=== PATIENT | female | born 1940 | race Caucasian/White ===

== ENCOUNTER 2020-04-23 06:58 | Inpatient (IN) | payer MEDICARE ==
[2020-04-23] MEDS ORDERED: IPRATROPIUM-ALBUTEROL 3 ML NEB INHALATION STA (07:22)
[2020-04-23] MEDS ORDERED: hydrALAZINE HCL 20 MG/ML 1 ML VIAL IVP STA (07:38)
[2020-04-23 07:45] LABS: VBG PH 7.39 (7.31-7.41)
[2020-04-23 07:46] LABS: Anisocytosis Slight; Basophils % (A) 1 %; Eosinophils # (A) 0.2 k/uL (0-0.7); Eosinophils % (A) 3 %; HGB 13.1 gm/dL (11.4-16.0); Hypochromasia Moderate; Lymphocytes # (A) 2.1 k/uL (1.0-4.8); Lymphocytes % (A) 28 %; MCH 27.8 pg (25.0-35.0); MCHC 32.1 g/dL (31.0-37.0); MCV 86.6 fL (80.0-100.0); Mean Platelet Volume 7.4; Monocytes # (A) 0.5 k/uL (0-1.0); Monocytes % (A) 6 %; Neutrophils # (A) 4.4 k/uL (1.3-7.7); Neutrophils % (A) 60 %; Platelet Count 206 k/uL (150-450); RBC 4.73 m/uL (3.80-5.40); RDW 16.4 % (11.5-15.5); WBC 7.4 k/uL (3.8-10.6)
[2020-04-23 07:49] LABS: Albumin 3.7 g/dL (3.5-5.0); Calcium 8.8 mg/dL (8.4-10.2); Magnesium 2.1 mg/dL (1.6-2.3); Potassium 4.3 mmol/L (3.5-5.1); Total Bilirubin 0.6 mg/dL (0.2-1.3); Total Protein 6.9 g/dL (6.3-8.2)
[2020-04-23 07:59] LABS: INR 0.9 (<1.2); Partial Thromboplastin Time 23.3 sec (22.0-30.0); Prothrombin Time 9.9 sec (9.0-12.0)
--- NOTE | 2020-04-23 08:03 | XR ---
EXAMINATION TYPE: XR chest 2V DATE OF EXAM: 04/23/2020 HISTORY: difficulty breathing. REFERENCE: NONE. FINDINGS: The heart is enlarged. There is mild vascular congestion and subtle interstitial change. Th ere is blunting of both CP angles and I cannot exclude small effusions. IMPRESSION: FINDINGS CONSISTENT WITH MILD HEART FAILURE.
--- NOTE | 2020-04-23 08:10 | ED ---
SOB HPI - General Source: patient, RN notes reviewed Mode of arrival: ambulatory Limitations: no limitations <Paresh Anand - Last Filed: 04/23/20 08:24> <Edilberto Ro - Last Filed: 04/23/20 08:36> - General Chief Complaint: Shortness of Breath Stated Complaint: LACHELLE Time Seen by Provider: 04/23/20 07:10 - History of Present Illness Initial Comments: This is a 79-year-old female presents emergency Department chief complaint of shortness of breath. Patient does have some chronic breathing issues including COPD, CHF. Patient is oxygen dependent and states that she recently moved from [place] states that she has not had any oxygen or medications for last 4 days. Patient states that she was intubated in September for her COPD. Patient states that she has no current chest pain she felt that she had a low-grade temp. Denies any nausea vomiting diarrhea constipation. Patient has a history of present illness. Patient states she has a cough which is nonproductive this time. Patient states that she's been wheezing. Patient denies any headache or dizziness. (Paresh Anand) - Related Data Allergies Allergy/AdvReac Type Severity Reaction Status Date / Time No Known Allergies Allergy Verified 04/23/20 08:33 Review of Systems ROS Other: All systems not noted in ROS Statement are negative. <Paresh Anand - Last Filed: 04/23/20 08:24> ROS Other: All systems not noted in ROS Statement are negative. <Edilberto Ro - Last Filed: 04/23/20 08:36> ROS Statement: Those systems with pertinent positive or pertinent negative responses have been documented in the HPI. Past Medical History Past Medical History: Asthma, Chest Pain / Angina, Heart Failure, COPD, Hyperlipidemia, Hypertension, Thyroid Disorder History of Any Multi-Drug Resistant Organisms: None Reported Past Surgical History: Hernia Repair Past Psychological History: No Psychological Hx Reported Smoking Status: Former smoker Past Alcohol Use History: None Reported Past Drug Use History: None Reported <Paresh Anand - Last Filed: 04/23/20 08:24> General Exam Limitations: no limitations General appearance: alert, in no apparent distress, obese Head exam: Present: atraumatic, normocephalic, normal inspection Eye exam: Present: normal appearance, PERRL, EOMI. Absent: scleral icterus, conjunctival injection, periorbital swelling ENT exam: Present: normal exam, normal oropharynx, mucous membranes moist Neck exam: Present: normal inspection, full ROM. Absent: tenderness, meningismus, lymphadenopathy Respiratory exam: Present: respiratory distress (Mild/moderate), wheezes, decreased breath sounds. Absent: normal lung sounds bilaterally, rales, rhonchi, stridor Cardiovascular Exam: Present: regular rate, normal rhythm, normal heart sounds. Absent: systolic murmur, diastolic murmur, rubs, gallop, clicks GI/Abdominal exam: Present: soft, normal bowel sounds. Absent: distended, ten derness, guarding, rebound, rigid Extremities exam: Present: pedal edema Skin exam: Present: warm, dry, intact, normal color, rash <Paresh Anand - Last Filed: 04/23/20 08:24> Course <Edilberto Ro - Last Filed: 04/23/20 08:36> Vital Signs 04/23/20 04/23/20 04/23/20 07:04 07:07 07:22 Temperature 98.2 F Pulse Rate 83 Respiratory 26 H 22 22 Rate Blood Pressure 205/104 O2 Sat by Pulse 89 L Oximetry 04/23/20 04/23/20 04/23/20 07:31 07:41 07:50 Temperature Pulse Rate 78 78 72 Respiratory Rate Blood Pressure O2 Sat by Pulse Oximetry 04/23/20 08:07 Temperature Pulse Rate 72 Respiratory 18 Rate Blood Pressure 137/63 O2 Sat by Pulse 96 Oximetry - Reevaluation(s) Reevaluation #1: 04/23/20 08:18 PA supervision: I proceeded [id number] evaluation the patient. She did present with complaints of shortness of breath. His been going on for 3-4 days. She just moved up from [place] in the past week after living down there for 13 ye ars. Her medications a nebulizer were apparently packed away in a storage unit and she has no access to them. She denied any overt fevers chills sweats or chest pain just shortness breath exertional dyspnea. The presentation is consistent with a COPD exacerbation with some evidence of CHF. X-ray does show evidence of mild heart failure as well as elevation the BNP. I examined the patient did demonstrate dyspnea and wheezes and rales on my exam. She will be admitted, the case discussed with [facility]. (Edilberto Ro) Reevaluation #2: 04/23/20 08:36 I did discuss case with Dr. Valle (Edilberto Ro) Medical Decision Making - Lab Data Result diagrams: 04/23/20 07:20 04/23/20 07:20 - EKG Data -: EKG Interpreted by Me <Paresh Anand - Last Filed: 04/23/20 08:24> - Lab Data Result diagrams: 04/23/20 07:20 04/23/20 07:20 <Edilberto Ro - Last Filed: 04/23/20 08:36> - Medical Decision Making 79-year-old female presented for dyspnea. Patient had labs EKG chest x-ray. Patient has COPD exacerbation with mild CHF exacerbation. Patient was given region, steroids, Lasix. Blood pressures improved after hydralazine. Patient will be admitted for further management and treatment. (Paresh Anand) - Lab Data Lab Results 04/23/20 04/23/20 04/23/20 Range/Units 07:20 07:20 07:20 WBC 7.4 (3.8-10.6) k/uL RBC 4.73 (3.80-5.40) m/uL Hgb 13.1 (11.4-16.0) gm/dL Hct 41.0 (34.0-46.0) % MCV 86.6 (80.0-100.0) fL MCH 27.8 (25.0-35.0) pg MCHC 32.1 (31.0-37.0) g/dL RDW 16.4 H (11.5-15.5) % Plt Count 206 (150-450) k/uL Neutrophils % 60 % Lymphocytes % 28 % Monocytes % 6 % Eosinophils % 3 % Basophils % 1 % Neutrophils # 4.4 (1.3-7.7) k/uL Lymphocytes # 2.1 (1.0-4.8) k/uL Monocytes # 0.5 (0-1.0) k/uL Eosinophils # 0.2 (0-0.7) k/uL Basophils # 0.0 (0-0.2) k/uL Hypochromasia Moderate Anisocytosis Slight PT 9.9 (9.0-12.0) sec INR 0.9 (<1.2) APTT 23.3 (22.0-30.0) sec VBG pH (7.31-7.41) VBG pCO2 (37-51) mmHg VBG HCO3 (24-28) mmol/L Sodium 140 (137-145) mmol/L Potassium 4.3 (3.5-5.1) mmol/L Chloride 106 (98-107) mmol/L Carbon Dioxide 29 (22-30) mmol/L Anion Gap 5 mmol/L BUN 22 H (7-17) mg/dL Creatinine 0.86 (0.52-1.04) mg/dL Est GFR (CKD-EPI)AfAm 74 (>60 ml/min/1.73 sqM) Est GFR (CKD-EPI)NonAf 65 (>60 ml/min/1.73 sqM) Glucose 110 H (74-99) mg/dL Plasma Lactic Acid Pete (0.7-2.0) mmol/L Calcium 8.8 (8.4-10.2) mg/dL Magnesium 2.1 (1.6-2.3) mg/dL Total Bilirubin 0.6 (0.2-1.3) mg/dL AST 24 (14-36) U/L ALT 16 (4-34) U/L Alkaline Phosphatase 81 (38-126) U/L Troponin I (0.000-0.034) ng/mL NT-Pro-B Natriuret Pep pg/mL Total Protein 6.9 (6.3-8.2) g/dL Albumin 3.7 (3.5-5.0) g/dL 04/23/20 04/23/20 04/23/20 Range/Units 07:20 07:20 07:20 WBC (3.8-10.6) k/uL RBC (3.80-5.40) m/uL Hgb (11.4-16.0) gm/dL Hct (34.0-46.0) % MCV (80.0-100.0) fL MCH (25.0-35.0) pg MCHC (31.0-37.0) g/dL RDW (11.5-15.5) % Plt Count (150-450) k/uL Neutrophils % % Lymphocytes % % Monocytes % % Eosinophils % % Basophils % % Neutrophils # (1.3-7.7) k/uL Lymphocytes # (1.0-4.8) k/uL Monocytes # (0-1.0) k/uL Eosinophils # (0-0.7) k/uL Basophils # (0-0.2) k/uL Hypochromasia Anisocytosis PT (9.0-12.0) sec INR (<1.2) APTT (22.0-30.0) sec VBG pH (7.31-7.41) VBG pCO2 (37-51) mmHg VBG HCO3 (24-28) mmol/L Sodium (137-145) mmol/L Potassium (3.5-5.1) mmol/L Chloride (98-107) mmol/L Carbon Dioxide (22-30) mmol/L Anion Gap mmol/L BUN (7-17) mg/dL Creatinine (0.52-1.04) mg/dL Est GFR (CKD-EPI)AfAm (>60 ml/min/1.73 sqM) Est GFR (CKD-EPI)NonAf (>60 ml/min/1.73 sqM) Glucose (74-99) mg/dL Plasma Lactic Acid Pete 1.2 (0.7-2.0) mmol/L Calcium (8.4-10.2) mg/dL Magnesium (1.6-2.3) mg/dL Total Bilirubin (0.2-1.3) mg/dL AST (14-36) U/L ALT (4-34) U/L Alkaline Phosphatase (38-126) U/L Troponin I 0.067 H* (0.000-0.034) ng/mL NT-Pro-B Natriuret Pep 2810 pg/mL Total Protein (6.3-8.2) g/dL Albumin (3.5-5.0) g/dL 04/23/20 Range/Units 07:20 WBC (3.8-10.6) k/uL RBC (3.80-5.40) m/uL Hgb (11.4-16.0) gm/dL Hct (34.0-46.0) % MCV (80.0-100.0) fL MCH (25.0-35.0) pg MCHC (31.0-37.0) g/dL RDW (11.5-15.5) % Plt Count (150-450) k/uL Neutrophils % % Lymphocytes % % Monocytes % % Eosinophils % % Basophils % % Neutrophils # (1.3-7.7) k/uL Lymphocytes # (1.0-4.8) k/uL Monocytes # (0-1.0) k/uL Eosinophils # (0-0.7) k/uL Basophils # (0-0.2) k/uL Hypochromasia Anisocytosis PT (9.0-12.0) sec INR (<1.2) APTT (22.0-30.0) sec VBG pH 7.39 (7.31-7.41) VBG pCO2 50 (37-51) mmHg VBG HCO3 30 H (24-28) mmol/L Sodium (137-145) mmol/L Potassium (3.5-5.1) mmol/L Chloride (98-107) mmol/L Carbon Dioxide (22-30) mmol/L Anion Gap mmol/L BUN (7-17) mg/dL Creatinine (0.52-1.04) mg/dL Est GFR (CKD-EPI)AfAm (>60 ml/min/1.73 sqM) Est GFR (CKD-EPI)NonAf (>60 ml/min/1.73 sqM) Glucose (74-99) mg/dL Plasma Lactic Acid Pete (0.7-2.0) mmol/L Calcium (8.4-10.2) mg/dL Magnesium (1.6-2.3) mg/dL Total Bilirubin (0.2-1.3) mg/dL AST (14-36) U/L ALT (4-34) U/L Alkaline Phosphatase (38-126) U/L Troponin I (0.000-0.034) ng/mL NT-Pro-B Natriuret Pep pg/mL Total Protein (6.3-8.2) g/dL Albumin (3.5-5.0) g/dL - EKG Data EKG Comments: EKG performed at 17 sinus rhythm with PAC left axis deviation right bundle rate of 99 MN 174 QRS 132 QT status QTC 382/490 (Paresh Anand) Disposition <Paresh Anand - Last Filed: 04/23/20 08:24> <Edilberto Ro - Last Filed: 04/23/20 08:36> Clinical Impression: CHF exacerbation, COPD exacerbation Disposition: ADMITTED IP TO THIS HOSP Condition: Fair Referrals: Nonstaff,Physician [Primary Care Provider] - 1-2 days
[2020-04-23] MEDS ORDERED: FUROSEMIDE 10 MG/ML 4 ML VIAL IV STA (08:14)
[2020-04-23] MEDS ORDERED: methylPREDNISolone SOD SUCCI 125 MG/2 ML VIAL IV STA (08:21)
[2020-04-23] MEDS: IPRATROPIUM-ALBUTEROL 3 ML NEB INHALATION SCH ×3 (11:27→19:18)
[2020-04-23] MEDS ORDERED: [UNRECOGNIZED DRUG - OTHER] TOPICAL PRN (11:40)
[2020-04-23] MEDS ORDERED: LIDOCAINE 4% CREAM 5 GM TUBE TOPICAL PRN (11:40)
[2020-04-23] MEDS: LEVOTHYROXINE 50 MCG TAB PO SCH (12:30)
[2020-04-23] MEDS: methylPREDNISolone SOD SUCCI 125 MG/2 ML VIAL IV SCH ×2 (17:20→23:40)
[2020-04-23] MEDS: HEPARIN SODIUM,PORCINE 5,000 UNIT/ML 1 ML VIAL SQ SCH ×2 (17:21→23:40)
--- NOTE | 2020-04-23 19:51 | US ---
EXAMINATION TYPE: US venous doppler duplex LE BI DATE OF EXAM: 04/23/2020 6:17 PM COMPARISON: NONE CLINICAL HISTORY: 79-year-old female R/O DVT. Bilateral LE swelling with CHF, and COPD Exacerbation SIDE PERFORMED: Bilateral TECHNIQUE: The lower extremity deep venous system is examined utilizing real time linear array sonog cassidy with graded compression, doppler sonography and color-flow sonography. FINDINGS: VESSELS IMAGED: Common Femoral Vein Deep Femoral Vein Greater Saphenous Vein * Femoral Vein Popliteal Vein Small Saphenous Vein * Proximal Calf Veins (* superficial vessels) Right Leg: Negative for DVT. Language Assistant notes: US exam is technically limited by patient's body hab itus and especially at right Popliteal Vein due to right Popliteal Fossa Cyst (4.1 x 2.1 x 1.2cm) not ed superficial to vessels. Color flow patency and compressibility is present at Right Popliteal Vein, but calf veins are not well seen. Left Leg: Negative for DVT IMPRESSION: 1. No evidence for DVT within the right lower extremity imaged from the groin to the knee. Upper calf veins are inadequately assessed due to the presence of a small to moderate sized 4.1 x 2.1 cm Espinoza' s cyst. However, the posterior tibial veins in the right calf appear patent. 2. No evidence for DVT within the left lower extremity imaged from the groin to the knee.
[2020-04-23] MEDS: TIMOLOL 0.5% OPHTH DROPS 5 ML BTL BOTH EYES SCH (20:58)
[2020-04-23] MEDS: BRIMONIDINE TARTRATE 0.2% DROPS 5 ML BTL BOTH EYES SCH (20:58)
[2020-04-23] MEDS: CARVEDILOL 3.125 MG TAB PO SCH (21:00)
[2020-04-23] MEDS: MONTELUKAST 5 MG CHEWABLE PO SCH (21:00)
[2020-04-23] MEDS: FUROSEMIDE 10 MG/ML 4 ML VIAL IV SCH (21:01)
--- NOTE | 2020-04-23 23:01 | P.HPIM ---
History of Present Illness H&P Date: 04/23/20 Chief Complaint: LACHELLE Patient is a 79-year-old female with a known history of COPD on home oxygen at 2 L via nasal cannula., Morbid obesity BMI 50.1, hypertension, hyperlipidemia, hypothyroidism and previous history of smoking presents to ER with complaints of shortness of breath getting worse for the past 4 days. Patient also states that she did have right lower extremity swelling more than left recently. Patient traveling to [place] from [place] by car and reached [place] on last Saturday. Patient presents to ER with worsening symptoms. Patient does have cough without any sputum production. Denied any chest pain. Denied any nausea vomiting abdominal pain or diarrhea. No recent illnesses. No headache or dizziness or lightheadedness. Chest x-ray showed findings consistent with mild heart failure EKG showed sinus rhythm with occasional premature ventricular complexes. Laboratory data showed WBC 7.4, hemoglobin 13.1, MCV 86.6 and RDW 16.4 platelets 206, Sodium level 140, potassium 4.3, chloride 106, BUN 2020 creatinine 0.86 Liver enzymes are not elevated Troponin 0 0.067, 0.065 proBNP 2810 Review of Systems Constitutional: Patient denies any fever or chills . No generalized weakness or weight loss. Abdomen: Patient denied nausea vomiting and diarrhea and abdominal pain. Cardiovascular: Patient denies any chest pain or short of breath no palpitations. Respiratory: patient denied any cough is from production. No shortness of breath Neurologic: Patient denied any numbness or tingling headache. Musculoskeletal: Patient denies any complaints of joint swelling or deformity. Skin: Negative Psychiatric: Negative Endocrine: No heat or cold intolerance. No recent weight gain. Genitourinary: No dysuria or hematuria. All other 14 point ROS negative except the above Past Medical History Past Medical History: Asthma, Chest Pain / Angina, Heart Failure, COPD, Hyperlipidemia, Hypertension, Thyroid Disorder History of Any Multi-Drug Resistant Organisms: None Reported Past Surgical History: Hernia Repair Past Psychological History: No Psychological Hx Reported Smoking Status: Former smoker Past Alcohol Use History: None Reported Past Drug Use History: None Reported Medications and Allergies Home Medications Medication Instructions Recorded Confirmed Type Aspirin EC [Ecotrin Low Dose] 81 mg PO DAILY 04/23/20 04/23/20 History Brimonidine Tartrate [Alphagan P 1 drop BOTH EYES BID 04/23/20 04/23/20 History 0.2% Ophth Soln] Carvedilol [Coreg] 3.125 mg PO BID 04/23/20 04/23/20 History Furosemide [Lasix] 20 mg PO DAILY 04/23/20 04/23/20 History Levothyroxine Sodium [Synthroid] 50 mcg PO DAILY 04/23/20 04/23/20 History Lidocaine 4% Cream [Lmx 4] 1 applic TOPICAL DAILY PRN 04/23/20 04/23/20 History Lisinopril-Hctz 20-12.5 mg 1 tab PO DAILY 04/23/20 04/23/20 History [Zestoretic 20-12.5] Montelukast Sodium [Singulair] 5 mg PO HS 04/23/20 04/23/20 History Neurogen 1 applic TOPICAL DAILY PRN 04/23/20 04/23/20 History Sertraline HCl [Zoloft] 50 mg PO BID PRN 04/23/20 04/23/20 History Timolol 0.5% Ophth Soln [Timoptic 1 drop BOTH EYES BID 04/23/20 04/23/20 History 0.5% Ophth Soln] Allergies Allergy/AdvReac Type Severity Reaction Status Date / Time No Known Allergies Allergy Verified 04/23/20 08:33 Physical Exam Vitals: Vital Signs Temp Pulse Resp BP Pulse Ox 04/23/20 11:39 78 04/23/20 11:26 80 04/23/20 11:00 78 18 125/73 96 04/23/20 10:00 69 18 127/70 96 04/23/20 09:00 18 96 04/23/20 08:07 72 18 137/63 96 04/23/20 07:50 72 04/23/20 07:41 78 04/23/20 07:31 78 04/23/20 07:22 22 04/23/20 07:07 22 04/23/20 07:04 98.2 F 83 26 H 205/104 89 L Intake and Output 04/22/20 04/23/20 04/23/20 22:59 06:59 14:59 Output Total 250 Balance -250 Output: Urine 250 Uretheral (Ren) 250 Other: Weight 112.491 kg PHYSICAL EXAMINATION: Patient is lying in the bed comfortably, no acute distress, awake alert and oriented.. HEENT: Normocephalic. Neck is supple. Pupils reactive. Nostrils clear. Oral cavity is moist. Ears reveal no drainage. Neck reveals no JVD, carotid bruits, or thyromegaly. CHEST EXAMINATION: Trachea is central. Symmetrical expansion.mild exp wheeze,remaining Lung witt clear to auscultation and percussion. CARDIAC: Normal S1, S2 with no gallops. No murmurs ABDOMEN: Soft. Bowel sounds normal. No organomegaly. No abdominal bruits. Extremities: 2+ edema. No clubbing or cyanosis Neurologically awake, alert, oriented x3 with well-coordinated movements. No focal deficits noted Skin: No rash or skin lesions. Psychiatric: Coperative. Nonsuicidal Musculoskeletal: No joint swelling or deformity. Normal range of motion. Results CBC & Chem 7: 04/23/20 07:20 04/23/20 07:20 Labs: Abnormal Lab Results - Last 24 Hours (Table) 04/23/20 04/23/20 04/23/20 Range/Units 07:20 07:20 07:20 RDW 16.4 H (11.5-15.5) % VBG HCO3 (24-28) mmol/L BUN 22 H (7-17) mg/dL Glucose 110 H (74-99) mg/dL Troponin I 0.067 H* (0.000-0.034) ng/mL 04/23/20 Range/Units 07:20 RDW (11.5-15.5) % VBG HCO3 30 H (24-28) mmol/L BUN (7-17) mg/dL Glucose (74-99) mg/dL Troponin I (0.000-0.034) ng/mL Assessment and Plan Assessment: Acute CHF. Ejection fraction unknown. New onset. Elevated troponin level possible non-ST related [place] Bilateral leg swelling right greater than left with recent long distance travel. Rule out DVT/PE Acute COPD exacerbation Chronic hypoxic respiratory failure on oxygen at 2 L at home Hypertension Hyperlipidemia Hypothyroidism Previous history of smoking Morbid obesity with a BMI 50.1 Possible obstructive sleep apnea DVT prophylaxis with heparin subcu Plan: Patient will be continued on IV diuresis with Lasix and breathing treatments and IV steroids. Continue with aspirin and statins and Coreg. Monitor renal function. Bilateral lower extremity duplex scan was ordered to rule out any DVT. Continue to follow closely and further recommendations based on the clinical course. Time with Patient: Greater than 30
[2020-04-24] MEDS: IPRATROPIUM-ALBUTEROL 3 ML NEB INHALATION SCH ×6 (01:15→19:05)
[2020-04-24 05:49] LABS: Glucose,Whole Blood 167 mg/dL (75-99)
[2020-04-24] MEDS: LEVOTHYROXINE 50 MCG TAB PO SCH (06:32)
[2020-04-24] MEDS: CARVEDILOL 3.125 MG TAB PO SCH ×2 (06:32→17:49)
[2020-04-24] MEDS: INSULIN ASPART (NovoLOG) 100 UNIT/ML VIAL SQ SCH ×2 (06:33→12:47)
[2020-04-24 07:18] LABS: Anisocytosis Slight; Basophils % (A) 0 %; Eosinophils % (A) 0 %; HCT 41.2 % (34.0-46.0); HGB 12.5 gm/dL (11.4-16.0); Hypochromasia Moderate; Lymphocytes # (A) 0.8 k/uL (1.0-4.8); Lymphocytes % (A) 8 %; MCH 26.1 pg (25.0-35.0); MCHC 30.2 g/dL (31.0-37.0); MCV 86.4 fL (80.0-100.0); Mean Platelet Volume 7.4; Monocytes # (A) 0.2 k/uL (0-1.0); Monocytes % (A) 2 %; Neutrophils # (A) 8.3 k/uL (1.3-7.7); Neutrophils % (A) 89 %; Platelet Count 212 k/uL (150-450); RBC 4.77 m/uL (3.80-5.40); RDW 16.5 % (11.5-15.5); WBC 9.3 k/uL (3.8-10.6)
[2020-04-24 07:20] LABS: Calcium 8.7 mg/dL (8.4-10.2); Potassium 4.8 mmol/L (3.5-5.1)
[2020-04-24] MEDS: HEPARIN SODIUM,PORCINE 5,000 UNIT/ML 1 ML VIAL SQ SCH ×3 (09:07→23:15)
[2020-04-24] MEDS: FUROSEMIDE 10 MG/ML 4 ML VIAL IV SCH ×2 (09:08→20:16)
[2020-04-24] MEDS: ASPIRIN 81 MG PO SCH (09:08)
[2020-04-24] MEDS: BRIMONIDINE TARTRATE 0.2% DROPS 5 ML BTL BOTH EYES SCH ×2 (09:08→20:15)
[2020-04-24] MEDS: TIMOLOL 0.5% OPHTH DROPS 5 ML BTL BOTH EYES SCH ×2 (09:08→20:15)
[2020-04-24] MEDS: methylPREDNISolone SOD SUCCI 125 MG/2 ML VIAL IV SCH (09:08)
[2020-04-24 11:25] LABS: Glucose,Whole Blood 158 mg/dL (75-99)
[2020-04-24 13:25] VITALS: BMI 50.7
[2020-04-24 16:25] LABS: Glucose,Whole Blood 142 mg/dL (75-99)
[2020-04-24] MEDS: MONTELUKAST 5 MG CHEWABLE PO SCH (20:15)
[2020-04-24] MEDS: guaiFENesin 600 MG TABLET.ER PO SCH (20:16)
[2020-04-24 21:05] LABS: Glucose,Whole Blood 143 mg/dL (75-99)
[2020-04-25] MEDS: IPRATROPIUM-ALBUTEROL 3 ML NEB INHALATION SCH ×7 (00:02→23:53)
--- NOTE | 2020-04-25 01:40 | P.PN ---
Subjective Progress Note Date: 04/24/20 Principal diagnosis: Acute CHF.. Ejection fraction unknown. Acute COPD exacerbation Patient is a 79-year-old female with a known history of COPD on home oxygen at 2 L via nasal cannula., Morbid obesity BMI 50.1, hypertension, hyperlipidemia, hypothyroidism and previous history of smoking presents to ER with complaints of shortness of breath getting worse for the past 4 days. Patient also states that she did have right lower extremity swelling more than left recently. Patient traveling to [place] from [place] by car and reached [place] on last Saturday. Patient presents to ER with worsening symptoms. Patient does have cough without any sputum production. Denied any chest pain. Denied any nausea vomiting abdominal pain or diarrhea. No recent illnesses. No headache or dizziness or lightheadedness. Chest x-ray showed findings consistent with mild heart failure EKG showed sinus rhythm with occasional premature ventricular complexes. Laboratory data showed WBC 7.4, hemoglobin 13.1, MCV 86.6 and RDW 16.4 platelets 206, Sodium level 140, potassium 4.3, chloride 106, BUN 2020 creatinine 0.86 Liver enzymes are not elevated Troponin 0 0.067, 0.065 proBNP 2810 04/24/2020 Patient is currently lying in the bed comfortably. Awake alert and oriented x3. Breathing status is improving. Currently on oxygen at 3 L via nasal cannula. Patient has been afebrile. Denies any cough or sputum production. Leg swelling is improving. Lasix changed to by mouth. 2D echocardiogram was ordered. Lung examination reveals no evidence of wheezing at this time. Continue with breathing treatments. Cardiology and pulmonary were consulted. Bilateral lower extremity duplex scan is negative for DVT. Current medications reviewed. Objective - Vital Signs Vital signs: Vital Signs Temp 98.8 F 04/24/20 20:00 Pulse 76 04/24/20 20:00 Resp 18 04/24/20 20:00 BP 115/58 04/24/20 20:00 Pulse Ox 92 L 04/24/20 20:00 Intake & Output 04/24/20 04/24/20 04/25/20 06:59 18:59 06:59 Intake Total 480 120 Output Total 575 1500 Balance -575 -1020 120 Weight 114 kg 114 kg Intake: Oral 480 120 Output: Urine 575 1500 Other: Voiding Method Indwelling Catheter Indwelling Catheter Indwelling Catheter # Voids 3 - Exam PHYSICAL EXAMINATION: Patient is lying in the bed comfortably, no acute distress, awake alert and oriented.. HEENT: Normocephalic. Neck is supple. Pupils reactive. Nostrils clear. Oral cavity is moist. Ears reveal no drainage. Neck reveals no JVD, carotid bruits, or thyromegaly. CHEST EXAMINATION: Trachea is central. Symmetrical expansion.no wheeze,remaining Lung witt clear to auscultation and percussion. CARDIAC: Normal S1, S2 with no gallops. No murmurs ABDOMEN: Soft. Bowel sounds normal. No organomegaly. No abdominal bruits. Extremities: 2+ edema. No clubbing or cyanosis Neurologically awake, alert, oriented x3 with well-coordinated movements. No focal deficits noted Skin: No rash or skin lesions. Psychiatric: Coperative. Nonsuicidal Musculoskeletal: No joint swelling or deformity. Normal range of motion. - Labs CBC & Chem 7: 04/24/20 06:25 04/24/20 06:25 Labs: Abnormal Lab Results - Last 24 Hours (Table) 04/24/20 04/24/20 04/24/20 Range/Units 05:48 06:25 06:25 MCHC 30.2 L (31.0-37.0) g/dL RDW 16.5 H (11.5-15.5) % Neutrophils # 8.3 H (1.3-7.7) k/uL Lymphocytes # 0.8 L (1.0-4.8) k/uL Carbon Dioxide 31 H (22-30) mmol/L BUN 31 H (7-17) mg/dL Glucose 162 H (74-99) mg/dL POC Glucose (mg/dL) 167 H (75-99) mg/dL 04/24/20 04/24/20 04/24/20 Range/Units 11:24 16:23 21:03 MCHC (31.0-37.0) g/dL RDW (11.5-15.5) % Neutrophils # (1.3-7.7) k/uL Lymphocytes # (1.0-4.8) k/uL Carbon Dioxide (22-30) mmol/L BUN (7-17) mg/dL Glucose (74-99) mg/dL POC Glucose (mg/dL) 158 H 142 H 143 H (75-99) mg/dL Microbiology - Last 24 Hours (Table) 04/23/20 08:20 Blood Culture - Preliminary Blood No Growth after 24 hours Assessment and Plan Assessment: Acute CHF. Ejection fraction unknown. New onset. Elevated troponin level possible non-ST related [place] Bilateral leg swelling right greater than left with recent long distance travel. Ruled out DVT/PE mild Acute COPD exacerbation improving Chronic hypoxic respiratory failure on oxygen at 2 L at home Hypertension Hyperlipidemia Hypothyroidism Previous history of smoking Morbid obesity with a BMI 50.1 Possible obstructive sleep apnea DVT prophylaxis with heparin subcu Plan: Patient was continued on IV diuresis with Lasix --PO lasix and breathing treatments and IV steroids. Continue with aspirin and statins and Coreg. Monitor renal function. Bilateral lower extremity duplex scan was ordered to rule out any DVT. negative for DVT. Continue to follow closely and further recommendations based on the clinical course. Time with Patient: Greater than 30
--- NOTE | 2020-04-25 03:33 | CONS ---
CONSULTATION PULMONARY/CRITICAL CARE CONSULTATION: DATE OF CONSULTATION: April 24, 2020 This is an 79-year-old female who we were asked to see because of shortness of breath. She is an 79-year-old female who used to reside in [place], but more recently has lived in [place] for a number of years. She just got back to the [place] area recently. She states that for the last week or so, she has been noticing increasing shortness of breath. In addition, she has had some tightness in her chest and wheezing and has noted that her legs have been more swollen. The patient apparently was diagnosed as having asthma/COPD down in [place] by 2 doctors. Anyway, the patient states that she smoked for a brief period of time many years back. She also was diagnosis as having asthma many years back. The patient's chest x-ray is consistent with fluid overload and her examination today is more consistent with CHF/fluid overload. She also does suffer from CHF. She denies any fever or chills. She denies any significant cough. She is primarily short of breath. She does have some wheezing. She has some chest tightness. She denies any nausea, vomiting, diarrhea, or abdominal pain. She denies any genitourinary complaints. She really denied any other major issues. HOME MEDICATIONS: Her home medications apparently included Timoptic drops, aspirin, Zoloft, lisinopril/hydrochlorothiazide, 4% lidocaine cream, levothyroxine, Coreg, Singulair and Lasix. ALLERGIES: Allergies are denied. MEDICAL HISTORY: Medical history is positive for asthma/COPD, angina, heart failure, hyperlipidemia, hypertension, and hypothyroidism. SURGICAL HISTORY: Surgical history includes hernia repair. SOCIAL HISTORY: Positive for remote brief tobacco use. She denies any alcohol or illicit drug use. FAMILY HISTORY: Noncontributory. Both mother and father were apparently relatively healthy. REVIEW OF SYSTEMS: CONSTITUTIONAL: Negative. NEUROLOGIC: Negative. HEENT: Negative. CARDIOVASCULAR: Negative. PULMONARY: Shortness of breath, chest tightness and wheezing. GI: Negative. : Negative. RHEUMATOLOGIC: Negative. IMMUNOLOGIC: Negative. ENDOCRINOLOGIC: Negative. DERMATOLOGIC: Negative. She does complain of significant lower extremity edema. PHYSICAL EXAMINATION: VITAL SIGNS: Current vital signs are reviewed. Temperature is 98, heart rate 57, respiratory rate 16, blood pressure 133/64, mean 87 and 2 L saturation 97%. GENERAL: She appears in no acute distress. HEENT: Examination is grossly unremarkable. NECK: Supple. Full range of motion. No adenopathy. Neck veins are flat. She has multiple skin tags. CARDIOVASCULAR: Examination reveals regular rhythm and rate. Heart rate 67. S1, S2 normal. Heart sounds are distant. LUNGS: Reveals mostly bibasilar crackles. A few scattered mild rhonchi. No wheezes are noted. Breath sounds equal bilaterally. ABDOMEN: Obese. Bowel sounds are heard. EXTREMITIES: Reveal significant pitting edema. There is some chronic venous stasis changes and hyperpigmentation noted of the lower extremities. No cyanosis or clubbing. SKIN: Is otherwise without rash. NEUROLOGIC: Examination is brief but nonfocal. LABS: Labs are reviewed. White count 9.3, hemoglobin 12.5, hematocrit 41.2, platelet count 212,000. Sodium 140, potassium 4.8, chloride 102, CO2 of 31. Anion gap is 7. BUN and creatinine 31 and 1.03. Glucose 162. Troponins were 0.067 and 0.05. N terminal proBNP was 2810. Microbiology is currently pending or negative. Dopplers of lower extremity were negative for DVT. Chest x-ray is most consistent with fluid overload/CHF. MEDICATIONS: Medications are reviewed. She is currently on aspirin, eye drops, Coreg, Lasix, subcu heparin, hydralazine, insulin, DuoNeb, levothyroxine, lidocaine cream, Solu- Medrol, Singulair and additional eye drops. The Solu-Medrol will be discontinued. She really does not need that at this time. ASSESSMENT: 1. Shortness of breath, most likely related to underlying congestive heart failure. There may be a small component of asthma exacerbation. I doubt the patient has significant chronic obstructive pulmonary disease. 2. History of angina/chest pain. 3. History of congestive heart failure. 4. History of hyperlipidemia. 5. Hypertension. 6. Hypothyroidism. 7. Obesity. 8. Chronic lower extremity edema with chronic venous stasis and hyperpigmentation. PLAN: The patient's steroids are discontinued. She is on DuoNeb. She is on her Singulair. She does not have a doctor in this area. She lives out by [facility]. She will need to find a family physician. Dopplers of lower extremity were negative. It is unlikely that she has significant COPD given her smoking history. It is much more likely she has mild intermittent asthma. MMODL / IJN: [id number] / DAVID
[2020-04-25 05:49] LABS: Glucose,Whole Blood 101 mg/dL (75-99)
[2020-04-25] MEDS: LEVOTHYROXINE 50 MCG TAB PO SCH (06:32)
[2020-04-25] MEDS: CARVEDILOL 3.125 MG TAB PO SCH ×2 (06:32→17:07)
[2020-04-25 08:06] LABS: Anisocytosis Slight; Basophils % (A) 0 %; Eosinophils % (A) 0 %; HCT 39.6 % (34.0-46.0); HGB 11.7 gm/dL (11.4-16.0); Hypochromasia Moderate; Lymphocytes # (A) 1.5 k/uL (1.0-4.8); Lymphocytes % (A) 13 %; MCH 25.8 pg (25.0-35.0); MCHC 29.6 g/dL (31.0-37.0); Mean Platelet Volume 7.2; Monocytes # (A) 0.7 k/uL (0-1.0); Monocytes % (A) 6 %; Neutrophils # (A) 9.1 k/uL (1.3-7.7); Neutrophils % (A) 79 %; Platelet Count 210 k/uL (150-450); RBC 4.55 m/uL (3.80-5.40); RDW 16.5 % (11.5-15.5); WBC 11.5 k/uL (3.8-10.6)
[2020-04-25 08:19] LABS: Calcium 8.7 mg/dL (8.4-10.2); Potassium 4.4 mmol/L (3.5-5.1)
[2020-04-25] MEDS ORDERED: FUROSEMIDE 40 MG TAB PO SCH (09:00)
[2020-04-25] MEDS: ASPIRIN 81 MG PO SCH (09:15)
[2020-04-25] MEDS: BRIMONIDINE TARTRATE 0.2% DROPS 5 ML BTL BOTH EYES SCH ×2 (09:15→20:25)
[2020-04-25] MEDS: HEPARIN SODIUM,PORCINE 5,000 UNIT/ML 1 ML VIAL SQ SCH ×3 (09:15→23:25)
[2020-04-25] MEDS: guaiFENesin 600 MG TABLET.ER PO SCH ×2 (09:15→20:26)
[2020-04-25] MEDS: TIMOLOL 0.5% OPHTH DROPS 5 ML BTL BOTH EYES SCH ×2 (09:16→20:25)
[2020-04-25] MEDS ORDERED: FUROSEMIDE 10 MG/ML 4 ML VIAL IV STA (09:21)
[2020-04-25] MEDS: LISINOPRIL 10 MG TAB PO SCH (09:30)
--- NOTE | 2020-04-25 10:46 | P.PN ---
Subjective from the records Patient is a 79-year-old female with a known history of COPD on home oxygen at 2 L via nasal cannula., Morbid obesity BMI 50.1, hypertension, hyperlipidemia, hypothyroidism and previous history of smoking presents to ER with complaints of shortness of breath getting worse for the past 4 days. Patient also states that she did have right lower extremity swelling more than left recently. Patient traveling to [place] from [place] by car and reached [place] on last Saturday. Patient presents to ER with worsening symptoms. Patient does have cough without any sputum production. Denied any chest pain. Denied any nausea vomiting abdominal pain or diarrhea. No recent illnesses. No headache or dizziness or lightheadedness. Chest x-ray showed findings consistent with mild heart failure EKG showed sinus rhythm with occasional premature ventricular complexes. Laboratory data showed WBC 7.4, hemoglobin 13.1, MCV 86.6 and RDW 16.4 platelets 206, Sodium level 140, potassium 4.3, chloride 106, BUN 2020 creatinine 0.86 Liver enzymes are not elevated Troponin 0 0.067, 0.065 proBNP 2810 04/24/2020 Patient is currently lying in the bed comfortably. Awake alert and oriented x3. Breathing status is improving. Currently on oxygen at 3 L via nasal cannula. Patient has been afebrile. Denies any cough or sputum production. Leg swelling is improving. Lasix changed to by mouth. 2D echocardiogram was ordered. Lung examination reveals no evidence of wheezing at this time. Continue with breathing treatments. Cardiology and pulmonary were consulted. Bilateral lower extremity duplex scan is negative for DVT. subjective: 04/25/2020 this is a pleasant 79 years old female who presents on acute CHF and elevated troponin suspicious for non-STEMI. She is currently on aspirin, subcutaneous heparin and intravenous Lasix. She is lying in bed comfortable with her dyspnea improved. With denied chest pain alittle cough and although felt wet but nothing coming up. She has a Ren catheter which was placed in the hospital. Patient has little leg swelling. Patient used to be in [place] but just moved to do the area. Cardiology on the case. Echocardiogram was done and the result is pending Objective - Vital Signs Vital signs: Vital Signs Temp 97.9 F 04/25/20 08:00 Pulse 76 04/25/20 08:29 Resp 18 04/25/20 08:00 BP 136/60 04/25/20 08:00 Pulse Ox 92 L 04/25/20 08:00 Intake & Output 04/24/20 04/25/20 04/25/20 18:59 06:59 18:59 Intake Total 480 120 120 Output Total 1500 2200 Balance -1020 -2080 120 Weight 114 kg 112.8 kg Intake: Oral 480 120 120 Output: Urine 1500 2200 Other: Voiding Method Indwelling Catheter Indwelling Catheter # Voids 3 - Exam GENERAL: The patient is alert and oriented x3, not in any acute distress. Well developed, well nourished. HEENT: Pupils are round and equally reacting to light. EOMI. No scleral icterus. No conjunctival pallor. Normocephalic, atraumatic. No pharyngeal erythema. No thyromegaly. CARDIOVASCULAR: S1 and S2 present. No murmurs, rubs, or gallops. -PULMONARY: Chest is clear to auscultation, no wheezing. Bilateral basal crepitation ABDOMEN: Soft, nontender, nondistended, normoactive bowel sounds. No palpable organomegaly. MUSCULOSKELETAL: No joint swelling or deformity. -EXTREMITIES: No cyanosis, clubbing, . Mild bilateral leg edema. NEUROLOGICAL: Gross neurological examination did not reveal any focal deficits. SKIN: No rashes. no petechiae. - Labs CBC & Chem 7: 04/25/20 07:16 04/25/20 07:16 Labs: Abnormal Lab Results - Last 24 Hours (Table) 04/24/20 04/24/20 04/24/20 Range/Units 11:24 16:23 21:03 WBC (3.8-10.6) k/uL MCHC (31.0-37.0) g/dL RDW (11.5-15.5) % Neutrophils # (1.3-7.7) k/uL Carbon Dioxide (22-30) mmol/L BUN (7-17) mg/dL Creatinine (0.52-1.04) mg/dL POC Glucose (mg/dL) 158 H 142 H 143 H (75-99) mg/dL 04/25/20 04/25/20 04/25/20 Range/Units 05:47 07:16 07:16 WBC 11.5 H (3.8-10.6) k/uL MCHC 29.6 L (31.0-37.0) g/dL RDW 16.5 H (11.5-15.5) % Neutrophils # 9.1 H (1.3-7.7) k/uL Carbon Dioxide 34 H (22-30) mmol/L BUN 46 H (7-17) mg/dL Creatinine 1.17 H (0.52-1.04) mg/dL POC Glucose (mg/dL) 101 H (75-99) mg/dL Microbiology - Last 24 Hours (Table) 04/23/20 08:20 Blood Culture - Preliminary Blood No Growth after 48 hours Assessment and Plan Assessment: Acute CHF. Ejection fraction unknown. New onset. Elevated troponin level possible non-ST related PA Bilateral leg swelling right greater than left with recent long distance travel. Ruled out DVT/PE mild Acute COPD exacerbation improving Chronic hypoxic respiratory failure on oxygen at 2 L at home Hypertension Hyperlipidemia Hypothyroidism Previous history of smoking Morbid obesity with a BMI 50.1 Possible obstructive sleep apnea Plan: this is a pleasant 79 years old female who presents with acute CHF. Follow-up echocardiogram. Cardiology of the case. Continue with Lasix intravenously and monitor electrolytes in weight. Continue with aspirin. Labs and medication were reviewed.. Continue same treatment. Continue with symptomatic treatment. Resume home medication. Monitor lytes and vitals. DVT and GI prophylaxis. Further recommendations of the clinical course of the patient DVT prophylaxis: Subcutaneous heparin GI Prophylaxis: Pepcid PT/OT: Pending Prognosis is guarded
--- NOTE | 2020-04-25 11:52 | ECHOF ---
Referral Reason:Rule out heart disease MEASUREMENTS -------- HEIGHT: 129.5 cm WEIGHT: 112.5 kg BP: 145/75 RVIDd: 2.6 cm (< 3.3) IVSd: 2.4 cm (0.6 - 1.1) LVIDd: 3.0 cm (3.9 - 5.3) LVPWd: 2.3 cm (0.6 - 1.1) IVSs: 2.6 cm LVIDs: 2.5 cm LVPWs: 2.4 cm Ao Diam: 3.0 cm (2.0 - 3.7) AV Cusp: 1.4 cm (1.5 - 2.6) LA Diam: 3.2 cm (2.7 - 3.8) MV EXCURSION: 11.800 mm (> 18.000) MV EF SLOPE: 46 mm/s (70 - 150) EPSS: 1.4 cm MV E Jona: 0.77 m/s MV DecT: 237 ms MV A Jona: 0.74 m/s MV E/A Ratio: 1.05 AR PHT: 431 ms RAP: 15.00 mmHg RVSP: 19.27 mmHg FINDINGS -------- Resting bradycardia (HR<60bpm). This was a technically adequate study. The left ventricular size is normal. There is severe concentric left ventricular hypertrophy. Ove rall left ventricular systolic function is low-normal with, an EF between 50 - 55 %. The right ventricle is normal in size. The left atrial size is normal. The right atrial size is normal. Interatrial and interventricular septum intact. The aortic valve is trileaflet and appears structurally normal. Trace amount of aortic regurgitatio n. The mitral valve is normal. The mitral valve leaflets are mildly thickened. Mild mitral regurgita tion is present. The tricuspid valve appears structurally normal. Mild tricuspid regurgitation present. Right vent ricular systolic pressure is normal at < 35 mmHg. There is no pulmonic regurgitation present. The aortic root size is normal. The inferior vena cava is mildly dilated. There is no pericardial effusion. CONCLUSIONS -------- 1. Resting bradycardia (HR<60bpm). 2. This was a technically adequate study. 3. The left ventricular size is normal. 4. There is severe concentric left ventricular hypertrophy. 5. Overall left ventricular systolic function is low-normal with, an EF between 50 - 55 %. 6. The right ventricle is normal in size. 7. The left atrial size is normal. 8. The right atrial size is normal. 9. Interatrial and interventricular septum intact. 10. The aortic valve is trileaflet and appears structurally normal. 11. Trace amount of aortic regurgitation. 12. The mitral valve is normal. 13. The mitral valve leaflets are mildly thickened. 14. Mild mitral regurgitation is present. 15. The tricuspid valve appears structurally normal. 16. Mild tricuspid regurgitation present. 17. Right ventricular systolic pressure is normal at < 35 mmHg. 18. There is no pulmonic regurgitation present. 19. The aortic root size is normal. 20. The inferior vena cava is mildly dilated. 21. There is no pericardial effusion. CLINICAL RESEARCH SCIENTIST: Francesca Louis RDCS
--- NOTE | 2020-04-25 13:21 | CONS ---
TRAVIS Mitchell is an 79-year-old lady with history of hypothyroidism, hypertension, asthma, who used to live in [place] and has recently moved back to [place]. Comes in complaining of bilateral leg edema and shortness of breath. She carries a history of asthma and has had respiratory failure requiring intubation back in September of last year and subsequently had symptoms of heart failure. On this admission initially they thought it was COPD exacerbation. Patient had been evaluated by pipe line repairer who felt her clinical presentation is more consistent with a diagnosis of congestive heart failure. Her chest x-ray shows pulmonary congestion. She had been treated with diuretics with some improvement in her symptoms. The patient does not have a history of coronary artery disease or valvular heart disease. She tells me that she had prior stress test and was told they were normal. At the time of my evaluation this morning she appears comfortable at rest, she is not in respiratory distress. Her O2 sat is 98% on 2 L. I do not have her LV function. Her clinical presentation is consistent with acute exacerbation of chronic congestive heart failure which is probably diastolic. PAST MEDICAL HISTORY: Significant for hypertension and COPD and hypothyroidism. CURRENT MEDICATIONS: Include Synthroid Coreg, Singulair, Lasix 20 daily, lidocaine, Zestoretic, Zoloft, aspirin, timolol. ALLERGIES: There are no known drug allergies. FAMILY HISTORY: Negative for premature coronary artery disease. SOCIAL HISTORY: Negative for current smoking, EtOH abuse, or drug abuse. She used to smoke cigarettes, but quit more than 40 years ago. REVIEW OF SYSTEMS: HEENT is unremarkable. Cardiac as described above. Respiratory as described above. GI negative. Genitourinary negative. Allergy negative. Immunologic negative. Skin negative. Musculoskeletal significant for arthritis. Psychosocial negative. Endocrine negative. Hematological negative. Dermatologic significant for bilateral ankle discoloration. The rest of the systems review is not relevant. PHYSICAL EXAM: Patient is afebrile. Heart rate is 76 beats per minute. blood pressure is 140/75, respiratory rate is 18. There is no jugular venous distention, carotid upstroke is normal. There is no bruit. Chest exam reveals good air entry bilaterally. There are no crackles or rhonchi. Heart exam reveals first and second heart sounds, no gallop. Has a systolic murmur at the left lower sternal border. Abdomen is soft. Exam of extremities reveals bilateral moderate pitting edema with discoloration and basic eruption over the ankles. LABORATORY DATA: Show that the potassium is 4.4, BUN is 46, creatinine is 1.1, hemoglobin is 11.7, platelet count is 216. BNP is elevated at 2810. Troponins are in the bautista zone at 0.06.06 but have remained unchanged probably related to the renal insufficiency. EKG shows sinus rhythm with right bundle branch block. ASSESSMENT: Acute exacerbation of chronic congestive heart failure probably diastolic. 1. Elevated troponin probably related to underlying renal insufficiency. 2. Abnormal EKG. 3. History of asthma with chronic lung disease. 4. Hypertension. PLAN: I am going to change the Lasix to IV. I will obtain a 2D echo to assess LV function. Anticipate patient going home over the next 24-48 hours. LUIS / CHARISSAN: [id number] /
--- NOTE | 2020-04-25 15:57 | P.PN ---
Subjective Progress Note Date: 04/25/20 Female patient was seen yesterday in consultation with her shortness of breath. The patient has history of congestion heart failure and she was in acute CHF the time of admission with increased dyspnea, orthopnea and lower extremity edema. She was seen by pulmonary services. She has some chest tightness and wheezing and she was noted to have increased swelling in lower extremities bilaterally. She has been apparently diagnosed having COPD but her physicians in [place]. In any rate, the predominant presentation was consistent with CHF. The patient responded nicely to diuretics. White cell count was 11.5 the venous Doppler of the lower extremity was negative and echocardiogram was done that showed severe concentric LVH and LV function of around 50-55% without any significant valvular abnormalities and without any significant pulmonary hypertension. No evidence of any pericardial effusion. The patient is comorbidities including morbid obesity with a BMI 50.1, hypertension and hyperlipidemia and hypothyroidism. She is an ex smoker for now. Objective - Vital Signs Vital signs: Vital Signs Temp 98 F 04/25/20 15:42 Pulse 90 04/25/20 15:42 Resp 16 04/25/20 15:42 BP 129/67 04/25/20 15:42 Pulse Ox 94 L 04/25/20 15:42 Intake & Output 04/24/20 04/25/20 04/25/20 18:59 06:59 18:59 Intake Total 480 120 360 Output Total 1500 2200 1300 Balance -1020 -2080 -940 Weight 114 kg 112.8 kg Intake: Oral 480 120 360 Output: Urine 1500 2200 1300 Other: Voiding Method Indwelling Catheter Indwelling Catheter Indwelling Catheter # Voids 3 1 # Bowel Movements 1 - Exam GENERAL: The patient is alert and oriented x3, not in any acute distress. Well developed, well nourished. HEENT: Pupils are round and equally reacting to light. EOMI. No scleral icterus. No conjunctival pallor. Normocephalic, atraumatic. No pharyngeal erythema. No thyromegaly. CARDIOVASCULAR: S1 and S2 present. No murmurs, rubs, or gallops. PULMONARY: Chest is clear to auscultation, no wheezing. Bilateral basal crepitation ABDOMEN: Soft, nontender, nondistended, normoactive bowel sounds. No palpable organomegaly. MUSCULOSKELETAL: No joint swelling or deformity. -EXTREMITIES: No cyanosis, clubbing, . Mild bilateral leg edema. NEUROLOGICAL: Gross neurological examination did not reveal any focal deficits. SKIN: No rashes. no petechiae. - Labs CBC & Chem 7: 04/25/20 07:16 04/25/20 07:16 Labs: Abnormal Lab Results - Last 24 Hours (Table) 04/24/20 04/24/20 04/25/20 Range/Units 16:23 21:03 05:47 WBC (3.8-10.6) k/uL MCHC (31.0-37.0) g/dL RDW (11.5-15.5) % Neutrophils # (1.3-7.7) k/uL Carbon Dioxide (22-30) mmol/L BUN (7-17) mg/dL Creatinine (0.52-1.04) mg/dL POC Glucose (mg/dL) 142 H 143 H 101 H (75-99) mg/dL 04/25/20 04/25/20 Range/Units 07:16 07:16 WBC 11.5 H (3.8-10.6) k/uL MCHC 29.6 L (31.0-37.0) g/dL RDW 16.5 H (11.5-15.5) % Neutrophils # 9.1 H (1.3-7.7) k/uL Carbon Dioxide 34 H (22-30) mmol/L BUN 46 H (7-17) mg/dL Creatinine 1.17 H (0.52-1.04) mg/dL POC Glucose (mg/dL) (75-99) mg/dL Microbiology - Last 24 Hours (Table) 04/23/20 08:20 Blood Culture - Preliminary Blood No Growth after 48 hours Assessment and Plan Plan: 1 acute exacerbation of chronic diastolic heart failure. The patient has hypertensive heart disease with concentric LVH, severe with a preserved LV function 2 lower extremity edema, improving 3 shortness of breath improving 4 morbid obesity with a BMI 50.2, possibly has underlying obstructive sleep apnea 5 chronic hypoxic respiratory failure and oxygen 2 L per minute nasal cannula 6 hypertension 7 hyperlipidemia 8 hypothyroidism Plan Echo of the heart was noted Continue Lasix for another 24 hours Clinically improving Monitor electrolytes We'll follow
[2020-04-25] MEDS: FUROSEMIDE 10 MG/ML 4 ML VIAL IV SCH (20:25)
[2020-04-25] MEDS: FAMOTIDINE 20 MG/2 ML VIAL IV SCH (20:26)
[2020-04-25] MEDS: MONTELUKAST 5 MG CHEWABLE PO SCH (20:26)
[2020-04-25] MEDS ORDERED: FAMOTIDINE 20 MG/2 ML VIAL IV SCH (21:00)
[2020-04-26] MEDS: IPRATROPIUM-ALBUTEROL 3 ML NEB INHALATION SCH ×2 (04:03→07:46)
[2020-04-26] MEDS: LEVOTHYROXINE 50 MCG TAB PO SCH (06:37)
[2020-04-26] MEDS: CARVEDILOL 3.125 MG TAB PO SCH ×2 (06:37→16:46)
[2020-04-26 07:31] LABS: Anisocytosis Slight; Basophils # (A) 0.1 k/uL (0-0.2); Basophils % (A) 1 %; Eosinophils # (A) 0.2 k/uL (0-0.7); Eosinophils % (A) 3 %; HCT 40.6 % (34.0-46.0); HGB 12.2 gm/dL (11.4-16.0); Hypochromasia Moderate; Lymphocytes # (A) 1.9 k/uL (1.0-4.8); Lymphocytes % (A) 22 %; MCHC 30.2 g/dL (31.0-37.0); MCV 86.2 fL (80.0-100.0); Mean Platelet Volume 7.5; Monocytes # (A) 0.7 k/uL (0-1.0); Monocytes % (A) 8 %; Neutrophils # (A) 5.8 k/uL (1.3-7.7); Neutrophils % (A) 67 %; Platelet Count 234 k/uL (150-450); RBC 4.71 m/uL (3.80-5.40); RDW 16.6 % (11.5-15.5); WBC 8.6 k/uL (3.8-10.6)
[2020-04-26 07:43] LABS: Calcium 8.7 mg/dL (8.4-10.2); Magnesium 2.3 mg/dL (1.6-2.3); Potassium 4.4 mmol/L (3.5-5.1)
[2020-04-26] MEDS: LISINOPRIL 10 MG TAB PO SCH (09:32)
[2020-04-26] MEDS: guaiFENesin 600 MG TABLET.ER PO SCH ×2 (09:32→20:14)
[2020-04-26] MEDS: ASPIRIN 81 MG PO SCH (09:33)
[2020-04-26] MEDS: FAMOTIDINE 20 MG/2 ML VIAL IV SCH (09:33)
[2020-04-26] MEDS: BRIMONIDINE TARTRATE 0.2% DROPS 5 ML BTL BOTH EYES SCH ×2 (09:33→20:14)
[2020-04-26] MEDS: HEPARIN SODIUM,PORCINE 5,000 UNIT/ML 1 ML VIAL SQ SCH ×3 (09:33→23:24)
[2020-04-26] MEDS: TIMOLOL 0.5% OPHTH DROPS 5 ML BTL BOTH EYES SCH ×2 (09:34→20:14)
[2020-04-26] MEDS ORDERED: FUROSEMIDE 40 MG TAB PO STA (09:42)
--- NOTE | 2020-04-26 12:14 | P.PN ---
Subjective Progress Note Date: 04/26/20 This is an 79-year-old female patient with history of hypothyroidism, hypertension, asthma, COPD, who presented to the hospital with symptoms of progressively worsening shortness of breath and evidence of bilateral lower extremity peripheral edema. She also carries a history of asthma and had respiratory failure requiring intubation back in September of last year. Her chest x-ray on presentation here showed pulmonary congestion, she has been treated with diuretics, diuresing well overall. She continues at this time to be on IV Lasix. Echocardiogram with Doppler study revealed an ejection fraction of 50-55%. Blood pressure 136/60 with a heart rate in the 70s, 98% on room air. White blood cell count 8.6, hemoglobin 12.2, platelet count 234. Sodium 140, potassium 4.4, BUN 50, creatinine 1.1. Magnesium 2. Objective - Vital Signs Vital signs: Vital Signs Temp 97.9 F 04/26/20 08:00 Pulse 73 04/26/20 08:00 Resp 20 04/26/20 08:00 BP 137/65 04/26/20 08:00 Pulse Ox 88 L 04/26/20 08:00 Intake & Output 04/25/20 04/26/20 04/26/20 18:59 06:59 18:59 Intake Total 540 480 240 Output Total 1300 2075 Balance -760 -1595 240 Weight 110.5 kg Intake: Oral 540 480 240 Output: Urine 1300 2075 Other: Voiding Method Indwelling Catheter Indwelling Catheter Indwelling Catheter # Voids 1 # Bowel Movements 1 - Exam GENERAL: The patient is alert and oriented x3, not in any acute distress. Well developed, well nourished. HEENT: Pupils are round and equally reacting to light. EOMI. No scleral icterus. No conjunctival pallor. Normocephalic, atraumatic. No pharyngeal erythema. No thyromegaly. CARDIOVASCULAR: S1 and S2 present. No murmurs, rubs, or gallops. PULMONARY: Lungs reveal diminished air entry to bilateral bases . Bilateral fine rales heard ABDOMEN: Soft, nontender, nondistended, normoactive bowel sounds. No palpable organomegaly. MUSCULOSKELETAL: No joint swelling or deformity. -EXTREMITIES: No cyanosis, clubbing, . Trace to 1+ bilateral leg edema. NEUROLOGICAL: Gross neurological examination did not reveal any focal deficits. SKIN: No rashes. no petechiae. - Labs CBC & Chem 7: 04/26/20 06:49 04/26/20 06:49 Labs: Abnormal Lab Results - Last 24 Hours (Table) 04/26/20 04/26/20 Range/Units 06:49 06:49 MCHC 30.2 L (31.0-37.0) g/dL RDW 16.6 H (11.5-15.5) % Carbon Dioxide 35 H (22-30) mmol/L BUN 50 H (7-17) mg/dL Creatinine 1.19 H (0.52-1.04) mg/dL Microbiology - Last 24 Hours (Table) 04/23/20 08:20 Blood Culture - Preliminary Blood No Growth after 72 hours Assessment and Plan Plan: Assessment and Plan: 1 acute exacerbation of chronic diastolic heart failure. The patient has hypertensive heart disease with concentric LVH, severe with a preserved LV function 2 morbid obesity with a BMI 50.2, possibly has underlying obstructive sleep apnea 3 chronic hypoxic respiratory failure and oxygen 2 L per minute nasal cannula 4 hypertension 5 hyperlipidemia 6 hypothyroidism Plan From cardiology's perspective, we'll recommend to continue current dose of IV Lasix, continue to monitor intake and output along with daily weights and daily lytes BUN and creatinine. DNP note has been reviewed, I agree with a documented findings and plan of care. Patient was seen and examined.
--- NOTE | 2020-04-26 13:20 | P.PN ---
Subjective Progress Note Date: 04/26/20 Principal diagnosis: Acute exacerbation of chronic diastolic heart failure Female patient was seen yesterday in consultation with her shortness of breath. The patient has history of congestion heart failure and she was in acute CHF the time of admission with increased dyspnea, orthopnea and lower extremity edema. She was seen by pulmonary services. She has some chest tightness and wheezing and she was noted to have increased swelling in lower extremities bilaterally. She has been apparently diagnosed having COPD but her physicians in [place]. In any rate, the predominant presentation was consistent with CHF. The patient responded nicely to diuretics. White cell count was 11.5 the venous Doppler of the lower extremity was negative and echocardiogram was done that showed severe concentric LVH and LV function of around 50-55% without any significant valvular abnormalities and without any significant pulmonary hypertension. No evidence of any pericardial effusion. The patient is comorbidities including morbid obesity with a BMI 50.1, hypertension and hyperlipidemia and hypothyroidism. She is an ex smoker for now. On 04/26/2020 patient seen in follow-up on selective care unit, she is awake and alert, in no acute distress. She is on 2 L of oxygen the pulse ox of 96 percent, room air pulse ox is 88%, vital signs are stable, she is afebrile, denies any chest pain. She has been diuresed, and she has been switched to oral dose of Lasix today. He is in -2.3 L over last 24 hours, fluid balance status is improved, her weight is down by 2.4 kg since admission. Her echocardiogram showed ejection fraction of 50-55%. Today's labs showed normal white count of 8.6, hemoglobin of 12.2, CO2 is up to 35, BUN is 15 and creatinine 1.19, and patient is being transitioned to oral Lasix. Objective - Vital Signs Vital signs: Vital Signs Temp 97.9 F 04/26/20 08:00 Pulse 73 04/26/20 08:00 Resp 20 04/26/20 08:00 BP 137/65 04/26/20 08:00 Pulse Ox 88 L 04/26/20 08:00 Intake & Output 04/25/20 04/26/20 04/26/20 18:59 06:59 18:59 Intake Total 540 480 240 Output Total 1300 2075 Balance -760 -1595 240 Weight 110.5 kg Intake: Oral 540 480 240 Output: Urine 1300 2075 Other: Voiding Method Indwelling Catheter Indwelling Catheter Indwelling Catheter # Voids 1 # Bowel Movements 1 - Exam GENERAL EXAM: Alert, very pleasant, 79-year-old obese white female, on 2 L of oxygen comfortable in no apparent distress. HEAD: Normocephalic/atraumatic. EYES: Normal reaction of pupils, equal size. Conjunctiva pink, sclera white. NOSE: Clear with pink turbinates. THROAT: No erythema or exudates. NECK: No masses, no JVD, no thyroid enlargement, no adenopathy. CHEST: No chest wall deformity. Symmetrical expansion. LUNGS: Equal air entry with no crackles, wheeze, rhonchi or dullness. CVS: Regular rate and rhythm, normal S1 and S2, no gallops, no murmurs, no rubs ABDOMEN: Soft, nontender. No hepatosplenomegaly, normal bowel sounds, no guarding or rigidity. EXTREMITIES: No clubbing, no edema, no cyanosis, 2+ pulses and upper and lower extremities. MUSCULOSKELETAL: Muscle strength and tone normal. SPINE: No scoliosis or deformity SKIN: No rashes CENTRAL NERVOUS SYSTEM: Alert and oriented -3. No focal deficits, tone is normal in all 4 extremities. PSYCHIATRIC: Alert and oriented -3. Appropriate affect. Intact judgment and insight. - Labs CBC & Chem 7: 04/26/20 06:49 04/26/20 06:49 Labs: Abnormal Lab Results - Last 24 Hours (Table) 04/26/20 04/26/20 Range/Units 06:49 06:49 MCHC 30.2 L (31.0-37.0) g/dL RDW 16.6 H (11.5-15.5) % Carbon Dioxide 35 H (22-30) mmol/L BUN 50 H (7-17) mg/dL Creatinine 1.19 H (0.52-1.04) mg/dL Microbiology - Last 24 Hours (Table) 04/23/20 08:20 Blood Culture - Preliminary Blood No Growth after 72 hours Assessment and Plan Plan: Assessment: 1 acute exacerbation of chronic diastolic heart failure. The patient has hypertensive heart disease with concentric LVH, severe with a preserved LV function 2 lower extremity edema, improving 3 shortness of breath improving 4 morbid obesity with a BMI 50.2, possibly has underlying obstructive sleep apnea 5 chronic hypoxic respiratory failure and oxygen 2 L per minute nasal cannula 6 hypertension 7 hyperlipidemia 8 hypothyroidism Plan: We'll transition the IV Lasix to oral Lasix, patient has been diuresed, she is feeling better, wean FiO2, echocardiogram results have been noted, accurate intake and output, daily weights, electrolytes and renal profile. Follow-up chest x-ray in the morning. We'll continue to follow I performed a history & physical examination of the patient and discussed their management with my nurse practitioner, Carolyn Borjas. I reviewed the nurse practitioner's note and agree with the documented findings and plan of care. Lung sounds are positive for diminished breath sounds. The findings and the impression was discussed with the patient. I attest to the documentation by the nurse practitioner. Time with Patient: Less than 30
--- NOTE | 2020-04-26 13:54 | P.PN ---
Subjective from the records Patient is a 79-year-old female with a known history of COPD on home oxygen at 2 L via nasal cannula., Morbid obesity BMI 50.1, hypertension, hyperlipidemia, hypothyroidism and previous history of smoking presents to ER with complaints of shortness of breath getting worse for the past 4 days. Patient also states that she did have right lower extremity swelling more than left recently. Patient traveling to [place] from [place] by car and reached [place] on last Saturday. Patient presents to ER with worsening symptoms. Patient does have cough without any sputum production. Denied any chest pain. Denied any nausea vomiting abdominal pain or diarrhea. No recent illnesses. No headache or dizziness or lightheadedness. Chest x-ray showed findings consistent with mild heart failure EKG showed sinus rhythm with occasional premature ventricular complexes. Laboratory data showed WBC 7.4, hemoglobin 13.1, MCV 86.6 and RDW 16.4 platelets 206, Sodium level 140, potassium 4.3, chloride 106, BUN 2020 creatinine 0.86 Liver enzymes are not elevated Troponin 0 0.067, 0.065 proBNP 2810 04/24/2020 Patient is currently lying in the bed comfortably. Awake alert and oriented x3. Breathing status is improving. Currently on oxygen at 3 L via nasal cannula. Patient has been afebrile. Denies any cough or sputum production. Leg swelling is improving. Lasix changed to by mouth. 2D echocardiogram was ordered. Lung examination reveals no evidence of wheezing at this time. Continue with breathing treatments. Cardiology and pulmonary were consulted. Bilateral lower extremity duplex scan is negative for DVT. subjective: 04/25/2020 this is a pleasant 79 years old female who presents on acute CHF and elevated troponin suspicious for non-STEMI. She is currently on aspirin, subcutaneous heparin and intravenous Lasix. She is lying in bed comfortable with her dyspnea improved. With denied chest pain alittle cough and although felt wet but nothing coming up. She has a Ren catheter which was placed in the hospital. Patient has little leg swelling. Patient used to be in [place] but just moved to do the area. Cardiology on the case. Echocardiogram was done and the result is pending 04/26/2020 Patient is alert and awake, no dyspnea or chest pain. However she still have leg swelling up to the waist by cardiology team. And the recommend to continue with IV Lasix for another 24 hours Possible discharge in 24 hours Objective - Vital Signs Vital signs: Vital Signs Temp 98.2 F 04/26/20 12:00 Pulse 64 04/26/20 12:00 Resp 18 04/26/20 12:00 BP 95/50 04/26/20 12:00 Pulse Ox 93 L 04/26/20 12:00 Intake & Output 04/25/20 04/26/20 04/26/20 18:59 06:59 18:59 Intake Total 540 480 420 Output Total 1300 2075 200 Balance -760 -1595 220 Weight 110.5 kg Intake: Oral 540 480 420 Output: Urine 1300 2075 200 Other: Voiding Method Indwelling Catheter Indwelling Catheter Indwelling Catheter # Voids 1 # Bowel Movements 1 - Exam GENERAL: The patient is alert and oriented x3, not in any acute distress. Well developed, well nourished. HEENT: Pupils are round and equally reacting to light. EOMI. No scleral icterus. No conjunctival pallor. Normocephalic, atraumatic. No pharyngeal erythema. No thyromegaly. CARDIOVASCULAR: S1 and S2 present. No murmurs, rubs, or gallops. -PULMONARY: Chest is clear to auscultation, no wheezing. Bilateral basal crepitation ABDOMEN: Soft, nontender, nondistended, normoactive bowel sounds. No palpable organomegaly. MUSCULOSKELETAL: No joint swelling or deformity. -EXTREMITIES: No cyanosis, clubbing, . Mild bilateral leg edema. NEUROLOGICAL: Gross neurological examination did not reveal any focal deficits. SKIN: No rashes. no petechiae. - Labs CBC & Chem 7: 04/26/20 06:49 04/26/20 06:49 Labs: Abnormal Lab Results - Last 24 Hours (Table) 04/26/20 04/26/20 Range/Units 06:49 06:49 MCHC 30.2 L (31.0-37.0) g/dL RDW 16.6 H (11.5-15.5) % Carbon Dioxide 35 H (22-30) mmol/L BUN 50 H (7-17) mg/dL Creatinine 1.19 H (0.52-1.04) mg/dL Microbiology - Last 24 Hours (Table) 04/23/20 08:20 Blood Culture - Preliminary Blood No Growth after 72 hours Assessment and Plan Assessment: Acute CHF. Ejection fraction unknown. New onset. Elevated troponin level possible non-ST related [place] Bilateral leg swelling right greater than left with recent long distance travel. Ruled out DVT/PE mild Acute COPD exacerbation improving Chronic hypoxic respiratory failure on oxygen at 2 L at home Hypertension Hyperlipidemia Hypothyroidism Previous history of smoking Morbid obesity with a BMI 50.1 Possible obstructive sleep apnea Plan: this is a pleasant 79 years old female who presents with acute CHF. Follow-up echocardiogram. Cardiology of the case. Continue with Lasix intravenously and monitor electrolytes in weight. Continue with aspirin. Labs and medication were reviewed.. Continue same treatment. Continue with symptomatic treatment. Resume home medication. Monitor lytes and vitals. DVT and GI prophylaxis. Further recommendations of the clinical course of the patient DVT prophylaxis: Subcutaneous heparin GI Prophylaxis: Pepcid PT/OT: Pending Prognosis is guarded
[2020-04-26] MEDS ORDERED: FUROSEMIDE 40 MG TAB PO SCH (16:00)
[2020-04-26] MEDS: FUROSEMIDE 10 MG/ML 4 ML VIAL IV SCH (19:30)
[2020-04-26] MEDS: MONTELUKAST 5 MG CHEWABLE PO SCH (20:14)
[2020-04-26] MEDS ORDERED: FUROSEMIDE 10 MG/ML 4 ML VIAL IV SCH (21:00)
[2020-04-27 00:29] VITALS: TEMP 98
[2020-04-27] MEDS: CARVEDILOL 3.125 MG TAB PO SCH (06:33)
[2020-04-27] MEDS: LEVOTHYROXINE 50 MCG TAB PO SCH (06:33)
[2020-04-27 07:24] LABS: Anisocytosis Slight; Basophils % (A) 0 %; Eosinophils # (A) 0.3 k/uL (0-0.7); Eosinophils % (A) 4 %; HCT 40.1 % (34.0-46.0); HGB 12.1 gm/dL (11.4-16.0); Hypochromasia Moderate; Lymphocytes # (A) 1.6 k/uL (1.0-4.8); Lymphocytes % (A) 21 %; MCHC 30.2 g/dL (31.0-37.0); Mean Platelet Volume 7.6; Monocytes # (A) 0.7 k/uL (0-1.0); Monocytes % (A) 9 %; Neutrophils # (A) 4.8 k/uL (1.3-7.7); Neutrophils % (A) 65 %; Platelet Count 178 k/uL (150-450); RBC 4.66 m/uL (3.80-5.40); RDW 16.4 % (11.5-15.5); WBC 7.5 k/uL (3.8-10.6)
[2020-04-27 07:41] LABS: Calcium 8.6 mg/dL (8.4-10.2); Magnesium 2.3 mg/dL (1.6-2.3); Potassium 4.2 mmol/L (3.5-5.1)
[2020-04-27] MEDS: IPRATROPIUM-ALBUTEROL 3 ML NEB INHALATION PRN ×2 (08:02→11:52)
[2020-04-27] MEDS: BRIMONIDINE TARTRATE 0.2% DROPS 5 ML BTL BOTH EYES SCH (08:15)
[2020-04-27] MEDS: guaiFENesin 600 MG TABLET.ER PO SCH (08:15)
[2020-04-27] MEDS: ASPIRIN 81 MG PO SCH (08:15)
[2020-04-27] MEDS: HEPARIN SODIUM,PORCINE 5,000 UNIT/ML 1 ML VIAL SQ SCH (08:15)
[2020-04-27] MEDS: TIMOLOL 0.5% OPHTH DROPS 5 ML BTL BOTH EYES SCH (08:15)
[2020-04-27 08:20] VITALS: BP 85/40; RESP 16
[2020-04-27] MEDS ORDERED: FAMOTIDINE 20 MG TAB PO SCH (09:00)
[2020-04-27 12:03] VITALS: PULSE 88
--- NOTE | 2020-04-27 12:54 | CDI ---
Documentation Clarification Form Date: 04/27/2020 12:52:12 PM From: Lia Rae RN, CCDS Admit Date: 04/23/2020 08:18:00 AM Patient Name: Paula Mares Visit Number: [id number] Discharge Date: ATTENTION: The Clinical Documentation Specialists (CDI) and [facility] Coding Staff appreciate your assistance in clarifying documentation. Please respond to the clarification below the line at the bottom and electronically sign. The CDI & [facility] Coding staff will review the response and follow-up if needed. Please note: Queries are made part of the Legal Health Record. If you have any questions, please contact the author of this message via ITS. Dr. Abreu E Sheet The patient presented with shortness of breath, cough without production. On 04/23 her Troponins 0.067, 0.065 H/P and subsequent progress notes has, elevated troponin level possible non-ST related CA. Please render your opinion if NSTEMI ruled in or out. History/Risk Factors: COPD O2 dependent, Hypertension, Morbid obesity, Former smoker Clinical Indicators: 79-year-old female who present to ED on 04/23 with complaints of shortness of breath getting worse for the past 4 days. 04/23 EKG: Sinus rhythm with occasional premature ventricular complexes 04/23 Lab findings: Troponin 0.067, 0.065, BNP 2810, Cronavirus (PCR) Not detected. 04/23 CXR: Findings consistent with mild heart failure 04/23 @07:04 Vital Signs: 204/104 83 26 98.2 89 % RA 04/25 ECHO: There is severe contrentric left ventricular hypertrophy. Overall left ventricular systolic function is low-normal with, an EF between 50-55 % Treatment: Lasix Iv 40 mg q12 04/23-04/26 changed to 40 po bid Duoneb 0.5 mg q 4 hrs Coreg 3.125 mg po bid Solu-Medrol 125 mg iv x1 then 60 mg iv q 8 04/23-04/26 ASA 81 mg po daily 04/25 Cardiology Consults (Dr. Mancia):Elevated troponin probably related to underlying renal insufficiency. Acute exacerbation of chronic congestive heart failure probably diastolic In your professional opinion, can you please clarify possible NSTEMI? NSTEMI ruled out NSTEMI ruled in Other, please specify Unable to determine (Last Revision: February 2018) NSTEMI is suspected but cardiology think it is unlikely MTDD
--- NOTE | 2020-04-27 13:06 | CDI ---
Documentation Clarification Form Date: 04/27/2020 12:54:54 PM From: Lia Rae RN, CCDS Admit Date: 04/23/2020 08:18:00 AM Patient Name: Paula Mares Visit Number: [id number] Discharge Date: ATTENTION: The Clinical Documentation Specialists (CDI) and [facility] Coding Staff appreciate your assistance in clarifying documentation. Please respond to the clarification below the line at the bottom and electronically sign. The CDI & [facility] Coding staff will review the response and follow-up if needed. Please note: Queries are made part of the Legal Health Record. If you have any questions, please contact the author of this message via ITS. Dr. Abreu E Sheet Acute CHF is documented in the H/P and subsequent progress notes with EF as unknown. Please provide specificity for the type of CHF. History/Risk Factors: COPD O2 dependent, Hypertension, Morbid obesity, Former smoker Clinical Indicators: 79-year-old female who present to ED on 04/23 with complaints of shortness of breath getting worse for the past 4 days. 04/23 EKG: Sinus rhythm with occasional premature ventricular complexes 04/23 @07:04 Vital Signs: 204/104 83 26 98.2 89 % RA 04/25 ECHO: There is severe contrentric left ventricular hypertrophy. Overall left ventricular systolic function is low-normal with, an EF between 50-55 % BNP: BNP 2810 Chest X Ray: Findings consistent with mild heart failure Treatment: Lasix Iv 40 mg q12 04/23-04/26 changed to 40 po bid Duoneb 0.5 mg q 4 hrs Coreg 3.125 mg po bid Solu-Medrol 125 mg iv x1 then 60 mg iv q 8 04/23-04/26 ASA 81 mg po daily 04/25 Cardiology Consults (Dr. Mancia): Acute exacerbation of chronic congestive heart failure probably diastolic In your professional opinion, can you please clarify the acuity and type of CHF if known? Acute Diastolic Heart Failure: Acute on Chronic Diastolic Heart Failure Unable to Determine Other, please specify (Last Revision: February 2018) Acute Diastolic Heart Failure: MTDD
--- NOTE | 2020-04-27 13:21 | P.PN ---
Subjective Progress Note Date: 04/27/20 Principal diagnosis: Acute exacerbation of chronic diastolic congestive heart failure The patient is seen today 04/27/2020 in follow-up on the selective care unit. She is currently sitting up in a chair at the bedside. Awake and alert in no acute distress. She is feeling back to her baseline. She is hoping to go home. Maintaining O2 saturations up to 100% on room air. She's been afebrile. Blood cultures reveal no growth. White count 7.5. Hemoglobin 12.1. Sodium 140. Potassium 4.2. Creatinine 1.09. Objective - Vital Signs Vital signs: Vital Signs Temp 98 F 04/27/20 03:30 Pulse 88 04/27/20 12:02 Resp 16 04/27/20 11:52 BP 85/40 04/27/20 08:00 Pulse Ox 100 04/27/20 08:00 Intake & Output 04/26/20 04/27/20 04/27/20 18:59 06:59 18:59 Intake Total 920 540 120 Output Total 200 2510 Balance 720 -1970 120 Weight 111.8 kg Intake: Oral 920 540 120 Output: Urine 200 2510 Other: Voiding Method Indwelling Catheter Toilet Toilet # Voids 1 - Exam GENERAL EXAM: Alert, active, very pleasant 79-year-old female patient, on room air comfortable in no apparent distress. HEAD: Normocephalic. EYES: Normal reaction of pupils, equal size. NOSE: Clear with pink turbinates. THROAT: No erythema or exudates. NECK: No masses, no JVD. CHEST: No chest wall deformity. LUNGS: Equal air entry with no crackles, wheeze, rhonchi or dullness. CVS: S1 and S2 normal with no audible murmur, regular rhythm. ABDOMEN: No hepatosplenomegaly, normal bowel sounds, no guarding or rigidity. SPINE: No scoliosis or deformity SKIN: No rashes CENTRAL NERVOUS SYSTEM: No focal deficits, tone is normal in all 4 extremities. EXTREMITIES: There is 1+ peripheral edema. No clubbing, no cyanosis. Peripheral pulses are intact. - Labs CBC & Chem 7: 04/27/20 06:44 04/27/20 06:44 Labs: Abnormal Lab Results - Last 24 Hours (Table) 04/27/20 04/27/20 Range/Units 06:44 06:44 MCHC 30.2 L (31.0-37.0) g/dL RDW 16.4 H (11.5-15.5) % Carbon Dioxide 36 H (22-30) mmol/L BUN 42 H (7-17) mg/dL Creatinine 1.09 H (0.52-1.04) mg/dL Glucose 107 H (74-99) mg/dL Microbiology - Last 24 Hours (Table) 04/23/20 08:20 Blood Culture - Preliminary Blood No Growth after 96 hours Assessment and Plan Assessment: 1 Acute exacerbation of chronic diastolic congestive heart failure. The patient has hypertensive heart disease with concentric LVH, severe with preserved left ventricular systolic function 2 Lower extremity edema, improving 3 Morbid obesity with a BMI of 50.2 4 Suspect underlying STEPHANE 5 Hypertension 6 Hyperlipidemia 7 Hypothyroidism 8 Chronic hypoxic respiratory failure with home oxygen at 2 L/m per nasal cannula Plan: The patient is seen and evaluated by Dr. Ibarra She is cleared for discharge from the pulmonary standpoint Remains on oral diuretics She'll be seen in our office in 1-2 weeks' time She will be following up with a new PCP in the area I, the cosigning physician, performed a history & physical examination of the patient. Lungs sounds are clear. Maintaining good O2 saturations in the 90s on room air. I discussed the assessment and plan of care with my nurse practitioner, Amanda Gandhi. I attest to the above note as dictated by her.
--- NOTE | 2020-04-27 14:37 | P.PN ---
Subjective Progress Note Date: 04/27/20 This is an 79-year-old female patient with history of hypothyroidism, hypertension, asthma, COPD, who presented to the hospital with symptoms of progressively worsening shortness of breath and evidence of bilateral lower extremity peripheral edema. She also carries a history of asthma and had respiratory failure requiring intubation back in September of last year. Her chest x-ray on presentation here showed pulmonary congestion, she has been treated with diuretics, diuresing well overall. She continues at this time to be on IV Lasix. Echocardiogram with Doppler study revealed an ejection fraction of 50-55%. Blood pressure 136/60 with a heart rate in the 70s, 98% on room air. White blood cell count 8.6, hemoglobin 12.2, platelet count 234. Sodium 140, potassium 4.4, BUN 50, creatinine 1.1. Magnesium 2. 04/27/2020 Patient seen and examined this morning, sitting up in chair at bedside, states that she feels her breathing is back to her normal and is anticipating discharge home today. Blood pressure 120/60, 85/40, heart rate in the 60s. White blood cell count 7.5, hemoglobin 12.1, platelet count 178. Sodium 140, potassium 4.2, BUN 42, creatinine 1.0. Objective - Vital Signs Vital signs: Vital Signs Temp 98 F 04/27/20 03:30 Pulse 88 04/27/20 12:02 Resp 16 04/27/20 11:52 BP 85/40 04/27/20 08:00 Pulse Ox 100 04/27/20 08:00 Intake & Output 04/26/20 04/27/20 04/27/20 18:59 06:59 18:59 Intake Total 920 540 360 Output Total 200 2510 Balance 720 -1970 360 Weight 111.8 kg Intake: Oral 920 540 360 Output: Urine 200 2510 Other: Voiding Method Indwelling Catheter Toilet Toilet # Voids 1 - Exam GENERAL: The patient is alert and oriented x3, not in any acute distress. Well developed, well nourished. HEENT: Pupils are round and equally reacting to light. EOMI. No scleral icterus. No conjunctival pallor. Normocephalic, atraumatic. No pharyngeal erythema. No thyromegaly. CARDIOVASCULAR: S1 and S2 present. No murmurs, rubs, or gallops. PULMONARY: Lungs reveal diminished air entry to bilateral bases . Bilateral fine rales heard ABDOMEN: Soft, nontender, nondistended, normoactive bowel sounds. No palpable organomegaly. MUSCULOSKELETAL: No joint swelling or deformity. -EXTREMITIES: No cyanosis, clubbing, . Trace to 1+ bilateral leg edema. NEUROLOGICAL: Gross neurological examination did not reveal any focal deficits. SKIN: No rashes. no petechiae. - Labs CBC & Chem 7: 04/27/20 06:44 04/27/20 06:44 Labs: Abnormal Lab Results - Last 24 Hours (Table) 04/27/20 04/27/20 Range/Units 06:44 06:44 MCHC 30.2 L (31.0-37.0) g/dL RDW 16.4 H (11.5-15.5) % Carbon Dioxide 36 H (22-30) mmol/L BUN 42 H (7-17) mg/dL Creatinine 1.09 H (0.52-1.04) mg/dL Glucose 107 H (74-99) mg/dL Microbiology - Last 24 Hours (Table) 04/23/20 08:20 Blood Culture - Preliminary Blood No Growth after 96 hours Assessment and Plan Plan: Assessment and Plan: 1 acute exacerbation of chronic diastolic heart failure. The patient has hypertensive heart disease with concentric LVH, severe with a preserved LV function 2 morbid obesity with a BMI 50.2, possibly has underlying obstructive sleep apnea 3 chronic hypoxic respiratory failure and oxygen 2 L per minute nasal cannula 4 hypertension 5 hyperlipidemia 6 hypothyroidism Plan From cardiology's perspective, we'll discontinue the IV Lasix and start the patient on Lasix 40 mg one tablet by mouth twice a day. From our perspective she may be able to be discharged home today, we'll make a follow-up appointment in the office post discharge. DNP note has been reviewed, I agree with a documented findings and plan of care. Patient was seen and examined.
[2020-04-27] MEDS ORDERED: FUROSEMIDE 40 MG TAB PO SCH (16:00)
--- NOTE | 2020-04-27 19:45 | P.DS ---
Providers Date of admission: 04/23/20 08:18 Attending physician: Lissett Valle Consults: 04/23/20 08:35 Consult Physician Urgent Consulting Provider: Edilberto Ta Consult Reason/Comments: copd Do you want consulting provider notified?: Yes 04/24/20 11:45 Consult Physician Routine Consulting Provider: Elissa Vargas Consult Reason/Comments: Elevated trops & CHF Do you want consulting provider notified?: Yes Primary care physician: Physician Nonstaff Hospital Course: Diagnoses: Acute CHF. Ejection fraction 50-55%. New onset. Elevated troponin level throughout its related to renal insufficiency, less likely non-ST related MIAs per continuous improvement black belt Bilateral leg swelling right greater than left with recent long distance travel. DVT ruled out mild Acute COPD exacerbation improving Chronic hypoxic respiratory failure on oxygen at 2 L at home Hypertension Hyperlipidemia Hypothyroidism Previous history of smoking Morbid obesity with a BMI 50.1 Possible obstructive sleep apnea Hospital course: Patient is a 79-year-old female with a known history of COPD on home oxygen at 2 L via nasal cannula., Morbid obesity BMI 50.1, hypertension, hyperlipidemia, hypothyroidism and previous history of smoking presents to ER with complaints of shortness of breath getting worse for the past 4 days. Patient also states that she did have right lower extremity swelling more than left recently. Patient traveling to [place] from [place] by car and reached [place] on last Saturday. Bilateral lower extremity duplex scan is negative for DVT. Patient does have cough without any sputum production. Denied any chest pain. Chest x-ray showed findings consistent with mild heart failure. Cardiology and pulmonary were consulted. Patient found to have new onset of acute diastolic CHF, echocardiogram showed ejection fraction 50-55% with severe LVH. Severely dilated LA ,Patient was treated with intravenous Lasix and aspirin 81 mg. Patient showed interval improvement and she is back to her baseline with no more dyspnea, no chest pain. No other complaints Patient was cleared for discharge by cardiology and pulmonary services Problems and management plan were discussed with the patient and he verbalized understanding and acceptance Patient was found stable and can be discharged home however he needs follow-up as an outpatient. Patient was instructed to follow up with PCP within one week and patient agrees. Patient most recently from [place] and she agrees to follow up with Dr. Morel on the outpatient setting. Patient also was instructed to follow up with continuous improvement black belt Dr. Orosco in 2 weeks, and Dr. Basha work over rig operator in 1-2 weeks and she agrees. Patient says she will make her own appointment Gen: patient is a AAOx3, no distress CVS: S1-S2, RRR, no murmur Lungs: B/L CTA, no wheezing Abdomen: soft, no distention, no tenderness, positive bowel sounds Extremity: no leg edema or induration Time spent more than 35 minutes Patient Condition at Discharge: Fair Plan - Discharge Summary Discharge Rx Participant: Yes New Discharge Prescriptions: New Carvedilol [Coreg] 3.125 mg PO BID-W/MEALS #60 tab guaiFENesin [Mucinex] 600 mg PO Q12HR tablet.er Lisinopril [Zestril] 10 mg PO DAILY #30 tab Furosemide [Lasix] 40 mg PO BID@0900,1600 #60 tab Continue Timolol 0.5% Ophth Soln [Timoptic 0.5% Ophth Soln] 1 drop BOTH EYES BID Sertraline HCl [Zoloft] 50 mg PO BID PRN PRN Reason: Anxiety/depression Montelukast Sodium [Singulair] 5 mg PO HS Lidocaine 4% Cream [Lmx 4] 1 applic TOPICAL DAILY PRN PRN Reason: Pain Levothyroxine Sodium [Synthroid] 50 mcg PO DAILY Furosemide [Lasix] 20 mg PO DAILY Carvedilol [Coreg] 3.125 mg PO BID Brimonidine Tartrate [Alphagan P 0.2% Ophth Soln] 1 drop BOTH EYES BID Neurogen 1 applic TOPICAL DAILY PRN PRN Reason: Pain Aspirin EC [Ecotrin Low Dose] 81 mg PO DAILY #30 tab Discontinued Lisinopril-Hctz 20-12.5 mg [Zestoretic 20-12.5] 1 tab PO DAILY Discharge Medication List Brimonidine Tartrate [Alphagan P 0.2% Ophth Soln] 1 drop BOTH EYES BID 04/23/20 [History] Carvedilol [Coreg] 3.125 mg PO BID 04/23/20 [History] Furosemide [Lasix] 20 mg PO DAILY 04/23/20 [History] Levothyroxine Sodium [Synthroid] 50 mcg PO DAILY 04/23/20 [History] Lidocaine 4% Cream [Lmx 4] 1 applic TOPICAL DAILY PRN 04/23/20 [History] Montelukast Sodium [Singulair] 5 mg PO HS 04/23/20 [History] Neurogen 1 applic TOPICAL DAILY PRN 04/23/20 [History] Sertraline HCl [Zoloft] 50 mg PO BID PRN 04/23/20 [History] Timolol 0.5% Ophth Soln [Timoptic 0.5% Ophth Soln] 1 drop BOTH EYES BID 04/23/20 [History] Aspirin EC [Ecotrin Low Dose] 81 mg PO DAILY #30 tab 04/27/20 [Rx] Carvedilol [Coreg] 3.125 mg PO BID-W/MEALS #60 tab 04/27/20 [Rx] Furosemide [Lasix] 40 mg PO BID@0900,1600 #60 tab 04/27/20 [Rx] Lisinopril [Zestril] 10 mg PO DAILY #30 tab 04/27/20 [Rx] guaiFENesin [Mucinex] 600 mg PO Q12HR tablet.er 04/27/20 [Rx] Follow up Appointment(s)/Referral(s): Sara Levi MD [REFERRING] - 1 Week Kole Foss MD [STAFF PHYSICIAN] - 2 Weeks Edilberto Ta DO [Doctor of Osteopathic Medicine] - 05/23/20 1:00 pm [facility], [NON-STAFF] - Patient Instructions/Handouts: Heart Failure (ER), Heart Failure (DC) Activity/Diet/Wound Care/Special Instructions: Cardiac diet Activity is limited till you see your doctor Discharge Disposition: HOME WITH HOME HEALTH SERVICES
--- NOTE | 2020-04-29 02:29 | CDI ---
Documentation Clarification Form Date: 04/29/2020 From: Yemi Valencia Phone: If you have a question about this query, please contact Arely Amin, Soda Fountain Operator at [phone] between 8am and 5pm. Admit Date: 04/23/2020 Discharge Date:04/27/2020 Patient Name: Paula Mares Visit Number: [id number] ATTENTION: The Clinical Documentation Specialists (CDI) and [facility] Coding Staff appreciate your assistance in clarifying documentation. Please respond to the clarification below the line at the bottom and electronically sign. The CDI & [facility] Coding staff will review the response and follow-up if needed. Please note: Queries are made part of the Legal Health Record. If you have any questions, please contact the author of this message via ITS. Dear Dr Dr. Brady Esteves., The Patient found to have new onset of acute diastolic CHF. Troponins are in the bautista zone at 0.06.06 but have remained unchanged probably related to the renal insufficiency. Monitor renal function. History/Risk Factors:COPD O2 dependent, Hypertension, Morbid obesity, Former smoker Clinical Indicators: 79-year-old female who present to ED on 04/23 with complaints of shortness of breath getting worse for the past 4 days. 04/23 EKG: Sinus rhythm with occasional premature ventricular complexes 04/23 @07:04 Vital Signs: 204/104 83 26 98.2 89 % RA Lab findings: Creatinine 1.03H ., GFR 52 on 04/24 and 48 on 04/27 Treatment: IV Lasix, Conservative management. Elevated troponin level throughout its related to renal insufficiency. In your professional opinion, can you please clarify Renal Insufficiency? Renal insufficiency related to LUCILA Renal insufficiency related to CKD Other, please specify Unable to determine Renal insufficiency related to CKD MTDD
== END 2020-04-27 15:51 | disposition home health service (06) | DRG 291 ==
LOC: EC 06:58 → 3SCARD 08:18
PROVIDERS: ADMIT Internal Medicine; ATTEND Internal Medicine
DX: I13.0 Hypertensive heart and chronic kidney disease with heart failure and stage 1 through stage 4 chronic kidney disease, or unspecified chronic kidney disease (principal); I50.33 Acute on chronic diastolic (congestive) heart failure; Z68.43 Body mass index [BMI] 50.0-59.9, adult; J44.1 Chronic obstructive pulmonary disease with (acute) exacerbation; J96.11 Chronic respiratory failure with hypoxia; E66.01 Morbid (severe) obesity due to excess calories; E03.9 Hypothyroidism, unspecified; E78.5 Hyperlipidemia, unspecified; J45.909 Unspecified asthma, uncomplicated; N18.9 Chronic kidney disease, unspecified; G47.33 Obstructive sleep apnea (adult) (pediatric); Z20.828 Contact with and (suspected) exposure to other viral communicable diseases; Z79.82 Long term (current) use of aspirin; Z79.890 Hormone replacement therapy; Z79.899 Other long term (current) drug therapy; Z87.891 Personal history of nicotine dependence; Z99.81 Dependence on supplemental oxygen; Z98.890 Other specified postprocedural states
CPT/HCPCS: 36415; 51702; 71046; 80048; 80053; 82803; 83605; 83735; 83880; 84484; 85025; 85610; 85730; 87040; 93005; 93306; 93970; 94640; 94760; 96374; 96375; 99285

== ENCOUNTER 2020-09-27 01:10 | Inpatient (IN) | payer MEDICARE ==
[2020-09-27] MEDS ORDERED: TERBUTALINE 1 MG/ML VIAL SQ STA (01:13)
[2020-09-27] MEDS ORDERED: methylPREDNISolone SOD SUCCI 125 MG/2 ML VIAL IV STA (01:13)
[2020-09-27] MEDS ORDERED: ALBUTEROL NEBULIZED 2.5 MG/3 ML INHALATION STA (01:13)
[2020-09-27] MEDS ORDERED: LORazepam 2 MG/ML INJ IV STA (01:13)
[2020-09-27] MEDS ORDERED: IPRATROPIUM 0.5 MG/2.5 ML NEBU INHALATION STA (01:13)
[2020-09-27] MEDS ORDERED: ENALAPRILAT 1.25 MG/ML 1 ML VIAL IVP STA (01:14)
[2020-09-27] MEDS ORDERED: NITROGLYCERIN-D5W PMX 50 MG in DEXTROSE/WATER 1 250ML.BAG IV ONE (01:14)
--- NOTE | 2020-09-27 01:14 | ED ---
SOB HPI - General Stated Complaint: LACHELLE Time Seen by Provider: 09/27/20 01:13 Source: RN notes reviewed, old records reviewed Limitations: altered mental status, physical limitation - History of Present Illness Initial Comments: This is a 80-year-old female who was unable to provide history secondary severe distress respiratory distress, patient presents severely hypoxic on BiPAP severely elevated blood pressure and presented by EMS. EMS provides history as well as patient's prior charting MD Complaint: shortness of breath, cough, anxiety -: hour(s) Severity: severe Severity scale (1-10): 10 Quality: aching Consistency: constant Improves With: nothing Worsens With: nothing Known History Of: COPD, congestive heart failure Context: recent URI, recent illness Associated Symptoms: chest pain, cough, sputum production Treatments Prior to Arrival: none - Related Data Home Medications Medication Instructions Recorded Confirmed Brimonidine Tartrate [Alphagan P 1 drop BOTH EYES BID 04/23/20 04/23/20 0.2% Ophth Soln] Furosemide [Lasix] 20 mg PO DAILY 04/23/20 04/23/20 Levothyroxine Sodium [Synthroid] 50 mcg PO DAILY 04/23/20 04/23/20 Lidocaine 4% Cream [Lmx 4] 1 applic TOPICAL DAILY PRN 04/23/20 04/23/20 Montelukast Sodium [Singulair] 5 mg PO HS 04/23/20 04/23/20 Neurogen 1 applic TOPICAL DAILY PRN 04/23/20 04/23/20 Sertraline HCl [Zoloft] 50 mg PO BID PRN 04/23/20 04/23/20 Timolol 0.5% Ophth Soln [Timoptic 1 drop BOTH EYES BID 04/23/20 04/23/20 0.5% Ophth Soln] carvediloL [Coreg] 3.125 mg PO BID 04/23/20 04/23/20 Previous Rx's Medication Instructions Recorded Aspirin EC [Ecotrin Low Dose] 81 mg PO DAILY #30 tab 04/27/20 Furosemide [Lasix] 40 mg PO BID@0900,1600 #60 tab 04/27/20 carvediloL [Coreg] 3.125 mg PO BID-W/MEALS #60 tab 04/27/20 guaiFENesin [Mucinex] 600 mg PO Q12HR tablet.er 04/27/20 lisinopriL [Zestril] 10 mg PO DAILY #30 tab 04/27/20 Allergies Allergy/AdvReac Type Severity Reaction Status Date / Time No Known Allergies Allergy Verified 04/23/20 08:33 Review of Systems ROS Statement: Those systems with pertinent positive or pertinent negative responses have been documented in the HPI. ROS Other: All systems not noted in ROS Statement are negative. Past Medical History Past Medical History: Asthma, Chest Pain / Angina, Heart Failure, COPD, Hyperlipidemia, Hypertension, Thyroid Disorder Additional Past Medical History / Comment(s): Intubated in September, home O2 PRN History of Any Multi-Drug Resistant Organisms: None Reported Past Surgical History: Hernia Repair Past Psychological History: No Psychological Hx Reported Past Alcohol Use History: None Reported Past Drug Use History: None Reported General Exam Limitations: physical limitation General appearance: alert, in no apparent distress, anxious, in distress Head exam: Present: atraumatic, normocephalic, normal inspection Eye exam: Present: normal appearance, PERRL, EOMI. Absent: scleral icterus, conjunctival injection, periorbital swelling ENT exam: Present: normal exam, mucous membranes moist Neck exam: Present: normal inspection. Absent: tenderness, meningismus, lymphadenopathy Respiratory exam: Present: respiratory distress, wheezes, rales, accessory muscle use, decreased breath sounds, prolonged expiratory. Absent: rhonchi, stridor Cardiovascular Exam: Present: normal rhythm, tachycardia, normal heart sounds. Absent: systolic murmur, diastolic murmur, rubs, gallop, clicks GI/Abdominal exam: Present: soft, normal bowel sounds. Absent: distended, tenderness, guarding, rebound, rigid Extremities exam: Present: normal inspection, full ROM, normal capillary refill. Absent: tenderness, pedal edema, joint swelling, calf tenderness Back exam: Present: normal inspection Neurological exam: Present: alert, oriented X3, CN II-XII intact Psychiatric exam: Present: normal affect, normal mood Skin exam: Present: warm, dry, intact, normal color. Absent: rash Course Vital Signs 09/27/20 09/27/20 09/27/20 01:12 01:26 01:40 Temperature 97 F L Pulse Rate 120 H 99 93 Respiratory 30 H 30 H Rate Blood Pressure 227/115 192/101 O2 Sat by Pulse 93 L 99 Oximetry 1109/27/20 09/27/20 01:41 02:06 02:36 Temperature Pulse Rate 90 90 92 Respiratory Rate Blood Pressure O2 Sat by Pulse Oximetry - Reevaluation(s) Reevaluation #1: 09/27/20 02:49 Medical records reviewed Reevaluation #2: 09/27/20 02:49 Patient maintained stable on BiPAP with blood pressure control, diuresis and nitro drip Reevaluation #3: 09/27/20 02:50 Patient becoming more alert here in the ER, awake and alert able provide history, patient informed results and questions answered - Consultations Consultation #1: Spoke with Dr. Hudson regarding admission he agrees Medical Decision Making - Lab Data Result diagrams: 09/27/20 01:41 09/27/20 01:41 Lab Results 09/27/20 09/27/20 09/27/20 Range/Units 01:41 01:41 01:41 WBC 9.5 (3.8-10.6) k/uL RBC 4.64 (3.80-5.40) m/uL Hgb 11.1 L (11.4-16.0) gm/dL Hct 36.9 (34.0-46.0) % MCV 79.4 L (80.0-100.0) fL MCH 24.0 L (25.0-35.0) pg MCHC 30.2 L (31.0-37.0) g/dL RDW 16.7 H (11.5-15.5) % Plt Count 203 (150-450) k/uL MPV 6.5 Neutrophils % 56 % Lymphocytes % 32 % Monocytes % 4 % Eosinophils % 5 % Basophils % 2 % Neutrophils # 5.4 (1.3-7.7) k/uL Lymphocytes # 3.1 (1.0-4.8) k/uL Monocytes # 0.4 (0-1.0) k/uL Eosinophils # 0.5 (0-0.7) k/uL Basophils # 0.1 (0-0.2) k/uL Hypochromasia Marked Anisocytosis Slight Microcytosis Slight PT 9.7 (9.0-12.0) sec INR 0.9 (<1.2) APTT 20.7 L (22.0-30.0) sec Sodium 139 (137-145) mmol/L Potassium 4.3 (3.5-5.1) mmol/L Chloride 105 (98-107) mmol/L Carbon Dioxide 26 (22-30) mmol/L Anion Gap 8 mmol/L BUN 22 H (7-17) mg/dL Creatinine 1.12 H (0.52-1.04) mg/dL Est GFR (CKD-EPI)AfAm 53 (>60 ml/min/1.73 sqM) Est GFR (CKD-EPI)NonAf 46 (>60 ml/min/1.73 sqM) Glucose 269 H (74-99) mg/dL Plasma Lactic Acid Pete (0.7-2.0) mmol/L Calcium 8.6 (8.4-10.2) mg/dL Magnesium 2.3 (1.6-2.3) mg/dL Total Bilirubin 0.5 (0.2-1.3) mg/dL AST 28 (14-36) U/L ALT 11 (4-34) U/L Alkaline Phosphatase 99 (38-126) U/L Creatine Kinase 108 (30-135) U/L Troponin I (0.000-0.034) ng/mL NT-Pro-B Natriuret Pep pg/mL Total Protein 6.8 (6.3-8.2) g/dL Albumin 3.7 (3.5-5.0) g/dL 09/27/20 09/27/20 09/27/20 Range/Units 01:41 01:41 01:41 WBC (3.8-10.6) k/uL RBC (3.80-5.40) m/uL Hgb (11.4-16.0) gm/dL Hct (34.0-46.0) % MCV (80.0-100.0) fL MCH (25.0-35.0) pg MCHC (31.0-37.0) g/dL RDW (11.5-15.5) % Plt Count (150-450) k/uL MPV Neutrophils % % Lymphocytes % % Monocytes % % Eosinophils % % Basophils % % Neutrophils # (1.3-7.7) k/uL Lymphocytes # (1.0-4.8) k/uL Monocytes # (0-1.0) k/uL Eosinophils # (0-0.7) k/uL Basophils # (0-0.2) k/uL Hypochromasia Anisocytosis Microcytosis PT (9.0-12.0) sec INR (<1.2) APTT (22.0-30.0) sec Sodium (137-145) mmol/L Potassium (3.5-5.1) mmol/L Chloride (98-107) mmol/L Carbon Dioxide (22-30) mmol/L Anion Gap mmol/L BUN (7-17) mg/dL Creatinine (0.52-1.04) mg/dL Est GFR (CKD-EPI)AfAm (>60 ml/min/1.73 sqM) Est GFR (CKD-EPI)NonAf (>60 ml/min/1.73 sqM) Glucose (74-99) mg/dL Plasma Lactic Acid Pete 2.1 H* (0.7-2.0) mmol/L Calcium (8.4-10.2) mg/dL Magnesium (1.6-2.3) mg/dL Total Bilirubin (0.2-1.3) mg/dL AST (14-36) U/L ALT (4-34) U/L Alkaline Phosphatase (38-126) U/L Creatine Kinase (30-135) U/L Troponin I 0.064 H* (0.000-0.034) ng/mL NT-Pro-B Natriuret Pep 2870 pg/mL Total Protein (6.3-8.2) g/dL Albumin (3.5-5.0) g/dL - EKG Data -: EKG Interpreted by Me (EKG is sinus tach 112, ME 216 QRS 1:30 QTC 551) - Radiology Data Radiology results: report reviewed (Chest x-ray shows significant pulmonary edema bilaterally), image reviewed Critical Care Time Critical Care Time: Yes Total Critical Care Time: 31 Disposition Clinical Impression: CHF exacerbation, COPD exacerbation, Hypoxia, Congestive heart failure, Acute pulmonary edema, Acute respiratory failure, Hypertensive emergency Disposition: ADMITTED IP TO THIS HOSP Condition: Serious Is patient prescribed a controlled substance at d/c from ED?: No Referrals: Nonstaff,Physician [Primary Care Provider] - 1-2 days
[2020-09-27 01:48] LABS: Anisocytosis Slight; Basophils # (A) 0.1 k/uL (0-0.2); Basophils % (A) 2 %; Eosinophils # (A) 0.5 k/uL (0-0.7); Eosinophils % (A) 5 %; HCT 36.9 % (34.0-46.0); HGB 11.1 gm/dL (11.4-16.0); Hypochromasia Marked; Lymphocytes # (A) 3.1 k/uL (1.0-4.8); Lymphocytes % (A) 32 %; MCHC 30.2 g/dL (31.0-37.0); MCV 79.4 fL (80.0-100.0); Mean Platelet Volume 6.5; Microcytosis Slight; Monocytes # (A) 0.4 k/uL (0-1.0); Monocytes % (A) 4 %; Neutrophils # (A) 5.4 k/uL (1.3-7.7); Neutrophils % (A) 56 %; Platelet Count 203 k/uL (150-450); RBC 4.64 m/uL (3.80-5.40); RDW 16.7 % (11.5-15.5); WBC 9.5 k/uL (3.8-10.6)
[2020-09-27 01:57] LABS: Albumin 3.7 g/dL (3.5-5.0); Calcium 8.6 mg/dL (8.4-10.2); Magnesium 2.3 mg/dL (1.6-2.3); Potassium 4.3 mmol/L (3.5-5.1); Total Bilirubin 0.5 mg/dL (0.2-1.3); Total Protein 6.8 g/dL (6.3-8.2)
[2020-09-27 02:03] LABS: INR 0.9 (<1.2); Prothrombin Time 9.7 sec (9.0-12.0)
[2020-09-27 02:04] LABS: Partial Thromboplastin Time 20.7 sec (22.0-30.0)
--- NOTE | 2020-09-27 02:04 | XR ---
EXAM: XR Chest, 1 View CLINICAL HISTORY: sob TECHNIQUE: Frontal view of the chest. COMPARISON: April 23, 2020 FINDINGS: Lungs: Unremarkable. No acute infiltration, atelectasis or mass. Pleural space: Unremarkable. No pneumothorax or pleural fluid. Heart: The heart appears enlarged. Mediastinum: Unremarkable. Bones/joints: No acute findings. Other findings: Severe bilateral edema-like infiltration. IMPRESSION: Bilateral pulmonary edema, likely related to CHF.
[2020-09-27] MEDS: FUROSEMIDE 10 MG/ML 4 ML VIAL IV SCH ×3 (03:06→20:29)
[2020-09-27] MEDS ORDERED: IPRATROPIUM-ALBUTEROL 3 ML NEB INHALATION PRN (09:32)
[2020-09-27] MEDS: ENOXAPARIN 40 MG/0.4 ML SYRINGE SQ SCH (10:26)
[2020-09-27] MEDS: lisinopriL 10 MG TAB PO SCH (10:38)
[2020-09-27] MEDS: SERTRALINE 50 MG TAB PO PRN ×2 (10:38→10:40)
[2020-09-27] MEDS: carvediloL 3.125 MG TAB PO SCH ×2 (10:39→20:29)
[2020-09-27] MEDS: LEVOTHYROXINE 50 MCG TAB PO SCH (10:40)
--- NOTE | 2020-09-27 10:47 | ECHOF ---
Referral Reason:Heart Failure MEASUREMENTS -------- HEIGHT: 165.1 cm WEIGHT: 125.2 kg BP: 132/71 IVSd: 1.3 cm (0.6 - 1.1) LVIDd: 4.7 cm (3.9 - 5.3) LVPWd: 1.4 cm (0.6 - 1.1) EDV(Teich): 102 ml IVSs: 2.1 cm LVIDs: 3.0 cm LVPWs: 2.2 cm %IVS Thck: 56 % ESV(Teich): 35 ml EF(Teich): 66 % %FS: 36 % SV(Teich): 68 ml LA Diam: 3.6 cm (2.7 - 3.8) RVIDd: 3.0 cm (< 3.3) IVC: 21.95 mm LALs A4C: 7.1 cm LAAs A4C: 26.7 cm LAESV A-L A4C: 85 ml LAESV MOD A4C: 83 ml LALs A2C: 6.4 cm LAAs A2C: 20.2 cm LAESV A-L A2C: 54 ml LAESV MOD A2C: 51 ml LAESV(A-L): 72 ml LAESV Index (A-L): 31.53 ml/m Ao Diam: 3.2 cm (2.0 - 3.7) AV Cusp: 1.6 cm (1.5 - 2.6) EPSS: 0.6 cm MV E Jona: 1.21 m/s MV DecT: 175 ms MV Dec [place]: 6.9 m/s MV A Jona: 1.18 m/s MV E/A Ratio: 1.02 MV PHT: 51 ms AV Vmax: 1.69 m/s AV maxP.47 mmHg AV Vmax: 1.74 m/s AV Vmean: 1.14 m/s AV maxP.18 mmHg AV meanP.16 mmHg AV Env.Ti: 301 ms AV VTI: 34.3 cm TR Vmax: 2.45 m/s TR maxP.98 mmHg RAP: 5.00 mmHg RVSP: 28.98 mmHg MV EF SLOPE: 23.31 mm/s (70 - 150) MV EXCURSION: 8.07 mm (> 18.000) FINDINGS -------- Sinus rhythm. This was a technically adequate study. The left ventricular size is normal. There is moderate concentric left ventricular hypertrophy. O verall left ventricular systolic function is normal with, an EF between 55 - 60 %. The right ventricle is normal in size. LA is midly dilated 29-33ml/m2. The right atrium is normal in size. Interatrial and interventricular septum intact. There is mild aortic valve sclerosis. Peak/mean gradient across the Aortic Valve is 12.18mmHg / 6.1 6mmHg. The mitral valve leaflets are mildly thickened. Mild mitral annular calcification present. Mild m itral regurgitation is present. Mild tricuspid regurgitation present. Right ventricular systolic pressure is normal at < 35 mmHg. The pulmonic valve was not well visualized. The aortic root size is normal. Normal inferior vena cava with normal inspiratory collapse consistent with estimated right atrial pre ssure of 5 mmHg. There is no pericardial effusion. CONCLUSIONS -------- 1. The left ventricular size is normal. 2. There is moderate concentric left ventricular hypertrophy. 3. Overall left ventricular systolic function is normal with, an EF between 55 - 60 %. 4. LA is midly dilated 29-33ml/m2. 5. There is mild aortic valve sclerosis. 6. Peak/mean gradient across the Aortic Valve is 12.18mmHg / 6.16mmHg. 7. The mitral valve leaflets are mildly thickened. 8. Mild mitral annular calcification present. 9. Mild mitral regurgitation is present. 10. Mild tricuspid regurgitation present. 11. Right ventricular systolic pressure is normal at < 35 mmHg. 12. There is no pericardial effusion. GASOLINE TRUCK CRANE OPERATOR: MEERA Gloria
[2020-09-27] MEDS: IPRATROPIUM-ALBUTEROL 3 ML NEB INHALATION SCH ×3 (11:43→20:56)
--- NOTE | 2020-09-27 12:22 | P.CRDCN ---
History of Present Illness History of present illness: HISTORY OF PRESENTING ILLNESS This is a pleasant 80-year-old female past medical history significant for chronic diastolic heart failure, hypertension, morbid obesity and dyslipide eri. She follows in the office with Dr. Bedoya. We have been asked to see in consultation for heart failure. The patient states for the previous one week she has not been taking her oral diuretics secondary to increased urination and urinary incontinence. She presented to the hospital with symptoms of shortness of breath. Chest x-ray and admission revealed bilateral pulmonary edema. She was initiated on BiPAP and IV diuretics. She is continued on BiPAP and her breathing seems comfortable at this point. She denies chest pain, dizziness or palpitations. EKG reveals sinus tachycardia, right bundle branch block, nonspecific T-wave abnormalities suggestive of LVH with a heart rate of 112. Laboratory data reviewed, WBC 9.5, hemoglobin 11.1, platelets 203, sodium 139, potassium 4.3, creatinine 1.12, lactic acid on admission 2. 1 repeat 3.5, magnesium 2.3, troponin 0.064, 0.096 and 0.109 and and NTproBNP 2870. Current daily cardiac medications include lisinopril 10 mg daily, carvedilol 3.125 mg twice a day, aspirin 81 mg daily and Lasix 40 mg by mouth twice a day. Repeat echocardiogram was ordered revealing preserved LV systolic function with ejection fraction 55-60%, mild aortic valve sclerosis with a gradient of 6 mmHg, mild MR and mild TR. REVIEW OF SYSTEMS At the time of my exam: CONSTITUTIONAL: Denies fever or chills. CARDIOVASCULAR: Complains of shortness of breath. Denies chest pain, orthopnea, PND or palpitations. RESPIRATORY: Denies cough. GASTROINTESTINAL: Denies abdominal pain, diarrhea, constipation, nausea or vomiting. MUSCULOSKELETAL: Denies myalgias. NEUROLOGIC: Denies numbness, tingling or weakness. ENDOCRINE: Denies fatigue, weight change, polydipsia or polyurina. GENITOURINARY: Denies burning, hematuria or urgency with micturation. HEMATOLOGIC: Denies history of anemia or bleeding. PHYSICAL EXAMINATION Blood pressure 156/66 heart rate 76 afebrile and maintaining oxygen saturation on BiPAP CONSTITUTIONAL: No apparent distress. Morbidly obese. HEENT: Head is normocephalic. Pupils are equal, round. Sclerae anicteric. Mucous membranes of the mouth are moist. No JVD. No carotid bruit. CHEST EXAMINATION: Bibasilar rales. No wheezes or rhonchi. No chest wall tenderness is noted on palpation or with deep breathing. HEART EXAMINATION: Regular rate and rhythm. S1, S2 heard. Systolic ejection murmur at the base, no gallops or rub. ABDOMEN: Soft, nontender. Positive bowel sounds. EXTREMITIES: 2+ peripheral pulses, bilateral lower extremity 1+ pitting edema and no calf tenderness. NEUROLOGIC EXAMINATION: Patient is awake, alert and oriented x3. ASSESSMENT Acute on chronic diastolic heart failure Hypertension Dyslipidemia Morbid obesity, BMI 45 COPD PLAN Continue to diurese with lasix 40 mg TID. Follow renal function and electrolytes in the morning. Document accurate intake and output along with daily weights. Resume coreg and lisinopril as previously ordered. Consider primary urinary incontinence work-up as an outpatient. Further recommendations to follow based on clinical course. Thank you kindly for this consultation. Nurse Practitioner note has been reviewed, I agree with a documented findings and plan of care. Patient was seen and examined. Past Medical History Past Medical History: Asthma, Chest Pain / Angina, Heart Failure, COPD, Hyperlipidemia, Hypertension, Thyroid Disorder Additional Past Medical History / Comment(s): Intubated in September, home O2 PRN History of Any Multi-Drug Resistant Organisms: None Reported Past Surgical History: Hernia Repair Past Psychological History: No Psychological Hx Reported Past Alcohol Use History: None Reported Past Drug Use History: None Reported Medications and Allergies Home Medications Medication Instructions Recorded Confirmed Type Levothyroxine Sodium [Synthroid] 50 mcg PO DAILY 04/23/20 09/27/20 History Lidocaine 4% Cream [Lmx 4] 1 applic TOPICAL DAILY PRN 04/23/20 09/27/20 History Montelukast Sodium [Singulair] 5 mg PO HS 04/23/20 09/27/20 History Neurogen 1 applic TOPICAL DAILY PRN 04/23/20 09/27/20 History Sertraline HCl [Zoloft] 50 mg PO BID PRN 04/23/20 09/27/20 History Timolol 0.5% Ophth Soln [Timoptic 1 drop BOTH EYES BID 04/23/20 09/27/20 History 0.5% Ophth Soln] carvediloL [Coreg] 3.125 mg PO BID 04/23/20 09/27/20 History Aspirin EC [Ecotrin Low Dose] 81 mg PO DAILY #30 tab 04/27/20 09/27/20 Rx Furosemide [Lasix] 40 mg PO BID@0900,1600 #60 tab 04/27/20 09/27/20 Rx guaiFENesin [Mucinex] 600 mg PO Q12HR tablet.er 04/27/20 09/27/20 Rx lisinopriL [Zestril] 10 mg PO DAILY #30 tab 04/27/20 09/27/20 Rx Allergies Allergy/AdvReac Type Severity Reaction Status Date / Time No Known Allergies Allergy Verified 04/23/20 08:33 Physical Exam Vitals: Vital Signs Temp Pulse Pulse Resp BP BP Pulse Ox 09/27/20 11:56 76 09/27/20 11:44 76 09/27/20 10:40 96 09/27/20 09:00 97.5 F L 80 24 156/66 97 09/27/20 07:16 80 18 163/66 97 09/27/20 05:07 71 18 132/71 97 09/27/20 03:09 78 17 128/51 97 09/27/20 02:36 92 09/27/20 02:06 90 09/27/20 01:41 90 09/27/20 01:40 93 30 H 192/101 99 09/27/20 01:26 99 09/27/20 01:12 97 F L 120 H 30 H 227/115 93 L Intake and Output 09/26/20 09/27/20 09/27/20 22:59 06:59 14:59 Intake Total 9.84 Balance 9.84 Intake: Intake, IV Titration 9.84 Amount Nitroglycerin-D5w Pmx 50 9.84 mg In Dextrose/Water 1 250ml.bag @ 20 MCG/MIN 6 mls/hr IV .Q24H ONE Rx#: [id number] Other: Weight 125.191 kg Results 09/27/20 01:41 09/27/20 01:41 Cardiac Enzymes 09/27/20 09/27/20 09/27/20 Range/Units 01:41 01:41 04:37 AST 28 (14-36) U/L Troponin I 0.064 H* 0.096 H* (0.000-0.034) ng/mL 09/27/20 Range/Units 08:31 AST (14-36) U/L Troponin I 0.109 H* (0.000-0.034) ng/mL Coagulation 09/27/20 Range/Units 01:41 PT 9.7 (9.0-12.0) sec APTT 20.7 L (22.0-30.0) sec CBC 09/27/20 Range/Units 01:41 WBC 9.5 (3.8-10.6) k/uL RBC 4.64 (3.80-5.40) m/uL Hgb 11.1 L (11.4-16.0) gm/dL Hct 36.9 (34.0-46.0) % Plt Count 203 (150-450) k/uL Comprehensive Metabolic Panel 09/27/20 Range/Units 01:41 Sodium 139 (137-145) mmol/L Potassium 4.3 (3.5-5.1) mmol/L Chloride 105 (98-107) mmol/L Carbon Dioxide 26 (22-30) mmol/L BUN 22 H (7-17) mg/dL Creatinine 1.12 H (0.52-1.04) mg/dL Glucose 269 H (74-99) mg/dL Calcium 8.6 (8.4-10.2) mg/dL AST 28 (14-36) U/L ALT 11 (4-34) U/L Alkaline Phosphatase 99 (38-126) U/L Total Protein 6.8 (6.3-8.2) g/dL Albumin 3.7 (3.5-5.0) g/dL Current Medications Generic Name Dose Route Start Last Admin Trade Name Freq PRN Reason Stop Dose Admin Albuterol/Ipratropium 3 ml 09/27/20 12:00 09/27/20 11:43 Ipratropium-Albuterol 3 Ml Neb INHALATION 3 ml RT-QID SANKET Administration Albuterol/Ipratropium 3 ml 09/27/20 09:32 Ipratropium-Albuterol 3 Ml Neb INHALATION RT-Q2H PRN Shortness Of Breath Or Wheezing Carvedilol 3.125 mg 09/27/20 09:15 09/27/20 10:39 Carvedilol 3.125 Mg Tab PO 3.125 mg BID SANKET Administration Enoxaparin Sodium 40 mg 09/27/20 09:00 09/27/20 10:26 Enoxaparin 40 Mg/0.4 Ml Syringe SQ 40 mg DAILY SANKET Administration Furosemide 40 mg 09/27/20 03:00 09/27/20 10:26 Furosemide 10 Mg/Ml 4 Ml Vial IV 40 mg Q8H SANKET Administration Levothyroxine Sodium 50 mcg 09/27/20 09:45 09/27/20 10:40 Levothyroxine 50 Mcg Tab PO 50 mcg DAILY@0630 SANKET Administration Lisinopril 10 mg 09/27/20 09:15 09/27/20 10:38 Lisinopril 10 Mg Tab PO 10 mg DAILY SANKET Administration Montelukast Sodium 5 mg 09/27/20 21:00 Montelukast 5 Mg Chewable PO HS SANKET Sertraline HCl 50 mg 09/27/20 09:32 09/27/20 10:40 Sertraline 50 Mg Tab PO 50 mg BID PRN Administration Anxiety/depression Timolol Maleate 1 drops 09/27/20 09:45 Timolol 0.5% Ophth Drops 5 Ml Btl BOTH EYES BID [facility] Intake and Output 09/26/20 09/27/20 09/27/20 22:59 06:59 14:59 Intake Total 9.84 Balance 9.84 Intake: Intake, IV Titration 9.84 Amount Nitroglycerin-D5w Pmx 50 9.84 mg In Dextrose/Water 1 250ml.bag @ 20 MCG/MIN 6 mls/hr IV .Q24H ONE Rx#: [id number] Other: Weight 125.191 kg 09/27/20 01:41 09/27/20 01:41
--- NOTE | 2020-09-27 14:57 | P.HPIM ---
History of Present Illness H&P Date: 09/27/20 This is a pleasant 80-year-old female with past medical history of chronic diastolic CHF ,COPD, chronic respiratory failure, wears 2 liters nasal cannula home, morbid obesity, hypertension, hyperlipidemia, hypothyroidism, and multiple other medical issues. Presented to the ER with worsening shortness of breath. Hypertensive on admission with systolic blood pressures in the 200s. Received Vasotec IV push .Patient reports she had run out of lisinopril, but did not notify PCP office. Patient also informed cardiology that she quit taking her Lasix approximately 1 week ago secondary to urinary incontinence. Chest x-ray reported bilateral pulmonary edema, likely CHF, EKG reported sinus tachycardia with nonspecific T-wave abnormalities.WBC 9.5, hemoglobin 11.1, platelets 203, sodium 139, potassium 4.3, BUN 22, creatinine 1.12, lactic acid on admission 2. 1, 3.5, magnesium 2.3, troponin 0.064, 0.096 and 0.109, BNP 2870. Echo completed reporting preserved LV function, EF 55-60%. Review of Systems ROS Statement: Those systems with pertinent positive or pertinent negative responses have been documented in the HPI. ROS Other: All systems not noted in ROS Statement are negative. Past Medical History Past Medical History: Asthma, Chest Pain / Angina, Heart Failure, COPD, Hyperlipidemia, Hypertension, Thyroid Disorder Additional Past Medical History / Comment(s): Intubated in September, home O2 PRN History of Any Multi-Drug Resistant Organisms: None Reported Past Surgical History: Hernia Repair Past Psychological History: No Psychological Hx Reported Past Alcohol Use History: None Reported Past Drug Use History: None Reported Medications and Allergies Home Medications Medication Instructions Recorded Confirmed Type Levothyroxine Sodium [Synthroid] 50 mcg PO DAILY 04/23/20 09/27/20 History Lidocaine 4% Cream [Lmx 4] 1 applic TOPICAL DAILY PRN 04/23/20 09/27/20 History Montelukast Sodium [Singulair] 5 mg PO HS 04/23/20 09/27/20 History Neurogen 1 applic TOPICAL DAILY PRN 04/23/20 09/27/20 History Sertraline HCl [Zoloft] 50 mg PO BID PRN 04/23/20 09/27/20 History Timolol 0.5% Ophth Soln [Timoptic 1 drop BOTH EYES BID 04/23/20 09/27/20 History 0.5% Ophth Soln] carvediloL [Coreg] 3.125 mg PO BID 04/23/20 09/27/20 History Aspirin EC [Ecotrin Low Dose] 81 mg PO DAILY #30 tab 04/27/20 09/27/20 Rx Furosemide [Lasix] 40 mg PO BID@0900,1600 #60 tab 04/27/20 09/27/20 Rx guaiFENesin [Mucinex] 600 mg PO Q12HR tablet.er 04/27/20 09/27/20 Rx lisinopriL [Zestril] 10 mg PO DAILY #30 tab 04/27/20 09/27/20 Rx Allergies Allergy/AdvReac Type Severity Reaction Status Date / Time No Known Allergies Allergy Verified 04/23/20 08:33 Physical Exam Vitals: Vital Signs Temp Pulse Resp BP Pulse Ox 09/27/20 07:16 80 18 163/66 97 09/27/20 05:07 71 18 132/71 97 09/27/20 03:09 78 17 128/51 97 09/27/20 02:36 92 09/27/20 02:06 90 09/27/20 01:41 90 09/27/20 01:40 93 30 H 192/101 99 09/27/20 01:26 99 09/27/20 01:12 97 F L 120 H 30 H 227/115 93 L Intake and Output 09/26/20 09/27/20 09/27/20 22:59 06:59 14:59 Intake Total 9.84 Balance 9.84 Intake: Intake, IV Titration 9.84 Amount Nitroglycerin-D5w Pmx 50 9.84 mg In Dextrose/Water 1 250ml.bag @ 20 MCG/MIN 6 mls/hr IV .Q24H ONE Rx#: [id number] Other: Weight 125.191 kg PHYSICAL EXAM: VITAL SIGNS: [As above] GENERAL: Obese,Sitting up in stretcher, respiratory effort increased, wearing BiPAP HEENT: Conjunctivae normal. eyes normal. NECK: No JVD. No thyroid enlargement. No LNs CARDIOVASCULAR: S1, S2 regular. Positive systolic murmur RESPIRATION: Breath sounds diminished in the bases. No rhonchi, positive bibasilar crackles. ABDOMEN: Soft, nontender . No guarding. no masses palpable. Bowel sounds heard. EXTREMITIES: Edema present in all 4 extremities, no calf tenderness, positive peripheral pulses PSYCHIATRY: Alert and oriented X3, mood and affect normal. NERVOUS SYSTEM: Cranial N 2-12 grossly normal. Moves all 4 limbs. Diffuse weakness, No focal deficits. Strength and sensation grossly intact.. Skin: Warm and dry no rash Results CBC & Chem 7: 09/27/20 01:41 09/27/20 01:41 Labs: Abnormal Lab Results - Last 24 Hours (Table) 09/27/20 09/27/20 09/27/20 Range/Units 01:41 01:41 01:41 Hgb 11.1 L (11.4-16.0) gm/dL MCV 79.4 L (80.0-100.0) fL MCH 24.0 L (25.0-35.0) pg MCHC 30.2 L (31.0-37.0) g/dL RDW 16.7 H (11.5-15.5) % APTT 20.7 L (22.0-30.0) sec BUN 22 H (7-17) mg/dL Creatinine 1.12 H (0.52-1.04) mg/dL Glucose 269 H (74-99) mg/dL Plasma Lactic Acid Pete (0.7-2.0) mmol/L Troponin I (0.000-0.034) ng/mL 09/27/20 09/27/20 09/27/20 Range/Units 01:41 01:41 04:37 Hgb (11.4-16.0) gm/dL MCV (80.0-100.0) fL MCH (25.0-35.0) pg MCHC (31.0-37.0) g/dL RDW (11.5-15.5) % APTT (22.0-30.0) sec BUN (7-17) mg/dL Creatinine (0.52-1.04) mg/dL Glucose (74-99) mg/dL Plasma Lactic Acid Pete 2.1 H* (0.7-2.0) mmol/L Troponin I 0.064 H* 0.096 H* (0.000-0.034) ng/mL 09/27/20 Range/Units 04:37 Hgb (11.4-16.0) gm/dL MCV (80.0-100.0) fL MCH (25.0-35.0) pg MCHC (31.0-37.0) g/dL RDW (11.5-15.5) % APTT (22.0-30.0) sec BUN (7-17) mg/dL Creatinine (0.52-1.04) mg/dL Glucose (74-99) mg/dL Plasma Lactic Acid Pete 3.5 H* (0.7-2.0) mmol/L Troponin I (0.000-0.034) ng/mL Assessment and Plan Assessment: Acute on chronic CHF, diastolic dysfunction, 50-55%. Hypertensive emergency Elevated troponin level throughout its related to renal insufficiency, less likely non-ST related MIAs per rib sawyer Acute COPD exacerbation Acute on Chronic hypoxic respiratory failure on oxygen at 2 L at home, secondary to acute CHF exacerbation, acute COPD exacerbation related to noncompliance. Acute renal failure , multifactorial secondary to all the above Lactic Acidosis Hypertension Hyperlipidemia Hypothyroidism Previous history of smoking Morbid obesity with a BMI 45 Obstructive sleep apnea, possibly Plan: Continue on current medication regime ,monitoring and symptomatic treatment. Coreg and lisinopril resumed .Continue diuresing on Lasix IV push, close monitoring of renal function. Repeat lactic acid level .Pulmonary and Cardiology consults in place.Patient instructed to notify the office next time when she runs out of medications for refills to be called in. Prognosis guarded given multiple complex medical issues. Follow closely with both cardiology and pulmonary. The impression and plan of care has been dictated as directed. : I performed a history and examination of this patient, discussed the same with the dictator. I agree with the dictator's note ,documented as a scribe. Any additional findings or plans will be noted.
[2020-09-27 15:17] VITALS: BMI 45.9
--- NOTE | 2020-09-27 17:31 | P.CNPUL ---
History of Present Illness Consult date: 09/27/20 Requesting physician: Kody Hudson Reason for consult: dyspnea Chief complaint: Shortness of breath History of present illness: This is an 80-year-old female with history of chronic diastolic congestive heart failure, morbid obesity, patient was admitted to the hospital with 1 week history of increased shortness of breath, apparently has not been compliant with her oral diuretics, mostly because of increased urination, and urinary incontinence. Patient presented to the hospital with mostly symptoms of shortness of breath, and her chest x-ray clearly showed evidence of pulmonary edema. Patient was given diuretics, placed on BiPAP, by the time I evaluated the patient, she was doing very well. Breathing easier, maintained on BiPAP, and tolerating the BiPAP quite well. Follow-up chest x-ray was ordered to be done tomorrow. BNP level was 2870, she was also noted to have elevated tropo viviane, being addressed by cardiology. Review of Systems Constitutional: Negative HEENT: Negative Cardiac: Shortness of breath and orthopnea. Pulmonary: Shortness of breath and cough, no wheezing, no fever no chills no hemoptysis. GI: Negative Genitourinary: Negative Muscular skeletal: Negative Skin: Negative Neurologic: Negative Endocrine: Negative hematologic: Negative Past Medical History Past Medical History: Asthma, Chest Pain / Angina, Heart Failure, COPD, Hyperlipidemia, Hypertension, Thyroid Disorder Additional Past Medical History / Comment(s): Intubated in September, home O2 PRN History of Any Multi-Drug Resistant Organisms: None Reported Past Surgical History: Hernia Repair Past Anesthesia/Blood Transfusion Reactions: No Reported Reaction Past Psychological History: No Psychological Hx Reported Past Alcohol Use History: None Reported Past Drug Use History: None Reported - Past Family History Mother Family Medical History: Dementia Father Family Medical History: COPD Additional Family Medical History / Comment(s): etoh Medications and Allergies Home Medications Medication Instructions Recorded Confirmed Type Levothyroxine Sodium [Synthroid] 50 mcg PO DAILY 04/23/20 09/27/20 History Lidocaine 4% Cream [Lmx 4] 1 applic TOPICAL DAILY PRN 04/23/20 09/27/20 History Montelukast Sodium [Singulair] 5 mg PO HS 04/23/20 09/27/20 History Neurogen 1 applic TOPICAL DAILY PRN 04/23/20 09/27/20 History Sertraline HCl [Zoloft] 50 mg PO BID PRN 04/23/20 09/27/20 History Timolol 0.5% Ophth Soln [Timoptic 1 drop BOTH EYES BID 04/23/20 09/27/20 History 0.5% Ophth Soln] carvediloL [Coreg] 3.125 mg PO BID 04/23/20 09/27/20 History Aspirin EC [Ecotrin Low Dose] 81 mg PO DAILY #30 tab 04/27/20 09/27/20 Rx Furosemide [Lasix] 40 mg PO BID@0900,1600 #60 tab 04/27/20 09/27/20 Rx guaiFENesin [Mucinex] 600 mg PO Q12HR tablet.er 04/27/20 09/27/20 Rx lisinopriL [Zestril] 10 mg PO DAILY #30 tab 04/27/20 09/27/20 Rx Allergies Allergy/AdvReac Type Severity Reaction Status Date / Time No Known Allergies Allergy Verified 04/23/20 08:33 Physical Exam Vitals: Vital Signs Temp Pulse Pulse Resp BP BP Pulse Ox 09/27/20 15:50 97.6 F 79 17 132/68 96 09/27/20 15:35 76 09/27/20 15:23 80 09/27/20 11:56 76 09/27/20 11:44 76 09/27/20 11:30 98.3 F 74 21 131/59 99 09/27/20 10:40 96 09/27/20 09:00 97.5 F L 80 24 156/66 97 09/27/20 07:16 80 18 163/66 97 09/27/20 05:07 71 18 132/71 97 09/27/20 03:09 78 17 128/51 97 09/27/20 02:36 92 09/27/20 02:06 90 09/27/20 01:41 90 09/27/20 01:40 93 30 H 192/101 99 09/27/20 01:26 99 09/27/20 01:12 97 F L 120 H 30 H 227/115 93 L Intake and Output 09/27/20 09/27/20 09/27/20 06:59 14:59 22:59 Intake Total 9.84 0 Balance 9.84 0 Intake: Intake, IV Titration 9.84 Amount Nitroglycerin-D5w Pmx 50 9.84 mg In Dextrose/Water 1 250ml.bag @ 20 MCG/MIN 6 mls/hr IV .Q24H ONE Rx#: [id number] Oral 0 Other: # Voids 0 Weight 125.191 kg 125.191 kg 125.191 kg GENERAL: Revealed an 80-year-old female in no distress, however she is on BiPAP. HEENT: Conjunctivae normal. eyes normal. NECK: No JVD. No thyroid enlargement. No LNs CARDIOVASCULAR: S1, S2 regular. Positive systolic murmur RESPIRATION: Fine crackles at the bases, no rhonchi and no wheezes. ABDOMEN: Soft, nontender . No guarding. no masses palpable. Bowel sounds heard. EXTREMITIES: Edema present in all 4 extremities, no calf tenderness, positive peripheral pulses PSYCHIATRY: Alert and oriented X3, mood and affect normal. NERVOUS SYSTEM: Cranial N 2-12 grossly normal. Moves all 4 limbs. Diffuse weakness, No focal deficits. Strength and sensation grossly intact.. Skin: Warm and dry no rash Results - Laboratory Findings CBC and BMP: 09/27/20 01:41 09/27/20 01:41 PT/INR, D-dimer PT 9.7 sec (9.0-12.0) 09/27/20 01:41 INR 0.9 (<1.2) 09/27/20 01:41 Abnormal lab findings: Abnormal Labs 09/27/20 09/27/20 09/27/20 01:41 01:41 01:41 Hgb 11.1 L MCV 79.4 L MCH 24.0 L MCHC 30.2 L RDW 16.7 H APTT 20.7 L BUN 22 H Creatinine 1.12 H Glucose 269 H Plasma Lactic Acid Pete Troponin I 09/27/20 09/27/20 09/27/20 01:41 01:41 04:37 Hgb MCV MCH MCHC RDW APTT BUN Creatinine Glucose Plasma Lactic Acid Pete 2.1 H* Troponin I 0.064 H* 0.096 H* 09/27/20 09/27/20 09/27/20 04:37 08:31 08:31 Hgb MCV MCH MCHC RDW APTT BUN Creatinine Glucose Plasma Lactic Acid Pete 3.5 H* 3.5 H* Troponin I 0.109 H* - Diagnostic Findings Chest x-ray: image reviewed (Consistent with pulmonary edema.) Assessment and Plan Assessment: Impression: Acute on chronic hypoxic respiratory failure Acute on chronic diastolic congestive heart failure History of chronic hypoxic respiratory failure History of chronic obstructive pulmonary disease presently inactive. Acute renal failure/acute kidney injury multifactorial Dyslipidemia Hypothyroidism Morbid obesity Suspect obstructive sleep apnea syndrome. Recommendation: Continue present treatment plan including Lasix, and monitor renal profile. Continue BiPAP. Continue Coreg and lisinopril. Transition BiPAP to a nasal cannula in the next 24 hours as tolerated. We'll continue to follow. Time with Patient: Greater than 30
[2020-09-27] MEDS: MONTELUKAST 5 MG CHEWABLE PO SCH (20:29)
[2020-09-27] MEDS: TIMOLOL 0.5% OPHTH DROPS 5 ML BTL BOTH EYES SCH ×2 (20:31→20:32)
[2020-09-28] MEDS: FUROSEMIDE 10 MG/ML 4 ML VIAL IV SCH ×3 (03:12→17:34)
--- NOTE | 2020-09-28 07:30 | XR ---
EXAMINATION TYPE: XR chest 1V portable DATE OF EXAM: 09/28/2020 CLINICAL HISTORY: Difficulty breathing progress study. TECHNIQUE: Single AP portable frontal view of the chest is obtained. COMPARISON: Chest x-ray from one day earlier in April 23, 2020 FINDINGS: Exam slightly suboptimal due to portable technique and patient's large body habitus. Persi stent cardiomegaly with atherosclerotic and ectatic thoracic aorta. Improving perihilar opacities sravan aterally. Suspect persistent but improving tiny bilateral pleural effusions. Osseous structures are i ntact. IMPRESSION: Improving pleural effusions and central vascular congestion consistent with improving CHF exacerbation. Correlate clinically.
[2020-09-28] MEDS: IPRATROPIUM-ALBUTEROL 3 ML NEB INHALATION SCH ×5 (08:06→20:13)
[2020-09-28] MEDS: ENOXAPARIN 40 MG/0.4 ML SYRINGE SQ SCH (08:29)
[2020-09-28] MEDS: LEVOTHYROXINE 50 MCG TAB PO SCH (08:30)
[2020-09-28] MEDS: lisinopriL 10 MG TAB PO SCH (08:30)
[2020-09-28] MEDS: carvediloL 3.125 MG TAB PO SCH ×2 (08:30→22:16)
[2020-09-28] MEDS: TIMOLOL 0.5% OPHTH DROPS 5 ML BTL BOTH EYES SCH ×2 (08:30→22:17)
--- NOTE | 2020-09-28 09:34 | P.PN ---
Subjective Progress Note Date: 09/28/20 This is a pleasant 80-year-old female with past medical history of chronic diastolic CHF ,COPD, chronic respiratory failure, wears 2 liters nasal cannula home, morbid obesity, hypertension, hyperlipidemia, hypothyroidism, and multiple other medical issues. Presented to the ER with worsening shortness of breath. Hypertensive on admission with systolic blood pressures in the 200s. Received Vasotec IV push .Patient reports she had run out of lisinopril, but did not notify PCP office. Patient also informed cardiology that she quit taking her Lasix approximately 1 week ago secondary to urinary incontinence. Chest x-ray reported bilateral pulmonary edema, likely CHF, EKG reported sinus tachycardia w ith nonspecific T-wave abnormalities.WBC 9.5, hemoglobin 11.1, platelets 203, sodium 139, potassium 4.3, BUN 22, creatinine 1.12, lactic acid on admission 2. 1, 3.5, magnesium 2.3, troponin 0.064, 0.096 and 0.109, BNP 2870. Echo completed reporting preserved LV function, EF 55-60%. 09/28/2020 diuresed well on Lasix IV push, weaned off of BiPAP, currently on 2 L nasal cannula maintaining O2 sats of 92%- I&O inaccurate. A.m. vital signs and labs pending. Denies chest pain, palpitations or increasing shortness of breath. Objective - Vital Signs Vital signs: Vital Signs Temp 97.9 F 09/28/20 03:11 Pulse 72 09/28/20 08:19 Resp 16 09/28/20 03:11 BP 166/79 09/28/20 03:11 Pulse Ox 99 09/28/20 03:11 Intake & Output 09/27/20 09/28/20 09/28/20 18:59 06:59 18:59 Intake Total 0 Balance 0 Weight 125.191 kg 127 kg Intake: Oral 0 Other: # Voids 2 # Bowel Movements 0 - Exam PHYSICAL EXAM: VITAL SIGNS: [As above] GENERAL: Sitting up in bed, no acute distress weighing 2 L nasal cannula HEENT: Conjunctivae normal. eyes normal. NECK: No JVD. No thyroid enlargement. No LNs CARDIOVASCULAR: S1, S2 regular. Positive systolic murmur RESPIRATION: Unlabored respiratory effort .Breath sounds diminished in the bases. Fine bibasilar crackles. ABDOMEN: Soft, nontender . No guarding. no masses palpable. Bowel sounds heard. EXTREMITIES: Improving Edema present in all 4 extremities, no calf tenderness, positive peripheral pulses PSYCHIATRY: Alert and oriented X3, mood and affect normal. NERVOUS SYSTEM: Cranial N 2-12 grossly normal. Moves all 4 limbs. No focal deficits. Strength and sensation grossly intact.. Skin: Warm and dry no rash - Labs CBC & Chem 7: 09/27/20 01:41 09/27/20 01:41 Labs: Abnormal Lab Results - Last 24 Hours (Table) 09/27/20 09/27/20 Range/Units 08:31 08:31 Plasma Lactic Acid Pete 3.5 H* (0.7-2.0) mmol/L Troponin I 0.109 H* (0.000-0.034) ng/mL Assessment and Plan Assessment: Acute on chronic CHF, diastolic dysfunction, 50-55%. Hypertensive emergency Elevated troponin level throughout its related to renal insufficiency, noncardiac as per cardiology Acute COPD exacerbation Acute on Chronic hypoxic respiratory failure on oxygen at 2 L at home, secondary to acute CHF exacerbation, acute COPD exacerbation related to noncompliance. Acute renal failure , multifactorial secondary to all the above Lactic Acidosis Hypertension Hyperlipidemia Hypothyroidism Previous history of smoking Morbid obesity with a BMI 46 Obstructive sleep apnea, possibly Plan: Continue on current medication regime ,monitoring and symptomatic treatment. Vital signs, labs pending. Significant clinical improvement. Diuretics as per cardiology. Medication compliance discussed, reinforced. Increase ambulation as tolerated. The impression and plan of care has been dictated as directed. : I performed a history and examination of this patient, discussed the same with the dictator. I agree with the dictator's note ,documented as a scribe. Any additional findings or plans will be noted.
[2020-09-28 11:16] LABS: Anisocytosis Slight; HCT 31.5 % (34.0-46.0); HGB 9.9 gm/dL (11.4-16.0); Hypochromasia Marked; MCH 24.2 pg (25.0-35.0); MCHC 31.3 g/dL (31.0-37.0); MCV 77.2 fL (80.0-100.0); Mean Platelet Volume 8.5; Microcytosis Slight; Platelet Count 190 k/uL (150-450); Poikilocytosis Slight; RBC 4.09 m/uL (3.80-5.40); RDW 16.9 % (11.5-15.5); WBC 11.1 k/uL (3.8-10.6)
[2020-09-28 11:34] LABS: Calcium 8.7 mg/dL (8.4-10.2); Magnesium 2.1 mg/dL (1.6-2.3); Potassium 4.4 mmol/L (3.5-5.1)
--- NOTE | 2020-09-28 13:19 | P.PN ---
Subjective Progress Note Date: 09/28/20 HISTORY OF PRESENT ILLNESS: 09/27/2020 This is a pleasant 80-year-old female past medical history significant for chronic diastolic heart failure, hypertension, morbid obesity and dyslipidemia. She follows in the office with Dr. Bedoya. We have been asked to see in consultation for heart failure. The patient states for the previous one week she has not been taking her oral diuretics secondary to increased urination and urinary incontinence. She presented to the hospital with symptoms of shortness of breath. Chest x-ray and admission revealed bilateral pulmonary edema. She was initiated on BiPAP and IV diuretics. She is continued on BiPAP and her breathing seems comfortable at this point. She denies chest pain, dizziness or palpitations. EKG reveals sinus tachycardia, right bundle branch block, nonspecific T-wave abnormalities suggestive of LVH with a heart rate of 112. Laboratory data reviewed, WBC 9.5, hemoglobin 11.1, platelets 203, sodium 139, potassium 4.3, creatinine 1.12, lactic acid on admission 2. 1 repeat 3.5, magnesium 2.3, troponin 0.064, 0.096 and 0.109 and and NTproBNP 2870. Current daily cardiac medications include lisinopril 10 mg daily, carvedilol 3.125 mg twice a day, aspirin 81 mg daily and Lasix 40 mg by mouth twice a day. Repeat echocardiogram was ordered revealing preserved LV systolic function with ejection fraction 55-60%, mild aortic valve sclerosis with a gradient of 6 mmHg, mild MR and mild TR. 09/28/2020 Patient examined at the bedside. Patient states her shortness of breath has improved. She remains off BiPAP and is on a nasal cannula with oxygen saturations greater than 92%. She reports improvement in her lower extremity edema. She remains on Lasix 40 mg IV every 8 hours. Creatinine 1.04 today. Vital signs are stable. PHYSICAL EXAM: VITAL SIGNS: Reviewed. GENERAL: Well-developed in no acute distress. NECK: Supple. No JVD or thyromegaly LUNGS: Respirations even and unlabored. Lungs diminished. HEART: Regular rate and rhythm. S1 and S2 heard. Systolic murmur noted. EXTREMITIES: Normal range of motion. No clubbing or cyanosis. Peripheral pulses intact. 2+ bilateral lower extremity edema ASSESSMENT: Acute on chronic diastolic heart failure Hypertension Dyslipidemia Morbid obesity, BMI 45 COPD PLAN: Continue current cardiac medications Continue current dose of IV Lasix: 40 mg every 8 hours Monitor kidney function Daily weights Accurate I&O Nurse practitioner note has been reviewed by physician. Signing provider agrees with the documented findings, assessment, and plan of care. Objective - Vital Signs Vital signs: Vital Signs Temp 98.8 F 09/28/20 08:29 Pulse 70 09/28/20 08:29 Resp 16 09/28/20 08:29 BP 110/54 09/28/20 08:29 Pulse Ox 92 L 09/28/20 08:29 Intake & Output 09/27/20 09/28/20 09/28/20 18:59 06:59 18:59 Intake Total 0 200 Balance 0 200 Weight 125.191 kg 127 kg Intake: Oral 0 200 Other: # Voids 2 2 # Bowel Movements 0 0 - Labs CBC & Chem 7: 09/28/20 10:47 09/28/20 10:47 Labs: Abnormal Lab Results - Last 24 Hours (Table) 09/28/20 09/28/20 Range/Units 10:47 10:47 WBC 11.1 H (3.8-10.6) k/uL Hgb 9.9 L (11.4-16.0) gm/dL Hct 31.5 L (34.0-46.0) % MCV 77.2 L (80.0-100.0) fL MCH 24.2 L (25.0-35.0) pg RDW 16.9 H (11.5-15.5) % Carbon Dioxide 33 H (22-30) mmol/L BUN 32 H (7-17) mg/dL Glucose 130 H (74-99) mg/dL
--- NOTE | 2020-09-28 14:08 | P.PN ---
Subjective Progress Note Date: 09/28/20 Principal diagnosis: Acute exacerbation of diastolic congestive heart failure This is an 80-year-old female with history of chronic diastolic congestive heart failure, morbid obesity, patient was admitted to the hospital with 1 week history of increased shortness of breath, apparently has not been compliant with her oral diuretics, mostly because of increased urination, and urinary incontinence. Patient presented to the hospital with mostly symptoms of shortness of breath, and her chest x-ray clearly showed evidence of pulmonary edema. Patient was given diuretics, placed on BiPAP, by the time I evaluated the patient, she was doing very well. Breathing easier, maintained on BiPAP, and tolerating the BiPAP quite well. Follow-up chest x-ray was ordered to be done tomorrow. BNP level was 2870, she was also noted to have elevated troponin, being addressed by cardiology. The patient is seen today 09/28/2020 in follow-up on the selective care unit. She is currently sitting up in bed. Awake and alert in no acute distress. Breathing quite a bit better today compared to yesterday. Maintaining good O2 saturation in the 90s on 2 L/m per nasal cannula. She's afebrile. White count 11.1. Hemoglobin 9.9. Sodium 140. Potassium 4.4. Creatinine 1.04. She remains on Lasix 40 mg IV push every 8 hours. Chest x-ray reveals improving pleural effusions and central vascular congestion. Consistent with improving CHF exacerbation. Objective - Vital Signs Vital signs: Vital Signs Temp 98.8 F 09/28/20 08:29 Pulse 70 09/28/20 08:29 Resp 16 09/28/20 08:29 BP 110/54 09/28/20 08:29 Pulse Ox 92 L 09/28/20 08:29 Intake & Output 09/27/20 09/28/20 09/28/20 18:59 06:59 18:59 Intake Total 0 560 Balance 0 560 Weight 125.191 kg 127 kg Intake: Oral 0 560 Other: # Voids 2 0 # Bowel Movements 0 0 - Exam GENERAL: Revealed an alert, pleasant 80-year-old female in no distress, currently on 2 L/m per nasal cannula HEENT: Conjunctivae normal. eyes normal. NECK: No JVD. No thyroid enlargement. No LNs CARDIOVASCULAR: S1, S2 regular. Positive systolic murmur RESPIRATION: Fine crackles at the bases, no rhonchi and no wheezes. ABDOMEN: Soft, nontender . No guarding. no masses palpable. Bowel sounds hear d. EXTREMITIES: Edema present in all 4 extremities, no calf tenderness, positive peripheral pulses PSYCHIATRY: Alert and oriented X3, mood and affect normal. NERVOUS SYSTEM: Cranial N 2-12 grossly normal. Moves all 4 limbs. Diffuse weakness, No focal deficits. Strength and sensation grossly intact.. Skin: Warm and dry no rash - Labs CBC & Chem 7: 09/28/20 10:47 09/28/20 10:47 Labs: Abnormal Lab Results - Last 24 Hours (Table) 09/28/20 09/28/20 Range/Units 10:47 10:47 WBC 11.1 H (3.8-10.6) k/uL Hgb 9.9 L (11.4-16.0) gm/dL Hct 31.5 L (34.0-46.0) % MCV 77.2 L (80.0-100.0) fL MCH 24.2 L (25.0-35.0) pg RDW 16.9 H (11.5-15.5) % Carbon Dioxide 33 H (22-30) mmol/L BUN 32 H (7-17) mg/dL Glucose 130 H (74-99) mg/dL Assessment and Plan Assessment: 1 Acute on chronic hypoxic respiratory failure 2 Acute on chronic diastolic congestive heart failure 3 History of chronic hypoxic respiratory failure 4 History of chronic obstructive pulmonary disease presently inactive 5 Acute renal failure/acute kidney injury multifactorial 6 Dyslipidemia 7 Hypothyroidism 8 Morbid obesity 9 Suspect obstructive sleep apnea syndrome Plan: The patient was seen and evaluated by Dr. Au Chest x-ray and labs reviewed Improving from the pulmonary standpoint Continue diuretics Continue to titrate down the FiO2 as tolerated We'll continue to follow I, the cosigning physician, performed a history & physical examination of the patient. Lungs sounds with fine crackles in the bilateral posterior bases. Kristina ntaining good O2 saturations in the 90s on 2 L/m per nasal cannula. I discussed the assessment and plan of care with my nurse practitioner, Amadna Gandhi. I attest to the above note as dictated by her.
[2020-09-28] MEDS: MONTELUKAST 5 MG CHEWABLE PO SCH (22:17)
[2020-09-29] MEDS: FUROSEMIDE 10 MG/ML 4 ML VIAL IV SCH ×3 (03:59→16:48)
[2020-09-29] MEDS: LEVOTHYROXINE 50 MCG TAB PO SCH (05:44)
[2020-09-29] MEDS: lisinopriL 10 MG TAB PO SCH (08:49)
[2020-09-29] MEDS: ENOXAPARIN 40 MG/0.4 ML SYRINGE SQ SCH (08:49)
[2020-09-29] MEDS: carvediloL 3.125 MG TAB PO SCH ×2 (08:49→20:56)
[2020-09-29] MEDS: TIMOLOL 0.5% OPHTH DROPS 5 ML BTL BOTH EYES SCH ×2 (08:53→20:57)
[2020-09-29 09:00] LABS: Calcium 8.5 mg/dL (8.4-10.2); Potassium 4.1 mmol/L (3.5-5.1)
[2020-09-29] MEDS: IPRATROPIUM-ALBUTEROL 3 ML NEB INHALATION SCH ×4 (09:28→22:32)
--- NOTE | 2020-09-29 10:10 | P.PN ---
Subjective Progress Note Date: 09/29/20 HISTORY OF PRESENT ILLNESS: 09/27/2020 This is a pleasant 80-year-old female past medical history significant for chronic diastolic heart failure, hypertension, morbid obesity and dyslipidemia. She follows in the office with Dr. Bedoya. We have been asked to see in consultation for heart failure. The patient states for the previous one week she has not been taking her oral diuretics secondary to increased urination and urinary incontinence. She presented to the hospital with symptoms of shortness of breath. Chest x-ray and admission revealed bilateral pulmonary edema. She was initiated on BiPAP and IV diuretics. She is continued on BiPAP and her breathing seems comfortable at this point. She denies chest pain, dizziness or palpitations. EKG reveals sinus tachycardia, right bundle branch block, nonspecific T-wave abnormalities suggestive of LVH with a heart rate of 112. Laboratory data reviewed, WBC 9.5, hemoglobin 11.1, platelets 203, sodium 139, potassium 4.3, creatinine 1.12, lactic acid on admission 2. 1 repeat 3.5, magnesium 2.3, troponin 0.064, 0.096 and 0.109 and and NTproBNP 2870. Current daily cardiac medications include lisinopril 10 mg daily, carvedilol 3.125 mg twice a day, aspirin 81 mg daily and Lasix 40 mg by mouth twice a day. Repeat echocardiogram was ordered revealing preserved LV systolic function with ejection fraction 55-60%, mild aortic valve sclerosis with a gradient of 6 mmHg, mild MR and mild TR. 09/28/2020 Patient examined at the bedside. Patient states her shortness of breath has improved. She remains off BiPAP and is on a nasal cannula with oxygen saturations greater than 92%. She reports improvement in her lower extremity edema. She remains on Lasix 40 mg IV every 8 hours. Creatinine 1.04 today. Vital signs are stable. 09/29/2020 Patient examined this morning at the bedside. Patient states her shortness of breath is improving but still not back to her baseline. She remains on a nasal cannula. She remains on IV Lasix 40 mg every 8 hours. Creatinine 1.06 today PHYSICAL EXAM: VITAL SIGNS: Reviewed. GENERAL: Well-developed in no acute distress. NECK: Supple. No JVD or thyromegaly LUNGS: Respirations even and unlabored. Lungs diminished. HEART: Regular rate and rhythm. S1 and S2 heard. Systolic murmur noted. EXTREMITIES: Normal range of motion. No clubbing or cyanosis. Peripheral pulses intact. 2+ bilateral lower extremity edema ASSESSMENT: Acute on chronic diastolic heart failure Hypertension Dyslipidemia Morbid obesity, BMI 45 COPD PLAN: Continue current cardiac medications Continue current dose of IV Lasix: 40 mg every 8 hours Monitor kidney function Daily weights Accurate I&O Nurse practitioner note has been reviewed by physician. Signing provider agrees with the documented findings, assessment, and plan of care. Objective - Vital Signs Vital signs: Vital Signs Temp 97.8 F 09/29/20 04:00 Pulse 72 09/29/20 09:29 Resp 18 09/29/20 07:49 BP 144/64 09/29/20 04:00 Pulse Ox 98 09/29/20 04:00 Intake & Output 09/28/20 09/29/20 09/29/20 18:59 06:59 18:59 Intake Total 560 540 300 Output Total 1200 Balance 560 -660 300 Intake: Oral 560 540 300 Output: Urine 1200 Other: # Voids 0 2 # Bowel Movements 0 1 - Labs CBC & Chem 7: 09/28/20 10:47 09/29/20 08:01 Labs: Abnormal Lab Results - Last 24 Hours (Table) 09/28/20 09/28/20 09/29/20 Range/Units 10:47 10:47 08:01 WBC 11.1 H (3.8-10.6) k/uL Hgb 9.9 L (11.4-16.0) gm/dL Hct 31.5 L (34.0-46.0) % MCV 77.2 L (80.0-100.0) fL MCH 24.2 L (25.0-35.0) pg RDW 16.9 H (11.5-15.5) % Carbon Dioxide 33 H 36 H (22-30) mmol/L BUN 32 H 36 H (7-17) mg/dL Creatinine 1.06 H (0.52-1.04) mg/dL Glucose 130 H (74-99) mg/dL
[2020-09-29] MEDS: MONTELUKAST 5 MG CHEWABLE PO SCH (20:56)
--- NOTE | 2020-09-29 20:57 | P.PN ---
Subjective On-call hospitalist covering Dr. Hudson From reports This is a pleasant 80-year-old female with past medical history of chronic diastolic CHF ,COPD, chronic respiratory failure, wears 2 liters nasal cannula home, morbid obesity, hypertension, hyperlipidemia, hypothyroidism, and multiple other medical issues. Presented to the ER with worsening shortness of breath. Hypertensive on admission with systolic blood pressures in the 200s. Received Vasotec IV push .Patient reports she had run out of lisinopril, but did not notify PCP office. Patient also informed cardiology that she quit taking her Lasix approximately 1 week ago secondary to urinary incontinence. Chest x-ray reported bilateral pulmonary edema, likely CHF, EKG reported sinus tachycardia with nonspecific T-wave abnormalities.WBC 9.5, hemoglobin 11.1, platelets 203, sodium 139, potassium 4.3, BUN 22, creatinine 1.12, lactic acid on admission 2. 1, 3.5, magnesium 2.3, troponin 0.064, 0.096 and 0.109, BNP 2870. Echo completed reporting preserved LV function, EF 55-60%. Subjective: This is the first day I am taking care of the patient 09/29/2020 This is a pleasant 80 days old female who presents with dyspnea found to have acute heart failure. Chest x-ray from yesterday showing improvement pleural effusion and pulmonary congestion after she was started on IV Lasix 40 mg 3 times a day, patient herself feels better. She is hemodynamically stable and she is saturating 95% in 2 L oxygen nasal cannula. labs are unremarkable except for mild leukocytosis at 11 K area echocardiogram showed ejection fraction of 55-60% with no significant valvular heart disease. Covid test is pending, check urinalysis. We will also ask for physical therapy evaluation Objective - Vital Signs Vital signs: Vital Signs Temp 97.8 F 09/29/20 04:00 Pulse 72 09/29/20 09:40 Resp 18 09/29/20 07:49 BP 144/64 09/29/20 04:00 Pulse Ox 98 09/29/20 04:00 Intake & Output 09/28/20 09/29/20 09/29/20 18:59 06:59 18:59 Intake Total 560 540 300 Output Total 1200 Balance 560 -660 300 Intake: Oral 560 540 300 Output: Urine 1200 Other: # Voids 0 2 # Bowel Movements 0 1 - Exam GENERAL: The patient is alert and oriented x3, not in any acute distress. Well developed, well nourished. HEENT: Pupils are round and equally reacting to light. EOMI. No scleral icterus. No conjunctival pallor. Normocephalic, atraumatic. No pharyngeal erythema. No thyromegaly. CARDIOVASCULAR: S1 and S2 present. No murmurs, rubs, or gallops. -PULMONARY: Chest is clear to auscultation, bilateral basal crepitation ABDOMEN: Soft, nontender, nondistended, normoactive bowel sounds. No palpable organomegaly. MUSCULOSKELETAL: No joint swelling or deformity. EXTREMITIES: No cyanosis, clubbing, or pedal edema. NEUROLOGICAL: Gross neurological examination did not reveal any focal deficits. SKIN: No rashes. no petechiae. - Labs CBC & Chem 7: 09/28/20 10:47 09/29/20 08:01 Labs: Abnormal Lab Results - Last 24 Hours (Table) 09/28/20 09/28/20 09/29/20 Range/Units 10:47 10:47 08:01 WBC 11.1 H (3.8-10.6) k/uL Hgb 9.9 L (11.4-16.0) gm/dL Hct 31.5 L (34.0-46.0) % MCV 77.2 L (80.0-100.0) fL MCH 24.2 L (25.0-35.0) pg RDW 16.9 H (11.5-15.5) % Carbon Dioxide 33 H 36 H (22-30) mmol/L BUN 32 H 36 H (7-17) mg/dL Creatinine 1.06 H (0.52-1.04) mg/dL Glucose 130 H (74-99) mg/dL Assessment and Plan Assessment: Acute on chronic CHF, diastolic dysfunction, 55-60%. Elevated troponin level throughout its related to renal insufficiency, noncardiac as per cardiology Chronic hypoxic respiratory failure on oxygen at 2 L at home, CHF and COPD Mild leukocytosis Hypertension Hyperlipidemia Hypothyroidism Previous history of smoking Morbid obesity with a BMI 46 Obstructive sleep apnea, possibly Plan: This is a pleasant 80 years old female who presents with CHF. Consult with Toya, follow-up recommendation by cardiology and pulmonary service Labs and medication were reviewed.. Continue same treatment. Continue with symptomatic treatment. Resume home medication. Monitor lytes and vitals. DVT and GI prophylaxis. Further recommendationsas per clinical course of the patient DVT prophylaxis: Subcutaneous Lovenox GI Prophylaxis: Pepcid PT/OT: Pending
[2020-09-30 00:05] LABS: Appearance,Urine Clear (Clear); Bilirubin,Urine Negative (Negative); Blood,Urine Negative (Negative); Color,Urine Colorless; Glucose,Urine (UA) Negative (Negative); Ketones,Urine Negative (Negative); Leukocyte Esterase,Urine Negative (Negative); Nitrite,Urine Negative (Negative); PH, Urine 7.5 (5.0-8.0); Protein,Urine Negative (Negative); Specific Gravity,Urine 1.008 (1.001-1.035); Urobilinogen,Urine <2.0 mg/dL (<2.0)
[2020-09-30] MEDS: FUROSEMIDE 10 MG/ML 4 ML VIAL IV SCH ×2 (03:50→11:15)
[2020-09-30] MEDS: LEVOTHYROXINE 50 MCG TAB PO SCH (06:36)
[2020-09-30] MEDS: IPRATROPIUM-ALBUTEROL 3 ML NEB INHALATION SCH ×3 (08:16→17:05)
[2020-09-30] MEDS ORDERED: FAMOTIDINE 20 MG/2 ML VIAL IV SCH (09:00)
--- NOTE | 2020-09-30 09:43 | P.PN ---
Subjective Progress Note Date: 09/30/20 This is a pleasant 80-year-old female with past medical history significant for chronic diastolic congestive heart failure, morbid obesity, hypertension, hyperlipidemia. She follows with Dr. Ross in the office. Presented to the hospital with symptoms of shortness of breath. According to the patient, she had stopped taking her oral diuretics as well as lisinopril, and was unable to contact the pharmacy her physician's office for refills. She also had decreased her oral diuretics prior to discontinuing them because of frequent urinary incontinence. Patient was initiated on IV diuretics here. Her weight today is down 2 kg, she diuresed well through the night last night, 2800. Blood pressure this morning 139/60 with a heart rate in the 70s, 98% on BiPAP. Objective - Vital Signs Vital signs: Vital Signs Temp 98.2 F 09/30/20 04:00 Pulse 76 09/30/20 08:29 Resp 18 09/30/20 04:00 BP 139/65 09/30/20 04:00 Pulse Ox 98 09/30/20 04:00 Intake & Output 09/29/20 09/30/20 09/30/20 18:59 06:59 18:59 Intake Total 1110 240 Output Total 1500 1300 Balance -390 -1300 240 Weight 116.6 kg 114 kg Intake: IV 10 Invasive Line 3 10 Oral 1100 240 Output: Urine 1500 1300 Other: Voiding Method Diaper # Voids 0 # Bowel Movements 1 0 - Exam PHYSICAL EXAMINATION: GENERAL: 80-year-old female in no acute distress at the time of my examination HEENT: Head is atraumatic, normocephalic. Pupils equal, round. Sclera anicteric. Conjunctiva are clear. Mucous membranes of the mouth are moist. N william is supple. There is no elevated jugular venous pressure. No carotid bruit is heard. HEART EXAMINATION: Heart S1 S2 1 systolic murmur is heard CHEST EXAMINATION: Lungs are clear with fine crackles heard to the bases bilaterally ABDOMEN: Soft, obese, nontender. Bowel sounds are heard. No organomegaly noted. EXTREMITIES: 1+ peripheral pulses with trace evidence of peripheral edema and no calf tenderness noted. NEUROLOGIC [patient is awake, alert and oriented 3 . - Labs CBC & Chem 7: 09/28/20 10:47 09/29/20 08:01 Assessment and Plan Plan: Assessment and plan #1 diastolic congestive heart failure acute on chronic #2 hypertension #3 hyperlipidemia #4 morbid obesity, BMI 45 #5 COPD Plan We will discontinue the IV diuretics today, echocardiogram with Doppler study revealed an ejection fraction of 55-60%, the peak/mean gradient across the aortic valve 12.1 over 6.1. Start the patient on 60 mg of by mouth Lasix twice a day. Plan for discharge home soon. DNP note has been reviewed, I agree with a documented findings and plan of care. Patient was seen and examined.
[2020-09-30 10:02] LABS: Calcium 8.9 mg/dL (8.4-10.2)
[2020-09-30] MEDS: ENOXAPARIN 40 MG/0.4 ML SYRINGE SQ SCH (11:11)
[2020-09-30] MEDS: carvediloL 3.125 MG TAB PO SCH (11:11)
[2020-09-30] MEDS: lisinopriL 10 MG TAB PO SCH (11:12)
[2020-09-30 11:23] VITALS: TEMP 97.8
[2020-09-30 12:21] LABS: Anisocytosis Slight; HCT 34.4 % (34.0-46.0); HGB 10.3 gm/dL (11.4-16.0); Hypochromasia Marked; MCH 23.6 pg (25.0-35.0); MCV 78.6 fL (80.0-100.0); Mean Platelet Volume 7.7; Microcytosis Slight; Platelet Count 225 k/uL (150-450); RBC 4.38 m/uL (3.80-5.40); RDW 16.5 % (11.5-15.5)
[2020-09-30] MEDS ORDERED: FUROSEMIDE 20 MG TAB PO SCH (16:00)
[2020-09-30] MEDS: TIMOLOL 0.5% OPHTH DROPS 5 ML BTL BOTH EYES SCH (18:23)
[2020-09-30 18:50] VITALS: BP 145/56; PULSE 73; RESP 18
[2020-09-30] MEDS ORDERED: FAMOTIDINE 20 MG TAB PO SCH (21:00)
== END 2020-09-30 18:44 | disposition home or self-care (01) | DRG 291 ==
LOC: EC 01:10 → 3SCARD 02:48
PROVIDERS: ADMIT Family Medicine; ATTEND Family Medicine
PROC: 5A09357 Assistance with Respiratory Ventilation, Less than 24 Consecutive Hours, Continuous Positive Airway Pressure (ICD-10-PCS; principal; 2020-09-27)
PROC: 5A09357 Assistance with Respiratory Ventilation, Less than 24 Consecutive Hours, Continuous Positive Airway Pressure (ICD-10-PCS; 2020-09-28)
PROC: 5A09357 Assistance with Respiratory Ventilation, Less than 24 Consecutive Hours, Continuous Positive Airway Pressure (ICD-10-PCS; 2020-09-30)
DX: I11.0 Hypertensive heart disease with heart failure (principal); J96.21 Acute and chronic respiratory failure with hypoxia; I16.1 Hypertensive emergency; J44.1 Chronic obstructive pulmonary disease with (acute) exacerbation; N17.9 Acute kidney failure, unspecified; Z68.42 Body mass index [BMI] 45.0-49.9, adult; E87.2 Acidosis; I50.33 Acute on chronic diastolic (congestive) heart failure; R32 Unspecified urinary incontinence; G47.33 Obstructive sleep apnea (adult) (pediatric); D72.829 Elevated white blood cell count, unspecified; E03.9 Hypothyroidism, unspecified; E66.01 Morbid (severe) obesity due to excess calories; I45.10 Unspecified right bundle-branch block; I08.2 Rheumatic disorders of both aortic and tricuspid valves; E78.5 Hyperlipidemia, unspecified; F41.9 Anxiety disorder, unspecified; Z20.828 Contact with and (suspected) exposure to other viral communicable diseases; T50.1X6A Underdosing of loop [high-ceiling] diuretics, initial encounter; Z91.128 Patient's intentional underdosing of medication regimen for other reason; Z79.82 Long term (current) use of aspirin; Z79.890 Hormone replacement therapy; Z79.899 Other long term (current) drug therapy; Z82.5 Family history of asthma and other chronic lower respiratory diseases; Z87.891 Personal history of nicotine dependence; R79.89 Other specified abnormal findings of blood chemistry; Z99.81 Dependence on supplemental oxygen
CPT/HCPCS: 36415; 71045; 80048; 80053; 81003; 82550; 83605; 83735; 83880; 84484; 85025; 85027; 85610; 85730; 93005; 93306; 94640; 94644; 94660; 94760; 96365; 96366; 96372; 96375; 99291

== ENCOUNTER 2021-01-06 12:28 | Inpatient (IN) | payer MEDICARE ==
[2021-01-06] MEDS ORDERED: amLODIPine 5 MG TAB PO STA (12:54)
--- NOTE | 2021-01-06 12:58 | ED ---
SOB HPI - General Source: patient, EMS, RN notes reviewed Mode of arrival: EMS Limitations: no limitations <Jagdish Yepez - Last Filed: 01/06/21 16:54> <Chaim Montemayor - Last Filed: 01/06/21 17:52> - General Chief Complaint: Shortness of Breath Stated Complaint: Difficulty breathing Time Seen by Provider: 01/06/21 12:40 - History of Present Illness Initial Comments: Patient is a 1-year-old female with history of COPD the presents emergency department complaining of increased shortness of breath. She noted that the last 1-2 days she's had difficulty catching her breath. She does sleep with 2 pillows at night to help with breathing. She stated that since she's been diagnosed about the same time every year she has the same problem were her breathing becomes more difficult more labored. She denied any pain or discomfort she would just like to breathe. She currently is on 2 L oxygen at home. She denied any pain chest headache nausea vomiting diarrhea constipation fever fatigue chills. Patient did report nurse that she was noncompliant with all medications this morning. (Jagdish Yepez) - Related Data Home Medications Medication Instructions Recorded Confirmed Levothyroxine Sodium [Synthroid] 100 mcg PO DAILY 04/23/20 01/06/21 Montelukast Sodium [Singulair] 10 mg PO HS 04/23/20 01/06/21 Sertraline HCl [Zoloft] 50 mg PO DAILY 04/23/20 01/06/21 Timolol 0.5% Ophth Soln [Timoptic 1 drop BOTH EYES BID 04/23/20 01/06/21 0.5% Ophth Soln] carvediloL [Coreg] 3.125 mg PO BID 04/23/20 01/06/21 Albuterol Nebulized [Ventolin 2.5 mg INHALATION RT-QID PRN 01/06/21 01/06/21 Nebulized] Brimonidine Tartrate [Alphagan P 1 drop BOTH EYES BID 01/06/21 01/06/21 0.2% Ophth Soln] Furosemide [Lasix] 40 mg PO BID 01/06/21 01/06/21 Guaifen/Dextromethorphan/PE 10 ml PO BID PRN 01/06/21 01/06/21 [Mucinex Fast-Max Congest-Cough] Previous Rx's Medication Instructions Recorded Aspirin EC [Ecotrin Low Dose] 81 mg PO DAILY #30 tab 04/27/20 lisinopriL [Zestril] 10 mg PO DAILY #30 tab 04/27/20 Allergies Allergy/AdvReac Type Severity Reaction Status Date / Time No Known Allergies Allergy Verified 01/06/21 15:25 Review of Systems ROS Other: All systems not noted in ROS Statement are negative. <Jagdish Yepez - Last Filed: 01/06/21 16:54> ROS Other: All systems not noted in ROS Statement are negative. <Chaim Montemayor - Last Filed: 01/06/21 17:52> ROS Statement: Those systems with pertinent positive or pertinent negative responses have been documented in the HPI. Past Medical History Past Medical History: Asthma, Chest Pain / Angina, Heart Failure, COPD, Hyperlipidemia, Hypertension, Thyroid Disorder Additional Past Medical History / Comment(s): Intubated in September, home O2 PRN History of Any Multi-Drug Resistant Organisms: None Reported Past Surgical History: Hernia Repair Past Anesthesia/Blood Transfusion Reactions: No Reported Reaction Past Psychological History: No Psychological Hx Reported Smoking Status: Former smoker Past Alcohol Use History: None Reported Past Drug Use History: None Reported - Past Family History Mother Family Medical History: Dementia Father Family Medical History: COPD Additional Family Medical History / Comment(s): etoh <Jagdish Yepez - Last Filed: 01/06/21 16:54> General Exam Limitations: no limitations General appearance: alert, in no apparent distress, obese Head exam: Present: atraumatic, normocephalic, normal inspection Eye exam: Present: normal appearance, PERRL, EOMI. Absent: scleral icterus, conjunctival injection, periorbital swelling ENT exam: Present: normal exam, mucous membranes moist, other (Nasal cannula in place.) Neck exam: Present: normal inspection. Absent: tenderness, meningismus, lymphadenopathy Respiratory exam: Present: normal lung sounds bilaterally. Absent: respiratory distress, wheezes, rales, rhonchi, stridor Cardiovascular Exam: Present: regular rate, normal rhythm, normal heart sounds. Absent: systolic murmur, diastolic murmur, rubs, gallop, clicks GI/Abdominal exam: Present: soft, normal bowel sounds. Absent: distended, tenderness, guarding, rebound, rigid Extremities exam: Present: normal inspection, full ROM, normal capillary refill. Absent: tenderness, pedal edema, joint swelling, calf tenderness Neurological exam: Present: alert, oriented X3, CN II-XII intact Psychiatric exam: Present: normal affect, normal mood Skin exam: Present: warm, dry, intact, normal color. Absent: rash <Jagdish Yepez - Last Filed: 01/06/21 16:54> Course Vital Signs 01/06/21 01/06/21 01/06/21 12:30 14:01 16:13 Temperature 97.6 F Pulse Rate 86 72 98 Respiratory 22 16 16 Rate Blood Pressure 192/102 163/92 187/100 O2 Sat by Pulse 92 L 95 97 Oximetry 01/06/21 01/06/21 01/06/21 16:53 17:00 17:06 Temperature Pulse Rate 122 H 114 H 110 H Respiratory 24 24 Rate Blood Pressure 245/136 222/115 O2 Sat by Pulse 93 L 95 Oximetry 01/06/21 01/06/21 17:20 17:23 Temperature Pulse Rate 100 89 Respiratory 24 Rate Blood Pressure 159/86 O2 Sat by Pulse 95 Oximetry Medical Decision Making - Lab Data Result diagrams: 01/06/21 12:55 01/06/21 12:55 - EKG Data -: EKG Interpreted by Mo EKG shows normal: sinus rhythm Rate: normal - Radiology Data Radiology results: report reviewed, image reviewed <Jagdish Yepez - Last Filed: 01/06/21 16:54> - Lab Data Result diagrams: 01/06/21 12:55 01/06/21 12:55 <Chaim Montemayor - Last Filed: 01/06/21 17:52> - Medical Decision Making 80-year-old female complaining of shortness of breath. Labs, chest x-ray, 5 L of oxygen via nasal cannula ordered. Labs unremarkable from previous studies. Elevated d-dimer, CT chest angiogram for PE ordered, BNP ordered for acute CHF exacerbation. 1 mg Ativan ordered for anxiety inpatient distress. 4 mg of IV Lasix ordered due to patient not taking at home 40 mg Lasix this morning Case discussed with Dr. Montemayor, decided the patient will be admitted to inpatient to Dr. Lynn (Jagdish Yepez) Patient reevaluated and reexamined by myself, Dr. Montemayor. Patient has an mild respiratory distress at this time. BiPAP ordered and respiratory coming down. Patient and family updated. I agree with chief eyes. This includes diagnostic and rotation treatment plan. Case was discussed with practitioner Shira Goldsmith, covering for Dr. Lynn, who will admit covering for Dr. Hudson. Cardiology and pulmonary placed on consult. Patient again reexamined at 1752. Patient awake and alert and significant improved with BiPAP. (Chaim Montemayor) - Lab Data Lab Results 01/06/21 01/06/21 01/06/21 Range/Units 12:55 12:55 12:55 WBC 6.4 (3.8-10.6) k/uL RBC 4.47 (3.80-5.40) m/uL Hgb 10.6 L (11.4-16.0) gm/dL Hct 33.4 L (34.0-46.0) % MCV 74.6 L (80.0-100.0) fL MCH 23.7 L (25.0-35.0) pg MCHC 31.7 (31.0-37.0) g/dL RDW 18.1 H (11.5-15.5) % Plt Count 173 (150-450) k/uL MPV 7.2 Neutrophils % 64 % Lymphocytes % 25 % Monocytes % 7 % Eosinophils % 2 % Basophils % 1 % Neutrophils # 4.1 (1.3-7.7) k/uL Lymphocytes # 1.6 (1.0-4.8) k/uL Monocytes # 0.5 (0-1.0) k/uL Eosinophils # 0.1 (0-0.7) k/uL Basophils # 0.0 (0-0.2) k/uL Hypochromasia Marked Poikilocytosis Slight Anisocytosis Slight Microcytosis Moderate PT 10.5 (9.0-12.0) sec INR 1.0 (<1.2) APTT 21.6 L (22.0-30.0) sec D-Dimer 2.34 H (<0.60) mg/L FEU Sodium 141 (137-145) mmol/L Potassium 4.3 (3.5-5.1) mmol/L Chloride 104 (98-107) mmol/L Carbon Dioxide 29 (22-30) mmol/L Anion Gap 8 mmol/L BUN 22 H (7-17) mg/dL Creatinine 0.93 (0.52-1.04) mg/dL Est GFR (CKD-EPI)AfAm 67 (>60 ml/min/1.73 sqM) Est GFR (CKD-EPI)NonAf 58 (>60 ml/min/1.73 sqM) Glucose 112 H (74-99) mg/dL Plasma Lactic Acid Pete (0.7-2.0) mmol/L Calcium 8.7 (8.4-10.2) mg/dL Total Bilirubin 0.5 (0.2-1.3) mg/dL AST 28 (14-36) U/L ALT 15 (4-34) U/L Alkaline Phosphatase 87 (38-126) U/L Troponin I (0.000-0.034) ng/mL NT-Pro-B Natriuret Pep pg/mL Total Protein 6.4 (6.3-8.2) g/dL Albumin 3.8 (3.5-5.0) g/dL 01/06/21 01/06/21 01/06/21 Range/Units 12:55 12:55 12:55 WBC (3.8-10.6) k/uL RBC (3.80-5.40) m/uL Hgb (11.4-16.0) gm/dL Hct (34.0-46.0) % MCV (80.0-100.0) fL MCH (25.0-35.0) pg MCHC (31.0-37.0) g/dL RDW (11.5-15.5) % Plt Count (150-450) k/uL MPV Neutrophils % % Lymphocytes % % Monocytes % % Eosinophils % % Basophils % % Neutrophils # (1.3-7.7) k/uL Lymphocytes # (1.0-4.8) k/uL Monocytes # (0-1.0) k/uL Eosinophils # (0-0.7) k/uL Basophils # (0-0.2) k/uL Hypochromasia Poikilocytosis Anisocytosis Microcytosis PT (9.0-12.0) sec INR (<1.2) APTT (22.0-30.0) sec D-Dimer (<0.60) mg/L FEU Sodium (137-145) mmol/L Potassium (3.5-5.1) mmol/L Chloride (98-107) mmol/L Carbon Dioxide (22-30) mmol/L Anion Gap mmol/L BUN (7-17) mg/dL Creatinine (0.52-1.04) mg/dL Est GFR (CKD-EPI)AfAm (>60 ml/min/1.73 sqM) Est GFR (CKD-EPI)NonAf (>60 ml/min/1.73 sqM) Glucose (74-99) mg/dL Plasma Lactic Acid Pete 1.1 (0.7-2.0) mmol/L Calcium (8.4-10.2) mg/dL Total Bilirubin (0.2-1.3) mg/dL AST (14-36) U/L ALT (4-34) U/L Alkaline Phosphatase (38-126) U/L Troponin I 0.063 H* (0.000-0.034) ng/mL NT-Pro-B Natriuret Pep 3380 pg/mL Total Protein (6.3-8.2) g/dL Albumin (3.5-5.0) g/dL - EKG Data EKG Comments: Ventricular rate 77 bpm, ME interval 212 ms, QRS duration 180 ms, QT/QTc 422/4 ms,[id number]/61/106. Sinus rhythm with first-degree AV block,left axis deviation RSRprime or QR pattern in V1 suggest in right ventricular conduction delay, left ventricular hypertrophy with QRS widening and repolarization abnormality, inferiori nfarct, age undetermined, abnormal ECG. (Jagdish Yepez) - Radiology Data Chest x-ray:Suspect CHF exacerbation of there are new small to moderate-sized bilateral pleural effusions back from low lung volumes and cardiomegaly and persistent mild to moderate central alveolar edema. CT chest angiogram for PE:No acute pulmonary embolism. Findings consistent with CHF exacerbation are confirmed as there is cardiomegaly with small borderline moderate sized bilateral pleural effusions along with mild alveolar and in terstitial edema associated comprehensive atelectasis in the lower lungs. (Jagdish Yepez) Critical Care Time Critical Care Time: Yes Total Critical Care Time: 35 <Jagdish Yepez - Last Filed: 01/06/21 16:54> Critical Care Time: 80-year-old female with CHF exacerbation found to be using accessory muscles of breathing increased blood pressure. She was given 40 mg IV furosemide, BiPAP was ordered. Dr. Montemayor was consulted and agreed with plan of action. (Jagdish Rosario) Disposition <Jagdish Yepez - Last Filed: 01/06/21 16:54> <Chaim Montemayor - Last Filed: 01/06/21 17:52> Clinical Impression: CHF exacerbation, COPD exacerbation, Congestive heart failure, Acute respiratory failure Disposition: ADMITTED IP TO THIS HOSP Condition: Stable
[2021-01-06 13:15] LABS: Anisocytosis Slight; Basophils % (A) 1 %; Eosinophils # (A) 0.1 k/uL (0-0.7); Eosinophils % (A) 2 %; HCT 33.4 % (34.0-46.0); HGB 10.6 gm/dL (11.4-16.0); Hypochromasia Marked; Lymphocytes # (A) 1.6 k/uL (1.0-4.8); Lymphocytes % (A) 25 %; MCH 23.7 pg (25.0-35.0); MCHC 31.7 g/dL (31.0-37.0); MCV 74.6 fL (80.0-100.0); Mean Platelet Volume 7.2; Microcytosis Moderate; Monocytes # (A) 0.5 k/uL (0-1.0); Monocytes % (A) 7 %; Neutrophils # (A) 4.1 k/uL (1.3-7.7); Neutrophils % (A) 64 %; Platelet Count 173 k/uL (150-450); Poikilocytosis Slight; RBC 4.47 m/uL (3.80-5.40); RDW 18.1 % (11.5-15.5); WBC 6.4 k/uL (3.8-10.6)
[2021-01-06 13:25] LABS: Albumin 3.8 g/dL (3.5-5.0); Calcium 8.7 mg/dL (8.4-10.2); Potassium 4.3 mmol/L (3.5-5.1); Total Bilirubin 0.5 mg/dL (0.2-1.3); Total Protein 6.4 g/dL (6.3-8.2)
[2021-01-06 13:37] LABS: Partial Thromboplastin Time 21.6 sec (22.0-30.0); Prothrombin Time 10.5 sec (9.0-12.0)
--- NOTE | 2021-01-06 13:45 | XR ---
EXAMINATION TYPE: XR chest 2V DATE OF EXAM: 01/06/2021 COMPARISON: Chest x-ray September 28, 2020 HISTORY: Shortness of breath TECHNIQUE: Frontal and lateral views of the chest are obtained. FINDINGS: There is persistent cardiomegaly with atherosclerotic thoracic aorta. There are small to m oderate-sized bilateral pleural effusions on current study along with central opacities redemonstrate d on background low lung volumes The osseous structures remain intact. IMPRESSION: Suspect CHF exacerbation of there are new small to moderate-sized bilateral pleural effu sions background low lung volumes and cardiomegaly and persistent mild to moderate central alveolar e atif. Correlate clinically.
[2021-01-06 13:54] LABS: D-Dimer 2.34 mg/L FEU (<0.60)
[2021-01-06] MEDS ORDERED: LORazepam 2 MG/ML INJ IV STA (16:05)
[2021-01-06] MEDS ORDERED: NALOXONE 0.4 MG/ML 1 ML VIAL IV PRN (16:06)
[2021-01-06] MEDS ORDERED: LORazepam 2 MG/ML INJ IV PRN (16:06)
[2021-01-06] MEDS ORDERED: FUROSEMIDE 10 MG/ML 4 ML VIAL IV STA (16:10)
[2021-01-06] MEDS ORDERED: ALBUTEROL NEBULIZED 2.5 MG/3 ML INHALATION PRN (16:11)
[2021-01-06] MEDS ORDERED: SODIUM CHLORIDE 0.9% 1,000 ML IV SCH (16:15)
--- NOTE | 2021-01-06 16:18 | CT ---
EXAMINATION TYPE: CT chest angio for PE DATE OF EXAM: 01/06/2021 COMPARISON: Chest x-ray earlier today. HISTORY: Shortness of breath, elevated d-dimer CT DLP: 673.5 mGycm Automated exposure control for dose reduction was used. CONTRAST: CT Chest for pulmonary embolism performed with with IV Contrast, patient injected with 80 mL of Isovu e 370. FINDINGS: LUNGS: Small to borderline moderate size bilateral pleural effusions with associated compressive atel ectasis. Exam is suboptimal as patient unable to hold breath. Areas of increased opacity bilaterally consistent with mild alveolar and interstitial edema since there is some interlobular septal prominen ce is noted. MEDIASTINUM: There is satisfactory enhancement of the pulmonary artery and its branches, there is no CT evidence for pulmonary embolism. There are no greater than 1 cm hilar or mediastinal lymph nodes. No pericardial effusion is seen. Cardiomegaly is present. There is moderate right atrial dilatati on. There is mild/moderate left ventricular dilatation. Reflux of contrast into hepatic veins and IVC suggest a degree of right heart failure. Coronary artery calcification is noted. Ascending aorta colleen sures 3.9 cm in diameter axial image 63. OTHER: Moderate to severe multilevel spurring in the spine. IMPRESSION: Suboptimal study, no acute pulmonary embolism. Findings consistent with CHF exacerbation are confirmed as there is cardiomegaly with small to borderline moderate size bilateral pleural effus ions along with mild bilateral alveolar and interstitial edema. Associated compressive atelectasis in the lower lungs.
[2021-01-06] MEDS ORDERED: IPRATROPIUM-ALBUTEROL 3 ML NEB INHALATION STA (16:58)
[2021-01-06] MEDS ORDERED: NITROGLYCERIN SL TABS 0.4 MG TAB SUBLINGUAL STA (17:03)
--- NOTE | 2021-01-06 17:25 | XR ---
EXAMINATION TYPE: XR chest 1V portable DATE OF EXAM: 01/06/2021 COMPARISON: Today HISTORY: Short of breath TECHNIQUE: Single view FINDINGS: There is pulmonary airspace edema. Heart is enlarged. There is some blunting of the costoph renic angles. There are chest leads. Thoracic aorta is atheromatous. IMPRESSION: Congestive heart failure with pleural effusions and pulmonary edema that is slightly wors e than the exam 4 hours ago.
[2021-01-06] MEDS: carvediloL 3.125 MG TAB PO SCH (17:57)
[2021-01-06] MEDS ORDERED: IPRATROPIUM-ALBUTEROL 3 ML NEB INHALATION PRN (19:11)
[2021-01-06] MEDS: IPRATROPIUM-ALBUTEROL 3 ML NEB INHALATION SCH (19:47)
--- NOTE | 2021-01-06 21:07 | HP ---
HISTORY AND PHYSICAL DATE OF SERVICE: 01/06/2021. CHIEF COMPLAINT: Shortness of breath. I am covering for Dr. Hudson. HISTORY OF PRESENT ILLNESS: This 80-year-old woman with a past history of congestive heart failure with chronic diastolic dysfunction, ejection fraction 55-60 percent, history of asthma, COPD, hypertension, hyperlipidemia, history of DJD being followed by Dr. Hudson in the outpatient setting is complaining of increased shortness of breath for the past several days. The patient was sleeping with 2 pillows but despite that, shortness of breath was increasing. Patient also has bilateral leg swelling. The patient came to [facility] and was admitted for evaluation and treatment. Evaluation in the ER showed D-dimer was 2.34 and troponin elevated to 0.063. NT proBNP is 3380. Chest x- ray was done which I reviewed personally which showed evidence of CHF. A CT angio was also done which showed this is suboptimal. No acute pulmonary embolism. CHF was suspected and a Covid 19 test is pending at this time. Patient is on BiPAP 12/6 EPAP and iPAP at this time. There is no history of fever, rigors. No history of headache, loss of consciousness or seizures at this time. The patient also had bilateral pleural effusions. PAST MEDICAL HISTORY: History of CHF, COPD, hypertension, hyperlipidemia. MEDICATIONS: Medications prior to admission include Zestril, Coreg, Timoptic, Zoloft, Singulair. Synthroid. Mucinex, Lasix, Alphagan, Ecotrin, Ventolin. ALLERGIES: None. FAMILY HISTORY: ntd SOCIAL HISTORY: Previous history of smoking. No history of alcohol. REVIEW OF SYSTEMS: ENT: Diminished hearing. Diminished vision. CARDIOVASCULAR as mentioned earlier. RESPIRATORY: As mentioned earlier. GI no nausea or vomiting. no dysuria. NERVOUS SYSTEM: No numbness or weakness. ALLERGY/IMMUNOLOGY: No asthma or hayfever. MUSCULOSKELETAL: As mentioned earlier. HEMATOLOGY/ONCOLOGY: No history of anemia. ENDOCRINE: Hypothyroid. CONSTITUTIONAL: As mentioned earlier. DERMATOLOGY: Negative. RHEUMATOLOGY: Negative. PSYCHIATRY: As mentioned earlier. PHYSICAL EXAMINATION: Alert and oriented times three. Pulse 76. Blood pressure 130/74, respirations 16, temperature normal, pulse ox 97% on BiPAP. HEENT: Conjunctivae normal. NECK: No JVD. CARDIOVASCULAR: S1, S2 muffled. RESPIRATION: Breath sounds diminished in the bases. A few scattered rhonchi and crackles. ABDOMEN: Soft, nontender. LEGS: bilateral leg edema. NERVOUS SYSTEM: Higher functions as mentioned. Moves all four limbs. No focal deficits. LYMPHATICS: No lymph nodes palpable in the neck, axillae or groin. SKIN: No ulcers. No rashes and no bleeding. JOINTS: No active deforming arthropathy. LAB: Hemoglobin 10.6 and D-dimer is 2.34. Troponin 0.063. ASSESSMENT: 1. Shortness of breath with possible congestive heart failure acute exacerbation with acute on chronic diastolic dysfunction, EF 55-60 percent. 2. Troponin 0.063. Possible acute [id number]-elevation myocardial infarction. 3. Elevated D-dimer without any evidence of pulmonary embolism. 4. Bilateral pleural effusion. 5. Rule out COVID-19. 6. History of asthma/chronic obstructive pulmonary disease. 7. History of congestive heart failure. 8. Hypertension. 9. Hyperlipidemia. 10.Hypothyroidism. 11.History of respiratory failure previously. 12.Chronic hypoxic respiratory failure on home O2 2 L. 13.History of hernia repair. 14.Remote history of nicotine dependence. 15.Obesity with body mass index of 52.5. 16.FULL CODE. RECOMMENDATIONS AND DISCUSSION: This 80-year-old woman who presented with multiple complex medical issues, we will monitor the patient closely, continue the current medications, management and IV Lasix. Monitor closely. I would recommend Cardiology and pulmonology consultations and resume the home medications. The prognosis guarded because of multiple complex medical issues. We will initiate Lasix 40 mg IV q.8h and continue to monitor. We will we will restrict the fluid intake to 1200 mL per 24 hours also. Further recommendations to follow. A copy of this dictation is being forwarded to Dr. Kody Hudson who is the primary physician. MMODL / IJN: [id number] / DAVID
[2021-01-06] MEDS: MONTELUKAST 10 MG TAB PO SCH (21:09)
[2021-01-06] MEDS: HEPARIN SODIUM,PORCINE 5,000 UNIT/ML 1 ML VIAL SQ SCH (21:09)
[2021-01-06] MEDS: TIMOLOL 0.5% OPHTH DROPS 5 ML BTL BOTH EYES SCH (21:09)
[2021-01-06] MEDS: BRIMONIDINE TARTRATE 0.2% DROPS 5 ML BTL BOTH EYES SCH (21:09)
[2021-01-06 23:05] LABS: Appearance,Urine Clear (Clear); Bacteria,Urine Rare /hpf; Bilirubin,Urine Negative (Negative); Blood,Urine Small (Negative); Color,Urine Colorless; Glucose,Urine (UA) Negative (Negative); Hyaline Casts,Urine 4 /lpf (0-2); Ketones,Urine Negative (Negative); Leukocyte Esterase,Urine Trace (Negative); Nitrite,Urine Negative (Negative); Protein,Urine Negative (Negative); RBC,Urine 32 /hpf (0-5); Specific Gravity,Urine 1.014 (1.001-1.035); Urobilinogen,Urine <2.0 mg/dL (<2.0); WBC,Urine 2 /hpf (0-5)
[2021-01-06] MEDS: FUROSEMIDE 10 MG/ML 4 ML VIAL IV SCH (23:12)
[2021-01-07] MEDS ORDERED: FUROSEMIDE 10 MG/ML 4 ML VIAL IV SCH (06:00)
[2021-01-07] MEDS: carvediloL 3.125 MG TAB PO SCH ×2 (06:33→16:45)
[2021-01-07] MEDS: PANTOPRAZOLE 40 MG TABLET PO SCH (06:33)
[2021-01-07] MEDS: LEVOTHYROXINE 100 MCG TAB PO SCH (06:33)
[2021-01-07 07:36] LABS: Calcium 8.6 mg/dL (8.4-10.2)
[2021-01-07 07:44] LABS: Anisocytosis Slight; Basophils % (A) 1 %; Eosinophils # (A) 0.1 k/uL (0-0.7); Eosinophils % (A) 1 %; HCT 33.6 % (34.0-46.0); HGB 9.9 gm/dL (11.4-16.0); Hypochromasia Marked; Lymphocytes % (A) 14 %; MCH 22.7 pg (25.0-35.0); MCHC 29.5 g/dL (31.0-37.0); Mean Platelet Volume 6.9; Microcytosis Slight; Monocytes # (A) 0.6 k/uL (0-1.0); Monocytes % (A) 9 %; Neutrophils # (A) 5.2 k/uL (1.3-7.7); Neutrophils % (A) 74 %; Platelet Count 166 k/uL (150-450); Poikilocytosis Slight; RBC 4.37 m/uL (3.80-5.40); RDW 17.9 % (11.5-15.5); WBC 7.1 k/uL (3.8-10.6)
[2021-01-07] MEDS: IPRATROPIUM-ALBUTEROL 3 ML NEB INHALATION SCH ×4 (08:01→19:41)
[2021-01-07] MEDS: ASPIRIN 81 MG PO SCH (08:44)
[2021-01-07] MEDS: SERTRALINE 50 MG TAB PO SCH (08:44)
[2021-01-07] MEDS: HEPARIN SODIUM,PORCINE 5,000 UNIT/ML 1 ML VIAL SQ SCH ×2 (08:45→20:25)
[2021-01-07] MEDS: HYDROcodone/APAP 5-325MG 1 EACH TAB PO PRN (08:45)
[2021-01-07] MEDS: lisinopriL 10 MG TAB PO SCH (08:45)
[2021-01-07] MEDS: TIMOLOL 0.5% OPHTH DROPS 5 ML BTL BOTH EYES SCH ×2 (08:46→20:26)
[2021-01-07] MEDS: BRIMONIDINE TARTRATE 0.2% DROPS 5 ML BTL BOTH EYES SCH ×2 (08:46→20:26)
[2021-01-07] MEDS: FUROSEMIDE 10 MG/ML 4 ML VIAL IV SCH ×3 (08:46→23:03)
[2021-01-07] MEDS ORDERED: FUROSEMIDE 40 MG TAB PO SCH (09:00)
--- NOTE | 2021-01-07 12:35 | P.CNPUL ---
History of Present Illness Consult date: 01/07/21 Reason for consult: dyspnea History of present illness: 80-year-old here patient with known history of COPD who presented to the emergency department yesterday at around 4:56 PM with worsening shortness of breath. This patient has been getting progressively more short of breath over the past 48 hours. She had orthopnea. She had also exertional dyspnea. She denied having any chest pain. No sputum production. No pleurisy. No hemoptysis. No altered mentation. She is on home oxygen at 2 L per minute nasal cannula and she uses also albuterol nebulizer [id number].. The patient has been hospitalized in the past specifically September 2020 for exacerbation of diastolic heart failure and back then she required BiPAP for respiratory support. At that time she was treated for an acute on top of chronic hypoxic respiratory failure secondary to diastolic heart failure and the patient was treated successfully and she was taken off the BiPAP and discharged home. During this current admission, the patient has no temperature. This morning, she is on a BiPAP at a pressure of 12/6 cm of water with an FiO2 of 80%. The labs since admission showed a white second of 7.4 with a hemoglobin of 9.9 and she is microcytic. Sodium is 141. The patient has a serum bicarb of 34 with a sodium level of 141. Creatinine 0.9. Troponins are 0.06 and 0.117 respectively and the patient shore proBNP level of 3380. Protein is at 6.4. UA showing 32 RBCs and 2 WBCs. The chest x-ray showing cardiomegaly with pulmonary vascular congestion, prominent pulmonary arteries perihilar he and interstitial edema.. This is worse compared to the previous chest x-ray from September 2020. Overnight, the patient was also subjected to diuretics and the patient was given Lasix 40 mg IV every 8 hours. She is also on DuoNeb the right treatment [id number]. She is also receiving BiPAP for respiratory support. EKG showing no acute abnormalities. There is a sinus rhythm. There is a bundle- branch block pattern and there is no acute ST segment elevation or depressions. Q waves over the inferior leads consistent with a previous inferior wall my ocardial infarction.CTA of the chest was done and showed bilateral pleural effusion right more than left in addition to interstitial edema and a heavily calcified aortic arch. No evidence of any other consolidation or airspace disease. Review of Systems Constitutional: Negative HEENT: Negative Cardiac: Shortness of breath and orthopnea. Pulmonary: Shortness of breath and cough, no wheezing, no fever no chills no hemoptysis. GI: Negative Genitourinary: Negative Muscular skeletal: Negative Skin: Negative Neurologic: Negative Endocrine: Negative hematologic: Negative Past Medical History Past Medical History: Chest Pain / Angina, Heart Failure, COPD, Hyperlipidemia, Hypertension, Thyroid Disorder Additional Past Medical History / Comment(s): Intubated in September, home O2 PRN History of Any Multi-Drug Resistant Organisms: None Reported Past Surgical History: Hernia Repair Past Anesthesia/Blood Transfusion Reactions: No Reported Reaction Past Psychological History: No Psychological Hx Reported Smoking Status: Former smoker Past Alcohol Use History: None Reported Past Drug Use History: None Reported - Past Family History Mother Family Medical History: Dementia Father Family Medical History: COPD Additional Family Medical History / Comment(s): etoh Medications and Allergies Home Medications Medication Instructions Recorded Confirmed Type Levothyroxine Sodium [Synthroid] 100 mcg PO DAILY 04/23/20 01/06/21 History Montelukast Sodium [Singulair] 10 mg PO HS 04/23/20 01/06/21 History Sertraline HCl [Zoloft] 50 mg PO DAILY 04/23/20 01/06/21 History Timolol 0.5% Ophth Soln [Timoptic 1 drop BOTH EYES BID 04/23/20 01/06/21 History 0.5% Ophth Soln] carvediloL [Coreg] 3.125 mg PO BID 04/23/20 01/06/21 History Aspirin EC [Ecotrin Low Dose] 81 mg PO DAILY #30 tab 04/27/20 01/06/21 Rx lisinopriL [Zestril] 10 mg PO DAILY #30 tab 04/27/20 01/06/21 Rx Albuterol Nebulized [Ventolin 2.5 mg INHALATION RT-QID PRN 01/06/21 01/06/21 History Nebulized] Brimonidine Tartrate [Alphagan P 1 drop BOTH EYES BID 01/06/21 01/06/21 History 0.2% Ophth Soln] Furosemide [Lasix] 40 mg PO BID 01/06/21 01/06/21 History Guaifen/Dextromethorphan/PE 10 ml PO BID PRN 01/06/21 01/06/21 History [Mucinex Fast-Max Congest-Cough] Allergies Allergy/AdvReac Type Severity Reaction Status Date / Time No Known Allergies Allergy Verified 01/06/21 15:25 Physical Exam Vitals: Vital Signs Temp Pulse Pulse Resp BP BP Pulse Ox 01/07/21 11:58 75 01/07/21 11:45 75 01/07/21 08:30 96 01/07/21 08:14 76 01/07/21 08:02 74 01/07/21 08:01 90 L 01/07/21 08:00 98.2 F 72 22 139/75 86 L 01/07/21 03:24 97.8 F 71 18 156/89 100 01/07/21 01:40 70 18 01/06/21 23:33 98.2 F 70 22 149/77 98 01/06/21 20:04 98 01/06/21 20:00 98.1 F 74 18 166/75 97 01/06/21 19:47 95 01/06/21 18:57 76 16 132/74 97 01/06/21 17:23 89 24 159/86 95 01/06/21 17:20 100 01/06/21 17:06 110 H 01/06/21 17:00 114 H 24 222/115 95 01/06/21 16:53 122 H 24 245/136 93 L 01/06/21 16:13 98 16 187/100 97 01/06/21 14:01 72 16 163/92 95 01/06/21 12:30 97.6 F 86 22 192/102 92 L Intake and Output 01/06/21 01/07/21 01/07/21 22:59 06:59 14:59 Intake Total 10 Output Total 700 1999 Balance Intake: IV 10 0.9 10 Output: Urine 700 1999 Other: Voiding Method Indwelling Catheter Indwelling Catheter Indwelling Catheter Weight 117.934 kg 125.2 kg GENERAL: The patient is alert and oriented x3, not in any acute distress. she is tolerating the BiPAP without any major difficulties and she is utilizing a full face mask. Head exam was generally normal. There was no scleral icterus or corneal arcus. Mucous membranes were moist. HEENT: Pupils are round and equally reacting to light. EOMI. No scleral icterus. No conjunctival pallor. Normocephalic, atraumatic. No pharyngeal erythema. No thyromegaly. CARDIOVASCULAR: S1 and S2 present. No murmurs, rubs, or gallops. PULMONARY: Cdiminished breath sounds and crackles in lung bases bilaterally ABDOMEN: Soft, nontender, nondistended, normoactive bowel sounds. No palpable organomegaly. MUSCULOSKELETAL: No joint swelling or deformity. -EXTREMITIES: No cyanosis, clubbing, . Mild bilateral leg edema. NEUROLOGICAL: Gross neurological examination did not reveal any focal deficits. Examination of the skin revealed no evidence of significant rashes, suspicious appearing nevi or other concerning lesions. Results - Laboratory Findings CBC and BMP: 01/07/21 06:18 01/07/21 06:18 PT/INR, D-dimer PT 10.5 sec (9.0-12.0) 01/06/21 12:55 INR 1.0 (<1.2) 01/06/21 12:55 D-Dimer 2.34 mg/L FEU (<0.60) H 01/06/21 12:55 Abnormal lab findings: Abnormal Labs 01/06/21 01/06/21 01/06/21 12:55 12:55 12:55 Hgb 10.6 L Hct 33.4 L MCV 74.6 L MCH 23.7 L MCHC RDW 18.1 H APTT 21.6 L D-Dimer 2.34 H Carbon Dioxide BUN 22 H Glucose 112 H Troponin I Urine Blood Ur Leukocyte Esterase Urine RBC Urine Bacteria Hyaline Casts 01/06/21 01/06/21 01/07/21 12:55 20:10 06:18 Hgb 9.9 L Hct 33.6 L MCV 77.0 L MCH 22.7 L MCHC 29.5 L RDW 17.9 H APTT D-Dimer Carbon Dioxide BUN Glucose Troponin I 0.063 H* Urine Blood Small H Ur Leukocyte Esterase Trace H Urine RBC 32 H Urine Bacteria Rare H Hyaline Casts 4 H 01/07/21 01/07/21 06:18 10:03 Hgb Hct MCV MCH MCHC RDW APTT D-Dimer Carbon Dioxide 34 H BUN 20 H Glucose Troponin I 0.117 H* Urine Blood Ur Leukocyte Esterase Urine RBC Urine Bacteria Hyaline Casts - Diagnostic Findings Chest x-ray: image reviewed CT scan - chest: image reviewed Assessment and Plan Plan: 1 acute exacerbation of chronic diastolic heart failure. The patient has hypertensive heart disease with concentric LVH, severe with a preserved LV functionand the patient is coming in with cardiomegaly, bilateral pleural effusion and interstitial edema and secondary respiratory failure. Currently on BiPAP at a pressure of 12/6 cm of water with an FiO2 of 50%. 2 bilateral pleural effusion 3 chronic hypoxic respiratory failure maintained on oxygen on outpatient basis at 2 L 4 previous history of IPAP dependent respiratory failure and previous history of intubation mechanical ventilation for respiratory failure 5 morbid obesity with a BMI 55 , possibly has underlying obstructive sleep apnea 6 hypertension 7 hyperlipidemia 8 hypothyroidism 9 , troponin leak without any acute ischemic EKG changes. The patient has old Q waves involving the inferior leads and a bundle-branch block pattern. Plan Continue BiPAP therapy for now. The patient is able to generate a tidal volume of 400 with a respiratory rate of 20 and a minute ventilation ranging between 7- 8 L Continue the IV Lasix 40 mg every 8 hours and monitor the fluid balance and electrolytes. The patient has a Ren catheter in place DuoNeb nebulized treatments around the clock Subcu heparin for DVT prophylaxis Resume home medications The patient can be given breaks off the BiPAP for feeding purposes and I would prefer her utilizing the BiPAP throughout the day today Sleep apnea suspected based on her anatomic features
--- NOTE | 2021-01-07 16:04 | P.CRDCN ---
<Angeles Espinoza - Last Filed: 01/07/21 15:57> History of Present Illness Consult date: 01/07/21 History of present illness: HISTORY OF PRESENT ILLNESS: This is a 80-year-old female with a past medical history significant for congestive heart failure, hypertension, hyperlipidemia, and obesity. Patient follows in the office with Dr. Bedoya. We have been asked to see the patient in consultation for congestive heart failure. Patient examined at the bedside. Patient reports she is short of breath all the time but states she has had worsening shortness of breath over the last 2-3 days. She also reports worsening lower extremity edema. Patient presented to the hospital and was found to be in acute heart failure. She was started on Lasix and admitted to the hospital. Patient states her shortness of breath has improved since coming to the hospital. She is currently on a BiPAP and appears to be in no acute distress. She denies chest pain or pressure. EKG reveals sinus rhythm with first-degree AV block. Left axis deviation. Chest xray congestive heart failure. Small to moderate bilateral pleural effusions. Laboratory data: WBC 7.1. Hemoglobin 9.9. Platelet count 166. Sodium 141. Potassium 4.0. B UN 20. Creatinine 0.98. Troponin 0.063. 0.117. 0.154. Current home cardiac medications include lisinopril 10 mg daily, carvedilol 3.125 mg twice a day, Lasix 40 mg twice a day, and aspirin 81 mg daily Most recent echocardiogram obtained in September 2020 reveals ejection fraction 55-60%, mild mitral regurgitation, and mild tricuspid regurgitation. REVIEW OF SYSTEMS: At the time of my exam: CONSTITUTIONAL: Denies fever or chills. HEENT: Denies blurred vision, vision changes, or eye pain. Denies hemoptysis CARDIOVASCULAR: Denies chest pain. Denies orthopnea. Denies PND. Denies palpitations RESPIRATORY: Denies shortness of breath. GASTROINTESTINAL: Denies abdominal pain. Denies nausea or vomiting. HEMATOLOGIC: Denies bleeding disorders. GENITOURINARY: Denies any blood in urine. SKIN: Denies pruitis. Denies rash. PHYSICAL EXAM: VITAL SIGNS: Reviewed. GENERAL: Well-developed in no acute distress. HEENT: Head is normocephalic. Pupils are equal, round. Sclerae anicteric. Mucous membranes of the mouth are moist. Neck supple. No JVD or thyromegaly LUNGS: Respirations even and unlabored. Lungs diminished bilaterally with fine bibasilar rales HEART: Regular rate and rhythm. S1 and S2 heard. Systolic murmur noted ABDOMEN: Soft. Nondistended. Nontender. EXTREMITIES: Normal range of motion. No clubbing or cyanosis. Peripheral pulses intact. 1+ bilateral lower extremity edema NEUROLOGIC: Awake and alert. Oriented x 3. ASSESSMENT: Acute exacerbation of chronic diastolic heart failure, EF 55-60% Abnormal troponins, suspect secondary to acute CHF Hypertension Hyperlipidemia COPD Morbid obesity: BMI 55.7 PLAN: No need to repeat echocardiogram as this was performed in September 2020 Resume home cardiac medications Continue IV Lasix Daily weights Accurate I&O Monitor kidney function Obtained an additional troponin level this afternoon Further recommendations pending patient course Nurse practitioner note has been reviewed by physician. Signing provider agrees with the documented findings, assessment, and plan of care. Past Medical History Past Medical History: Chest Pain / Angina, Heart Failure, COPD, Hyperlipidemia, Hypertension, Thyroid Disorder Additional Past Medical History / Comment(s): Intubated in September, home O2 PRN History of Any Multi-Drug Resistant Organisms: None Reported Past Surgical History: Hernia Repair Past Anesthesia/Blood Transfusion Reactions: No Reported Reaction Past Psychological History: No Psychological Hx Reported Smoking Status: Former smoker Past Alcohol Use History: None Reported Past Drug Use History: None Reported - Past Family History Mother Family Medical History: Dementia Father Family Medical History: COPD Additional Family Medical History / Comment(s): etoh Medications and Allergies Home Medications Medication Instructions Recorded Confirmed Type Levothyroxine Sodium [Synthroid] 100 mcg PO DAILY 04/23/20 01/06/21 History Montelukast Sodium [Singulair] 10 mg PO HS 04/23/20 01/06/21 History Sertraline HCl [Zoloft] 50 mg PO DAILY 04/23/20 01/06/21 History Timolol 0.5% Ophth Soln [Timoptic 1 drop BOTH EYES BID 04/23/20 01/06/21 History 0.5% Ophth Soln] carvediloL [Coreg] 3.125 mg PO BID 04/23/20 01/06/21 History Aspirin EC [Ecotrin Low Dose] 81 mg PO DAILY #30 tab 04/27/20 01/06/21 Rx lisinopriL [Zestril] 10 mg PO DAILY #30 tab 04/27/20 01/06/21 Rx Albuterol Nebulized [Ventolin 2.5 mg INHALATION RT-QID PRN 01/06/21 01/06/21 History Nebulized] Brimonidine Tartrate [Alphagan P 1 drop BOTH EYES BID 01/06/21 01/06/21 History 0.2% Ophth Soln] Furosemide [Lasix] 40 mg PO BID 01/06/21 01/06/21 History Guaifen/Dextromethorphan/PE 10 ml PO BID PRN 01/06/21 01/06/21 History [Mucinex Fast-Max Congest-Cough] Allergies Allergy/AdvReac Type Severity Reaction Status Date / Time No Known Allergies Allergy Verified 01/06/21 15:25 Physical Exam Vitals: Vital Signs Temp Pulse Pulse Resp BP BP Pulse Ox 01/07/21 15:50 75 01/07/21 15:40 75 01/07/21 14:00 62 18 01/07/21 12:00 62 18 125/65 95 01/07/21 11:58 75 01/07/21 11:45 75 01/07/21 08:30 96 01/07/21 08:14 76 01/07/21 08:02 74 01/07/21 08:01 90 L 01/07/21 08:00 98.2 F 72 22 139/75 86 L 01/07/21 03:24 97.8 F 71 18 156/89 100 01/07/21 01:40 70 18 01/06/21 23:33 98.2 F 70 22 149/77 98 01/06/21 20:04 98 01/06/21 20:00 98.1 F 74 18 166/75 97 01/06/21 19:47 95 01/06/21 18:57 76 16 132/74 97 01/06/21 17:23 89 24 159/86 95 01/06/21 17:20 100 01/06/21 17:06 110 H 01/06/21 17:00 114 H 24 222/115 95 01/06/21 16:53 122 H 24 245/136 93 L 01/06/21 16:13 98 16 187/100 97 Intake and Output 01/07/21 01/07/21 01/07/21 06:59 14:59 22:59 Intake Total 10 240 Output Total 1999 -1989 240 Intake: IV 10 0.9 10 Oral 240 Output: Urine 1999 Other: Voiding Method Indwelling Catheter Indwelling Catheter Weight 125.2 kg Results 01/07/21 06:18 01/07/21 06:18 Cardiac Enzymes 01/07/21 01/07/21 Range/Units 10:03 12:26 Troponin I 0.117 H* 0.154 H* (0.000-0.034) ng/mL CBC 01/07/21 Range/Units 06:18 WBC 7.1 (3.8-10.6) k/uL RBC 4.37 (3.80-5.40) m/uL Hgb 9.9 L (11.4-16.0) gm/dL Hct 33.6 L (34.0-46.0) % Plt Count 166 (150-450) k/uL Comprehensive Metabolic Panel 01/07/21 Range/Units 06:18 Sodium 141 (137-145) mmol/L Potassium 4.0 (3.5-5.1) mmol/L Chloride 102 (98-107) mmol/L Carbon Dioxide 34 H (22-30) mmol/L BUN 20 H (7-17) mg/dL Creatinine 0.98 (0.52-1.04) mg/dL Glucose 76 (74-99) mg/dL Calcium 8.6 (8.4-10.2) mg/dL Current Medications Generic Name Dose Route Start Last Admin Trade Name Freq PRN Reason Stop Dose Admin Hydrocodone Bitart/Acetaminophen 1 each 01/06/21 19:12 01/07/21 08:45 Hydrocodone/Apap 5-325mg 1 Each Tab PO 1 each Q6HR PRN Administration Pain Albuterol/Ipratropium 3 ml 01/06/21 20:00 01/07/21 15:39 Ipratropium-Albuterol 3 Ml Neb INHALATION 3 ml RT-QID SANKET Administration Albuterol/Ipratropium 3 ml 01/06/21 19:11 Ipratropium-Albuterol 3 Ml Neb INHALATION RT-QID PRN Shortness Of Breath Or Wheezing Aspirin 81 mg 01/07/21 09:00 01/07/21 08:44 Aspirin 81 Mg PO 81 mg DAILY SANKET Administration Brimonidine Tartrate 1 drops 01/06/21 21:00 01/07/21 08:46 Brimonidine Tartrate 0.2% Drops 5 Ml Btl BOTH EYES 1 drops BID SANKET Administration Carvedilol 3.125 mg 01/06/21 17:30 01/07/21 06:33 Carvedilol 3.125 Mg Tab PO 3.125 mg AC-BID SANKET Administration Furosemide 40 mg 01/07/21 00:00 01/07/21 08:46 Furosemide 10 Mg/Ml 4 Ml Vial IV 40 mg Q8HR SANKET Administration Heparin Sodium (Porcine) 5,000 unit 01/06/21 21:00 01/07/21 08:45 Heparin Sodium,Porcine 5,000 Unit/Ml 1 Ml Vial SQ 5,000 unit Q12HR SANKET Administration Levothyroxine Sodium 100 mcg 01/07/21 06:30 01/07/21 06:33 Levothyroxine 100 Mcg Tab PO 100 mcg DAILY@0630 SANKET Administration Lisinopril 10 mg 01/07/21 09:00 01/07/21 08:45 Lisinopril 10 Mg Tab PO 10 mg DAILY SANKET Administration Lorazepam 0.5 mg 01/06/21 16:06 Lorazepam 2 Mg/Ml Inj IV Q6HR PRN Anxiety Montelukast Sodium 10 mg 01/06/21 21:00 01/06/21 21:09 Montelukast 10 Mg Tab PO 10 mg HS SANKET Administration Naloxone HCl 0.2 mg 01/06/21 16:06 Naloxone 0.4 Mg/Ml 1 Ml Vial IV Q2M PRN Opioid Reversal Pantoprazole Sodium 40 mg 01/07/21 07:30 01/07/21 06:33 Pantoprazole 40 Mg Tablet PO 40 mg AC-BRKFST SANKET Administration Sertraline HCl 50 mg 01/07/21 09:00 01/07/21 08:44 Sertraline 50 Mg Tab PO 50 mg DAILY SANKET Administration Timolol Maleate 1 drops 01/06/21 21:00 01/07/21 08:46 Timolol 0.5% Ophth Drops 5 Ml Btl BOTH EYES 1 drops BID SANKET Administration Intake and Output 01/07/21 01/07/21 01/07/21 06:59 14:59 22:59 Intake Total 10 240 Output Total 1999 -1989 240 Intake: IV 10 0.9 10 Oral 240 Output: Urine 1999 Other: Voiding Method Indwelling Catheter Indwelling Catheter Weight 125.2 kg 01/07/21 06:18 01/07/21 06:18 <GiuseppeVaibhav - Last Filed: 01/07/21 19:33> Physical Exam Vitals: Vital Signs Temp Pulse Pulse Resp BP Pulse Ox 01/07/21 16:00 98.7 F 62 18 109/60 97 01/07/21 15:50 75 01/07/21 15:40 75 01/07/21 14:00 62 18 01/07/21 12:00 62 18 125/65 95 01/07/21 11:58 75 01/07/21 11:45 75 01/07/21 08:30 96 01/07/21 08:14 76 01/07/21 08:02 74 01/07/21 08:01 90 L 01/07/21 08:00 98.2 F 72 22 139/75 86 L 01/07/21 03:24 97.8 F 71 18 156/89 100 01/07/21 01:40 70 18 01/06/21 23:33 98.2 F 70 22 149/77 98 01/06/21 20:04 98 01/06/21 20:00 98.1 F 74 18 166/75 97 01/06/21 19:47 95 Intake and Output 01/07/21 01/07/21 01/07/21 06:59 14:59 22:59 Intake Total 10 480 240 Output Total 1999 600 -1989 480 -360 Intake: IV 10 0.9 10 Oral 480 240 Output: Urine 1999 600 Other: Voiding Method Indwelling Catheter Indwelling Catheter Weight 125.2 kg Results 01/07/21 06:18 01/07/21 06:18 Cardiac Enzymes 01/07/21 01/07/21 01/07/21 Range/Units 10:03 12:26 17:07 Troponin I 0.117 H* 0.154 H* 0.165 H* (0.000-0.034) ng/mL CBC 01/07/21 Range/Units 06:18 WBC 7.1 (3.8-10.6) k/uL RBC 4.37 (3.80-5.40) m/uL Hgb 9.9 L (11.4-16.0) gm/dL Hct 33.6 L (34.0-46.0) % Plt Count 166 (150-450) k/uL Comprehensive Metabolic Panel 01/07/21 Range/Units 06:18 Sodium 141 (137-145) mmol/L Potassium 4.0 (3.5-5.1) mmol/L Chloride 102 (98-107) mmol/L Carbon Dioxide 34 H (22-30) mmol/L BUN 20 H (7-17) mg/dL Creatinine 0.98 (0.52-1.04) mg/dL Glucose 76 (74-99) mg/dL Calcium 8.6 (8.4-10.2) mg/dL Current Medications Generic Name Dose Route Start Last Admin Trade Name Freq PRN Reason Stop Dose Admin Hydrocodone Bitart/Acetaminophen 1 each 01/06/21 19:12 01/07/21 08:45 Hydrocodone/Apap 5-325mg 1 Each Tab PO 1 each Q6HR PRN Administration Pain Albuterol/Ipratropium 3 ml 01/06/21 20:00 01/07/21 15:39 Ipratropium-Albuterol 3 Ml Neb INHALATION 3 ml RT-QID SANKET Administration Albuterol/Ipratropium 3 ml 01/06/21 19:11 Ipratropium-Albuterol 3 Ml Neb INHALATION RT-QID PRN Shortness Of Breath Or Wheezing Aspirin 81 mg 01/07/21 09:00 01/07/21 08:44 Aspirin 81 Mg PO 81 mg DAILY SANKET Administration Brimonidine Tartrate 1 drops 01/06/21 21:00 01/07/21 08:46 Brimonidine Tartrate 0.2% Drops 5 Ml Btl BOTH EYES 1 drops BID SANKET Administration Carvedilol 3.125 mg 01/06/21 17:30 01/07/21 16:45 Carvedilol 3.125 Mg Tab PO 3.125 mg AC-BID SANKET Administration Furosemide 40 mg 01/07/21 00:00 01/07/21 16:45 Furosemide 10 Mg/Ml 4 Ml Vial IV 40 mg Q8HR SANKET Administration Heparin Sodium (Porcine) 5,000 unit 01/06/21 21:00 01/07/21 08:45 Heparin Sodium,Porcine 5,000 Unit/Ml 1 Ml Vial SQ 5,000 unit Q12HR SANKET Administration Insulin Aspart 0 unit 01/07/21 17:30 01/07/21 17:47 Insulin Aspart (Novolog) 100 Unit/Ml Vial SQ Not Given ACHS [facility] Protocol Levothyroxine Sodium 100 mcg 01/07/21 06:30 01/07/21 06:33 Levothyroxine 100 Mcg Tab PO 100 mcg DAILY@0630 SNAKET Administration Lisinopril 10 mg 01/07/21 09:00 01/07/21 08:45 Lisinopril 10 Mg Tab PO 10 mg DAILY SANKET Administration Lorazepam 0.5 mg 01/06/21 16:06 Lorazepam 2 Mg/Ml Inj IV Q6HR PRN Anxiety Methylprednisolone Sodium Succinate 40 mg 01/07/21 17:45 01/07/21 18:27 Methylprednisolone Sod Succi 40 Mg/Ml 1 Ml Vial IV 40 mg Q8HR SANKET Administration Montelukast Sodium 10 mg 01/06/21 21:00 01/06/21 21:09 Montelukast 10 Mg Tab PO 10 mg HS SANKET Administration Naloxone HCl 0.2 mg 01/06/21 16:06 Naloxone 0.4 Mg/Ml 1 Ml Vial IV Q2M PRN Opioid Reversal Pantoprazole Sodium 40 mg 01/07/21 07:30 01/07/21 06:33 Pantoprazole 40 Mg Tablet PO 40 mg AC-BRKFST SANKET Administration Sertraline HCl 50 mg 01/07/21 09:00 01/07/21 08:44 Sertraline 50 Mg Tab PO 50 mg DAILY SANKET Administration Timolol Maleate 1 drops 01/06/21 21:00 01/07/21 08:46 Timolol 0.5% Ophth Drops 5 Ml Btl BOTH EYES 1 drops BID SANKET Administration Intake and Output 01/07/21 01/07/21 01/07/21 06:59 14:59 22:59 Intake Total 10 480 240 Output Total 1999 600 -1989 480 -360 Intake: IV 10 0.9 10 Oral 480 240 Output: Urine 1999 600 Other: Voiding Method Indwelling Catheter Indwelling Catheter Weight 125.2 kg 01/07/21 06:18 01/07/21 06:18
[2021-01-07] MEDS: INSULIN ASPART (NovoLOG) 100 UNIT/ML VIAL SQ SCH ×2 (17:47→20:26)
[2021-01-07] MEDS: methylPREDNISolone SOD SUCCI 40 MG/ML 1 ML VIAL IV SCH ×2 (18:27→23:04)
--- NOTE | 2021-01-07 19:34 | PN ---
PROGRESS NOTE DATE OF SERVICE: 01/07/2021 I am covering for Dr. Hudson. This 80-year-old woman who was admitted with shortness of breath and possibly CHF exacerbation is being closely monitored. Patient had elevated troponin. Troponin elevated to 1.54. D-dimer was elevated at 2.34. The patient underwent a CT angio of the chest which showed no evidence of acute pulmonary embolism even though the study was suboptimal. CHF was suspected. The CT of the chest was reviewed personally by me. Cardiology and pulmonology following the patient closely. PAST MEDICAL HISTORY: Reviewed. REVIEW OF SYSTEMS: CARDIOVASCULAR SYSTEM: No angina. RESPIRATORY: As mentioned earlier. GI: No nausea. : No dysuria. NERVOUS SYSTEM: No numbness, weakness. CURRENT MEDICATIONS: Reviewed. DuoNeb, aspirin, Lasix, heparin, doses reviewed. PHYSICAL EXAM: Patient is alert, oriented x2. Pulse 62, blood pressure 109/60, respirations 18, temperature 98.7, pulse ox 97% on BiPAP. HEENT: Conjunctivae normal. NECK: No JVD. CARDIOVASCULAR: S1, S2. RESPIRATIONS: Breath sounds diminished in the bases. Bilateral scattered rhonchi and crackles. ABDOMEN: Soft. Nontender. LEGS: No edema. No swelling. NERVOUS SYSTEM: No focal deficits. LAB STUDIES: WBC 9.9, sodium 141, D-dimer is 2.2. Troponin noted. Urine RBC, Covid 19 rapid test was negative. ASSESSMENT: 1. Shortness of breath multifactorial with congestive heart failure acute exacerbation as well as asthma, chronic obstructive pulmonary disease acute exacerbation with acute on chronic diastolic dysfunction, ejection fraction 55 to 60%. 2. Troponin 0.154. Possible acute [id number]-elevation myocardial infarction. 3. Elevated D-dimer without any evidence of pulmonary embolism. 4. Possible bibasilar atelectasis. 5. Bilateral pleural effusion. 6. Covid 19 rapid test is negative. 7. History of congestive heart failure. 8. Hypertension. 9. Hyperlipidemia. 10.Hypothyroidism. 11.History of respiratory failure previously. 12.Chronic hypoxic respiratory failure on O2 at 2 L nasal cannula. 13.History of hernia repair. 14.Remote history of nicotine dependence. 15.Obesity with body mass index of 52.5. 16.FULL CODE. RECOMMENDATIONS AND DISCUSSION: In this 80-year-old woman who presented with multiple complex medical issues, we will monitor the patient closely, continue the current medications, management and symptomatic treatment. Otherwise continue with diuretics. I would also recommend bronchodilators and a short course of steroids also. The patient is also being followed by Dr. Ibarra. The patient is on BiPAP. Cardiology has seen the patient and has recommended continue IV Lasix and home medications. Troponins are suspected to be due to secondary to CHF. The overall prognosis guarded. Further recommendations to follow. MMODL / IJN: [id number] /
[2021-01-07 20:11] LABS: Glucose,Whole Blood 134 mg/dL (75-99)
[2021-01-07] MEDS: MONTELUKAST 10 MG TAB PO SCH (20:24)
[2021-01-08 06:04] LABS: Glucose,Whole Blood 147 mg/dL (75-99)
[2021-01-08] MEDS: LEVOTHYROXINE 100 MCG TAB PO SCH (06:20)
[2021-01-08] MEDS: PANTOPRAZOLE 40 MG TABLET PO SCH (06:21)
[2021-01-08] MEDS: INSULIN ASPART (NovoLOG) 100 UNIT/ML VIAL SQ SCH ×4 (06:21→20:34)
[2021-01-08] MEDS: carvediloL 3.125 MG TAB PO SCH ×2 (06:21→17:09)
[2021-01-08] MEDS: HYDROcodone/APAP 5-325MG 1 EACH TAB PO PRN (07:30)
[2021-01-08] MEDS: IPRATROPIUM-ALBUTEROL 3 ML NEB INHALATION SCH ×4 (08:03→19:52)
[2021-01-08] MEDS: HEPARIN SODIUM,PORCINE 5,000 UNIT/ML 1 ML VIAL SQ SCH ×2 (08:36→20:34)
[2021-01-08] MEDS: methylPREDNISolone SOD SUCCI 40 MG/ML 1 ML VIAL IV SCH ×3 (08:36→23:20)
[2021-01-08] MEDS: FUROSEMIDE 10 MG/ML 4 ML VIAL IV SCH ×3 (08:36→23:21)
[2021-01-08] MEDS: SERTRALINE 50 MG TAB PO SCH (08:36)
[2021-01-08] MEDS: lisinopriL 10 MG TAB PO SCH (08:36)
[2021-01-08] MEDS: ASPIRIN 81 MG PO SCH (08:36)
[2021-01-08] MEDS: BRIMONIDINE TARTRATE 0.2% DROPS 5 ML BTL BOTH EYES SCH ×2 (08:37→20:35)
[2021-01-08] MEDS: TIMOLOL 0.5% OPHTH DROPS 5 ML BTL BOTH EYES SCH ×2 (08:37→20:35)
[2021-01-08 08:59] LABS: Anisocytosis Slight; Basophils % (A) 0 %; Eosinophils % (A) 0 %; HCT 31.3 % (34.0-46.0); HGB 9.4 gm/dL (11.4-16.0); Hypochromasia Marked; Lymphocytes # (A) 0.7 k/uL (1.0-4.8); Lymphocytes % (A) 13 %; MCH 22.6 pg (25.0-35.0); MCV 75.3 fL (80.0-100.0); Mean Platelet Volume 6.7; Microcytosis Moderate; Monocytes # (A) 0.2 k/uL (0-1.0); Monocytes % (A) 3 %; Neutrophils # (A) 4.8 k/uL (1.3-7.7); Neutrophils % (A) 83 %; Platelet Count 169 k/uL (150-450); Poikilocytosis Slight; RBC 4.15 m/uL (3.80-5.40); RDW 17.9 % (11.5-15.5); WBC 5.8 k/uL (3.8-10.6)
[2021-01-08 09:10] LABS: Calcium 8.6 mg/dL (8.4-10.2); Potassium 4.1 mmol/L (3.5-5.1)
--- NOTE | 2021-01-08 10:13 | P.PN ---
Subjective Progress Note Date: 01/08/21 80-year-old here patient with known history of COPD who presented to the [facility] department yesterday at around 4:56 PM with worsening shortness of breath. This patient has been getting progressively more short of breath over the past 48 hours. She had orthopnea. She had also exertional dyspnea. She denied having any chest pain. No sputum production. No pleurisy. No hemoptysis. No altered mentation. She is on home oxygen at 2 L per minute nasal cannula and she uses also albuterol nebulizer [id number].. The patient has been hospitalized in the past specifically September 2020 for exacerbation of diastolic heart failure and back then she required BiPAP for respiratory support. At that time she was treated for an acute on top of chronic hypoxic respiratory failure secondary to diastolic heart failure and the patient was treated successfully and she was taken off the BiPAP and discharged home. During this current admission, the patient has no temperature. This morning, she is on a BiPAP at a pressure of 12/6 cm of water with an FiO2 of 80%. The l abs since admission showed a white second of 7.4 with a hemoglobin of 9.9 and she is microcytic. Sodium is 141. The patient has a serum bicarb of 34 with a sodium level of 141. Creatinine 0.9. Troponins are 0.06 and 0.117 respectively and the patient shore proBNP level of 3380. Protein is at 6.4. UA showing 32 RBCs and 2 WBCs. The chest x-ray showing cardiomegaly with pulmonary vascular conges tion, prominent pulmonary arteries perihilar he and interstitial edema.. This is worse compared to the previous chest x-ray from September 2020. Overnight, the patient was also subjected to diuretics and the patient was given Lasix 40 mg IV every 8 hours. She is also on DuoNeb the right treatment [id number]. She is also receiving BiPAP for respiratory support. EKG showing no acute abnormalities. There is a sinus rhythm. There is a bundle- branch block pattern and there is no acute ST segment elevation or depressions. Q waves over the inferior leads consistent with a previous inferior wall myocardial infarction.CTA of the chest was done and showed bilateral pleural effusion right more than left in addition to interstitial edema and a heavily calcified aortic arch. No evidence of any other consolidation or airspace disease. 01/08/2021, the patient is being seen for a follow-up. I saw the patient consultation yesterday and she was essentially in CHF exacerbation and she also had a component of COPD. She was kept on BiPAP. She was given diuretics with IV Lasix 40 mg every 8 hours and I'm seeing this patient in follow-up today. She was taken off the BiPAP this morning and she was placed on oxygen at 5 L and her pulse ox above 90% pH is hemodynamically stable. She has diuresed adequately over the past 24 hours in the urine output has been adequate with a fluid balance being negative at least 2.6 L over the past 24 hours and the patient has diabetes another 1.8 L since this morning. Renal function stable. Creatinine is at 1.09 which is incredible to yesterday and there is no hypokalemia and the sodium level is at 138. pro Calcitonin level is low. No other major electrolyte imbalance at this point in time. Objective - Vital Signs Vital signs: Vital Signs Temp 98.4 F 01/08/21 03:27 Pulse 72 01/08/21 08:21 Resp 18 01/08/21 03:27 BP 126/57 01/08/21 03:27 Pulse Ox 96 01/08/21 03:27 Intake & Output 01/07/21 01/08/21 01/08/21 18:59 06:59 18:59 Intake Total 720 10 Output Total 600 1974 Balance 120 -1965 Weight 123 kg Intake: IV 10 0.9 10 Oral 720 Output: Urine 600 1974 Other: Voiding Method Indwelling Catheter Indwelling Catheter - Exam GENERAL: The patient is alert and oriented x3, not in any acute distress. she is tolerating degenerative 5 L per minute nasal cannula. She is improved and she is less short of breath and more awake compared to yesterday. Head exam was generally normal. There was no scleral icterus or corneal arcus. Mucous membranes were moist. HEENT: Pupils are round and equally reacting to light. EOMI. No scleral icterus. No conjunctival pallor. Normocephalic, atraumatic. No pharyngeal erythema. No thyromegaly. CARDIOVASCULAR: S1 and S2 present. No murmurs, rubs, or gallops. PULMONARY: Cdiminished breath sounds and crackles in lung bases bilaterally ABDOMEN: Soft, nontender, nondistended, normoactive bowel sounds. No palpable organomegaly. MUSCULOSKELETAL: No joint swelling or deformity. -EXTREMITIES: No cyanosis, clubbing, . Mild bilateral leg edema. NEUROLOGICAL: Gross neurological examination did not reveal any focal deficits. Examination of the skin revealed no evidence of significant rashes, suspicious appearing nevi or other concerning lesions. - Labs CBC & Chem 7: 01/08/21 08:20 01/08/21 08:20 Labs: Abnormal Lab Results - Last 24 Hours (Table) 01/07/21 01/07/21 01/07/21 Range/Units 10:03 12:26 17:07 Hgb (11.4-16.0) gm/dL Hct (34.0-46.0) % MCV (80.0-100.0) fL MCH (25.0-35.0) pg MCHC (31.0-37.0) g/dL RDW (11.5-15.5) % Lymphocytes # (1.0-4.8) k/uL D-Dimer (<0.60) mg/L FEU Chloride (98-107) mmol/L Carbon Dioxide (22-30) mmol/L BUN (7-17) mg/dL Creatinine (0.52-1.04) mg/dL Glucose (74-99) mg/dL POC Glucose (mg/dL) (75-99) mg/dL Troponin I 0.117 H* 0.154 H* 0.165 H* (0.000-0.034) ng/mL 01/07/21 01/08/21 01/08/21 Range/Units 20:09 06:02 08:20 Hgb 9.4 L (11.4-16.0) gm/dL Hct 31.3 L (34.0-46.0) % MCV 75.3 L (80.0-100.0) fL MCH 22.6 L (25.0-35.0) pg MCHC 30.0 L (31.0-37.0) g/dL RDW 17.9 H (11.5-15.5) % Lymphocytes # 0.7 L (1.0-4.8) k/uL D-Dimer (<0.60) mg/L FEU Chloride (98-107) mmol/L Carbon Dioxide (22-30) mmol/L BUN (7-17) mg/dL Creatinine (0.52-1.04) mg/dL Glucose (74-99) mg/dL POC Glucose (mg/dL) 134 H 147 H (75-99) mg/dL Troponin I (0.000-0.034) ng/mL 01/08/21 01/08/21 Range/Units 08:20 08:20 Hgb (11.4-16.0) gm/dL Hct (34.0-46.0) % MCV (80.0-100.0) fL MCH (25.0-35.0) pg MCHC (31.0-37.0) g/dL RDW (11.5-15.5) % Lymphocytes # (1.0-4.8) k/uL D-Dimer 12.86 H (<0.60) mg/L FEU Chloride 97 L (98-107) mmol/L Carbon Dioxide 36 H (22-30) mmol/L BUN 28 H (7-17) mg/dL Creatinine 1.09 H (0.52-1.04) mg/dL Glucose 163 H (74-99) mg/dL POC Glucose (mg/dL) (75-99) mg/dL Troponin I (0.000-0.034) ng/mL Assessment and Plan Plan: 1 acute exacerbation of chronic diastolic heart failure. The patient has hypertensive heart disease with concentric LVH, severe with a preserved LV functionand the patient is coming in with cardiomegaly, bilateral pleural effusi on and interstitial edema and secondary respiratory failure. The patient was supported with BiPAP and she was diuresed aggressively and she has had a great response over the past 24 hours and she is currently off the BiPAP and she is on 5 L of oxygen by nasal cannula. Edema is improving. She does have some crackles and diminished breath sounds bilaterally consistent with CHF. 2 bilateral pleural effusion 3 chronic hypoxic respiratory failure maintained on oxygen on outpatient basis at 2 L 4 previous history of IPAP dependent respiratory failure and previous history of intubation mechanical ventilation for respiratory failure 5 morbid obesity with a BMI 55 , possibly has underlying obstructive sleep apnea 6 hypertension 7 hyperlipidemia 8 hypothyroidism 9 troponin leak without any acute ischemic EKG changes. The patient has old Q waves involving the inferior leads and a bundle-branch block pattern. Plan Continue bicarbonate same setting on and off during the day. The patient has responded to that. Continue the IV Lasix 40 mg every 8 hours and monitor the fluid balance and electrolytes. The patient has a Ren catheter in place and the patient is at least 3-4 L negative fluid balance over the past 24 hours DuoNeb nebulized treatments around the clock Subcu heparin for DVT prophylaxis Sleep apnea suspected based on her anatomic features no significant electrolyte disturbance along with diuretics Keep Ren cath in place Repeat chest x-ray in the morning We'll continue to follow. Clinically improving.
[2021-01-08 12:13] LABS: Glucose,Whole Blood 177 mg/dL (75-99)
--- NOTE | 2021-01-08 15:04 | P.PN ---
Subjective Progress Note Date: 01/08/21 HISTORY OF PRESENT ILLNESS: 01/07/2021 This is a 80-year-old female with a past medical history significant for congestive heart failure, hypertension, hyperlipidemia, and obesity. Patient follows in the office with Dr. Bedoya. We have been asked to see the patient in consultation for congestive heart failure. Patient examined at the bedside. Patient reports she is short of breath all the time but states she has had worsening shortness of breath over the last 2-3 days. She also reports worsening lower extremity edema. Patient presented to the hospital and was found to be in acute heart failure. She was started on Lasix and admitted to the hospital. Patient states her shortness of breath has improved since coming to the hospital. She is currently on a BiPAP and appears to be in no acute distress. She denies chest pain or pressure. EKG reveals sinus rhythm with first-degree AV block. Left axis deviation. Chest xray congestive heart failure. Small to moderate bilateral pleural effusions. Laboratory data: WBC 7.1. Hemoglobin 9.9. Platelet count 166. Sodium 141. Potassium 4.0. B UN 20. Creatinine 0.98. Troponin 0.063. 0.117. 0.154. Current home cardiac medications include lisinopril 10 mg daily, carvedilol 3.125 mg twice a day, Lasix 40 mg twice a day, and aspirin 81 mg daily Most recent echocardiogram obtained in September 2020 reveals ejection fraction 55-60%, mild mitral regurgitation, and mild tricuspid regurgitation. 01/08/2021 Patient examined this morning. She is sitting up in the chair. She is on nasal cannula. She states her shortness of breath has significantly improved. She remains on IV Lasix. She denies chest pain or pressure. PHYSICAL EXAM: VITAL SIGNS: Reviewed. GENERAL: Well-developed in no acute distress. HEENT: Head is normocephalic. Pupils are equal, round. Sclerae anicteric. Mucous membranes of the mouth are moist. Neck supple. No JVD or thyromegaly LUNGS: Respirations even and unlabored. Lungs diminished bilaterally with fine bibasilar rales HEART: Regular rate and rhythm. S1 and S2 heard. Systolic murmur noted ABDOMEN: Soft. Nondistended. Nontender. EXTREMITIES: Normal range of motion. No clubbing or cyanosis. Peripheral pulses intact. 1+ bilateral lower extremity edema NEUROLOGIC: Awake and alert. Oriented x 3. ASSESSMENT: Acute exacerbation of chronic diastolic heart failure, EF 55-60% Abnormal troponins, suspect secondary to acute CHF, cannot rule out coronary artery disease Hypertension Hyperlipidemia COPD Morbid obesity: BMI 55.7 PLAN: Continue current cardiac medications Continue IV Lasix Daily weights Accurate I&O Monitor kidney function Dr. Chin discussed stress test versus heart catheterization with patient yesterday. Dr. Chin will reevaluate patient this afternoon and decision will be made regarding stress test or heart catheterization tomorrow. Further recommendations pending patient's course Nurse practitioner note has been reviewed by physician. Signing provider agrees with the documented findings, assessment, and plan of care. Objective - Vital Signs Vital signs: Vital Signs Temp 98.5 F 01/08/21 08:00 Pulse 76 01/08/21 11:25 Resp 18 01/08/21 08:00 BP 119/60 01/08/21 08:00 Pulse Ox 91 L 01/08/21 08:00 Intake & Output 01/07/21 01/08/21 01/08/21 18:59 06:59 18:59 Intake Total 720 10 560 Output Total 600 1975 Balance 120 -1965 560 Weight 123 kg Intake: IV 10 0.9 10 Oral 720 560 Output: Urine 600 1974 Other: Voiding Method Indwelling Catheter Indwelling Catheter Indwelling Catheter - Labs CBC & Chem 7: 01/08/21 08:20 01/08/21 08:20 Labs: Abnormal Lab Results - Last 24 Hours (Table) 01/07/21 01/07/21 01/08/21 Range/Units 17:07 20:09 06:02 Hgb (11.4-16.0) gm/dL Hct (34.0-46.0) % MCV (80.0-100.0) fL MCH (25.0-35.0) pg MCHC (31.0-37.0) g/dL RDW (11.5-15.5) % Lymphocytes # (1.0-4.8) k/uL D-Dimer (<0.60) mg/L FEU Chloride (98-107) mmol/L Carbon Dioxide (22-30) mmol/L BUN (7-17) mg/dL Creatinine (0.52-1.04) mg/dL Glucose (74-99) mg/dL POC Glucose (mg/dL) 134 H 147 H (75-99) mg/dL Troponin I 0.165 H* (0.000-0.034) ng/mL 01/08/21 01/08/21 01/08/21 Range/Units 08:20 08:20 08:20 Hgb 9.4 L (11.4-16.0) gm/dL Hct 31.3 L (34.0-46.0) % MCV 75.3 L (80.0-100.0) fL MCH 22.6 L (25.0-35.0) pg MCHC 30.0 L (31.0-37.0) g/dL RDW 17.9 H (11.5-15.5) % Lymphocytes # 0.7 L (1.0-4.8) k/uL D-Dimer 12.86 H (<0.60) mg/L FEU Chloride 97 L (98-107) mmol/L Carbon Dioxide 36 H (22-30) mmol/L BUN 28 H (7-17) mg/dL Creatinine 1.09 H (0.52-1.04) mg/dL Glucose 163 H (74-99) mg/dL POC Glucose (mg/dL) (75-99) mg/dL Troponin I (0.000-0.034) ng/mL 01/08/21 Range/Units 12:11 Hgb (11.4-16.0) gm/dL Hct (34.0-46.0) % MCV (80.0-100.0) fL MCH (25.0-35.0) pg MCHC (31.0-37.0) g/dL RDW (11.5-15.5) % Lymphocytes # (1.0-4.8) k/uL D-Dimer (<0.60) mg/L FEU Chloride (98-107) mmol/L Carbon Dioxide (22-30) mmol/L BUN (7-17) mg/dL Creatinine (0.52-1.04) mg/dL Glucose (74-99) mg/dL POC Glucose (mg/dL) 177 H (75-99) mg/dL Troponin I (0.000-0.034) ng/mL
[2021-01-08 17:05] LABS: Glucose,Whole Blood 213 mg/dL (75-99)
--- NOTE | 2021-01-08 19:20 | PN ---
PROGRESS NOTE DATE OF SERVICE: 01/08/2021 I am covering for Dr. Hudson. This 80-year-old woman who was admitted with shortness of breath which is poly multifactorial including CHF exacerbation, COPD is being closely monitored. The patient still has shortness of breath. Cardiology and pulmonology following the patient closely. A chest CTA showed no evidence of pulmonary embolism. The creatinine is 1.09 at this time. Blood sugar is elevated. PAST MEDICAL HISTORY: Reviewed. REVIEW OF SYSTEMS: CARDIOVASCULAR: No angina. RESPIRATORY: As mentioned earlier. GI: As mentioned earlier. : No dysuria. NERVOUS SYSTEM: No numbness or weakness. CURRENT MEDICATIONS: Reviewed and include: [place]. DuoNeb, aspirin, Alphagan, Coreg, Lasix, heparin. Doses reviewed. PHYSICAL EXAM: Patient is alert and oriented x3. Pulse 66, blood pressure 148/86, respiration 20, temperature 98.4. Pulse ox 96% on 5 L. HEENT: Conjunctivae normal. NECK: No JVD. CARDIOVASCULAR: S1, S2 muffled. RESPIRATORY SYSTEM: Breath sounds diminished at the bases. A few scattered rhonchi and crackles. ABDOMEN: Soft, nontender. LEGS are no edema. No swelling. NERVOUS SYSTEM: No focal deficits. LAB STUDIES: Hemoglobin 9.4, and D-dimer is 12.86, which is increased compared to the previous one. Covid 19 is negative. Troponin 0.165 and creatinine is 1.09. ASSESSMENT: 1. Shortness of breath possibly multifactorial, chronic obstructive pulmonary disease acute exacerbation as well as asthma COPD exacerbation with acute on chronic diastolic dysfunction ejection fraction 55-60 percent. 2. Troponin 0.154. Possible acute [id number]-NR-krranas-elevation myocardial infarction. 3. Elevated D-dimer without any evidence of pulmonary embolism. 4. Possible bibasilar atelectasis pneumonia. 5. Bilateral pleural effusion. 6. Covid 19 rapid test is negative. 7. History of congestive heart failure. 8. Hypertension. 9. Hyperlipidemia. 10.Hypothyroidism. 11.History of respiratory failure previous. 12.Chronic hypoxic respiratory failure on O2 2 L nasal cannula. 13.History of hernia repair. 14.Remote history of nicotine dependence. 15.Obesity with body mass index of 52.5. 16.FULL CODE. RECOMMENDATIONS AND DISCUSSION: I recommend to continue current medications, and symptomatic treatment. Otherwise at this time I would recommend continue with diuretic, bronchodilators. I would also recommend empiric antibiotics. Otherwise, closely follow with multiple consultants. Prognosis guarded. Dr. Hudson will follow tomorrow. See orders for details. MMODL / IJN: [id number] / MTDD
[2021-01-08 20:27] LABS: Glucose,Whole Blood 298 mg/dL (75-99)
[2021-01-08] MEDS: MONTELUKAST 10 MG TAB PO SCH (20:34)
[2021-01-09] MEDS ORDERED: AMINOPHYLLINE 500 MG/20 ML VIAL IV PRN (06:00)
[2021-01-09] MEDS ORDERED: REGADENOSON 0.4 MG/5 ML SYRINGE IV PRN (06:00)
[2021-01-09] MEDS ORDERED: CAFFEINE CITRATE 60 MG/3 ML VIAL IV PRN (06:00)
[2021-01-09 06:05] LABS: Glucose,Whole Blood 147 mg/dL (75-99)
[2021-01-09] MEDS: IPRATROPIUM-ALBUTEROL 3 ML NEB INHALATION SCH ×4 (07:38→19:41)
--- NOTE | 2021-01-09 07:45 | XR ---
EXAMINATION TYPE: XR chest 1V portable DATE OF EXAM: 01/09/2021 CLINICAL HISTORY: Difficulty breathing progress study. TECHNIQUE: Single AP portable upright view of the chest is obtained. COMPARISON: Chest x-ray and CTA chest from 3 days earlier and older studies. FINDINGS: Persistent cardiomegaly with atherosclerotic thoracic aorta. Persistent low lung volumes a nd chronic parenchymal changes with some improved multifocal increased opacities bilaterally. Osseous structures remain intact. IMPRESSION: Improving pleural effusions and bilateral multifocal edema and/or infiltrates on backgrou nd chronic parenchymal change and low lung volumes along with cardiomegaly. Suspect resolving CHF exa cerbation. Correlate clinically.
[2021-01-09 08:20] LABS: Anisocytosis Slight; Basophils % (A) 0 %; Eosinophils % (A) 0 %; HCT 31.9 % (34.0-46.0); HGB 9.8 gm/dL (11.4-16.0); Hypochromasia Marked; Lymphocytes # (A) 1.3 k/uL (1.0-4.8); Lymphocytes % (A) 14 %; MCH 23.4 pg (25.0-35.0); MCHC 30.9 g/dL (31.0-37.0); MCV 75.8 fL (80.0-100.0); Mean Platelet Volume 8.6; Microcytosis Slight; Monocytes # (A) 0.6 k/uL (0-1.0); Monocytes % (A) 7 %; Neutrophils # (A) 7.1 k/uL (1.3-7.7); Neutrophils % (A) 78 %; Platelet Count 187 k/uL (150-450); Poikilocytosis Slight; RBC 4.21 m/uL (3.80-5.40); RDW 18.1 % (11.5-15.5); WBC 9.1 k/uL (3.8-10.6)
[2021-01-09 08:34] LABS: Calcium 8.9 mg/dL (8.4-10.2)
[2021-01-09] MEDS: INSULIN ASPART (NovoLOG) 100 UNIT/ML VIAL SQ SCH ×4 (11:50→20:16)
[2021-01-09 11:59] LABS: Glucose,Whole Blood 126 mg/dL (75-99)
[2021-01-09] MEDS: FUROSEMIDE 10 MG/ML 4 ML VIAL IV SCH ×3 (12:03→23:59)
[2021-01-09] MEDS: HYDROcodone/APAP 5-325MG 1 EACH TAB PO PRN (12:03)
[2021-01-09] MEDS: methylPREDNISolone SOD SUCCI 40 MG/ML 1 ML VIAL IV SCH ×3 (12:03→23:59)
[2021-01-09] MEDS: HEPARIN SODIUM,PORCINE 5,000 UNIT/ML 1 ML VIAL SQ SCH ×2 (12:03→20:16)
[2021-01-09] MEDS: PANTOPRAZOLE 40 MG TABLET PO SCH (12:03)
[2021-01-09] MEDS: SERTRALINE 50 MG TAB PO SCH (12:03)
[2021-01-09] MEDS: ASPIRIN 81 MG PO SCH (12:03)
[2021-01-09] MEDS: LEVOTHYROXINE 100 MCG TAB PO SCH (12:04)
[2021-01-09] MEDS: carvediloL 3.125 MG TAB PO SCH ×2 (12:04→16:21)
[2021-01-09] MEDS: lisinopriL 10 MG TAB PO SCH (12:04)
[2021-01-09] MEDS: TIMOLOL 0.5% OPHTH DROPS 5 ML BTL BOTH EYES SCH ×2 (12:05→20:17)
[2021-01-09] MEDS: BRIMONIDINE TARTRATE 0.2% DROPS 5 ML BTL BOTH EYES SCH ×2 (12:05→20:16)
--- NOTE | 2021-01-09 13:48 | NM ---
EXAMINATION TYPE: NM stress lexiscan cardiolite DATE OF EXAM: 01/09/2021 COMPARISON: NONE HISTORY: Chest pain. History of tobacco use and family history of heart attack and had along with per greg history of hypertension and hypercholesterolemia along with asthma presents with additional sym ptoms of difficulty breathing and palpitations. TECHNIQUE: After the intravenous administration of 9.7 mCi Tc 99m Sestamibi - Cardiolite resting SPE CT images acquired 45 minutes post injection. The patient received 0.4mg Lexiscan, 26.0 mCi Tc 99m Sestamibi - Stress images obtained [address] injection FINDINGS: Review of stress and rest SPECT images demonstrates old infarct involving the inferior lateral left v entricular wall with additional area of diminished radiotracer uptake on stress images versus rest im ages particularly basal to mid segments seen best on short axis views. Acute ischemia cannot be excl uded at this level. Abnormal EDV 1 54 cc. Ejection fraction diminished from normal range calculated a t 37%. 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 Some new area of acute ischemia along site of old infarct cannot be excluded. Further investigation with direct cathet er angiogram should be based on clinical correlation. A Yellow level critical message alert has been initiated for Kody Hudson DO via the [facility] Critical Results System on 01/09/2021 1:45 PM. This message alert has been sent to Kody Hudson DO via the preferences provided by the clinician for the receipt of Radiology Critical Findings. Message ID [id number].
[2021-01-09] MEDS ORDERED: ALPRAZolam 0.5 MG TAB PO PRN (14:38)
[2021-01-09] MEDS ORDERED: NITROGLYCERIN SL TABS 0.4 MG TAB SUBLINGUAL PRN (14:38)
[2021-01-09] MEDS ORDERED: ALPRAZolam 0.25 MG TAB PO PRN (14:38)
--- NOTE | 2021-01-09 14:55 | P.PN ---
Subjective Progress Note Date: 01/09/21 Principal diagnosis: Worsening shortness of breath 80-year-old here patient with known history of COPD who presented to the emergency department yesterday at around 4:56 PM with worsening shortness of breath. This patient has been getting progressively more short of breath over the past 48 hours. She had orthopnea. She had also exertional dyspnea. She denied having any chest pain. No sputum production. No pleurisy. No hemoptysis. No altered mentation. She is on home oxygen at 2 L per minute nasal cannula and she uses also albuterol nebulizer [id number].. The patient has been hospitalized in the past specifically September 2020 for exacerbation of diastolic heart failure and back then she required BiPAP for respiratory support. At that time she was treated for an acute on top of chronic hypoxic respiratory failure secondary to diastolic heart failure and the patient was treated successfully and she was taken off the BiPAP and discharged home. During this current admission, the patient has no temperature. This morning, she is on a BiPAP at a pressure of 12/6 cm of water with an FiO2 of 80%. The labs since admission showed a white second of 7.4 with a hemoglobin of 9.9 and she is microcytic. Sodium is 141. The patient has a serum bicarb of 34 with a sodium level of 141. Creatinine 0.9. Troponins are 0.06 and 0.117 respectively and the patient shore proBNP level of 3380. Protein is at 6.4. UA showing 32 RBCs and 2 WBCs. The chest x-ray showing cardiomegaly with pulmonary vascular congestion, prominent pulmonary arteries perihilar he and interstitial edema.. This is worse compared to the previous chest x-ray from September 2020. Over night, the patient was also subjected to diuretics and the patient was given Lasix 40 mg IV every 8 hours. She is also on DuoNeb the right treatment [id number]. She is also receiving BiPAP for respiratory support. EKG showing no acute abnormalities. There is a sinus rhythm. There is a bundle- branch block pattern and there is no acute ST segment elevation or depressions. Q waves over the inferior leads consistent with a previous inferior wall myocardial infarction.CTA of the chest was done and showed bilateral pleural effusion right more than left in addition to interstitial edema and a heavily calcified aortic arch. No evidence of any other consolidation or airspace disease. 01/08/2021, the patient is being seen for a follow-up. I saw the patient consultation yesterday and she was essentially in CHF exacerbation and she also had a component of COPD. She was kept on BiPAP. She was given diuretics with IV Lasix 40 mg every 8 hours and I'm seeing this patient in follow-up today. She was taken off the BiPAP this morning and she was placed on oxygen at 5 L and her pulse ox above 90% pH is hemodynamically stable. She has diuresed adequately over the past 24 hours in the urine output has been adequate with a fluid balance being negative at least 2.6 L over the past 24 hours and the patient has diabetes another 1.8 L since this morning. Renal function stable. Creatinine is at 1.09 which is incredible to yesterday and there is no hypokalemia and the sodium level is at 138. pro Calcitonin level is low. No other major electrolyte imbalance at this point in time. On 01/09/2021 patient seen in follow-up on selective care unit. She is awake and alert, repair 4 L of oxygen pulse ox is 95%, she did wear BiPAP last night with FiO2 100%. She is breathing comfortably, she is afebrile, vital signs have been stable. She remains on diuretics, she is in negative 4.7 kg over last 24 hours, today's chest x-ray shows improving pleural effusions and bilateral multifocal edema and/or infiltrates on chronic eczema changes background with cardiomegaly. Resolving CHF was considered. No complaints of chest pain, she remains on diuretics with Lasix 40 mg every 8 hours, she is going to have a stress test done today. She remains on IV steroids. No worsening cough or congestion or phlegm production, she ruled out for coronavirus PCR Objective - Vital Signs Vital signs: Vital Signs Temp 98.5 F 01/09/21 12:00 Pulse 70 01/09/21 12:23 Resp 18 01/09/21 12:23 BP 166/77 01/09/21 12:00 Pulse Ox 95 01/09/21 12:00 Intake & Output 01/08/21 01/09/21 01/09/21 18:59 06:59 18:59 Intake Total 1680 560 0 Output Total 2100 Balance 1680 -1540 0 Weight 118.3 kg 118.3 kg Intake: Oral 1680 560 0 Output: Urine 2100 Other: Voiding Method Indwelling Catheter Indwelling Catheter Indwelling Catheter # Voids 1 # Bowel Movements 1 - Exam GENERAL EXAM: Alert, very pleasant, 80-year-old white female, on 4 L of oxygen with a pulse ox of 92% comfortable in no apparent distress. HEAD: Normocephalic/atraumatic. EYES: Normal reaction of pupils, equal size. Conjunctiva pink, sclera white. NOSE: Clear with pink turbinates. THROAT: No erythema or exudates. NECK: No masses, no JVD, no thyroid enlargement, no adenopathy. CHEST: No chest wall deformity. Symmetrical expansion. LUNGS: Equal air entry with diminished breath sounds with scattered crackles CVS: Regular rate and rhythm, normal S1 and S2, no gallops, no murmurs, no rubs ABDOMEN: Soft, nontender. No hepatosplenomegaly, normal bowel sounds, no guarding or rigidity. EXTREMITIES: No clubbing, no edema, no cyanosis, 2+ pulses and upper and lower extremities. MUSCULOSKELETAL: Muscle strength and tone normal. SPINE: No scoliosis or deformity SKIN: No rashes CENTRAL NERVOUS SYSTEM: Alert and oriented -3. No focal deficits, tone is n ormal in all 4 extremities. PSYCHIATRIC: Alert and oriented -3. Appropriate affect. Intact judgment and insight. - Labs CBC & Chem 7: 01/09/21 08:04 01/09/21 08:04 Labs: Abnormal Lab Results - Last 24 Hours (Table) 01/08/21 01/08/21 01/09/21 Range/Units 17:03 20:24 06:03 Hgb (11.4-16.0) gm/dL Hct (34.0-46.0) % MCV (80.0-100.0) fL MCH (25.0-35.0) pg MCHC (31.0-37.0) g/dL RDW (11.5-15.5) % Chloride (98-107) mmol/L Carbon Dioxide (22-30) mmol/L BUN (7-17) mg/dL Creatinine (0.52-1.04) mg/dL Glucose (74-99) mg/dL POC Glucose (mg/dL) 213 H 298 H 147 H (75-99) mg/dL 01/09/21 01/09/21 01/09/21 Range/Units 08:04 08:04 11:57 Hgb 9.8 L (11.4-16.0) gm/dL Hct 31.9 L (34.0-46.0) % MCV 75.8 L (80.0-100.0) fL MCH 23.4 L (25.0-35.0) pg MCHC 30.9 L (31.0-37.0) g/dL RDW 18.1 H (11.5-15.5) % Chloride 96 L (98-107) mmol/L Carbon Dioxide 38 H (22-30) mmol/L BUN 36 H (7-17) mg/dL Creatinine 1.22 H (0.52-1.04) mg/dL Glucose 117 H (74-99) mg/dL POC Glucose (mg/dL) 126 H (75-99) mg/dL Assessment and Plan Plan: Assessment: 1 acute exacerbation of chronic diastolic heart failure. The patient has hypert ensive heart disease with concentric LVH, severe with a preserved LV functionand the patient is coming in with cardiomegaly, bilateral pleural effusion and interstitial edema and secondary respiratory failure. The patient was supported with BiPAP and she was diuresed aggressively and she has had a great response over the past 24 hours and she is currently off the BiPAP and she is on 5 L of oxygen by nasal cannula. Edema is improving. She does have some crackles and diminished breath sounds bilaterally consistent with CHF. 2 bilateral pleural effusion 3 chronic hypoxic respiratory failure maintained on oxygen on outpatient basis at 2 L 4 previous history of IPAP dependent respiratory failure and previous history of intubation mechanical ventilation for respiratory failure 5 morbid obesity with a BMI 55 , possibly has underlying obstructive sleep apnea 6 hypertension 7 hyperlipidemia 8 hypothyroidism 9 troponin leak without any acute ischemic EKG changes. The patient has old Q waves involving the inferior leads and a bundle-branch block pattern. Plan: Continue diuretics, continue bronchodilators, and IV steroids, wean FiO2 to keep O2 sat at or above 90%, may use BiPAP support as needed and at bedtime, continue following a large left-sided renal profile, accurate intake and output. We'll continue to follow I performed a history & physical examination of the patient and discussed their management with my nurse practitioner, Carolyn Borjas. I reviewed the nurse carmine means's note and agree with the documented findings and plan of care. Lung sounds are positive for bibasilar crackles The findings and the impression was discussed with the patient. I attest to the documentation by the nurse practitioner. Time with Patient: Less than 30
--- NOTE | 2021-01-09 15:04 | EST ---
EXERCISE STRESS AGE: 80 SEX: Female HT: 4'11" WT: 260 lbs. PROTOCOL: Lexiscan Cardiolite STAGE: N/A DURATION OF EXERCISE: N/A HEART RATE REST: 74 BLOOD PRESSURE REST: 158/90 MAXIMUM HEART RATE ACHIEVED: 85 MAXIMUM BLOOD PRESSURE: 158/90 85% MPHR: 118 100% MPHR: 139 METS: N/A INDICATIONS: Chest pain CLINICAL INFORMATION: Baseline rhythm is sinus mechanism, rate of 74, right bundle branch block, left anterior fascicular block. Baseline blood pressure 158/90 mmHg. Patient received injection of Lexiscan. Electrocardiograph monitoring revealed rare PVCs. There was no evidence of diagnostic ischemic ST deviation. Cardiolite was injected per protocol. CONCLUSION: 1. Nondiagnostic electrocardiograph stress testing. 2. Nuclear images will be reported separately. MMODL / IJN: [id number] /
--- NOTE | 2021-01-09 15:20 | P.PN ---
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 Some new area of acute ischemia alongside of old infarct cannot be excluded. Patient will be scheduled for cardiac catheterization tomorrow with Dr. Chin,
--- NOTE | 2021-01-09 15:22 | P.PN ---
Subjective Progress Note Date: 01/09/21 This is an 80-year-old female admitted with acute exacerbation CHF, exertional chest pain with shortness of breath. 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 Patient is scheduled for cardiac catheterization tomorrow. Diuresing well on Lasix IV push with chest x-ray reporting resolving CHF. Creatinine trending up. Objective - Vital Signs Vital signs: Vital Signs Temp 98.5 F 01/09/21 12:00 Pulse 70 01/09/21 12:23 Resp 18 01/09/21 12:23 BP 166/77 01/09/21 12:00 Pulse Ox 95 01/09/21 12:00 Intake & Output 01/08/21 01/09/21 01/09/21 18:59 06:59 18:59 Intake Total 1680 560 0 Output Total 2100 Balance 1680 -1540 0 Weight 118.3 kg 118.3 kg Intake: Oral 1680 560 0 Output: Urine 2100 Other: Voiding Method Indwelling Catheter Indwelling Catheter Indwelling Catheter # Voids 1 # Bowel Movements 1 - Exam PHYSICAL EXAM: VITAL SIGNS: As above GENERAL: Sitting up in bed, no acute distress HEENT: Conjunctivae normal. eyes normal. NECK: No JVD. No thyroid enlargement. CARDIOVASCULAR: S1, S2 regular.systolic murmur. RESPIRATION: Breath sounds diminished in the bases. No rhonchi, scattered crackles. ABDOMEN: Soft, nontender. No guarding. no masses palpable. No ascites, No hepatosplenomegaly.Bowel sounds heard. LEGS: No edema. no swelling PSYCHIATRY: Alert and oriented X3, mood and affect normal. NERVOUS SYSTEM: Cranial N 2-12 grossly normal. No focal deficits. Strength and sensation grossly intact. Skin: Warm and dry, no rash - Labs CBC & Chem 7: 01/09/21 08:04 01/09/21 08:04 Labs: Abnormal Lab Results - Last 24 Hours (Table) 01/08/21 01/08/21 01/09/21 Range/Units 17:03 20:24 06:03 Hgb (11.4-16.0) gm/dL Hct (34.0-46.0) % MCV (80.0-100.0) fL MCH (25.0-35.0) pg MCHC (31.0-37.0) g/dL RDW (11.5-15.5) % Chloride (98-107) mmol/L Carbon Dioxide (22-30) mmol/L BUN (7-17) mg/dL Creatinine (0.52-1.04) mg/dL Glucose (74-99) mg/dL POC Glucose (mg/dL) 213 H 298 H 147 H (75-99) mg/dL 01/09/21 01/09/21 01/09/21 Range/Units 08:04 08:04 11:57 Hgb 9.8 L (11.4-16.0) gm/dL Hct 31.9 L (34.0-46.0) % MCV 75.8 L (80.0-100.0) fL MCH 23.4 L (25.0-35.0) pg MCHC 30.9 L (31.0-37.0) g/dL RDW 18.1 H (11.5-15.5) % Chloride 96 L (98-107) mmol/L Carbon Dioxide 38 H (22-30) mmol/L BUN 36 H (7-17) mg/dL Creatinine 1.22 H (0.52-1.04) mg/dL Glucose 117 H (74-99) mg/dL POC Glucose (mg/dL) 126 H (75-99) mg/dL Assessment and Plan Assessment: Acute on Chronic CHF exacerbation, diastolic dysfunction, status post BiPAP Chronic hypoxic respiratory failure, wears 2 L nasal cannula at home Acute renal failure , secondary to diuresing Troponin leak Hypertension Hyperlipidemia Hypothyroidism Previous history of eating dependent Morbid obesity with a BMI 52.7 Obstructive sleep apnea Plan:Continue on current medication regime ,monitoring and symptomatic treatment. As mentioned above, scheduled for cardiac catheterization in a.m. Maintain nebulized bronchodilators, steroids. The impression and plan of care has been dictated as directed. : I performed a history and examination of this patient, discussed the same with the dictator. I agree with the dictator's note ,documented as a scribe. Any additional findings or plans will be noted.
[2021-01-09 17:04] LABS: Glucose,Whole Blood 235 mg/dL (75-99)
[2021-01-09 20:08] LABS: Glucose,Whole Blood 165 mg/dL (75-99)
[2021-01-09] MEDS: MONTELUKAST 10 MG TAB PO SCH (20:16)
[2021-01-09] MEDS ORDERED: SODIUM CHLORIDE 0.9% 1,000 ML in EMPTY BAG 1 BAG IV ONE (23:30)
[2021-01-10] MEDS: LEVOTHYROXINE 100 MCG TAB PO SCH (06:32)
[2021-01-10] MEDS: PANTOPRAZOLE 40 MG TABLET PO SCH (06:32)
[2021-01-10] MEDS: carvediloL 3.125 MG TAB PO SCH ×2 (06:32→17:59)
[2021-01-10 06:33] LABS: Glucose,Whole Blood 152 mg/dL (75-99)
[2021-01-10] MEDS ORDERED: HEPARIN SODIUM,PORCINE 2,500 UNIT in SODIUM CHLORIDE 0.9% 250 ML IRRIGATION PRN (07:00)
[2021-01-10] MEDS ORDERED: ATORVASTATIN 80 MG TAB PO ONE (07:00)
[2021-01-10] MEDS ORDERED: HEPARIN SODIUM,PORCINE 10,000 UNIT in SODIUM CHLORIDE 0.9% 1,000 ML IRRIGATION PRN (07:00)
[2021-01-10] MEDS ORDERED: ASPIRIN 325 MG TAB PO ONE (07:00)
[2021-01-10] MEDS ORDERED: HEPARIN SODIUM 1,000 UN/ML (10ML VL) ONE (08:15)
[2021-01-10] MEDS ORDERED: fentaNYL (PF) 50 MCG/ML 2 ML AMP ONE (08:15)
[2021-01-10] MEDS ORDERED: fentaNYL (PF) 50 MCG/ML 2 ML AMP IVP ONE (08:18)
[2021-01-10] MEDS ORDERED: MIDAZOLAM 2 MG/2 ML VIAL IVP ONE (08:18)
[2021-01-10] MEDS ORDERED: IV FLUID CONTINUATION 1,000 ML IV ONE (08:19)
[2021-01-10] MEDS ORDERED: LIDOCAINE 1% INJ 10MG/ML (20 ML MDV) SQ ONE (08:20)
[2021-01-10] MEDS ORDERED: VERAPAMIL SYRINGE (5 MG/10 ML) INTRAARTER ONE (08:25)
[2021-01-10] MEDS: HEPARIN SODIUM 1,000 UN/ML (10ML VL) IV ONE ×2 (08:30→09:01)
[2021-01-10] MEDS ORDERED: hydrALAZINE HCL 20 MG/ML 1 ML VIAL ONE (08:44)
[2021-01-10] MEDS ORDERED: hydrALAZINE HCL 20 MG/ML 1 ML VIAL IVP ONE (08:46)
[2021-01-10] MEDS ORDERED: IOPAMIDOL-370 125ML BTL INJ ONE (09:13)
[2021-01-10] MEDS ORDERED: RX INFO: IV CONTRAST WAS GIVEN 1 EACH MISC MISCELLANE PRN (09:16)
[2021-01-10 10:34] LABS: Calcium 8.9 mg/dL (8.4-10.2)
[2021-01-10 10:38] LABS: Potassium 4.2 mmol/L (3.5-5.1)
[2021-01-10] MEDS: INSULIN ASPART (NovoLOG) 100 UNIT/ML VIAL SQ SCH ×4 (10:39→21:00)
[2021-01-10] MEDS: methylPREDNISolone SOD SUCCI 40 MG/ML 1 ML VIAL IV SCH ×2 (10:45→17:59)
[2021-01-10] MEDS: HEPARIN SODIUM,PORCINE 5,000 UNIT/ML 1 ML VIAL SQ SCH ×2 (10:46→21:00)
[2021-01-10] MEDS: ASPIRIN 81 MG PO SCH (10:46)
[2021-01-10] MEDS: SERTRALINE 50 MG TAB PO SCH (10:46)
[2021-01-10] MEDS: lisinopriL 10 MG TAB PO SCH (10:46)
[2021-01-10] MEDS: TIMOLOL 0.5% OPHTH DROPS 5 ML BTL BOTH EYES SCH ×2 (10:47→21:00)
[2021-01-10] MEDS: BRIMONIDINE TARTRATE 0.2% DROPS 5 ML BTL BOTH EYES SCH ×2 (10:47→21:00)
[2021-01-10] MEDS: IPRATROPIUM-ALBUTEROL 3 ML NEB INHALATION SCH ×4 (11:00→19:33)
[2021-01-10 11:50] LABS: Glucose,Whole Blood 155 mg/dL (75-99)
--- NOTE | 2021-01-10 13:44 | P.CARDCATH ---
Description of Procedure: PROCEDURES PERFORMED: Left heart catheterization, bilateral coronary angiography, iFR of distal circumflex and OM1 INDICATION: NSTEMI HISTORY: Patient is a pleasant 80-year-old female with a history of hypertension, hyperlipidemia, obesity who presented with increasing shortness breath over last week and was found to be in congestive heart failure. Echocardiogram showed normal ejection fraction however troponins were mildly elevated at 0.06, 0.11 and 0.15. She has been describing some chest tightness which can occur with exertion. Therefore heart catheterization was recommended. CONSENT:I have discussed the risks, benefits and alternative therapies for the above-mentioned procedure and for both sedation/analgesia as well as necessary blood product administration, if indicated, as they pertain to this patient. The patient has indicated understanding and acceptance of the risks and procedures discussed. PROCEDURE: After the risks, benefits and alternatives of the above mentioned procedure explained in detail with the patient, informed consent was obtained. Patient was taken to the catheterization lab and prepped and draped in usual fashion. 1% lidocaine was used to anesthetize the right radial artery. A 6- [place] sheath was placed in the right radial artery using modified Seldinger technique. Left coronary angiography was performed with a 6-[place] FL 4.0 catheter. Right coronary angiography was performed with a 6Fr [place] 1.0 catheter in various views. The FR5 was advanced into the LV and pressure measurements were obtained. The decision was made to iFR the circumflex and the OM1 as the OM1 had 50-60% stenosis and the distal circumflex had 70% stenosis however is a small caliber vessel which did not feed much territory. Heparin was given. A 0.014 iFR pressure wire was inserted into the left main and normalized. The wire was then passed 1-2 cm distal to the OM1 lesion and then into the distal circumflex, both of which were negative. The wire was then removed. The right radial sheath was removed and a TR band was placed with hemostasis achieved. The patient tolerated the procedure well. Patient was transported back to the post catheterization holding area in stable condition. Conscious Sedation: Patient was monitored under the direct supervision of vision of myself for conscious sedation using Versed and fentanyl for a total duration of 59 minutes HEMODYNAMICS: Aorta: 166/89 LV: 161/20 LVEDP 38 mmHg SELECTIVE CORONARY ARTERIOGRAPHY: LEFT MAIN: The left main is a large caliber vessel which trifurcates into the LAD, a small caliber ramus and circumflex. There is no significant stenosis. LEFT ANTERIOR DESCENDING CORONARY ARTERY: LAD is a large caliber vessel which wraps around to the apex. There is 10% proximal LAD stenosis. There is a mid LAD 40% stenosis and otherwise mild luminal irregularities. LEFT CIRCUMFLEX CORONARY ARTERY: Left circumflex is a moderate to large caliber vessel which gives off a "high" OM1. OM1 has a 50-60% mid clacified stenosis. iFR of OM1 was normal at 0.91. The circumflex then gives off a distal OM2 and has a distal 70% stenosis, iFR negative at 0.94. RIGHT CORONARY ARTERY: The right coronary artery is a large caliber vessel which gives off a PDA and PLV branch and is the dominant vessel. There is a proximal 40% RCA stenosis and otherwise mild luminal irregularities. FINAL IMPRESSION: 1. Mild to moderate CAD as described including a RCA 40% stenosis, OM1 50-60% (iFR normal), and distal circumflex approximately 70% however iFR normal. 2. Severely elevated left sided filling pressures PLAN: 1. Aggressive risk factor modification per most recent ACC/AHA guidelines. 2. Would treat circumflex and OM1 medically as both have normal iFR. 3. Would recommend aggressive diuresis.
[2021-01-10] MEDS: FUROSEMIDE 10 MG/ML 4 ML VIAL IV SCH (14:49)
--- NOTE | 2021-01-10 15:45 | P.PN ---
Subjective Progress Note Date: 01/10/21 This is an 80-year-old female admitted with acute exacerbation CHF, exertional chest pain with shortness of breath. 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 Patient is scheduled for cardiac catheterization tomorrow. Diuresing well on Lasix IV push with chest x-ray reporting resolving CHF. Creatinine trending up. 01/10/2021 scheduled for cardiac catheterization this morning. Currently denies chest pain, palpitations. BiPAP during the night, currently on 5 L nasal cannula maintaining O2 sats in the 90. Ambulating with walker to OR stretcher. Afebrile, vital signs stable. Objective - Vital Signs Vital signs: Vital Signs Temp 97.8 F 01/10/21 03:21 Pulse 63 01/10/21 03:21 Resp 21 01/10/21 03:21 BP 166/93 01/10/21 03:21 Pulse Ox 93 L 01/09/21 20:00 Intake & Output 01/09/21 01/10/21 01/10/21 18:59 06:59 18:59 Intake Total 930 50 Output Total 1500 225 Balance -570 -225 50 Weight 118.3 kg 117.7 kg Intake: IV 50 Intake, IV Titration 50 Amount cefTRIAXone 1 gm In 50 Sodium Chloride 0.9% 50 ml @ 100 mls/hr IVPB Q24HR [facility] Rx#:[id number] Oral 880 Output: Urine 1500 225 Other: Voiding Method Indwelling Catheter Indwelling Catheter # Voids 1 # Bowel Movements 1 - Exam PHYSICAL EXAM: VITAL SIGNS: As above GENERAL: Walking in the room with a walker, no acute distress HEENT: Conjunctivae normal. eyes normal. NECK: No JVD. No thyroid enlargement. CARDIOVASCULAR: S1, S2 regular.systolic murmur. RESPIRATION: Breath sounds diminished in the bases. No rhonchi, fine scattered crackles. ABDOMEN: Soft, nontender. No guarding. no masses palpable. Positive bowel sounds. LEGS: Mild edema, no calf tenderness no clubbing or cyanosis, PSYCHIATRY: Alert and oriented X3, mood and affect normal. NERVOUS SYSTEM: Cranial N 2-12 grossly normal. No focal deficits. Strength and sensation grossly intact. 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 Acute on Chronic CHF exacerbation, diastolic dysfunction, status post BiPAP Chronic hypoxic respiratory failure, wears 2 L nasal cannula at home Acute renal failure , secondary to diuresing Troponin leak Hypertension Hyperlipidemia Hypothyroidism Previous history of eating dependent Morbid obesity with a BMI 52.7 Obstructive sleep apnea Plan:Continue on current medication regime ,monitoring and symptomatic treatment .Cardiac catheterization pending. Maintain nebulized bronchodilators, steroids, antibiotics. Prognosis guarded given multiple complex medical issues. The impression and plan of care has been dictated as directed. : I performed a history and examination of this patient, discussed the same with the dictator. I agree with the dictator's note ,documented as a scribe. Any additional findings or plans will be noted.
[2021-01-10 16:59] LABS: Glucose,Whole Blood 151 mg/dL (75-99)
[2021-01-10] MEDS: FUROSEMIDE 10 MG/ML 10 ML VIAL IV SCH (17:59)
[2021-01-10 20:20] LABS: Glucose,Whole Blood 158 mg/dL (75-99)
[2021-01-10] MEDS: MONTELUKAST 10 MG TAB PO SCH (21:00)
[2021-01-11] MEDS: methylPREDNISolone SOD SUCCI 40 MG/ML 1 ML VIAL IV SCH ×4 (00:15→23:18)
[2021-01-11] MEDS: FUROSEMIDE 10 MG/ML 10 ML VIAL IV SCH ×3 (00:15→20:16)
[2021-01-11 05:59] LABS: Glucose,Whole Blood 179 mg/dL (75-99)
[2021-01-11] MEDS: INSULIN ASPART (NovoLOG) 100 UNIT/ML VIAL SQ SCH ×4 (06:24→20:17)
[2021-01-11] MEDS: PANTOPRAZOLE 40 MG TABLET PO SCH (06:24)
[2021-01-11] MEDS: LEVOTHYROXINE 100 MCG TAB PO SCH (06:25)
[2021-01-11] MEDS: carvediloL 3.125 MG TAB PO SCH ×2 (06:25→17:48)
[2021-01-11] MEDS: IPRATROPIUM-ALBUTEROL 3 ML NEB INHALATION SCH ×4 (07:40→19:37)
[2021-01-11 08:24] LABS: Anisocytosis Slight; Basophils % (A) 0 %; Eosinophils % (A) 0 %; HGB 10.1 gm/dL (11.4-16.0); Hypochromasia Marked; Lymphocytes # (A) 0.6 k/uL (1.0-4.8); Lymphocytes % (A) 8 %; MCHC 30.7 g/dL (31.0-37.0); Microcytosis Moderate; Monocytes # (A) 0.4 k/uL (0-1.0); Monocytes % (A) 5 %; Neutrophils # (A) 6.8 k/uL (1.3-7.7); Neutrophils % (A) 87 %; Platelet Count 212 k/uL (150-450); RDW 17.6 % (11.5-15.5); WBC 7.9 k/uL (3.8-10.6)
[2021-01-11 08:39] LABS: Calcium 8.9 mg/dL (8.4-10.2); Potassium 4.2 mmol/L (3.5-5.1)
[2021-01-11] MEDS: ASPIRIN 81 MG PO SCH (09:05)
[2021-01-11] MEDS: SERTRALINE 50 MG TAB PO SCH (09:05)
[2021-01-11] MEDS: lisinopriL 10 MG TAB PO SCH (09:05)
[2021-01-11] MEDS: HEPARIN SODIUM,PORCINE 5,000 UNIT/ML 1 ML VIAL SQ SCH ×2 (09:05→20:17)
[2021-01-11] MEDS: TIMOLOL 0.5% OPHTH DROPS 5 ML BTL BOTH EYES SCH ×2 (09:10→20:21)
[2021-01-11] MEDS: BRIMONIDINE TARTRATE 0.2% DROPS 5 ML BTL BOTH EYES SCH ×2 (09:14→20:21)
[2021-01-11] MEDS: NYSTATIN 100,000 UNIT/GM POWD 15 GM TOPICAL SCH ×2 (09:50→17:49)
[2021-01-11 11:47] LABS: Glucose,Whole Blood 160 mg/dL (75-99)
--- NOTE | 2021-01-11 13:39 | P.PN ---
Subjective Progress Note Date: 01/11/21 HISTORY OF PRESENT ILLNESS: 01/07/2021 This is a 80-year-old female with a past medical history significant for congestive heart failure, hypertension, hyperlipidemia, and obesity. Patient follows in the office with Dr. Bedoya. We have been asked to see the patient in consultation for congestive heart failure. Patient examined at the bedside. Patient reports she is short of breath all the time but states she has had worsening shortness of breath over the last 2-3 days. She also reports worsening lower extremity edema. Patient presented to the hospital and was found to be in acute heart failure. She was started on Lasix and admitted to the hospital. Patient states her shortness of breath has improved since coming to the hospital. She is currently on a BiPAP and appears to be in no acute distress. She denies chest pain or pressure. EKG reveals sinus rhythm with first-degree AV block. Left axis deviation. Chest xray congestive heart failure. Small to moderate bilateral pleural effusions. Laboratory data: WBC 7.1. Hemoglobin 9.9. Platelet count 166. Sodium 141. Potassium 4.0. B UN 20. Creatinine 0.98. Troponin 0.063. 0.117. 0.154. Current home cardiac medications include lisinopril 10 mg daily, carvedilol 3.125 mg twice a day, Lasix 40 mg twice a day, and aspirin 81 mg daily Most recent echocardiogram obtained in September 2020 reveals ejection fraction 55-60%, mild mitral regurgitation, and mild tricuspid regurgitation. 01/11/2021 Patient underwent cardiac catheterization yesterday with Dr. Chin revealing [id number] coronary artery disease including 40% stenosis of RCA, 50-60% stenosis of OM1 with normal INR, and 70% stenosis of distal circumflex with normal INR. Medical management was recommended. Patient examined this morning at the bedside. She denies chest pain or pressure. She reports improvement in her shortness of breath. She is on 5 L nasal cannula with oxygen saturations greater than 92%. She reports improvement in her lower extremity edema. BUN 42. Creatinine 1.17. Fluid balance over the last 24 hours is -4L. PHYSICAL EXAM: VITAL SIGNS: Reviewed. GENERAL: Well-developed in no acute distress. HEENT: Head is normocephalic. Pupils are equal, round. Sclerae anicteric. Mucous membranes of the mouth are moist. Neck supple. No JVD or thyromegaly LUNGS: Respirations even and unlabored. Lungs diminished bilaterally. HEART: Regular rate and rhythm. S1 and S2 heard. Systolic murmur noted ABDOMEN: Soft. Nondistended. Nontender. EXTREMITIES: Normal range of motion. No clubbing or cyanosis. Peripheral pulses intact. 1+ bilateral lower extremity edema NEUROLOGIC: Awake and alert. Oriented x 3. ASSESSMENT: Acute exacerbation of chronic diastolic heart failure, EF 55-60% Abnormal troponins, s/p cardiac cath revealing moderate to severe coronary arter y disease with normal iFR Hypertension Hyperlipidemia COPD Morbid obesity: BMI 55.7 PLAN: Continue current cardiac medications Continue IV Lasix. Decrease dosing to BID. Daily weights Accurate I&O Monitor kidney function Further recommendations pending patient's course Nurse practitioner note has been reviewed by physician. Signing provider agrees with the documented findings, assessment, and plan of care. Objective - Vital Signs Vital signs: Vital Signs Temp 97.9 F 01/11/21 11:42 Pulse 62 01/11/21 11:57 Resp 20 01/11/21 11:42 BP 148/83 01/11/21 11:42 Pulse Ox 100 01/11/21 11:42 Intake & Output 01/10/21 01/11/21 01/11/21 18:59 06:59 18:59 Intake Total 830 240 Output Total 675 4200 Balance 155 -4200 240 Weight 115.5 kg Intake: IV 50 Oral 780 240 Output: Urine 675 4200 Other: Voiding Method Indwelling Catheter Indwelling Catheter Indwelling Catheter - Labs CBC & Chem 7: 01/11/21 08:04 01/11/21 08:04 Labs: Abnormal Lab Results - Last 24 Hours (Table) 01/10/21 01/10/21 01/11/21 Range/Units 16:57 20:19 05:57 Hgb (11.4-16.0) gm/dL Hct (34.0-46.0) % MCV (80.0-100.0) fL MCH (25.0-35.0) pg MCHC (31.0-37.0) g/dL RDW (11.5-15.5) % Lymphocytes # (1.0-4.8) k/uL Chloride (98-107) mmol/L Carbon Dioxide (22-30) mmol/L BUN (7-17) mg/dL Creatinine (0.52-1.04) mg/dL Glucose (74-99) mg/dL POC Glucose (mg/dL) 151 H 158 H 179 H (75-99) mg/dL 01/11/21 01/11/21 01/11/21 Range/Units 08:04 08:04 11:46 Hgb 10.1 L (11.4-16.0) gm/dL Hct 33.0 L (34.0-46.0) % MCV 75.0 L (80.0-100.0) fL MCH 23.0 L (25.0-35.0) pg MCHC 30.7 L (31.0-37.0) g/dL RDW 17.6 H (11.5-15.5) % Lymphocytes # 0.6 L (1.0-4.8) k/uL Chloride 95 L (98-107) mmol/L Carbon Dioxide 36 H (22-30) mmol/L BUN 42 H (7-17) mg/dL Creatinine 1.17 H (0.52-1.04) mg/dL Glucose 137 H (74-99) mg/dL POC Glucose (mg/dL) 160 H (75-99) mg/dL
--- NOTE | 2021-01-11 16:17 | P.PN ---
Subjective Progress Note Date: 01/11/21 This is an 80-year-old female admitted with acute exacerbation CHF, exertional chest pain with shortness of breath. 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 Patient is scheduled for cardiac catheterization tomorrow. Diuresing well on Lasix IV push with chest x-ray reporting resolving CHF. Creatinine trending up. 01/10/2021 scheduled for cardiac catheterization this morning. Currently denies chest pain, palpitations. BiPAP during the night, currently on 5 L nasal cannula maintaining O2 sats in the 90. Ambulating with walker to OR stretcher. Afebrile, vital signs stable. 01/11/2021 completed cardiac catheterization yesterday, reporting mild to moderate CAD including RCA 40% stenosis, OM 1 50-60% ( iFr normal), distal circumflex approximately 70% (iFr normal), severely elevated left-sided filling pressures with recommended medical management and aggressive diuresis. Tolerated procedure well. Maintaining O2 sats in the 90s on 5 L nasal cannula. Diuresing well on Lasix IV push with 24-hour I&O reflecting a negative fluid balance. Creatinine up to 1.17. Denies chest pain, palpitations or shortness of breath. Denies lightheadedness dizziness or focal deficits. Complains of yeast rash under bilateral breasts and pannus. Objective - Vital Signs Vital signs: Vital Signs Temp 98.2 F 01/11/21 08:00 Pulse 65 01/11/21 08:00 Resp 20 01/11/21 08:00 BP 134/68 01/11/21 08:00 Pulse Ox 95 01/11/21 08:00 Intake & Output 01/10/21 01/11/21 01/11/21 18:59 06:59 18:59 Intake Total 830 240 Output Total 675 4200 Balance 155 -4200 240 Weight 115.5 kg Intake: IV 50 Oral 780 240 Output: Urine 675 4200 Other: Voiding Method Indwelling Catheter Indwelling Catheter Indwelling Catheter - Exam PHYSICAL EXAM: VITAL SIGNS: As above GENERAL: Walking in the room with a walker, no acute distress HEENT: Conjunctivae normal. eyes normal. NECK: No JVD. No thyroid enlargement. CARDIOVASCULAR: S1, S2 regular.systolic murmur. RESPIRATION: Breath sounds diminished in the bases. No rhonchi, fine scattered crackles. ABDOMEN: Soft, nontender. No guarding. no masses palpable. Positive bowel sounds. LEGS: Mild decreasing edema, no calf tenderness no clubbing or cyanosis, PSYCHIATRY: Alert and oriented X3, mood and affect normal. NERVOUS SYSTEM: Cranial N 2-12 grossly normal. No focal deficits. Strength and sensation grossly intact. Skin: Warm and dry, yeast appearing rash under bilateral breasts and under pannus. - Labs CBC & Chem 7: 01/11/21 08:04 01/11/21 08:04 Labs: Abnormal Lab Results - Last 24 Hours (Table) 01/10/21 01/10/21 01/10/21 Range/Units 09:53 11:48 16:57 Hgb (11.4-16.0) gm/dL Hct (34.0-46.0) % MCV (80.0-100.0) fL MCH (25.0-35.0) pg MCHC (31.0-37.0) g/dL RDW (11.5-15.5) % Lymphocytes # (1.0-4.8) k/uL Chloride (98-107) mmol/L Carbon Dioxide 37 H (22-30) mmol/L BUN 45 H (7-17) mg/dL Creatinine (0.52-1.04) mg/dL Glucose 132 H (74-99) mg/dL POC Glucose (mg/dL) 155 H 151 H (75-99) mg/dL 01/10/21 01/11/21 01/11/21 Range/Units 20:19 05:57 08:04 Hgb (11.4-16.0) gm/dL Hct (34.0-46.0) % MCV (80.0-100.0) fL MCH (25.0-35.0) pg MCHC (31.0-37.0) g/dL RDW (11.5-15.5) % Lymphocytes # (1.0-4.8) k/uL Chloride 95 L (98-107) mmol/L Carbon Dioxide 36 H (22-30) mmol/L BUN 42 H (7-17) mg/dL Creatinine 1.17 H (0.52-1.04) mg/dL Glucose 137 H (74-99) mg/dL POC Glucose (mg/dL) 158 H 179 H (75-99) mg/dL 01/11/21 Range/Units 08:04 Hgb 10.1 L (11.4-16.0) gm/dL Hct 33.0 L (34.0-46.0) % MCV 75.0 L (80.0-100.0) fL MCH 23.0 L (25.0-35.0) pg MCHC 30.7 L (31.0-37.0) g/dL RDW 17.6 H (11.5-15.5) % Lymphocytes # 0.6 L (1.0-4.8) k/uL Chloride (98-107) mmol/L Carbon Dioxide (22-30) mmol/L BUN (7-17) mg/dL Creatinine (0.52-1.04) mg/dL Glucose (74-99) mg/dL POC Glucose (mg/dL) (75-99) mg/dL Assessment and Plan Assessment: Acute chest pain, status post Lexiscan stress reporting 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 Acute on Chronic CHF exacerbation, diastolic dysfunction, status post BiPAP Chronic hypoxic respiratory failure, wears 2 L nasal cannula at home Acute renal failure , secondary to diuresing Troponin leak Hypertension Hyperlipidemia Hypothyroidism Previous history of eating dependent Morbid obesity with a BMI 52.7 Obstructive sleep apnea Plan:Continue on current medication regime ,monitoring and symptomatic treatment. Maintain diuresing, nebulized bronchodilators, steroids, antibiotics and diuresing. Close monitoring of renal function with repeat labs ordered for a.m. Nystatin powder ordered for yeast rash to affected folds. The impression and plan of care has been dictated as directed. : I performed a history and examination of this patient, discussed the same with the dictator. I agree with the dictator's note ,documented as a scribe. Any additional findings or plans will be noted.
[2021-01-11 16:43] LABS: Glucose,Whole Blood 191 mg/dL (75-99)
[2021-01-11 20:05] LABS: Glucose,Whole Blood 178 mg/dL (75-99)
[2021-01-11] MEDS: MONTELUKAST 10 MG TAB PO SCH (20:17)
[2021-01-12] MEDS: NYSTATIN 100,000 UNIT/GM POWD 15 GM TOPICAL SCH ×3 (00:04→15:58)
[2021-01-12 06:08] LABS: Glucose,Whole Blood 175 mg/dL (75-99)
[2021-01-12] MEDS: LEVOTHYROXINE 100 MCG TAB PO SCH (06:13)
[2021-01-12] MEDS: INSULIN ASPART (NovoLOG) 100 UNIT/ML VIAL SQ SCH ×3 (06:13→17:59)
[2021-01-12] MEDS: carvediloL 3.125 MG TAB PO SCH ×2 (06:13→17:59)
[2021-01-12] MEDS: PANTOPRAZOLE 40 MG TABLET PO SCH (06:13)
[2021-01-12] MEDS: HYDROcodone/APAP 5-325MG 1 EACH TAB PO PRN (06:36)
[2021-01-12] MEDS: IPRATROPIUM-ALBUTEROL 3 ML NEB INHALATION SCH ×3 (08:15→16:20)
[2021-01-12 09:27] LABS: Calcium 8.7 mg/dL (8.4-10.2); Potassium 3.7 mmol/L (3.5-5.1)
[2021-01-12] MEDS: FUROSEMIDE 10 MG/ML 10 ML VIAL IV SCH (10:24)
[2021-01-12] MEDS: HEPARIN SODIUM,PORCINE 5,000 UNIT/ML 1 ML VIAL SQ SCH (10:25)
[2021-01-12] MEDS: SERTRALINE 50 MG TAB PO SCH (10:25)
[2021-01-12] MEDS: lisinopriL 10 MG TAB PO SCH (10:25)
[2021-01-12] MEDS: methylPREDNISolone SOD SUCCI 40 MG/ML 1 ML VIAL IV SCH ×2 (10:25→15:57)
[2021-01-12] MEDS: ASPIRIN 81 MG PO SCH (10:25)
[2021-01-12] MEDS: TIMOLOL 0.5% OPHTH DROPS 5 ML BTL BOTH EYES SCH (10:26)
[2021-01-12] MEDS: BRIMONIDINE TARTRATE 0.2% DROPS 5 ML BTL BOTH EYES SCH (10:26)
[2021-01-12 10:58] VITALS: BP 141/65; PULSE 66; RESP 20; TEMP 98.1
[2021-01-12 11:20] VITALS: BMI 50.3
--- NOTE | 2021-01-12 11:33 | P.DS ---
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 Acute on Chronic CHF exacerbation, diastolic dysfunction, status post BiPAP Acute on Chronic hypoxic respiratory failure, wears 2 L nasal cannula at home Acute renal failure , secondary to diuresing Troponin leak Hypertension Hyperlipidemia Hypothyroidism Previous history of eating dependent Morbid obesity with a BMI 52.7 Obstructive sleep apnea Xioamra rash of folds, on nystatin powder Hospital course:This is an 80-year-old female admitted with acute exacerbation CHF, exertional chest pain with shortness of breath. 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 Patient is scheduled for cardiac catheterization tomorrow. Diuresing well on Lasix IV push with chest x-ray reporting resolving CHF. Creatinine trending up. 01/10/2021 scheduled for cardiac catheterization this morning. Currently denies chest pain, palpitations. BiPAP during the night, currently on 5 L nasal cannula maintaining O2 sats in the 90. Ambulating with walker to OR stretcher. Afebrile, vital signs stable. 01/11/2021 completed cardiac catheterization yesterday, reporting mild to moderate CAD including RCA 40% stenosis, OM 1 50-60% ( iFr normal), distal circumflex approximately 70% (iFr normal), severely elevated left-sided filling pressures with recommended medical management and aggressive diuresis. Tolerated procedure well. Maintaining O2 sats in the 90s on 5 L nasal cannula. Diuresing well on Lasix IV push with 24-hour I&O reflecting a negative fluid balance. Creatinine up to 1.17. Denies chest pain, palpitations or shortness of breath. Denies lightheadedness dizziness or focal deficits. Complains of yeast rash under bilateral breasts and pannus. Significant clinical improvement. Verbally cleared by cardiology with diuretic orders received. Patient will be discharged home today in a stable condition with guarded prognosis. PHYSICAL EXAM: GENERAL: A & O X 3,Sitting up in chair,NAD NECK: Supple, no JVD CARDIOVASCULAR: S1, S2 regular.No murmur RESPIRATION: Breath sounds diminished in the bases with fine scattered crackles ABDOMEN: Soft, nondistended, nontender . No guarding. no masses palpable. Positive bowel sounds. LEGS: No edema. no swelling. No calf tenderness. NERVOUS SYSTEM: Cranial N 2-12 grossly normal. No focal deficits. The impression and plan of care has been dictated as directed. : I performed a history and examination of this patient, discussed the same with the dictator. I agree with the dictator's note ,documented as a scribe. Any additional findings or plans will be noted. Patient Condition at Discharge: Stable Plan - Discharge Summary Discharge Rx Participant: No New Discharge Prescriptions: New Nystatin 100,000 Unit/gm Powd [Mycostatin Powder] 1 applic TOPICAL TID applic predniSONE 10 mg PO DIRECTED #30 tab Potassium Chloride ER [K-Dur 20] 20 meq PO BID #60 tab Furosemide [Lasix] 80 mg PO BID@0900,1600 #60 tab Pantoprazole [Protonix] 40 mg PO AC-BRKFST #30 tablet.dr Continue Timolol 0.5% Ophth Soln [Timoptic 0.5% Ophth Soln] 1 drop BOTH EYES BID Sertraline HCl [Zoloft] 50 mg PO DAILY Montelukast Sodium [Singulair] 10 mg PO HS Levothyroxine Sodium [Synthroid] 100 mcg PO DAILY carvediloL [Coreg] 3.125 mg PO BID lisinopriL [Zestril] 10 mg PO DAILY #30 tab Aspirin EC [Ecotrin Low Dose] 81 mg PO DAILY #30 tab Brimonidine Tartrate [Alphagan P 0.2% Ophth Soln] 1 drop BOTH EYES BID Albuterol Nebulized [Ventolin Nebulized] 2.5 mg INHALATION RT-QID PRN PRN Reason: Shortness Of Breath Guaifen/Dextromethorphan/PE [Mucinex Fast-Max Congest-Cough] 10 ml PO BID PRN PRN Reason: Congestion No Action Furosemide [Lasix] 40 mg PO BID Discharge Medication List Levothyroxine Sodium [Synthroid] 100 mcg PO DAILY 04/23/20 [History] Montelukast Sodium [Singulair] 10 mg PO HS 04/23/20 [History] Sertraline HCl [Zoloft] 50 mg PO DAILY 04/23/20 [History] Timolol 0.5% Ophth Soln [Timoptic 0.5% Ophth Soln] 1 drop BOTH EYES BID 04/23/20 [History] carvediloL [Coreg] 3.125 mg PO BID 04/23/20 [History] Aspirin EC [Ecotrin Low Dose] 81 mg PO DAILY #30 tab 04/27/20 [Rx] lisinopriL [Zestril] 10 mg PO DAILY #30 tab 04/27/20 [Rx] Albuterol Nebulized [Ventolin Nebulized] 2.5 mg INHALATION RT-QID PRN 01/06/21 [History] Brimonidine Tartrate [Alphagan P 0.2% Ophth Soln] 1 drop BOTH EYES BID 01/06/21 [History] Furosemide [Lasix] 40 mg PO BID 01/06/21 [History] Guaifen/Dextromethorphan/PE [Mucinex Fast-Max Congest-Cough] 10 ml PO BID PRN 01/06/21 [History] Furosemide [Lasix] 80 mg PO BID@0900,1600 #60 tab 01/12/21 [Rx] Nystatin 100,000 Unit/gm Powd [Mycostatin Powder] 1 applic TOPICAL TID applic 01/12/21 [Rx] Pantoprazole [Protonix] 40 mg PO AC-BRKFST #30 tablet. 01/12/21 [Rx] Potassium Chloride ER [K-Dur 20] 20 meq PO BID #60 tab 01/12/21 [Rx] predniSONE 10 mg PO DIRECTED #30 tab 01/12/21 [Rx] Follow up Appointment(s)/Referral(s): Kody Hudson DO [Primary Care Provider] - 3 Days [facility], [NON-STAFF] - Ellen Ibarra MD [STAFF PHYSICIAN] - 10 Days Ambulatory/Diagnostic Orders: Complete Blood Count w/diff [LAB.AMB] Time Frame: 3 Days, Location: None Selected Activity/Diet/Wound Care/Special Instructions: Received verbal clearance, diuretic recommendations from cardiology. Confirm cardiology follow-up appointment prior to discharge.
[2021-01-12 12:00] LABS: Glucose,Whole Blood 127 mg/dL (75-99)
--- NOTE | 2021-01-12 13:20 | P.PN ---
Subjective Progress Note Date: 01/12/21 HISTORY OF PRESENT ILLNESS: 01/07/2021 This is a 80-year-old female with a past medical history significant for congestive heart failure, hypertension, hyperlipidemia, and obesity. Patient follows in the office with Dr. Bedoya. We have been asked to see the patient in consultation for congestive heart failure. Patient examined at the bedside. Patient reports she is short of breath all the time but states she has had worsening shortness of breath over the last 2-3 days. She also reports worsening lower extremity edema. Patient presented to the hospital and was found to be in acute heart failure. She was started on Lasix and admitted to the hospital. Patient states her shortness of breath has improved since coming to the hospital. She is currently on a BiPAP and appears to be in no acute distress. She denies chest pain or pressure. EKG reveals sinus rhythm with first-degree AV block. Left axis deviation. Chest xray congestive heart failure. Small to moderate bilateral pleural effusions. Laboratory data: WBC 7.1. Hemoglobin 9.9. Platelet count 166. Sodium 141. Potassium 4.0. B UN 20. Creatinine 0.98. Troponin 0.063. 0.117. 0.154. Current home cardiac medications include lisinopril 10 mg daily, carvedilol 3.125 mg twice a day, Lasix 40 mg twice a day, and aspirin 81 mg daily Most recent echocardiogram obtained in September 2020 reveals ejection fraction 55-60%, mild mitral regurgitation, and mild tricuspid regurgitation. 01/11/2021 Patient underwent cardiac catheterization yesterday with Dr. Chin revealing [id number] coronary artery disease including 40% stenosis of RCA, 50-60% stenosis of OM1 with normal INR, and 70% stenosis of distal circumflex with normal INR. Medical management was recommended. Patient examined this morning at the bedside. She denies chest pain or pressure. She reports improvement in her shortness of breath. She is on 5 L nasal cannula with oxygen saturations greater than 92%. She reports improvement in her lower extremity edema. BUN 42. Creatinine 1.17. Fluid balance over the last 24 hours is -4L. 01/12/2021 Patient examined this morning at bedside. Patient denies chest pain or pressure . She denies shortness of breath. She remains on IV Lasix. She is -2 L over the last 24 hours. PHYSICAL EXAM: VITAL SIGNS: Reviewed. GENERAL: Well-developed in no acute distress. HEENT: Head is normocephalic. Pupils are equal, round. Sclerae anicteric. Mucous membranes of the mouth are moist. Neck supple. No JVD or thyromegaly LUNGS: Respirations even and unlabored. Lungs diminished bilaterally. HEART: Regular rate and rhythm. S1 and S2 heard. Systolic murmur noted ABDOMEN: Soft. Nondistended. Nontender. EXTREMITIES: Normal range of motion. No clubbing or cyanosis. Peripheral pulses intact. 1+ bilateral lower extremity edema NEUROLOGIC: Awake and alert. Oriented x 3. ASSESSMENT: Acute exacerbation of chronic diastolic heart failure, EF 55-60% Abnormal troponins, s/p cardiac cath revealing moderate to severe coronary artery disease with normal iFR Hypertension Hyperlipidemia COPD Morbid obesity: BMI 55.7 PLAN: Continue current cardiac medications Discontinue IV Lasix. Begin oral Lasix 80 mg twice a day Patient is stable for discharge home today from a cardiac stand point. She is to follow up outpatient with Dr. Chin. Nurse practitioner note has been reviewed by physician. Signing provider agrees with the documented findings, assessment, and plan of care. Objective - Vital Signs Vital signs: Vital Signs Temp 98.1 F 01/12/21 10:20 Pulse 66 01/12/21 10:20 Resp 20 01/12/21 10:20 BP 141/65 01/12/21 10:20 Pulse Ox 92 L 01/12/21 10:20 Intake & Output 01/11/21 01/12/21 01/12/21 18:59 06:59 18:59 Intake Total 650 240 Output Total 1700 1200 Balance -1050 -1200 240 Weight 113.1 kg 113.1 kg Intake: Intake, IV Titration 50 Amount cefTRIAXone 1 gm In 50 Sodium Chloride 0.9% 50 ml @ 100 mls/hr IVPB Q24HR COUNT INCLUDES THE [facility] Rx#:[id number] Oral 600 240 Output: Urine 1700 1200 Other: Voiding Method Indwelling Catheter Indwelling Catheter - Labs CBC & Chem 7: 01/11/21 08:04 01/12/21 07:32 Labs: Abnormal Lab Results - Last 24 Hours (Table) 01/11/21 01/11/21 01/12/21 Range/Units 16:42 20:03 06:05 Chloride (98-107) mmol/L Carbon Dioxide (22-30) mmol/L BUN (7-17) mg/dL Creatinine (0.52-1.04) mg/dL Glucose (74-99) mg/dL POC Glucose (mg/dL) 191 H 178 H 175 H (75-99) mg/dL 01/12/21 01/12/21 Range/Units 07:32 11:58 Chloride 93 L (98-107) mmol/L Carbon Dioxide 38 H (22-30) mmol/L BUN 45 H (7-17) mg/dL Creatinine 1.15 H (0.52-1.04) mg/dL Glucose 145 H (74-99) mg/dL POC Glucose (mg/dL) 127 H (75-99) mg/dL
[2021-01-12] MEDS ORDERED: FUROSEMIDE 80 MG TAB PO SCH (16:00)
[2021-01-12 17:09] LABS: Glucose,Whole Blood 299 mg/dL (75-99)
--- NOTE | 2021-01-13 14:33 | CDI ---
Documentation Clarification Form Date: 01/13/2021 02:31:00 PM From: Romana Flores CCS Admit Date: 01/06/2021 03:30:00 PM Patient Name: Paula Mares Visit Number: [id number] Discharge Date: 01/12/2021 06:30:00 PM ATTENTION: The Clinical Documentation Specialists (CDI) and [facility] Coding Staff appreciate your assistance in clarifying documentation. Please respond to the clarification below the line at the bottom and electronically sign. The CDI & [facility] Coding staff will review the response and follow-up if needed. Please note: Queries are made part of the Legal Health Record. If you have any questions, please contact the author of this message via ITS. Dr. Kody Hudson The diagnosis NSTEMI was documented in the CATH report and PNs, but is not noted in subsequent documentation. History/Risk Factors: CAD, CHF, HTN, Hx [place], Morbid Obesity, COPD, Chronic Resp Failure Clinical Indicators: Elevated Troponin, Acute Chest Pain Labs: Troponin: 0.063, 0.117, 0.154, 0.165 CATH: FINAL IMPRESSION: 1.Mild to moderate CAD as described including a RCA 40% stenosis, OM1 50-60% (iFR normal), and distal circumflex approximately 70% however iFR normal. 2.Severely elevated left sided filling pressures PLAN: 1.Aggressive risk factor modification per most recent ACC/AHA guidelines. 2.Would treat circumflex and OM1 medically as both have normal iFR. 3.Would recommend aggressive diuresis. Treatment: Heparin IV, Lasix IV, Verapamil Please clarify if the NSTEMI was Present/Active this admission Treated and resolved this admission Ruled out Other, please specify Clinically unable to determine Present/Active this admission MTDD
== END 2021-01-12 18:30 | disposition home health service (06) | DRG 280 ==
LOC: EC 12:28 → 3SCARD 15:30
PROVIDERS: ADMIT Family Medicine; ATTEND Family Medicine
PROC: 5A09457 Assistance with Respiratory Ventilation, 24-96 Consecutive Hours, Continuous Positive Airway Pressure (ICD-10-PCS; principal; 2021-01-06)
PROC: B2111ZZ Fluoroscopy of Multiple Coronary Arteries using Low Osmolar Contrast (ICD-10-PCS; 2021-01-10)
PROC: 4A023N7 Measurement of Cardiac Sampling and Pressure, Left Heart, Percutaneous Approach (ICD-10-PCS; 2021-01-10 09:00)
DX: I21.4 Non-ST elevation (NSTEMI) myocardial infarction (principal); J96.21 Acute and chronic respiratory failure with hypoxia; I50.33 Acute on chronic diastolic (congestive) heart failure; N17.9 Acute kidney failure, unspecified; J44.1 Chronic obstructive pulmonary disease with (acute) exacerbation; Z68.43 Body mass index [BMI] 50.0-59.9, adult; J45.901 Unspecified asthma with (acute) exacerbation; I45.2 Bifascicular block; I42.0 Dilated cardiomyopathy; I11.0 Hypertensive heart disease with heart failure; Z99.81 Dependence on supplemental oxygen; E66.01 Morbid (severe) obesity due to excess calories; Z20.822 Contact with and (suspected) exposure to COVID-19; I44.0 Atrioventricular block, first degree; E78.5 Hyperlipidemia, unspecified; M19.90 Unspecified osteoarthritis, unspecified site; E03.9 Hypothyroidism, unspecified; G47.33 Obstructive sleep apnea (adult) (pediatric); I08.1 Rheumatic disorders of both mitral and tricuspid valves; R77.8 Other specified abnormalities of plasma proteins; T50.1X5A Adverse effect of loop [high-ceiling] diuretics, initial encounter; I25.10 Atherosclerotic heart disease of native coronary artery without angina pectoris; B37.2 Candidiasis of skin and nail; I25.2 Old myocardial infarction; Z71.3 Dietary counseling and surveillance; Z79.890 Hormone replacement therapy; Z79.899 Other long term (current) drug therapy; Z79.82 Long term (current) use of aspirin; Z91.19 Patient's noncompliance with other medical treatment and regimen; Z87.891 Personal history of nicotine dependence; Z98.890 Other specified postprocedural states; Z82.5 Family history of asthma and other chronic lower respiratory diseases; Z82.0 Family history of epilepsy and other diseases of the nervous system
CPT/HCPCS: 36415; 71045; 71046; 71275; 78452; 80048; 80053; 81001; 83605; 83880; 84145; 84484; 85025; 85379; 85610; 85730; 87635; 93005; 93017; 93458; 93571; 94640; 94660; 94760; 99291

== ENCOUNTER 2021-01-31 15:28 | Inpatient (IN) | payer MEDICARE ==
[2021-01-31 19:23] LABS: Anisocytosis Slight; Basophils % (A) 0 %; Eosinophils # (A) 0.1 k/uL (0-0.7); Eosinophils % (A) 2 %; HCT 35.8 % (34.0-46.0); HGB 11.3 gm/dL (11.4-16.0); Hypochromasia Moderate; Lymphocytes # (A) 2.3 k/uL (1.0-4.8); Lymphocytes % (A) 28 %; MCH 23.1 pg (25.0-35.0); MCHC 31.5 g/dL (31.0-37.0); MCV 73.4 fL (80.0-100.0); Microcytosis Moderate; Monocytes # (A) 0.6 k/uL (0-1.0); Monocytes % (A) 7 %; Neutrophils # (A) 4.8 k/uL (1.3-7.7); Neutrophils % (A) 60 %; Platelet Count 180 k/uL (150-450); RBC 4.88 m/uL (3.80-5.40); RDW 18.7 % (11.5-15.5)
--- NOTE | 2021-01-31 19:24 | ED ---
SOB HPI - General Chief Complaint: Shortness of Breath Stated Complaint: sob Time Seen by Provider: 01/31/21 18:19 Source: patient, RN notes reviewed, old records reviewed Mode of arrival: ambulatory Limitations: no limitations - History of Present Illness Initial Comments: This 80-year-old female history of COPD who presents today with complaints of sh ortness of breath going on for last several days she states she was recently admitted for a COPD exacerbation and discharged on the of this month. She denies any fevers chills or sweats. She does complain shortness of breath no overt cough or phlegm production at this time. States that last admission she did have a lot of edema this is since resolved. A visiting nurse, her pulse ox was unobtainable. She was directed to come here for evaluation MD Complaint: shortness of breath - Related Data Home Medications Medication Instructions Recorded Confirmed Montelukast Sodium [Singulair] 10 mg PO HS 04/23/20 01/31/21 Sertraline HCl [Zoloft] 50 mg PO DAILY 04/23/20 01/31/21 Timolol 0.5% Ophth Soln [Timoptic 1 drop BOTH EYES BID 04/23/20 01/31/21 0.5% Ophth Soln] carvediloL [Coreg] 3.125 mg PO BID 04/23/20 01/31/21 Albuterol Nebulized [Ventolin 2.5 mg INHALATION RT-QID PRN 01/06/21 01/31/21 Nebulized] Brimonidine Tartrate [Alphagan P 1 drop BOTH EYES BID 01/06/21 01/31/21 0.2% Ophth Soln] Guaifen/Dextromethorphan/PE 10 ml PO BID PRN 01/06/21 01/31/21 [Mucinex Fast-Max Congest-Cough] Aspirin EC [Ecotrin Low Dose] 81 mg PO HS 01/31/21 01/31/21 Levothyroxine Sodium [Synthroid] 50 mcg PO DAILY 01/31/21 01/31/21 traMADol HCL [Ultram] 50 mg PO Q12H PRN 01/31/21 01/31/21 Previous Rx's Medication Instructions Recorded lisinopriL [Zestril] 10 mg PO DAILY #30 tab 04/27/20 Furosemide [Lasix] 80 mg PO BID@0900,1600 #60 tab 01/12/21 Pantoprazole [Protonix] 40 mg PO JOHNBRKFST #30 tablet. 01/12/21 Potassium Chloride ER [K-Dur 20] 20 meq PO BID #60 tab 01/12/21 Allergies Allergy/AdvReac Type Severity Reaction Status Date / Time No Known Allergies Allergy Verified 01/31/21 20:22 Review of Systems ROS Statement: Those systems with pertinent positive or pertinent negative responses have been documented in the HPI. ROS Other: All systems not noted in ROS Statement are negative. Past Medical History Past Medical History: Chest Pain / Angina, Heart Failure, COPD, Hyperlipidemia, Hypertension, Thyroid Disorder Additional Past Medical History / Comment(s): Intubated in September, home O2 PRN History of Any Multi-Drug Resistant Organisms: None Reported Past Surgical History: Bowel Resection, Section, Hernia Repair, H ysterectomy Past Anesthesia/Blood Transfusion Reactions: No Reported Reaction Past Psychological History: No Psychological Hx Reported Smoking Status: Former smoker Past Alcohol Use History: None Reported Past Drug Use History: None Reported - Past Family History Mother Family Medical History: Dementia Father Family Medical History: COPD Additional Family Medical History / Comment(s): etoh General Exam - General Exam Comments Initial Comments: This is a well-developed well-nourished awake alert oriented x 3female Limitations: no limitations Respiratory exam: Present: decreased breath sounds Course Vital Signs 01/31/21 01/31/21 18:05 19:27 Temperature 98.9 F Pulse Rate 76 75 Respiratory 22 18 Rate Blood Pressure 107/58 107/69 O2 Sat by Pulse 96 99 Oximetry Medical Decision Making - Medical Decision Making I did discuss findings with patient family as well as Dr. Hudson and Dr. Orosco patient does have evidence of elevated BNP elevated troponin as well as evidence of acute kidney injury. He lactic acid is likely on the basis of interventional vomiting depletion. No evidence of infectious process pain. Patient be admitted cardiology consultation and reevaluation the morning. - Lab Data Result diagrams: 01/31/21 18:56 01/31/21 18:56 Lab Results 01/31/21 01/31/21 01/31/21 Range/Units 18:56 18:56 18:56 WBC 8.0 (3.8-10.6) k/uL RBC 4.88 (3.80-5.40) m/uL Hgb 11.3 L (11.4-16.0) gm/dL Hct 35.8 (34.0-46.0) % MCV 73.4 L (80.0-100.0) fL MCH 23.1 L (25.0-35.0) pg MCHC 31.5 (31.0-37.0) g/dL RDW 18.7 H (11.5-15.5) % Plt Count 180 (150-450) k/uL MPV 7.0 Neutrophils % 60 % Lymphocytes % 28 % Monocytes % 7 % Eosinophils % 2 % Basophils % 0 % Neutrophils # 4.8 (1.3-7.7) k/uL Lymphocytes # 2.3 (1.0-4.8) k/uL Monocytes # 0.6 (0-1.0) k/uL Eosinophils # 0.1 (0-0.7) k/uL Basophils # 0.0 (0-0.2) k/uL Hypochromasia Moderate Anisocytosis Slight Microcytosis Moderate PT (9.0-12.0) sec INR (<1.2) APTT (22.0-30.0) sec Sodium 134 L (137-145) mmol/L Potassium 5.1 (3.5-5.1) mmol/L Chloride 98 (98-107) mmol/L Carbon Dioxide 26 (22-30) mmol/L Anion Gap 10 mmol/L BUN 65 H (7-17) mg/dL Creatinine 2.73 H (0.52-1.04) mg/dL Est GFR (CKD-EPI)AfAm 18 (>60 ml/min/1.73 sqM) Est GFR (CKD-EPI)NonAf 16 (>60 ml/min/1.73 sqM) Glucose 123 H (74-99) mg/dL Plasma Lactic Acid Pete 2.1 H* (0.7-2.0) mmol/L Calcium 8.9 (8.4-10.2) mg/dL Total Bilirubin 0.5 (0.2-1.3) mg/dL AST 26 (14-36) U/L ALT 12 (4-34) U/L Alkaline Phosphatase 74 (38-126) U/L Creatine Kinase 47 (30-135) U/L Troponin I (0.000-0.034) ng/mL NT-Pro-B Natriuret Pep pg/mL Total Protein 6.4 (6.3-8.2) g/dL Albumin 3.6 (3.5-5.0) g/dL 01/31/21 01/31/21 01/31/21 Range/Units 18:56 18:56 19:01 WBC (3.8-10.6) k/uL RBC (3.80-5.40) m/uL Hgb (11.4-16.0) gm/dL Hct (34.0-46.0) % MCV (80.0-100.0) fL MCH (25.0-35.0) pg MCHC (31.0-37.0) g/dL RDW (11.5-15.5) % Plt Count (150-450) k/uL MPV Neutrophils % % Lymphocytes % % Monocytes % % Eosinophils % % Basophils % % Neutrophils # (1.3-7.7) k/uL Lymphocytes # (1.0-4.8) k/uL Monocytes # (0-1.0) k/uL Eosinophils # (0-0.7) k/uL Basophils # (0-0.2) k/uL Hypochromasia Anisocytosis Microcytosis PT 9.8 (9.0-12.0) sec INR 0.9 (<1.2) APTT 19.4 L (22.0-30.0) sec Sodium (137-145) mmol/L Potassium (3.5-5.1) mmol/L Chloride (98-107) mmol/L Carbon Dioxide (22-30) mmol/L Anion Gap mmol/L BUN (7-17) mg/dL Creatinine (0.52-1.04) mg/dL Est GFR (CKD-EPI)AfAm (>60 ml/min/1.73 sqM) Est GFR (CKD-EPI)NonAf (>60 ml/min/1.73 sqM) Glucose (74-99) mg/dL Plasma Lactic Acid Pete (0.7-2.0) mmol/L Calcium (8.4-10.2) mg/dL Total Bilirubin (0.2-1.3) mg/dL AST (14-36) U/L ALT (4-34) U/L Alkaline Phosphatase (38-126) U/L Creatine Kinase (30-135) U/L Troponin I 0.264 H* (0.000-0.034) ng/mL NT-Pro-B Natriuret Pep 4070 pg/mL Total Protein (6.3-8.2) g/dL Albumin (3.5-5.0) g/dL - EKG Data -: EKG Interpreted by Me EKG shows normal: sinus rhythm EKG Comments: Sinus rhythm 73. Ago 188 QRS duration 132 QT since QTC 436/480 left exodeviation left LVH nonspecific inferior changes no change from the previous EKG dated 01/06/21 - Radiology Data Radiology results: report reviewed (Did review the imaging and report no acute findings and does appear to be improved from previous), image reviewed Disposition Clinical Impression: Acute kidney injury, Elevated troponin, Elevated brain natriuretic peptide (BNP) level, COPD exacerbation Disposition: ADMITTED IP TO THIS HOSP Condition: Fair Referrals: Kody Hudson DO [Primary Care Provider] - 1-2 days
[2021-01-31 19:32] LABS: Albumin 3.6 g/dL (3.5-5.0); Calcium 8.9 mg/dL (8.4-10.2); Potassium 5.1 mmol/L (3.5-5.1); Total Bilirubin 0.5 mg/dL (0.2-1.3); Total Protein 6.4 g/dL (6.3-8.2)
[2021-01-31 19:42] LABS: INR 0.9 (<1.2); Prothrombin Time 9.8 sec (9.0-12.0)
--- NOTE | 2021-01-31 19:49 | XR ---
EXAMINATION TYPE: XR chest 1V portable DATE OF EXAM: 01/31/2021 COMPARISON: 01/09/2021 HISTORY: Short of breath TECHNIQUE: Single view FINDINGS: There is no heart failure nor confluent pneumonic infiltrate. Costophrenic angles are clear . Thoracic aorta is atheromatous. There are chest leads. There are no hilar masses. IMPRESSION: No active cardiopulmonary disease. There is clearing of the lower lobe pulmonary infiltra ruth and atelectasis compared to recent exam.
[2021-01-31 19:59] LABS: Partial Thromboplastin Time 19.4 sec (22.0-30.0)
[2021-01-31] MEDS ORDERED: traMADol 50 MG TAB PO PRN (20:49)
[2021-01-31] MEDS ORDERED: guaiFENesin-DM 100-10MG/5ML 10 ML CUP PO PRN (22:30)
[2021-01-31] MEDS: carvediloL 3.125 MG TAB PO SCH (22:32)
[2021-01-31] MEDS: MONTELUKAST 10 MG TAB PO SCH (22:32)
[2021-01-31] MEDS: ASPIRIN 81 MG PO SCH (22:32)
[2021-01-31] MEDS: TIMOLOL 0.5% OPHTH DROPS 5 ML BTL BOTH EYES SCH (22:33)
[2021-01-31] MEDS: BRIMONIDINE TARTRATE 0.2% DROPS 5 ML BTL BOTH EYES SCH (22:33)
[2021-01-31] MEDS: SODIUM CHLORIDE 0.9% 1,000 ML IV SCH (22:34)
[2021-02-01] MEDS: IPRATROPIUM-ALBUTEROL 3 ML NEB INHALATION SCH ×6 (00:07→20:04)
[2021-02-01] MEDS: LEVOTHYROXINE 50 MCG TAB PO SCH (05:53)
[2021-02-01] MEDS: carvediloL 3.125 MG TAB PO SCH ×2 (08:57→20:54)
[2021-02-01] MEDS: SERTRALINE 50 MG TAB PO SCH (08:57)
[2021-02-01] MEDS: BRIMONIDINE TARTRATE 0.2% DROPS 5 ML BTL BOTH EYES SCH ×2 (08:58→20:54)
[2021-02-01] MEDS: PANTOPRAZOLE 40 MG TABLET PO SCH (08:58)
[2021-02-01] MEDS: TIMOLOL 0.5% OPHTH DROPS 5 ML BTL BOTH EYES SCH ×2 (09:00→20:54)
[2021-02-01] MEDS ORDERED: FUROSEMIDE 80 MG TAB PO SCH (09:00)
[2021-02-01] MEDS ORDERED: SODIUM CHLORIDE 0.9% 1,000 ML IV SCH (10:29)
--- NOTE | 2021-02-01 10:35 | P.CRDCN ---
History of Present Illness Consult date: 02/01/21 History of present illness: HISTORY OF PRESENT ILLNESS: This is a 80-year-old female with a past medical history significant for congestive heart failure, hypertension, hyperlipidemia, and obesity. Patient follows in the office with Dr. Chin. We have been asked to see the patient in consultation for elevated troponins. Patient examined at the bedside. Patient states she has been feeling short of breath for the past 4-5 days. Patient also reports she has not been eating or drinking much either. she states that she has been having his periumbilical therapy come out to her house and the physical therapist noticed that the patient was not feeling well and recommended that she come to the emergency room. At the time of examination, the patient denies chest pain or pressure. She reports shortness of breath with exertion. Patient was recently hospitalized earlier this month due to COPD and CHF. Echocardiogram completed at that time revealed ejection fraction 55-60%. Patient had an abnormal stress test performed on 01/09/2021. Patient also underwent cardiac catheterization with Dr. Chin on 01/10/2021 revealing mild to moderate coronary artery disease including 40% RCA stenosis, 50-60% stenosis of OM1 with normal IFR and 70% stenosis of distal circumflex with normal iFR. EKG reveals sinus mechanism with no signs of acute ischemia. Left axis deviation. Right bundle branch block. Chest xray negative for acute process Laboratory data: WBC 8.0. Hemoglobin 11.3. Platelet count 180. Sodium 134. Potassium 5.1. BUN 65. Creatinine 2.73. BNP 4070. Troponin 0.251. 0.230. 0.264. Current home cardiac medications include lisinopril 10 mg daily, carvedilol 3.125mg twice a day, Lasix 80 mg twice a day, aspirin 81 mg daily REVIEW OF SYSTEMS: At the time of my exam: CONSTITUTIONAL: Denies fever or chills. HEENT: Denies blurred vision, vision changes, or eye pain. Denies hemoptysis CARDIOVASCULAR: Denies chest pain. Denies orthopnea. Denies PND. Denies palpitations RESPIRATORY: Reports shortness of breath. GASTROINTESTINAL: Denies abdominal pain. Denies nausea or vomiting. HEMATOLOGIC: Denies bleeding disorders. GENITOURINARY: Denies any blood in urine. SKIN: Denies pruitis. Denies rash. PHYSICAL EXAM: VITAL SIGNS: Reviewed. GENERAL: Well-developed in no acute distress. HEENT: Head is normocephalic. Pupils are equal, round. Sclerae anicteric. Mucous membranes of the mouth are moist. Neck supple. No JVD or thyromegaly LUNGS: Respirations even and unlabored. Lungs diminished bilaterally. HEART: Regular rate and rhythm. S1 and S2 heard. Systolic murmur noted ABDOMEN: Soft. Nondistended. Nontender. EXTREMITIES: Normal range of motion. No clubbing or cyanosis. Peripheral pulses intact. 1+ bilateral lower extremity edema NEUROLOGIC: Awake and alert. Oriented x 3. ASSESSMENT: Shortness of breath Acute kidney injury, likely due to patient not eating or drinking much for 5 days Chronic diastolic heart failure, EF 55-60%, no clinical evidence of heart failure despite elevated BNP Abnormal troponins, suspect secondary to acute renal failure, no evidence of ACS [id number] coronary artery disease, status post cardiac catheterization, 01/10/2021, details as listed above Hypertension Hyperlipidemia COPD Morbid obesity: BMI 46.7 PLAN: No need to repeat echocardiogram as this was performed earlier this month Consult nephrology for acute renal failure Begin IV fluids at 75 mL an hour Hold oral Lasix until LUCILA resolves Hold lisinopril due to LUCILA Resume additional home cardiac medications Further recommendations pending patient course Nurse practitioner note has been reviewed by physician. Signing provider agrees with the documented findings, assessment, and plan of care. Past Medical History Past Medical History: Chest Pain / Angina, Heart Failure, COPD, Hyperlipidemia, Hypertension, Thyroid Disorder Additional Past Medical History / Comment(s): Intubated in September, home O2 PRN History of Any Multi-Drug Resistant Organisms: None Reported Past Surgical History: Bowel Resection, Section, Hernia Repair, Hysterectomy Past Anesthesia/Blood Transfusion Reactions: No Reported Reaction Past Psychological History: No Psychological Hx Reported Smoking Status: Former smoker Past Alcohol Use History: None Reported Past Drug Use History: None Reported - Past Family History Mother Family Medical History: Dementia Father Family Medical History: COPD Additional Family Medical History / Comment(s): etoh Medications and Allergies Home Medications Medication Instructions Recorded Confirmed Type Montelukast Sodium [Singulair] 10 mg PO HS 04/23/20 01/31/21 History Sertraline HCl [Zoloft] 50 mg PO DAILY 04/23/20 01/31/21 History Timolol 0.5% Ophth Soln [Timoptic 1 drop BOTH EYES BID 04/23/20 01/31/21 History 0.5% Ophth Soln] carvediloL [Coreg] 3.125 mg PO BID 04/23/20 01/31/21 History lisinopriL [Zestril] 10 mg PO DAILY #30 tab 04/27/20 01/31/21 Rx Albuterol Nebulized [Ventolin 2.5 mg INHALATION RT-QID PRN 01/06/21 01/31/21 History Nebulized] Brimonidine Tartrate [Alphagan P 1 drop BOTH EYES BID 01/06/21 01/31/21 History 0.2% Ophth Soln] Guaifen/Dextromethorphan/PE 10 ml PO BID PRN 01/06/21 01/31/21 History [Mucinex Fast-Max Congest-Cough] Furosemide [Lasix] 80 mg PO BID@0900,1600 #60 tab 01/12/21 01/31/21 Rx Pantoprazole [Protonix] 40 mg PO AC-BRKFST #30 tablet.dr 01/12/21 01/31/21 Rx Potassium Chloride ER [K-Dur 20] 20 meq PO BID #60 tab 01/12/21 01/31/21 Rx Aspirin EC [Ecotrin Low Dose] 81 mg PO HS 01/31/21 01/31/21 History Levothyroxine Sodium [Synthroid] 50 mcg PO DAILY 01/31/21 01/31/21 History traMADol HCL [Ultram] 50 mg PO Q12H PRN 01/31/21 01/31/21 History Allergies Allergy/AdvReac Type Severity Reaction Status Date / Time No Known Allergies Allergy Verified 01/31/21 20:22 Physical Exam Vitals: Vital Signs Temp Pulse Pulse Resp BP BP Pulse Ox 02/01/21 09:17 71 02/01/21 09:05 77 02/01/21 08:00 98 F 66 18 111/64 98 02/01/21 05:51 98.6 F 61 18 100/51 96 01/31/21 22:48 99.9 F H 79 20 100/58 95 01/31/21 19:27 75 18 107/69 99 01/31/21 18:05 98.9 F 76 22 107/58 96 Intake and Output 01/31/21 02/01/21 02/01/21 22:59 06:59 14:59 Other: Weight 104.78 kg Results 01/31/21 18:56 01/31/21 18:56 Cardiac Enzymes 01/31/21 01/31/21 01/31/21 Range/Units 18:56 18:56 22:22 AST 26 (14-36) U/L Troponin I 0.264 H* 0.230 H* (0.000-0.034) ng/mL 02/01/21 Range/Units 01:08 AST (14-36) U/L Troponin I 0.251 H* (0.000-0.034) ng/mL Coagulation 01/31/21 Range/Units 19:01 PT 9.8 (9.0-12.0) sec APTT 19.4 L (22.0-30.0) sec CBC 01/31/21 Range/Units 18:56 WBC 8.0 (3.8-10.6) k/uL RBC 4.88 (3.80-5.40) m/uL Hgb 11.3 L (11.4-16.0) gm/dL Hct 35.8 (34.0-46.0) % Plt Count 180 (150-450) k/uL Comprehensive Metabolic Panel 01/31/21 Range/Units 18:56 Sodium 134 L (137-145) mmol/L Potassium 5.1 (3.5-5.1) mmol/L Chloride 98 (98-107) mmol/L Carbon Dioxide 26 (22-30) mmol/L BUN 65 H (7-17) mg/dL Creatinine 2.73 H (0.52-1.04) mg/dL Glucose 123 H (74-99) mg/dL Calcium 8.9 (8.4-10.2) mg/dL AST 26 (14-36) U/L ALT 12 (4-34) U/L Alkaline Phosphatase 74 (38-126) U/L Total Protein 6.4 (6.3-8.2) g/dL Albumin 3.6 (3.5-5.0) g/dL Current Medications Generic Name Dose Route Start Last Admin Trade Name Freq PRN Reason Stop Dose Admin Albuterol/Ipratropium 3 ml 02/01/21 00:00 02/01/21 09:04 Ipratropium-Albuterol 3 Ml Neb INHALATION 3 ml RT-Q4H SANKET Administration Aspirin 81 mg 01/31/21 22:30 01/31/21 22:32 Aspirin 81 Mg PO 81 mg HS SANKET Administration Brimonidine Tartrate 1 drops 01/31/21 22:30 02/01/21 08:58 Brimonidine Tartrate 0.2% Drops 5 Ml Btl BOTH EYES Not Given BID SANKET Carvedilol 3.125 mg 01/31/21 22:30 02/01/21 08:57 Carvedilol 3.125 Mg Tab PO 3.125 mg BID SANKET Administration Furosemide 80 mg 02/01/21 09:00 02/01/21 08:57 Furosemide 80 Mg Tab PO 80 mg BID@0900,1600 SANKET Administration Guaifenesin/Dextromethorphan 10 ml 01/31/21 22:30 Guaifenesin-Dm 100-10mg/5ml 10 Ml Cup PO BID PRN Congestion Sodium Chloride 1,000 mls @ 80 mls/hr 01/31/21 21:00 01/31/21 22:34 Saline 0.9% IV 80 mls/hr .[id number] SANKET Administration Levothyroxine Sodium 50 mcg 02/01/21 06:30 02/01/21 05:53 Levothyroxine 50 Mcg Tab PO 50 mcg DAILY@0630 SANKET Administration Montelukast Sodium 10 mg 01/31/21 22:30 01/31/21 22:32 Montelukast 10 Mg Tab PO 10 mg HS SANKET Administration Pantoprazole Sodium 40 mg 02/01/21 07:30 02/01/21 08:58 Pantoprazole 40 Mg Tablet PO 40 mg AC-BRKFST SANKET Administration Sertraline HCl 50 mg 02/01/21 09:00 02/01/21 08:57 Sertraline 50 Mg Tab PO 50 mg DAILY SANKET Administration Timolol Maleate 1 drops 01/31/21 22:30 02/01/21 09:00 Timolol 0.5% Ophth Drops 5 Ml Btl BOTH EYES Not Given BID SANKET Tramadol HCl 50 mg 01/31/21 20:49 Tramadol 50 Mg Tab PO Q12H PRN Pain Intake and Output 01/31/21 02/01/21 02/01/21 22:59 06:59 14:59 Other: Weight 104.78 kg 01/31/21 18:56 01/31/21 18:56
[2021-02-01] MEDS: SODIUM CHLORIDE 0.9% 1,000 ML IV SCH ×2 (12:09→13:36)
--- NOTE | 2021-02-01 12:14 | US ---
EXAMINATION TYPE: US kidneys/renal and bladder DATE OF EXAM: 02/01/2021 COMPARISON: NONE CLINICAL HISTORY: brandin. EXAM MEASUREMENTS: Right Kidney: 9.3 x 4.4 x 4.5 cm Left Kidney: 10.2 x 4.9 x 5.6 cm Technically difficult study due to body habitus and bowel gas. Right Kidney: No hydronephrosis or masses seen Left Kidney: No hydronephrosis or masses seen Bladder: not seen, patient just voided There is no evidence for hydronephrosis at this point in time. No nephrolithiasis is seen. No darrel s are identified. The urinary bladder is anechoic. Bilateral ureteral jets are seen. IMPRESSION: No distinct abnormality seen.
--- NOTE | 2021-02-01 12:21 | P.NPCON ---
History of Present Illness - Reason for Consult acute renal failure - History of Present Illness Reason for consultation: Acute kidney injury History of present illness: Patient is a 80-year-old female seen in renal consultation for acute kidney injury. Patient presented to the hospital for shortness of breath. Patient states she was recently discharged from the hospital for COPD exacerbation. She denies fever or chills. No vomiting or diarrhea. Oral intake has been fair. She also has history of CHF and states that she was taking Lasix outpatient. States she has lost significant amount of weight in the last 1 month. Denies any edema at this time. She also admits to taking Motrin 500 mg 2-3 times daily for pain in her knees. No history of diabetes. Denies family history of renal disease. No hematuria or dysuria. No chest pain. Blood pressure was low in the systolic 100s on admission and most recent reading was 102/55. She was also on lisinopril which is currently held. She is receiving IV fluids. Currently on 2 L nasal cannula. Vital signs are stable. General: The patient appeared well nourished and normally developed. HEENT: Head exam is unremarkable. Neck is without jugular venous distension. LUNGS: Breath sounds decreased. HEART: Rate and Rhythm are regular. ABDOMEN: Soft, nontender. EXTREMITITES: No edema. Chronic changes noted. Past Medical History Past Medical History: Chest Pain / Angina, Heart Failure, COPD, Hyperlipidemia, Hypertension, Thyroid Disorder Additional Past Medical History / Comment(s): Intubated in September, home O2 PRN History of Any Multi-Drug Resistant Organisms: None Reported Past Surgical History: Bowel Resection, Section, Hernia Repair, Hysterectomy Past Anesthesia/Blood Transfusion Reactions: No Reported Reaction Past Psychological History: No Psychological Hx Reported Smoking Status: Former smoker Past Alcohol Use History: None Reported Past Drug Use History: None Reported - Past Family History Mother Family Medical History: Dementia Father Family Medical History: COPD Additional Family Medical History / Comment(s): etoh Medications and Allergies Home Medications Medication Instructions Recorded Confirmed Type Montelukast Sodium [Singulair] 10 mg PO HS 04/23/20 01/31/21 History Sertraline HCl [Zoloft] 50 mg PO DAILY 04/23/20 01/31/21 History Timolol 0.5% Ophth Soln [Timoptic 1 drop BOTH EYES BID 04/23/20 01/31/21 History 0.5% Ophth Soln] carvediloL [Coreg] 3.125 mg PO BID 04/23/20 01/31/21 History lisinopriL [Zestril] 10 mg PO DAILY #30 tab 04/27/20 01/31/21 Rx Albuterol Nebulized [Ventolin 2.5 mg INHALATION RT-QID PRN 01/06/21 01/31/21 History Nebulized] Brimonidine Tartrate [Alphagan P 1 drop BOTH EYES BID 01/06/21 01/31/21 History 0.2% Ophth Soln] Guaifen/Dextromethorphan/PE 10 ml PO BID PRN 01/06/21 01/31/21 History [Mucinex Fast-Max Congest-Cough] Furosemide [Lasix] 80 mg PO BID@0900,1600 #60 tab 01/12/21 01/31/21 Rx Pantoprazole [Protonix] 40 mg PO AC-BRKFST #30 tablet.dr 01/12/21 01/31/21 Rx Potassium Chloride ER [K-Dur 20] 20 meq PO BID #60 tab 01/12/21 01/31/21 Rx Aspirin EC [Ecotrin Low Dose] 81 mg PO HS 01/31/21 01/31/21 History Levothyroxine Sodium [Synthroid] 50 mcg PO DAILY 01/31/21 01/31/21 History traMADol HCL [Ultram] 50 mg PO Q12H PRN 01/31/21 01/31/21 History Allergies Allergy/AdvReac Type Severity Reaction Status Date / Time No Known Allergies Allergy Verified 01/31/21 20:22 Physical Exam Vitals: Vital Signs Temp Pulse Pulse Resp BP BP Pulse Ox 02/01/21 12:00 97.4 F L 62 20 102/55 96 02/01/21 09:17 71 02/01/21 09:05 77 02/01/21 08:00 98 F 66 18 111/64 98 02/01/21 05:51 98.6 F 61 18 100/51 96 01/31/21 22:48 99.9 F H 79 20 100/58 95 01/31/21 19:27 75 18 107/69 99 01/31/21 18:05 98.9 F 76 22 107/58 96 Intake and Output 01/31/21 02/01/21 02/01/21 22:59 06:59 14:59 Other: Weight 104.78 kg Results - Lab Results Most recent lab results Calcium 8.9 mg/dL (8.4-10.2) 01/31/21 18:56 01/31/21 18:56 01/31/21 18:56 Assessment and Plan Plan: Assessment: 1. Acute kidney injury mostly prerenal secondary to hypotension and diuresis. Creatinine 2.73. Baseline creatinine near 1. No hydronephrosis noted on kidney ultrasound. 2. Chronic diastolic CHF. 3. Coronary artery disease status post cardiac catheterization on 01/10/2021. Plan: Maintain normal saline. Hold diuretics and lisinopril. Check urinalysis. Avoid nephrotoxins. Encourage oral intake. Repeat electrolytes in the morning. Thank you for the consultation. I will continue to follow the patient with you during her hospital stay.
[2021-02-01 14:09] VITALS: BMI 46.6
[2021-02-01 15:31] LABS: Appearance,Urine Clear (Clear); Bacteria,Urine Moderate /hpf; Bilirubin,Urine Negative (Negative); Blood,Urine Negative (Negative); Color,Urine Light Yellow; Glucose,Urine (UA) Negative (Negative); Hyaline Casts,Urine 15 /lpf (0-2); Ketones,Urine Negative (Negative); Leukocyte Esterase,Urine Trace (Negative); Mucus,Urine Rare /hpf; Nitrite,Urine Negative (Negative); Protein,Urine Negative (Negative); RBC,Urine 1 /hpf (0-5); Specific Gravity,Urine 1.007 (1.001-1.035); Squamous Epithelial Cell,Urine 1 /hpf (0-4); Urobilinogen,Urine <2.0 mg/dL (<2.0); WBC,Urine 1 /hpf (0-5)
--- NOTE | 2021-02-01 17:32 | P.HPIM ---
History of Present Illness H&P Date: 02/01/21 Chief Complaint: Worsening shortness of breath This is an 80-year-old female with past medical history of CHF, COPD ,chronic hypoxic respiratory failure, hypertension, obesity,admitted with worsening shortness of breath, no cough. Denies nausea vomiting or diarrhea. Denies fever or chills or congestion. Recently hospitalized with acute COPD and CHF exacerbation. 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 Patient reports that in 1 month she lost a significant amount of weight. Patient also reports to taking NSAIDs, Motrin 2-3 times daily for knee pain.Maintaining O2 sats in the 9 0s on 2 L nasal cannula-Baseline. Vital signs stable, with systolic blood pressure in the low 100s.T-max 99.9, normal WBC. Hemoglobin 11.3, platelets 180, sodium 134, potassium 5.1, BUN 65, creatinine 2.73, baseline around 1 left against and 1.1. EKG reported normal sinus rhythm, right bundle branch block, left ventricular hypertrophy, left axis deviation. Troponin 0.230, 0.251. BNP elevated at 4000. UA reported moderate bacteria, trace leukocytes, negative nitrates. Coronavirus not detected. Chest x-ray reported no active cardiopulmonary disease, clearing of lower lobe pulmonary infiltrates compared to prior exam. Past Medical History Past Medical History: Chest Pain / Angina, Heart Failure, COPD, Hyperlipidemia, Hypertension, Thyroid Disorder Additional Past Medical History / Comment(s): Intubated in September, home O2 PRN History of Any Multi-Drug Resistant Organisms: None Reported Past Surgical History: Bowel Resection, Section, Hernia Repair, Hyster ectomy Past Anesthesia/Blood Transfusion Reactions: No Reported Reaction Past Psychological History: No Psychological Hx Reported Smoking Status: Former smoker Past Alcohol Use History: None Reported Past Drug Use History: None Reported - Past Family History Mother Family Medical History: Dementia Father Family Medical History: COPD Additional Family Medical History / Comment(s): etoh Medications and Allergies Home Medications Medication Instructions Recorded Confirmed Type Montelukast Sodium [Singulair] 10 mg PO HS 04/23/20 01/31/21 History Sertraline HCl [Zoloft] 50 mg PO DAILY 04/23/20 01/31/21 History Timolol 0.5% Ophth Soln [Timoptic 1 drop BOTH EYES BID 04/23/20 01/31/21 History 0.5% Ophth Soln] carvediloL [Coreg] 3.125 mg PO BID 04/23/20 01/31/21 History lisinopriL [Zestril] 10 mg PO DAILY #30 tab 04/27/20 01/31/21 Rx Albuterol Nebulized [Ventolin 2.5 mg INHALATION RT-QID PRN 01/06/21 01/31/21 History Nebulized] Brimonidine Tartrate [Alphagan P 1 drop BOTH EYES BID 01/06/21 01/31/21 History 0.2% Ophth Soln] Guaifen/Dextromethorphan/PE 10 ml PO BID PRN 01/06/21 01/31/21 History [Mucinex Fast-Max Congest-Cough] Furosemide [Lasix] 80 mg PO BID@0900,1600 #60 tab 01/12/21 01/31/21 Rx Pantoprazole [Protonix] 40 mg PO AC-BRKFST #30 tablet. 01/12/21 01/31/21 Rx Potassium Chloride ER [K-Dur 20] 20 meq PO BID #60 tab 01/12/21 01/31/21 Rx Aspirin EC [Ecotrin Low Dose] 81 mg PO HS 01/31/21 01/31/21 History Levothyroxine Sodium [Synthroid] 50 mcg PO DAILY 01/31/21 01/31/21 History traMADol HCL [Ultram] 50 mg PO Q12H PRN 01/31/21 01/31/21 History Allergies Allergy/AdvReac Type Severity Reaction Status Date / Time No Known Allergies Allergy Verified 01/31/21 20:22 Physical Exam Vitals: Vital Signs Temp Pulse Pulse Resp BP BP Pulse Ox 02/01/21 09:17 71 02/01/21 09:05 77 02/01/21 08:00 98 F 66 18 111/64 98 02/01/21 05:51 98.6 F 61 18 100/51 96 01/31/21 22:48 99.9 F H 79 20 100/58 95 01/31/21 19:27 75 18 107/69 99 01/31/21 18:05 98.9 F 76 22 107/58 96 Intake and Output 01/31/21 02/01/21 02/01/21 22:59 06:59 14:59 Other: Weight 104.78 kg PHYSICAL EXAM: GENERAL: A & O X 3,Sitting up in bed,NAD NECK: Supple, no JVD CARDIOVASCULAR: S1, S2 regular. Systolic murmur RESPIRATION: Breath sounds diminished in the bases with no crackles ABDOMEN: Soft, nondistended, nontender . No guarding. no masses palpable. Positive bowel sounds. LEGS: Mild edema-minimal compared to prior visit. No calf tenderness. NERVOUS SYSTEM: Cranial N 2-12 grossly normal. No focal deficits. Results CBC & Chem 7: 01/31/21 18:56 01/31/21 18:56 Labs: Abnormal Lab Results - Last 24 Hours (Table) 01/31/21 01/31/21 01/31/21 Range/Units 18:56 18:56 18:56 Hgb 11.3 L (11.4-16.0) gm/dL MCV 73.4 L (80.0-100.0) fL MCH 23.1 L (25.0-35.0) pg RDW 18.7 H (11.5-15.5) % APTT (22.0-30.0) sec Sodium 134 L (137-145) mmol/L BUN 65 H (7-17) mg/dL Creatinine 2.73 H (0.52-1.04) mg/dL Glucose 123 H (74-99) mg/dL Plasma Lactic Acid Pete 2.1 H* (0.7-2.0) mmol/L Troponin I (0.000-0.034) ng/mL 01/31/21 01/31/21 01/31/21 Range/Units 18:56 19:01 22:22 Hgb (11.4-16.0) gm/dL MCV (80.0-100.0) fL MCH (25.0-35.0) pg RDW (11.5-15.5) % APTT 19.4 L (22.0-30.0) sec Sodium (137-145) mmol/L BUN (7-17) mg/dL Creatinine (0.52-1.04) mg/dL Glucose (74-99) mg/dL Plasma Lactic Acid Pete (0.7-2.0) mmol/L Troponin I 0.264 H* 0.230 H* (0.000-0.034) ng/mL 02/01/21 Range/Units 01:08 Hgb (11.4-16.0) gm/dL MCV (80.0-100.0) fL MCH (25.0-35.0) pg RDW (11.5-15.5) % APTT (22.0-30.0) sec Sodium (137-145) mmol/L BUN (7-17) mg/dL Creatinine (0.52-1.04) mg/dL Glucose (74-99) mg/dL Plasma Lactic Acid Pete (0.7-2.0) mmol/L Troponin I 0.251 H* (0.000-0.034) ng/mL Assessment and Plan Assessment: Increased shortness of breath, suspect acute COPD exacerbation, though BNP elevated, doubt CHF exacerbation-no clinical presentation. Acute renal failure, prerenal secondary to diuretics, NSAIDs, hypotension, baseline around 1. Chronic CHF exacerbation, diastolic dysfunction Chronic hypoxic respiratory failure, wears 2 L nasal cannula at home Troponin leak secondary to acute renal failure, possible ACS-cardiology consulted. Recent cardiac catheterization 01/10/2021 ,reporting mild to moderate CAD including RCA 40% stenosis, OM 1 50-60% ( iFr normal), distal circumflex approximately 70% (iFr normal), severely elevated left-sided filling pressures - recommending medical management with aggressive diuresing. Hypertension Hyperlipidemia Hypothyroidism Previous history of eating dependent Morbid obesity with a BMI 46.7 Obstructive sleep apnea Plan: Continue on current medication regime ,monitoring and symptomatic treatment. Hold Diuretics, TED inhibitor. No NSAIDs. Gentle IV fluid hydration given patient's history of CHF. Cardiology and nephrology consult in place with recommendations pending. The impression and plan of care has been dictated as directed. : I performed a history and examination of this patient, discussed the same with the dictator. I agree with the dictator's note ,documented as a scribe. Any additional findings or plans will be noted.
[2021-02-01] MEDS: ASPIRIN 81 MG PO SCH (20:54)
[2021-02-01] MEDS: MONTELUKAST 10 MG TAB PO SCH (20:54)
[2021-02-02] MEDS: IPRATROPIUM-ALBUTEROL 3 ML NEB INHALATION SCH ×5 (01:00→16:43)
[2021-02-02] MEDS: SODIUM CHLORIDE 0.9% 1,000 ML IV SCH (04:43)
[2021-02-02] MEDS: LEVOTHYROXINE 50 MCG TAB PO SCH (06:17)
[2021-02-02] MEDS: PANTOPRAZOLE 40 MG TABLET PO SCH (06:17)
[2021-02-02] MEDS: SERTRALINE 50 MG TAB PO SCH (07:54)
[2021-02-02] MEDS: BRIMONIDINE TARTRATE 0.2% DROPS 5 ML BTL BOTH EYES SCH (07:54)
[2021-02-02] MEDS: carvediloL 3.125 MG TAB PO SCH (07:54)
[2021-02-02] MEDS: TIMOLOL 0.5% OPHTH DROPS 5 ML BTL BOTH EYES SCH (07:55)
[2021-02-02] MEDS ORDERED: predniSONE 20 MG TAB PO SCH (09:45)
--- NOTE | 2021-02-02 10:59 | P.PN ---
Subjective Patient is seen in follow-up for acute kidney injury. Maintained on IV fluids. Blood pressure controlled. Denies chest pain or shortness of breath. Good urine output. No edema. Currently on room air. Vital signs are stable. General: The patient appeared well nourished and normally developed. HEENT: Head exam is unremarkable. Neck is without jugular venous distension. LUNGS: Breath sounds decreased. HEART: Rate and Rhythm are regular. ABDOMEN: Soft, nontender. EXTREMITITES: No edema. Objective - Vital Signs Vital signs: Vital Signs Temp 98.4 F 02/02/21 08:02 Pulse 71 02/02/21 08:02 Resp 17 02/02/21 08:02 BP 121/74 02/02/21 08:02 Pulse Ox 100 02/02/21 08:02 Intake & Output 02/01/21 02/02/21 02/02/21 18:59 06:59 18:59 Intake Total 530 570 360 Output Total 250 400 100 Balance 280 170 260 Weight 104.78 kg 108.4 kg Intake: IV 10 Invasive Line 1 10 Intake, IV Titration 330 560 Amount Sodium Chloride 0.9% 1, 560 000 ml @ 70 mls/hr IV . [id number] SANKET Rx#:[id number] Sodium Chloride 0.9% 1, 330 000 ml @ 75 mls/hr IV . [id number] SANKET Rx#:[id number] Oral 200 360 Output: Urine 250 400 100 Other: Voiding Method Toilet Toilet # Voids 1 1 - Labs CBC & Chem 7: 01/31/21 18:56 01/31/21 18:56 Labs: Abnormal Lab Results - Last 24 Hours (Table) 02/01/21 Range/Units 15:10 Ur Leukocyte Esterase Trace H (Negative) Urine Bacteria Moderate H (None) /hpf Hyaline Casts 15 H (0-2) /lpf Urine Mucus Rare H (None) /hpf Assessment and Plan Plan: Assessment: 1. Acute kidney injury mostly prerenal secondary to hypotension and diuresis. Creatinine 2.73 on admission - labs pending. Baseline creatinine near 1. No hydronephrosis noted on kidney ultrasound. UA benign. 2. Chronic diastolic CHF. 3. Coronary artery disease status post cardiac catheterization on 01/10/2021. Plan: Maintain normal saline. Hold diuretics and lisinopril. Avoid nephrotoxins. Encourage oral intake. Continue to monitor renal function and urine output.
[2021-02-02 12:52] LABS: Calcium 8.6 mg/dL (8.4-10.2); Magnesium 2.2 mg/dL (1.6-2.3); Potassium 4.8 mmol/L (3.5-5.1)
[2021-02-02 13:22] VITALS: BP 117/56; PULSE 77; RESP 19; TEMP 98
--- NOTE | 2021-02-02 14:41 | P.PN ---
Subjective Progress Note Date: 02/02/21 HISTORY OF PRESENT ILLNESS: 02/01/2021 This is a 80-year-old female with a past medical history significant for congestive heart failure, hypertension, hyperlipidemia, and obesity. Patient follows in the office with Dr. Chin. We have been asked to see the patient in consultation for elevated troponins. Patient examined at the bedside. Patient states she has been feeling short of breath for the past 4-5 days. Patient also reports she has not been eating or drinking much either. she states that she has been having his periumbilical therapy come out to her house and the physical therapist noticed that the patient was not feeling well and recommended that she come to the emergency room. At the time of examination, the patient denies chest pain or pressure. She reports shortness of breath with exertion. Patient was recently hospitalized earlier this month due to COPD and CHF. Echocardiogram completed at that time revealed ejection fraction 55-60%. Patient had an abnormal stress test performed on 01/09/2021. Patient also underwent cardiac catheterization with Dr. Chin on 01/10/2021 revealing mild to moderate coronary artery disease including 40% RCA stenosis, 50-60% stenosis of OM1 with normal IFR and 70% stenosis of distal circumflex with normal iFR. EKG reveals sinus mechanism with no signs of acute ischemia. Left axis deviation. Right bundle branch block. Chest xray negative for acute process Laboratory data: WBC 8.0. Hemoglobin 11.3. Platelet count 180. Sodium 134. Potassium 5.1. BUN 65. Creatinine 2.73. BNP 4070. Troponin 0.251. 0.230. 0.264. Current home cardiac medications include lisinopril 10 mg daily, carvedilol 3.125mg twice a day, Lasix 80 mg twice a day, aspirin 81 mg daily 02/02/2021 Patient examined this morning at bedside. Patient states her shortness of breath has improved today. She denies chest pain or pressure. She remains on IV fluids for acute kidney injury. Creatinine today 1.77. Her diuretics and lisinopril remain on hold. PHYSICAL EXAM: VITAL SIGNS: Reviewed. GENERAL: Well-developed in no acute distress. HEENT: Head is normocephalic. Pupils are equal, round. Sclerae anicteric. Mucous membranes of the mouth are moist. Neck supple. No JVD or thyromegaly LUNGS: Respirations even and unlabored. Lungs diminished bilaterally. HEART: Regular rate and rhythm. S1 and S2 heard. Systolic murmur noted ABDOMEN: Soft. Nondistended. Nontender. EXTREMITIES: Normal range of motion. No clubbing or cyanosis. Peripheral pulses intact. 1+ bilateral lower extremity edema NEUROLOGIC: Awake and alert. Oriented x 3. ASSESSMENT: Shortness of breath Acute kidney injury, likely due to patient not eating or drinking much for 5 days Chronic diastolic heart failure, EF 55-60%, no clinical evidence of heart failure despite elevated BNP Abnormal troponins, suspect secondary to acute renal failure, no evidence of ACS [id number] coronary artery disease, status post cardiac catheterization, 01/10/2021, details as listed above Hypertension Hyperlipidemia COPD Morbid obesity: BMI 46.7 PLAN: Nephrology following Continue IVF Hold oral Lasix until LUCILA resolves Hold lisinopril due to LUCILA Further recommendations pending patient course Nurse practitioner note has been reviewed by physician. Signing provider agrees with the documented findings, assessment, and plan of care. Objective - Vital Signs Vital signs: Vital Signs Temp 98.0 F 02/02/21 13:21 Pulse 77 02/02/21 13:21 Resp 19 02/02/21 13:21 BP 117/56 02/02/21 13:21 Pulse Ox 96 02/02/21 13:21 Intake & Output 02/01/21 02/02/21 02/02/21 18:59 06:59 18:59 Intake Total 530 570 360 Output Total 250 400 100 Balance 280 170 260 Weight 104.78 kg 108.4 kg Intake: IV 10 Invasive Line 1 10 Intake, IV Titration 330 560 Amount Sodium Chloride 0.9% 1, 560 000 ml @ 70 mls/hr IV . [id number] SANKET Rx#:[id number] Sodium Chloride 0.9% 1, 330 000 ml @ 75 mls/hr IV . [id number] SANKET Rx#:[id number] Oral 200 360 Output: Urine 250 400 100 Other: Voiding Method Toilet Toilet # Voids 1 1 - Labs CBC & Chem 7: 01/31/21 18:56 02/02/21 10:05 Labs: Abnormal Lab Results - Last 24 Hours (Table) 02/01/21 02/02/21 Range/Units 15:10 10:05 BUN 58 H (7-17) mg/dL Creatinine 1.77 H (0.52-1.04) mg/dL Glucose 114 H (74-99) mg/dL Ur Leukocyte Esterase Trace H (Negative) Urine Bacteria Moderate H (None) /hpf Hyaline Casts 15 H (0-2) /lpf Urine Mucus Rare H (None) /hpf
--- NOTE | 2021-02-02 15:22 | P.DS ---
Providers Date of admission: 01/31/21 20:47 Expected date of discharge: 02/02/21 Attending physician: Kody Hudson Consults: 01/31/21 20:47 Consult Physician Routine Consulting Provider: Kole Foss Consult Reason/Comments: Elevated troponin Do you want consulting provider notified?: Already Contacted 02/01/21 10:27 Consult Physician Routine Consulting Provider: Denzel Giles Consult Reason/Comments: acute renal failure Do you want consulting provider notified?: Yes Primary care physician: Kody Hudson Hospital Course: Final Diagnoses: Increased shortness of breath, suspect acute COPD exacerbation, BNP elevated, no acute CHF exacerbation as per cardiology Acute renal failure, prerenal secondary to diuretics, NSAIDs, hypotension, baseline around 1. Chronic CHF exacerbation, diastolic dysfunction Chronic hypoxic respiratory failure, wears 2 L nasal cannula at home Troponin leak secondary to acute renal failure, possible ACS-cardiology consulted. Recent cardiac catheterization 01/10/2021 ,reporting mild to moderate CAD including RCA 40% stenosis, OM 1 50-60% ( iFr normal), distal circumflex approximately 70% (iFr normal), severely elevated left-sided filling pressures - recommending medical management with aggressive diuresing. Hypertension Hyperlipidemia Hypothyroidism Previous history of eating dependent Morbid obesity with a BMI 46.7 Obstructive sleep apnea Hospital course:This is an 80-year-old female with past medical history of CHF, COPD ,chronic hypoxic respiratory failure, hypertension, obesity,admitted with worsening shortness of breath, no cough. Denies nausea vomiting or diarrhea. Denies fever or chills or congestion. Recently hospitalized with acute COPD and CHF exacerbation. 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 Patient reports that in 1 month she lost a significant amount of weight. Patient also reports to taking NSAIDs, Motrin 2-3 times daily for knee pain.Maintaining O2 sats in the 90s on 2 L nasal cannula-Baseline. Vital signs stable, with systolic blood pressure in the low 100s.T-max 99.9, normal WBC. Hemoglobin 11.3, platelets 180, sodium 134, potassium 5.1, BUN 65, creatinine 2.73, baseline around 1 left against and 1.1. EKG reported normal sinus rhythm, right bundle branch block, left ventricular hypertrophy, left axis deviation. Troponin 0.230, 0.251. BNP elevated at 4000. UA reported moderate bacteria, trace leukocytes, negative nitrates. Coronavirus not detected. Chest x-ray reported no active cardiopulmonary disease, clearing of lower lobe pulmonary infiltrates compared to prior exam. Evaluated by cardiology and nephrology. No CHF exacerbation as per cardiology. TED inhibitor and Lasix remains on hold as patient continues on gentle IV fluid hydration. Labs pending. Reeducated patient on no NSAIDs. Patient will be discharged home today in stable condition with guarded prognosis ,pending labs and final DC recommendations and clearance including diuretics per nephrology and cardiology. PHYSICAL EXAM: GENERAL: A & O X 3,Sitting up in bed,NAD CARDIOVASCULAR: S1, S2 regular. Systolic murmur RESPIRATION: Breath sounds essentially clear, diminished in the bases. ABDOMEN: Soft, nondistended, nontender .Positive bowel sounds. LEGS: Mild edema-minimal compared to prior visit. No calf tenderness. NERVOUS SYSTEM: Cranial N 2-12 grossly normal. No focal deficits. The impression and plan of care has been dictated as directed. : I performed a history and examination of this patient, discussed the same with the dictator. I agree with the dictator's note ,documented as a scribe. Any additional findings or plans will be noted. Patient Condition at Discharge: Stable Plan - Discharge Summary Discharge Rx Participant: No New Discharge Prescriptions: New predniSONE 10 mg PO DIRECTED #30 tab Continue Timolol 0.5% Ophth Soln [Timoptic 0.5% Ophth Soln] 1 drop BOTH EYES BID Sertraline HCl [Zoloft] 50 mg PO DAILY Montelukast Sodium [Singulair] 10 mg PO HS carvediloL [Coreg] 3.125 mg PO BID Brimonidine Tartrate [Alphagan P 0.2% Ophth Soln] 1 drop BOTH EYES BID Albuterol Nebulized [Ventolin Nebulized] 2.5 mg INHALATION RT-QID PRN PRN Reason: Shortness Of Breath Guaifen/Dextromethorphan/PE [Mucinex Fast-Max Congest-Cough] 10 ml PO BID PRN PRN Reason: Congestion Pantoprazole [Protonix] 40 mg PO AC-BRKFST #30 tablet. Levothyroxine Sodium [Synthroid] 50 mcg PO DAILY Aspirin EC [Ecotrin Low Dose] 81 mg PO HS traMADol HCL [Ultram] 50 mg PO Q12H PRN PRN Reason: Pain Discontinued lisinopriL [Zestril] 10 mg PO DAILY #30 tab Discharge Medication List Montelukast Sodium [Singulair] 10 mg PO HS 04/23/20 [History] Sertraline HCl [Zoloft] 50 mg PO DAILY 04/23/20 [History] Timolol 0.5% Ophth Soln [Timoptic 0.5% Ophth Soln] 1 drop BOTH EYES BID 04/23/20 [History] carvediloL [Coreg] 3.125 mg PO BID 04/23/20 [History] Albuterol Nebulized [Ventolin Nebulized] 2.5 mg INHALATION RT-QID PRN 01/06/21 [History] Brimonidine Tartrate [Alphagan P 0.2% Ophth Soln] 1 drop BOTH EYES BID 01/06/21 [History] Guaifen/Dextromethorphan/PE [Mucinex Fast-Max Congest-Cough] 10 ml PO BID PRN 01/06/21 [History] Pantoprazole [Protonix] 40 mg PO AC-BRKFST #30 tablet. 01/12/21 [Rx] Aspirin EC [Ecotrin Low Dose] 81 mg PO HS 01/31/21 [History] Levothyroxine Sodium [Synthroid] 50 mcg PO DAILY 01/31/21 [History] traMADol HCL [Ultram] 50 mg PO Q12H PRN 01/31/21 [History] predniSONE 10 mg PO DIRECTED #30 tab 02/02/21 [Rx] Follow up Appointment(s)/Referral(s): Kody Hudson DO [Primary Care Provider] - 3 Days [facility], [NON-STAFF] - Ambulatory/Diagnostic Orders: Complete Blood Count w/diff [LAB.AMB] Time Frame: 3 Days, Location: None Selected Patient Instructions/Handouts: Acute Kidney Injury (GEN), COPD (Chronic Obstructive Pulmonary Disease) (GEN) Activity/Diet/Wound Care/Special Instructions: No NSAIDs/no Motrin/no Aleve. TED inhibitor/Lasix on hold. final DC recommendations and clearance including Diuretic recommendations from nephrology and cardiology ice to bilateral knees and Tylenol
== END 2021-02-02 17:18 | disposition home health service (06) | DRG 191 ==
LOC: EC 15:28 → 3SCARD 20:47
PROVIDERS: ADMIT Family Medicine; ATTEND Family Medicine
DX: J44.1 Chronic obstructive pulmonary disease with (acute) exacerbation (principal); I50.32 Chronic diastolic (congestive) heart failure; Z68.42 Body mass index [BMI] 45.0-49.9, adult; I42.0 Dilated cardiomyopathy; J96.11 Chronic respiratory failure with hypoxia; N17.9 Acute kidney failure, unspecified; E87.2 Acidosis; I10 Essential (primary) hypertension; I11.0 Hypertensive heart disease with heart failure; E03.9 Hypothyroidism, unspecified; E66.01 Morbid (severe) obesity due to excess calories; E78.5 Hyperlipidemia, unspecified; G47.33 Obstructive sleep apnea (adult) (pediatric); I25.10 Atherosclerotic heart disease of native coronary artery without angina pectoris; I25.2 Old myocardial infarction; Z87.891 Personal history of nicotine dependence; I45.10 Unspecified right bundle-branch block; Z99.81 Dependence on supplemental oxygen; T50.2X5A Adverse effect of carbonic-anhydrase inhibitors, benzothiadiazides and other diuretics, initial encounter; T39.395A Adverse effect of other nonsteroidal anti-inflammatory drugs [NSAID], initial encounter; Z79.890 Hormone replacement therapy; Z79.899 Other long term (current) drug therapy; Z20.822 Contact with and (suspected) exposure to COVID-19; Z82.5 Family history of asthma and other chronic lower respiratory diseases; Z90.710 Acquired absence of both cervix and uterus; R79.89 Other specified abnormal findings of blood chemistry; Z79.82 Long term (current) use of aspirin; I95.9 Hypotension, unspecified; Z82.0 Family history of epilepsy and other diseases of the nervous system; Z83.6 Family history of other diseases of the respiratory system; Z81.1 Family history of alcohol abuse and dependence
CPT/HCPCS: 36415; 71045; 76770; 80048; 80053; 81001; 82550; 83605; 83735; 83880; 84484; 85025; 85610; 85730; 87635; 93005; 94640; 99285

== ENCOUNTER 2021-04-03 04:51 | Inpatient (IN) | payer MEDICARE ==
[2021-04-03] MEDS ORDERED: ALBUTEROL NEBULIZED 2.5 MG/3 ML INHALATION STA (04:54)
[2021-04-03] MEDS ORDERED: IPRATROPIUM 0.5 MG/2.5 ML NEBU INHALATION STA (04:54)
--- NOTE | 2021-04-03 04:55 | ED ---
SOB HPI - General Stated Complaint: LACHELLE Time Seen by Provider: 04/03/21 04:53 Source: RN notes reviewed, old records reviewed Mode of arrival: EMS Limitations: no limitations - History of Present Illness Initial Comments: This is an 80-year-old female presenting in significant distress. Patient's oxygen to Unable to catch her breath. Patient is long history of difficulty breathing secondary to CHF and COPD. Denies fever or chest pain currently history otherwise obtained from EMS and patient's prior charting per EMS patient's oxygen was less than 50% at home MD Complaint: shortness of breath, cough -: unknown Severity: severe Severity scale (1-10): 10 Consistency: constant Improves With: oxygen, rest Worsens With: exertion, movement Known History Of: COPD, congestive heart failure Context: recent illness Associated Symptoms: cough, sputum production Treatments Prior to Arrival: oxygen, bronchodilator - Related Data Home Medications Medication Instructions Recorded Confirmed Montelukast Sodium [Singulair] 10 mg PO HS 04/23/20 04/03/21 Timolol 0.5% Ophth Soln [Timoptic 1 drop BOTH EYES BID 04/23/20 04/03/21 0.5% Ophth Soln] Albuterol Nebulized [Ventolin 2.5 mg INHALATION RT-QID PRN 01/06/21 04/03/21 Nebulized] Brimonidine Tartrate [Alphagan P 1 drop BOTH EYES BID 01/06/21 04/03/21 0.2% Ophth Soln] Aspirin EC [Ecotrin Low Dose] 81 mg PO HS 01/31/21 04/03/21 Levothyroxine Sodium [Synthroid] 50 mcg PO DAILY 01/31/21 04/03/21 traMADol HCL [Ultram] 50 mg PO Q12H PRN 01/31/21 04/03/21 Mucinex 44 Dm 1 tab PO BID 04/03/21 04/03/21 Sertraline [Zoloft] 25 mg PO DAILY 04/03/21 04/03/21 Simethicone [Gas-X] 125 mg PO DAILY PRN 04/03/21 04/03/21 Previous Rx's Medication Instructions Recorded Pantoprazole [Protonix] 40 mg PO SHIVAM #30 blanco. 01/12/21 Atorvastatin [Lipitor] 40 mg PO DAILY #30 tab 04/06/21 Losartan [Cozaar] 25 mg PO 1200 #30 tab 04/06/21 SILVER sulfADIAZINE Cream 1 applic TOPICAL DAILY applic 04/06/21 [Silvadene 1% Cream] carvediloL [Coreg] 6.25 mg PO BID-W/MEALS #60 tab 04/06/21 Furosemide [Lasix] 40 mg PO BID@0900,1600 tab 04/07/21 Allergies Allergy/AdvReac Type Severity Reaction Status Date / Time No Known Allergies Allergy Verified 04/03/21 07:54 Review of Systems ROS Statement: Those systems with pertinent positive or pertinent negative responses have been documented in the HPI. ROS Other: All systems not noted in ROS Statement are negative. Past Medical History Past Medical History: Chest Pain / Angina, Heart Failure, COPD, Hyperlipidemia, Hypertension, Thyroid Disorder Additional Past Medical History / Comment(s): Intubated in September, home O2 PRN Last Myocardial Infarction Date:: unknown History of Any Multi-Drug Resistant Organisms: None Reported Past Surgical History: Bowel Resection, Section, Hernia Repair, Hysterectomy Additional Past Surgical History / Comment(s): 01/10/21 cardiac cath/treated medically, bowel resection d/t fissures, colonoscopies/benign polypectomies, umbilical hernia repair Past Anesthesia/Blood Transfusion Reactions: No Reported Reaction Past Psychological History: No Psychological Hx Reported Smoking Status: Former smoker Past Alcohol Use History: None Reported Past Drug Use History: None Reported - Past Family History Mother Family Medical History: Dementia Father Family Medical History: COPD Additional Family Medical History / Comment(s): etoh General Exam General appearance: alert, in no apparent distress Head exam: Present: atraumatic, normocephalic, normal inspection Eye exam: Present: normal appearance, PERRL, EOMI. Absent: scleral icterus, conjunctival injection, periorbital swelling ENT exam: Present: normal exam, mucous membranes moist Neck exam: Present: normal inspection. Absent: tenderness, meningismus, lympha denopathy Respiratory exam: Present: respiratory distress, wheezes, rhonchi, accessory muscle use, decreased breath sounds, prolonged expiratory. Absent: rales, stridor Cardiovascular Exam: Present: normal rhythm, tachycardia, normal heart sounds. Absent: systolic murmur, diastolic murmur, rubs, gallop, clicks GI/Abdominal exam: Present: soft, normal bowel sounds. Absent: distended, tenderness, guarding, rebound, rigid Extremities exam: Present: normal inspection, full ROM, normal capillary refill. Absent: tenderness, pedal edema, joint swelling, calf tenderness Back exam: Present: normal inspection Neurological exam: Present: alert, oriented X3, CN II-XII intact Psychiatric exam: Present: normal affect, normal mood Skin exam: Present: warm, dry, intact, normal color. Absent: rash Course Vital Signs 04/03/21 04/03/21 04/03/21 04:53 05:02 05:52 Temperature 98.7 F Pulse Rate 106 H 91 68 Pulse Rate [ Pulse Oximetery ] Respiratory 25 H 25 H Rate Blood Pressure 195/116 168/99 Blood Pressure [Right Arm] O2 Sat by Pulse 95 100 Oximetry 04/03/21 04/03/21 04/03/21 06:13 07:02 07:26 Temperature Pulse Rate 76 67 60 Pulse Rate [ Pulse Oximetery ] Respiratory 18 18 Rate Blood Pressure 152/80 152/95 Blood Pressure [Right Arm] O2 Sat by Pulse 98 99 Oximetry 04/03/21 04/03/21 04/03/21 07:34 08:54 10:44 Temperature 98.6 F 98.5 F Pulse Rate 65 65 Pulse Rate [ 76 Pulse Oximetery ] Respiratory 18 20 18 Rate Blood Pressure 150/83 140/61 Blood Pressure 122/60 [Right Arm] O2 Sat by Pulse 93 L 97 98 Oximetry 04/03/21 04/03/21 04/03/21 12:05 13:10 15:04 Temperature Pulse Rate 61 68 67 Pulse Rate [ Pulse Oximetery ] Respiratory 20 20 20 Rate Blood Pressure 115/51 109/64 152/87 Blood Pressure [Right Arm] O2 Sat by Pulse 96 96 96 Oximetry 04/03/21 04/03/21 04/03/21 15:24 15:37 15:39 Temperature Pulse Rate 66 72 66 Pulse Rate [ Pulse Oximetery ] Respiratory 20 Rate Blood Pressure 147/87 Blood Pressure [Right Arm] O2 Sat by Pulse 94 L Oximetry 04/03/21 04/03/21 16:30 17:52 Temperature Pulse Rate 68 76 Pulse Rate [ Pulse Oximetery ] Respiratory 20 20 Rate Blood Pressure 159/83 168/89 Blood Pressure [Right Arm] O2 Sat by Pulse 95 94 L Oximetry - Reevaluation(s) Reevaluation #1: Medical record is reviewed Patient symptoms are improved here in the ER Patient informed results questions answered Medical Decision Making - Medical Decision Making 80 female to the ER for evaluation presents today for severe shortness of breath weakness pulmonary edema COPD with exacerbation. Patient be admitted for cardiology and pulmonology to evaluate. Supplemental O2 and supportive care - Lab Data Result diagrams: 04/07/21 07:23 04/07/21 07:23 Lab Results 04/03/21 04/03/21 04/03/21 Range/Units 05:00 05:00 05:00 WBC 11.2 H (3.8-10.6) k/uL RBC 4.08 (3.80-5.40) m/uL Hgb 9.0 L D (11.4-16.0) gm/dL Hct 29.8 L (34.0-46.0) % MCV 73.0 L (80.0-100.0) fL MCH 22.0 L (25.0-35.0) pg MCHC 30.2 L (31.0-37.0) g/dL RDW 18.6 H (11.5-15.5) % Plt Count 351 (150-450) k/uL MPV 6.7 Neutrophils % 61 % Lymphocytes % 30 % Monocytes % 6 % Eosinophils % 2 % Basophils % 1 % Neutrophils # 6.8 (1.3-7.7) k/uL Lymphocytes # 3.3 (1.0-4.8) k/uL Monocytes # 0.6 (0-1.0) k/uL Eosinophils # 0.3 (0-0.7) k/uL Basophils # 0.1 (0-0.2) k/uL Hypochromasia Marked Poikilocytosis Moderate Anisocytosis Slight Microcytosis Moderate PT 10.2 (9.0-12.0) sec INR 0.9 (<1.2) APTT 20.2 L (22.0-30.0) sec Sodium 139 (137-145) mmol/L Potassium 4.9 (3.5-5.1) mmol/L Chloride 105 (98-107) mmol/L Carbon Dioxide 27 (22-30) mmol/L Anion Gap 7 mmol/L BUN 21 H (7-17) mg/dL Creatinine 1.11 H (0.52-1.04) mg/dL Est GFR (CKD-EPI)AfAm 54 (>60 ml/min/1.73 sqM) Est GFR (CKD-EPI)NonAf 47 (>60 ml/min/1.73 sqM) Glucose 257 H (74-99) mg/dL Plasma Lactic Acid Pete (0.7-2.0) mmol/L Calcium 8.8 (8.4-10.2) mg/dL Phosphorus (2.5-4.5) mg/dL Magnesium (1.6-2.3) mg/dL Total Bilirubin 0.4 (0.2-1.3) mg/dL AST 23 (14-36) U/L ALT 9 (4-34) U/L Alkaline Phosphatase 102 (38-126) U/L Creatine Kinase 44 (30-135) U/L Troponin I (0.000-0.034) ng/mL NT-Pro-B Natriuret Pep pg/mL Total Protein 6.4 (6.3-8.2) g/dL Albumin 3.7 (3.5-5.0) g/dL Coronavirus (PCR) (Not Detectd) 04/03/21 04/03/21 04/03/21 Range/Units 05:00 05:00 05:00 WBC (3.8-10.6) k/uL RBC (3.80-5.40) m/uL Hgb (11.4-16.0) gm/dL Hct (34.0-46.0) % MCV (80.0-100.0) fL MCH (25.0-35.0) pg MCHC (31.0-37.0) g/dL RDW (11.5-15.5) % Plt Count (150-450) k/uL MPV Neutrophils % % Lymphocytes % % Monocytes % % Eosinophils % % Basophils % % Neutrophils # (1.3-7.7) k/uL Lymphocytes # (1.0-4.8) k/uL Monocytes # (0-1.0) k/uL Eosinophils # (0-0.7) k/uL Basophils # (0-0.2) k/uL Hypochromasia Poikilocytosis Anisocytosis Microcytosis PT (9.0-12.0) sec INR (<1.2) APTT (22.0-30.0) sec Sodium (137-145) mmol/L Potassium (3.5-5.1) mmol/L Chloride (98-107) mmol/L Carbon Dioxide (22-30) mmol/L Anion Gap mmol/L BUN (7-17) mg/dL Creatinine (0.52-1.04) mg/dL Est GFR (CKD-EPI)AfAm (>60 ml/min/1.73 sqM) Est GFR (CKD-EPI)NonAf (>60 ml/min/1.73 sqM) Glucose (74-99) mg/dL Plasma Lactic Acid Pete 1.9 (0.7-2.0) mmol/L Calcium (8.4-10.2) mg/dL Phosphorus (2.5-4.5) mg/dL Magnesium (1.6-2.3) mg/dL Total Bilirubin (0.2-1.3) mg/dL AST (14-36) U/L ALT (4-34) U/L Alkaline Phosphatase (38-126) U/L Creatine Kinase (30-135) U/L Troponin I 0.047 H* (0.000-0.034) ng/mL NT-Pro-B Natriuret Pep 4970 pg/mL Total Protein (6.3-8.2) g/dL Albumin (3.5-5.0) g/dL Coronavirus (PCR) (Not Detectd) 04/03/21 04/03/21 Range/Units 05:00 05:31 WBC (3.8-10.6) k/uL RBC (3.80-5.40) m/uL Hgb (11.4-16.0) gm/dL Hct (34.0-46.0) % MCV (80.0-100.0) fL MCH (25.0-35.0) pg MCHC (31.0-37.0) g/dL RDW (11.5-15.5) % Plt Count (150-450) k/uL MPV Neutrophils % % Lymphocytes % % Monocytes % % Eosinophils % % Basophils % % Neutrophils # (1.3-7.7) k/uL Lymphocytes # (1.0-4.8) k/uL Monocytes # (0-1.0) k/uL Eosinophils # (0-0.7) k/uL Basophils # (0-0.2) k/uL Hypochromasia Poikilocytosis Anisocytosis Microcytosis PT (9.0-12.0) sec INR (<1.2) APTT (22.0-30.0) sec Sodium (137-145) mmol/L Potassium (3.5-5.1) mmol/L Chloride (98-107) mmol/L Carbon Dioxide (22-30) mmol/L Anion Gap mmol/L BUN (7-17) mg/dL Creatinine (0.52-1.04) mg/dL Est GFR (CKD-EPI)AfAm (>60 ml/min/1.73 sqM) Est GFR (CKD-EPI)NonAf (>60 ml/min/1.73 sqM) Glucose (74-99) mg/dL Plasma Lactic Acid Pete (0.7-2.0) mmol/L Calcium (8.4-10.2) mg/dL Phosphorus 4.2 (2.5-4.5) mg/dL Magnesium 2.2 (1.6-2.3) mg/dL Total Bilirubin (0.2-1.3) mg/dL AST (14-36) U/L ALT (4-34) U/L Alkaline Phosphatase (38-126) U/L Creatine Kinase (30-135) U/L Troponin I (0.000-0.034) ng/mL NT-Pro-B Natriuret Pep pg/mL Total Protein (6.3-8.2) g/dL Albumin (3.5-5.0) g/dL Coronavirus (PCR) Not Detected (Not Detectd) - EKG Data -: EKG Interpreted by Me (EKG is sinus tach 126 WI 164 QRS 122 QTC 472) - Radiology Data Radiology results: report reviewed (Chest x-ray negative for acute disease), image reviewed Critical Care Time Critical Care Time: Yes Total Critical Care Time: 31 Disposition Clinical Impression: CHF exacerbation, Hypoxia, Congestive heart failure, Acute pulmonary edema, COPD exacerbation, Acute kidney injury Disposition: ADMITTED IP TO THIS HOSP Condition: Stable Is patient prescribed a controlled substance at d/c from ED?: No
[2021-04-03 05:25] LABS: INR 0.9 (<1.2); Prothrombin Time 10.2 sec (9.0-12.0)
[2021-04-03 05:30] LABS: Albumin 3.7 g/dL (3.5-5.0); Calcium 8.8 mg/dL (8.4-10.2); Potassium 4.9 mmol/L (3.5-5.1); Total Bilirubin 0.4 mg/dL (0.2-1.3); Total Protein 6.4 g/dL (6.3-8.2)
[2021-04-03 05:32] LABS: Anisocytosis Slight; Basophils # (A) 0.1 k/uL (0-0.2); Basophils % (A) 1 %; Eosinophils # (A) 0.3 k/uL (0-0.7); Eosinophils % (A) 2 %; HCT 29.8 % (34.0-46.0); Hypochromasia Marked; Lymphocytes # (A) 3.3 k/uL (1.0-4.8); Lymphocytes % (A) 30 %; MCHC 30.2 g/dL (31.0-37.0); Mean Platelet Volume 6.7; Microcytosis Moderate; Monocytes # (A) 0.6 k/uL (0-1.0); Monocytes % (A) 6 %; Neutrophils # (A) 6.8 k/uL (1.3-7.7); Neutrophils % (A) 61 %; Platelet Count 351 k/uL (150-450); Poikilocytosis Moderate; RBC 4.08 m/uL (3.80-5.40); RDW 18.6 % (11.5-15.5); WBC 11.2 k/uL (3.8-10.6)
[2021-04-03 05:54] LABS: Partial Thromboplastin Time 20.2 sec (22.0-30.0)
--- NOTE | 2021-04-03 06:09 | XR ---
EXAM: XR Chest, 1 View CLINICAL HISTORY: ITS.REASON XR Reason: sob TECHNIQUE: Frontal view of the chest. COMPARISON: 01/31/2021 IMPRESSION: Cardiomegaly. Increased interstitial opacities, correlate with edema or infectious process. Mild bilateral pleural effusions.
[2021-04-03] MEDS ORDERED: FUROSEMIDE 10 MG/ML 4 ML VIAL IV STA (07:05)
[2021-04-03] MEDS ORDERED: carvediloL 6.25 MG TAB PO STA (08:59)
[2021-04-03] MEDS ORDERED: LOSARTAN 25 MG TAB PO SCH (09:00)
--- NOTE | 2021-04-03 10:40 | P.CNPUL ---
History of Present Illness Consult date: 04/03/21 Reason for consult: dyspnea History of present illness: This is an 80-year-old female with history of chronic diastolic congestive heart failure, morbid obesity, patient was admitted to the hospital with 1 week history of increased shortness of breath, apparently has not been compliant with her oral diuretics, mostly because of increased urination, and urinary incontinence. Patient presented to the hospital with mostly symptoms of shortness of breath, and her chest x-ray clearly showed evidence of pulmonary edema. Patient was given diuretics, placed on BiPAP, and the patient has received already Lasix a total of 40 mg IV I saw the patient emergency department. The patient is currently on a BiPAP at a pressure of 12/6 cm of water and FiO2 is at 40%. She is resting comfortably in bed. She is able to generate tidal volume of around 390 and her minute ventilation is around 5.3 L and she is able to tolerate a full face mask without any major difficulties. Current pulse ox is 95%. She received IV Lasix. Cardiology saw the patient. Coreg dose was adjusted and the patient is producing excellent urine output Review of Systems Review of Systems Constitutional: Negative HEENT: Negative Cardiac: Shortness of breath and orthopnea. Pulmonary: Shortness of breath and cough, no wheezing, no fever no chills no hemoptysis. GI: Negative Genitourinary: Negative Muscular skeletal: Negative Skin: Negative Neurologic: Negative Endocrine: Negative hematologic: Negative Past Medical History Past Medical History: Chest Pain / Angina, Heart Failure, COPD, Hyperlipidemia, Hypertension, Thyroid Disorder Additional Past Medical History / Comment(s): Intubated in September, home O2 PRN Last Myocardial Infarction Date:: unknown History of Any Multi-Drug Resistant Organisms: None Reported Past Surgical History: Bowel Resection, Section, Hernia Repair, Hysterectomy Additional Past Surgical History / Comment(s): 01/10/21 cardiac cath/treated medically, bowel resection d/t fissures, colonoscopies/benign polypectomies, umbilical hernia repair Past Anesthesia/Blood Transfusion Reactions: No Reported Reaction Past Psychological History: No Psychological Hx Reported Smoking Status: Former smoker Past Alcohol Use History: None Reported Past Drug Use History: None Reported - Past Family History Mother Family Medical History: Dementia Father Family Medical History: COPD Additional Family Medical History / Comment(s): etoh Medications and Allergies Home Medications Medication Instructions Recorded Confirmed Type Montelukast Sodium [Singulair] 10 mg PO HS 04/23/20 04/03/21 History Timolol 0.5% Ophth Soln [Timoptic 1 drop BOTH EYES BID 04/23/20 04/03/21 History 0.5% Ophth Soln] carvediloL [Coreg] 3.125 mg PO BID 04/23/20 04/03/21 History Albuterol Nebulized [Ventolin 2.5 mg INHALATION RT-QID PRN 01/06/21 04/03/21 History Nebulized] Brimonidine Tartrate [Alphagan P 1 drop BOTH EYES BID 01/06/21 04/03/21 History 0.2% Ophth Soln] Pantoprazole [Protonix] 40 mg PO AC-BRKFST #30 tablet. 01/12/21 04/03/21 Rx Aspirin EC [Ecotrin Low Dose] 81 mg PO HS 01/31/21 04/03/21 History Levothyroxine Sodium [Synthroid] 50 mcg PO DAILY 01/31/21 04/03/21 History traMADol HCL [Ultram] 50 mg PO Q12H PRN 01/31/21 04/03/21 History Mucinex 44 Dm 1 tab PO BID 04/03/21 04/03/21 History Sertraline [Zoloft] 25 mg PO DAILY 04/03/21 04/03/21 History Simethicone [Gas-X] 125 mg PO DAILY PRN 04/03/21 04/03/21 History Allergies Allergy/AdvReac Type Severity Reaction Status Date / Time No Known Allergies Allergy Verified 04/03/21 07:54 Physical Exam Vitals: Vital Signs Temp Pulse Resp BP Pulse Ox 04/03/21 08:54 65 20 150/83 97 04/03/21 07:26 60 18 152/95 99 04/03/21 07:02 67 18 152/80 98 04/03/21 06:13 76 04/03/21 05:52 68 04/03/21 05:02 98.7 F 91 25 H 168/99 100 04/03/21 04:53 106 H 25 H 195/116 95 Intake and Output 04/02/21 04/03/21 04/03/21 22:59 06:59 14:59 Other: Weight 122.924 kg GENERAL: The patient is alert and oriented x3, not in any acute distress. she is tolerating the BiPAP without any major difficulties and she is utilizing a full face mask. Head exam was generally normal. There was no scleral icterus or corneal arcus. Mucous membranes were moist. HEENT: Pupils are round and equally reacting to light. EOMI. No scleral icterus. No conjunctival pallor. Normocephalic, atraumatic. No pharyngeal erythema. No thyromegaly. CARDIOVASCULAR: S1 and S2 present. No murmurs, rubs, or gallops. PULMONARY: Cdiminished breath sounds and crackles in lung bases bilaterally ABDOMEN: Soft, nontender, nondistended, normoactive bowel sounds. No palpable organomegaly. MUSCULOSKELETAL: No joint swelling or deformity. -EXTREMITIES: No cyanosis, clubbing, . Mild bilateral leg edema. NEUROLOGICAL: Gross neurological examination did not reveal any focal deficits. Examination of the skin revealed no evidence of significant rashes, suspicious appearing nevi or other concerning lesions. Results - Laboratory Findings CBC and BMP: 04/03/21 05:00 04/03/21 05:00 PT/INR, D-dimer PT 10.2 sec (9.0-12.0) 04/03/21 05:00 INR 0.9 (<1.2) 04/03/21 05:00 Abnormal lab findings: Abnormal Labs 04/03/21 04/03/21 04/03/21 05:00 05:00 05:00 WBC 11.2 H Hgb 9.0 L D Hct 29.8 L MCV 73.0 L MCH 22.0 L MCHC 30.2 L RDW 18.6 H APTT 20.2 L BUN 21 H Creatinine 1.11 H Glucose 257 H Troponin I 04/03/21 05:00 WBC Hgb Hct MCV MCH MCHC RDW APTT BUN Creatinine Glucose Troponin I 0.047 H* - Diagnostic Findings Chest x-ray: image reviewed Assessment and Plan Plan: 1 acute exacerbation of chronic diastolic heart failure. The patient has hyper tensive heart disease with concentric LVH, severe with a preserved LV functionand the patient is coming in with cardiomegaly, bilateral pleural effusion and interstitial edema and secondary respiratory failure. Currently on BiPAP at a pressure of 12/6 cm of water with an FiO2 of 40%. The patient has received diuretics and the patient is already improving and the patient is responding to diuretics. She is an emergency hold and she is going to go to telemetry unit. Her chest x-ray showing cardiomegaly and bilateral pleural effusion upon pulmonary vessel congestion. I do question her compliance to diuretics knowing that the patient had similar admissions on multiple occasions last seen by our services back in January 2021. 2 bilateral pleural effusion 3 chronic hypoxic respiratory failure maintained on oxygen on outpatient basis at 2 L 4 previous history of vent dependent respiratory failure and previous history of intubation mechanical ventilation for respiratory failure 5 morbid obesity with a BMI 55 , possibly has underlying obstructive sleep apnea 6 hypertension 7 hyperlipidemia 8 hypothyroidism 9 , troponin leak without any acute ischemic EKG changes. The patient has old Q waves involving the inferior leads and a bundle-branch block pattern. Plan Continue BiPAP therapy for now. Continue the IV Lasix 40 mg every 8 hours and monitor the fluid balance and july ctrolytes. The patient has a Ren catheter in place DuoNeb nebulized treatments around the clock Subcu heparin for DVT prophylaxis Resume home medications We'll keep on BiPAP throughout the day today and May given a break in the later stage I she is improved. Sleep apnea suspected based on her anatomic features COVID-19 testing is been negative.
[2021-04-03 10:49] LABS: Magnesium 2.2 mg/dL (1.6-2.3); Phosphorus 4.2 mg/dL (2.5-4.5)
[2021-04-03] MEDS ORDERED: methylPREDNISolone SOD SUCCI 125 MG/2 ML VIAL IV SCH (12:00)
--- NOTE | 2021-04-03 12:29 | P.CRDCN ---
History of Present Illness Consult date: 04/03/21 Consult reason: shortness of breath History of present illness: The patient is an 80-year-old female with past medical history of congestive heart failure, hypertension, dyslipidemia, and obesity. She follows in the office with Dr. Chin. We were consulted to see the patient for shortness of breath. The patient states he started developing increased shortness breath over the last several days. She denied any chest pain or chest pressure. The patient was interviewed and examined in the emergency room. She was lying comfortably propped up with her BiPAP machine. She states she is feeling much better since her arrival to the emergency room. She does still have some shortness of breath, but appears comfortable at rest. No chest pain or chest pressure. No heart racing or fluttering. No dizziness, or lightheadedness. DIAGNOSTICS: Chest x-ray shows mild bilateral pleural effusions EKG shows atrial tachycardia Laboratory data shows WBC 11.2, hemoglobin 9.0, hematocrit 29.8, platelet 351, sodium 139, potassium 4.9, BUN 21, creatinine 1.11, magnesium 2.2 I'm a AST 23, ALT 9, BNP 4970, troponin 0.047, Covid testing negative Vital signs: Blood pressure 140/61, respiratory rate 18, pulse rate 65, temperature 98.5F, SpO2 98% on BiPAP PAST MEDICAL HISTORY: Coronary artery disease, congestive heart failure, COPD, dyslipidemia, obesity, acute kidney injury in January 2021 REVIEW OF SYSTEMS: No fever or chills. No cough or expectoration. No diaphoresis. Patient denies headache, dizziness, blurred vision, double vision. Patient denies any stomach discomfort. No nausea, vomiting. No hematochezia. No hematemesis. Denies any black stools or blood in his stools. Denies dysuria or hematuria. No muscle weakness or numbness. Positive for shortness of breath PHYSICAL EXAMINATION: This is a 80-year-old female in no apparent distress at the time of my examination. On BiPAP HEENT: Head is atraumatic, normocephalic. Pupils are equal, round. Sclerae anicteric. Conjunctivae are clear. Mucous membranes of the mouth are moist. Neck is supple. There is no jugular venous distention. No carotid bruit is heard. CHEST EXAMINATION: Lungs are diminished. Inspiratory wheezes bilaterally. No chest wall tenderness is noted on palpation or with deep breathing. HEART EXAMINATION: Heart regular rate and rhythm. S1, S2 heard. No murmurs, gallops or rub. ABDOMEN: Soft, nontender. Bowel sounds are heard. No organomegaly noted. EXTREMITIES: 2+ peripheral pulses with no evidence of peripheral edema and no calf tenderness noted. NEUROLOGIC EXAMINATION: Patient is awake, alert and oriented x3. FINAL ASSESSMENT AND PLAN: Diastolic heart failure, BNP 4970 Elevated troponin, likely secondary to atrial tachycardia Atrial tachycardia, converted back to sinus mechanism Shortness of breath, CHF versus pleural effusions History of chronic hypoxic respiratory failure, on home oxygen Morbid obesity, BMI 55 Multivessel coronary artery disease, FFR on circumflex lesion nonischemic PLAN: Echocardiogram and Doppler study to assess heart structure and function Increase the patient's carvedilol to 6.25 twice daily for congestive heart failure Start losartan 25 mg for hypertension Gentle diuresis with 40 mg IV push of Lasix daily; patient has history of acute kidney injury in January 2021 Further recommendations will be based upon clinical course The patient has been seen and evaluated. Plan of care has been reviewed and agr eed upon by Dr Hernandez. Past Medical History Past Medical History: Chest Pain / Angina, Heart Failure, COPD, Hyperlipidemia, Hypertension, Thyroid Disorder Additional Past Medical History / Comment(s): Intubated in September, home O2 PRN Last Myocardial Infarction Date:: unknown History of Any Multi-Drug Resistant Organisms: None Reported Past Surgical History: Bowel Resection, Section, Hernia Repair, Hysterectomy Additional Past Surgical History / Comment(s): 01/10/21 cardiac cath/treated medically, bowel resection d/t fissures, colonoscopies/benign polypectomies, umbilical hernia repair Past Anesthesia/Blood Transfusion Reactions: No Reported Reaction Past Psychological History: No Psychological Hx Reported Smoking Status: Former smoker Past Alcohol Use History: None Reported Past Drug Use History: None Reported - Past Family History Mother Family Medical History: Dementia Father Family Medical History: COPD Additional Family Medical History / Comment(s): etoh Medications and Allergies Home Medications Medication Instructions Recorded Confirmed Type Montelukast Sodium [Singulair] 10 mg PO HS 04/23/20 04/03/21 History Timolol 0.5% Ophth Soln [Timoptic 1 drop BOTH EYES BID 04/23/20 04/03/21 History 0.5% Ophth Soln] carvediloL [Coreg] 3.125 mg PO BID 04/23/20 04/03/21 History Albuterol Nebulized [Ventolin 2.5 mg INHALATION RT-QID PRN 01/06/21 04/03/21 History Nebulized] Brimonidine Tartrate [Alphagan P 1 drop BOTH EYES BID 01/06/21 04/03/21 History 0.2% Ophth Soln] Pantoprazole [Protonix] 40 mg PO AC-BRKFST #30 tablet.dr 01/12/21 04/03/21 Rx Aspirin EC [Ecotrin Low Dose] 81 mg PO HS 01/31/21 04/03/21 History Levothyroxine Sodium [Synthroid] 50 mcg PO DAILY 01/31/21 04/03/21 History traMADol HCL [Ultram] 50 mg PO Q12H PRN 01/31/21 04/03/21 History Mucinex 44 Dm 1 tab PO BID 04/03/21 04/03/21 History Sertraline [Zoloft] 25 mg PO DAILY 04/03/21 04/03/21 History Simethicone [Gas-X] 125 mg PO DAILY PRN 04/03/21 04/03/21 History Allergies Allergy/AdvReac Type Severity Reaction Status Date / Time No Known Allergies Allergy Verified 04/03/21 07:54 Physical Exam Vitals: Vital Signs Temp Pulse Resp BP Pulse Ox 04/03/21 12:05 61 20 115/51 96 04/03/21 10:44 98.5 F 65 18 140/61 98 04/03/21 08:54 65 20 150/83 97 04/03/21 07:26 60 18 152/95 99 04/03/21 07:02 67 18 152/80 98 04/03/21 06:13 76 04/03/21 05:52 68 04/03/21 05:02 98.7 F 91 25 H 168/99 100 04/03/21 04:53 106 H 25 H 195/116 95 Intake and Output 04/02/21 04/03/21 04/03/21 22:59 06:59 14:59 Output Total 800 Balance -800 Output: Urine 800 Other: Weight 122.924 kg Results 04/03/21 05:00 04/03/21 05:00 Cardiac Enzymes 04/03/21 04/03/21 Range/Units 05:00 05:00 AST 23 (14-36) U/L Troponin I 0.047 H* (0.000-0.034) ng/mL Coagulation 04/03/21 Range/Units 05:00 PT 10.2 (9.0-12.0) sec APTT 20.2 L (22.0-30.0) sec CBC 04/03/21 Range/Units 05:00 WBC 11.2 H (3.8-10.6) k/uL RBC 4.08 (3.80-5.40) m/uL Hgb 9.0 L D (11.4-16.0) gm/dL Hct 29.8 L (34.0-46.0) % Plt Count 351 (150-450) k/uL Comprehensive Metabolic Panel 04/03/21 Range/Units 05:00 Sodium 139 (137-145) mmol/L Potassium 4.9 (3.5-5.1) mmol/L Chloride 105 (98-107) mmol/L Carbon Dioxide 27 (22-30) mmol/L BUN 21 H (7-17) mg/dL Creatinine 1.11 H (0.52-1.04) mg/dL Glucose 257 H (74-99) mg/dL Calcium 8.8 (8.4-10.2) mg/dL AST 23 (14-36) U/L ALT 9 (4-34) U/L Alkaline Phosphatase 102 (38-126) U/L Total Protein 6.4 (6.3-8.2) g/dL Albumin 3.7 (3.5-5.0) g/dL Current Medications Generic Name Dose Route Start Last Admin Trade Name Freq PRN Reason Stop Dose Admin Albuterol Sulfate 2.5 mg 04/03/21 10:40 Albuterol Nebulized 2.5 Mg/3 Ml INHALATION RT-QID PRN Shortness Of Breath Albuterol/Ipratropium 3 ml 04/03/21 07:04 Ipratropium-Albuterol 3 Ml Neb INHALATION RT-Q4H PRN Shortness Of Breath Or Wheezing Aspirin 81 mg 04/03/21 21:00 Aspirin 81 Mg PO HS SANKET Carvedilol 6.25 mg 04/03/21 17:30 Carvedilol 6.25 Mg Tab PO BID-W/MEALS SANKET Furosemide 40 mg 04/04/21 09:00 Furosemide 10 Mg/Ml 4 Ml Vial IV DAILY SANKET Levothyroxine Sodium 50 mcg 04/04/21 06:30 Levothyroxine 50 [place] [address] [facility] Losartan Potassium 25 mg 04/04/21 12:00 Losartan 25 Mg Tab PO 1200 [facility] Methylprednisolone Sodium Succinate 60 mg 04/03/21 12:00 Methylprednisolone Sod Succi 125 Mg/2 Ml Vial IV Q6HR [facility] Montelukast Sodium 10 mg 04/03/21 21:00 Montelukast 10 Mg Tab PO HS SANKET Pantoprazole Sodium 40 mg 04/04/21 07:30 Pantoprazole 40 Mg Tablet PO AC-BRKFST SANKET Sertraline HCl 25 mg 04/04/21 09:00 Sertraline 25 Mg Tab PO DAILY [facility] Timolol Maleate 1 drops 04/03/21 21:00 Timolol 0.5% Ophth Drops 5 Ml Btl BOTH EYES BID [facility] Tramadol HCl 50 mg 04/03/21 10:40 Tramadol 50 Mg Tab PO Q12H PRN Pain Intake and Output 04/02/21 04/03/21 04/03/21 22:59 06:59 14:59 Output Total 800 Balance -800 Output: Urine 800 Other: Weight 122.924 kg 04/03/21 05:00 04/03/21 05:00
[2021-04-03] MEDS: IPRATROPIUM-ALBUTEROL 3 ML NEB INHALATION PRN ×2 (15:24→20:12)
[2021-04-03] MEDS ORDERED: FUROSEMIDE 10 MG/ML 4 ML VIAL IV SCH ×2 (16:00→21:00)
--- NOTE | 2021-04-03 16:02 | P.HPIM ---
History of Present Illness 80-year-old the female with a known history of congestive heart failure chronic diastolic dysfunction had multiple hospital physician the past for the same. admits that she is noncompliant with the diet and she always gets admitted to holiday weekends because of her noncompliance with the diet with heart failure exacerbation. Patient was requiring BiPAP on admission. Patient was given IV Lasix after which the her overall clinical condition significantly improved and patient is presently on nasal cannula oxygen. Patient denied any fever chills patient symptoms on and off on going much worse since last night. Patient was also complaining of orthopnea. Patient usually uses 3 L of oxygen at home. Patient was having good urine output with Lasix. Patient's baseline creatinine appears to be around 0.9. Chest x-ray is consistent with congestive heart failure. Review of Systems REVIEW OF SYSTEMS: CONSTITUTIONAL: No fever, no malaise, no fatigue. HEENT: No recent visual problems or hearing problems. Denied any sore throat. CARDIOVASCULAR: No chest pain, orthopnea, PND, no palpitations, no syncope. PULMONARY: As mentioned in HPI GASTROINTESTINAL: No diarrhea, no nausea, no vomiting, no abdominal pain. NEUROLOGICAL: No headaches, no weakness, no numbness. HEMATOLOGICAL: Denies any bleeding or petechiae. GENITOURINARY: Denies any burning micturition, frequency, or urgency. MUSCULOSKELETAL/RHEUMATOLOGICAL: Denies any joint pain, swelling, or any muscle pain. ENDOCRINE: Denies any polyuria or polydipsia. The rest of the 14-point review of systems is negative. Past Medical History Past Medical History: Chest Pain / Angina, Heart Failure, COPD, Hyperlipidemia, Hypertension, Thyroid Disorder Additional Past Medical History / Comment(s): Intubated in September, home O2 PRN Last Myocardial Infarction Date:: unknown History of Any Multi-Drug Resistant Organisms: None Reported Past Surgical History: Bowel Resection, Section, Hernia Repair, Hysterectomy Additional Past Surgical History / Comment(s): 01/10/21 cardiac cath/treated medically, bowel resection d/t fissures, colonoscopies/benign polypectomies, umbilical hernia repair Past Anesthesia/Blood Transfusion Reactions: No Reported Reaction Past Psychological History: No Psychological Hx Reported Smoking Status: Former smoker Past Alcohol Use History: None Reported Past Drug Use History: None Reported - Past Family History Mother Family Medical History: Dementia Father Family Medical History: COPD Additional Family Medical History / Comment(s): etoh Medications and Allergies Home Medications Medication Instructions Recorded Confirmed Type Montelukast Sodium [Singulair] 10 mg PO HS 04/23/20 04/03/21 History Timolol 0.5% Ophth Soln [Timoptic 1 drop BOTH EYES BID 04/23/20 04/03/21 History 0.5% Ophth Soln] carvediloL [Coreg] 3.125 mg PO BID 04/23/20 04/03/21 History Albuterol Nebulized [Ventolin 2.5 mg INHALATION RT-QID PRN 01/06/21 04/03/21 History Nebulized] Brimonidine Tartrate [Alphagan P 1 drop BOTH EYES BID 01/06/21 04/03/21 History 0.2% Ophth Soln] Pantoprazole [Protonix] 40 mg PO AC-BRKFST #30 tablet. 01/12/21 04/03/21 Rx Aspirin EC [Ecotrin Low Dose] 81 mg PO HS 01/31/21 04/03/21 History Levothyroxine Sodium [Synthroid] 50 mcg PO DAILY 01/31/21 04/03/21 History traMADol HCL [Ultram] 50 mg PO Q12H PRN 01/31/21 04/03/21 History Mucinex 44 Dm 1 tab PO BID 04/03/21 04/03/21 History Sertraline [Zoloft] 25 mg PO DAILY 04/03/21 04/03/21 History Simethicone [Gas-X] 125 mg PO DAILY PRN 04/03/21 04/03/21 History Allergies Allergy/AdvReac Type Severity Reaction Status Date / Time No Known Allergies Allergy Verified 04/03/21 07:54 Physical Exam Vitals: Vital Signs Temp Pulse Resp BP Pulse Ox 04/03/21 15:39 66 20 147/87 94 L 04/03/21 15:37 72 04/03/21 15:24 66 04/03/21 15:04 67 20 152/87 96 04/03/21 13:10 68 20 109/64 96 04/03/21 12:05 61 20 115/51 96 04/03/21 10:44 98.5 F 65 18 140/61 98 04/03/21 08:54 65 20 150/83 97 04/03/21 07:26 60 18 152/95 99 04/03/21 07:02 67 18 152/80 98 04/03/21 06:13 76 04/03/21 05:52 68 04/03/21 05:02 98.7 F 91 25 H 168/99 100 04/03/21 04:53 106 H 25 H 195/116 95 Intake and Output 04/03/21 04/03/21 04/03/21 06:59 14:59 22:59 Output Total 1500 Balance -1500 Output: Urine 1500 Other: Weight 122.924 kg PHYSICAL EXAMINATION: GENERAL: The patient is alert and oriented x3, not in any acute distress. Obese HEENT: Pupils are round and equally reacting to light. EOMI. No scleral icterus. No conjunctival pallor. Normocephalic, atraumatic. No pharyngeal erythema. No thyromegaly. CARDIOVASCULAR: S1 and S2 present. No murmurs, rubs, or gallops. PULMONARY: Chest is clear to auscultation, no wheezing or crackles. ABDOMEN: Soft, nontender, nondistended, normoactive bowel sounds. No palpable organomegaly. MUSCULOSKELETAL: No joint swelling or deformity. EXTREMITIES: No cyanosis, clubbing, mild lower extremity edema. NEUROLOGICAL: Gross neurological examination did not reveal any focal deficits. SKIN: No rashes. Results CBC & Chem 7: 04/03/21 05:00 04/03/21 05:00 Labs: Abnormal Lab Results - Last 24 Hours (Table) 04/03/21 04/03/21 04/03/21 Range/Units 05:00 05:00 05:00 WBC 11.2 H (3.8-10.6) k/uL Hgb 9.0 L D (11.4-16.0) gm/dL Hct 29.8 L (34.0-46.0) % MCV 73.0 L (80.0-100.0) fL MCH 22.0 L (25.0-35.0) pg MCHC 30.2 L (31.0-37.0) g/dL RDW 18.6 H (11.5-15.5) % APTT 20.2 L (22.0-30.0) sec BUN 21 H (7-17) mg/dL Creatinine 1.11 H (0.52-1.04) mg/dL Glucose 257 H (74-99) mg/dL Troponin I (0.000-0.034) ng/mL 04/03/21 Range/Units 05:00 WBC (3.8-10.6) k/uL Hgb (11.4-16.0) gm/dL Hct (34.0-46.0) % MCV (80.0-100.0) fL MCH (25.0-35.0) pg MCHC (31.0-37.0) g/dL RDW (11.5-15.5) % APTT (22.0-30.0) sec BUN (7-17) mg/dL Creatinine (0.52-1.04) mg/dL Glucose (74-99) mg/dL Troponin I 0.047 H* (0.000-0.034) ng/mL Assessment and Plan Plan: -Acute respiratory failure secondary to cut his heart failure chronic diastolic dysfunction with acute exacerbation. Continue with IV Lasix. Patient appears to be noncompliant with diet may be noncompliant with his medications too. Monitoring of input and output. Chronic hypoxic respiratory failure Yara patient uses 2 L of oxygen may be because of obstructive sleep apnea -Morbid obesity -Hypertension next and-hyperlipidemia Hypothyroidism -Mildly elevated troponin secondary to congestive heart failure exacerbation -Leukocytosis reactive in nature -DVT prophylaxis Lovenox, need to be switched to heparin if her renal function worsens.
[2021-04-03] MEDS: carvediloL 6.25 MG TAB PO SCH (17:56)
[2021-04-03] MEDS: TIMOLOL 0.5% OPHTH DROPS 5 ML BTL BOTH EYES SCH (20:43)
[2021-04-03] MEDS: ASPIRIN 81 MG PO SCH (20:45)
[2021-04-03] MEDS: BRIMONIDINE TARTRATE 0.2% DROPS 5 ML BTL BOTH EYES SCH (20:45)
[2021-04-03] MEDS: MONTELUKAST 10 MG TAB PO SCH (20:46)
[2021-04-04] MEDS: LEVOTHYROXINE 50 MCG TAB PO SCH (06:33)
[2021-04-04] MEDS: PANTOPRAZOLE 40 MG TABLET PO SCH (06:33)
[2021-04-04] MEDS: carvediloL 6.25 MG TAB PO SCH ×2 (06:33→17:22)
[2021-04-04 07:43] LABS: Albumin 3.1 g/dL (3.5-5.0); Calcium 8.5 mg/dL (8.4-10.2); Potassium 4.7 mmol/L (3.5-5.1); Total Bilirubin 0.3 mg/dL (0.2-1.3); Total Protein 5.6 g/dL (6.3-8.2)
--- NOTE | 2021-04-04 08:01 | XR ---
EXAMINATION TYPE: XR chest 1V DATE OF EXAM: 04/04/2021 COMPARISON: 04/03/2021 HISTORY: Shortness of breath TECHNIQUE: Single frontal view of the chest is obtained. FINDINGS: Bilateral infiltrate and pleural effusion. Heart size prominent. Atherosclerotic change ao rta. Arthropathy of the shoulders and degenerative changes spine. No pneumothorax. IMPRESSION: Bilateral infiltrate with pleural effusion stable. Correlate for ARDS, pulmonary edema o r diffuse pneumonia.
[2021-04-04] MEDS ORDERED: FUROSEMIDE 10 MG/ML 4 ML VIAL IV SCH (09:00)
[2021-04-04] MEDS: traMADol 50 MG TAB PO PRN ×2 (09:21→21:10)
[2021-04-04] MEDS: SERTRALINE 25 MG TAB PO SCH (09:21)
[2021-04-04] MEDS: FUROSEMIDE 10 MG/ML 4 ML VIAL IV SCH (09:22)
[2021-04-04] MEDS: BRIMONIDINE TARTRATE 0.2% DROPS 5 ML BTL BOTH EYES SCH ×2 (09:22→21:09)
[2021-04-04] MEDS: TIMOLOL 0.5% OPHTH DROPS 5 ML BTL BOTH EYES SCH ×2 (09:22→21:08)
[2021-04-04] MEDS: ATORVASTATIN 40 MG TAB PO SCH (09:35)
[2021-04-04] MEDS: LOSARTAN 25 MG TAB PO SCH (12:28)
[2021-04-04] MEDS: ALBUTEROL NEBULIZED 2.5 MG/3 ML INHALATION PRN (13:57)
--- NOTE | 2021-04-04 14:12 | P.PN ---
Subjective This is a 80-year-old female with a past medical history significant for congestive heart failure with preserved ejection fraction, hypertension, hyp erlipidemia, and obesity. Patient follows in the office with Dr. Bedoya. We have been asked to see the patient in consultation for congestive heart failure. BNP 4,970. Troponin 0.047. Most recent echocardiogram obtained in September 2020 reveals ejection fraction 55-60%, mild mitral regurgitation, and mild tricuspid regurgitation. 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 Some new area of acute ischemia along site of old infarct cannot be excluded. 01/10/2021- Cardiac cath revealed mild to moderate CAD including RCA 40% stenosis, OM 150-60% with iFR normal, and distal circumflex approximately 70% with iFR normal. Severely elevated left sided filing pressures 04/04/2021: Patient examined at the bedside. She continues to have dyspnea at rest and exertion and lower extremity edema. She was started on IV Lasix and admitted to the hospital. Patient states her shortness of breath has improved since coming to the hospital. She is currently on 4L nasal cannula and appears to be in no acute distress. She denies chest pain or pressure. I/Os indicate 1.5L urine output over the past 24hours. Laboratory data: Sodium 140. Potassium 4.7 BUN 25. Creatinine 1.11 . Troponin 0.04. Telemetry reviewed, sinus mechanism HR 60s. PHYSICAL EXAM: VITAL SIGNS: Reviewed. GENERAL: Well-developed in no acute distress. HEENT: Neck is supple. No JVD or thyromegaly LUNGS: Respirations even and unlabored. Lungs diminished bilaterally with fine bibasilar rales HEART: Regular rate and rhythm. S1 and S2 heard. Systolic murmur noted ABDOMEN: Soft. Nondistended. Nontender. EXTREMITIES: Normal range of motion. No clubbing or cyanosis. Peripheral pulses intact. moderate non-pitting bilateral lower extremity edema NEUROLOGIC: Awake and alert. Oriented x 3. ASSESSMENT: Acute exacerbation of chronic diastolic heart failure, EF 55-60% Elevated troponin- patient with chronically elevated troponin no indication for acute coronary syndrome. Hypertension Hyperlipidemia COPD Morbid obesity: BMI 50.1 PLAN: Continue IV Lasix 40mg daily for today, most likely transition to PO lasix bill orrow Continue aspirin, carvedilol 6.25mg BID, losartan 25mg daily, Start statin Daily weights, Accurate I&O Monitor kidney function and electrolytes Patient endorses increased salt intake at home. Educated patient on low sodium diet. Further recommendations pending patient course Nurse practitioner note has been reviewed by physician. Signing provider agrees with the documented findings, assessment, and plan of care. Objective - Vital Signs Vital signs: Vital Signs Temp 97.8 F 04/04/21 08:00 Pulse 70 04/04/21 08:00 Resp 20 04/04/21 03:10 BP 108/53 04/04/21 08:00 Pulse Ox 95 04/04/21 08:00 Intake & Output 04/03/21 04/04/21 04/04/21 18:59 06:59 18:59 Intake Total 240 Output Total 1500 600 Balance -1500 -360 Weight 122.924 kg 112.5 kg Intake: Oral 240 Output: Urine 1500 600 Other: Voiding Method External Catheter External Catheter # Bowel Movements 0 - Labs CBC & Chem 7: 04/03/21 05:00 04/04/21 06:48 Labs: Abnormal Lab Results - Last 24 Hours (Table) 04/04/21 Range/Units 06:48 Carbon Dioxide 34 H (22-30) mmol/L BUN 25 H (7-17) mg/dL Creatinine 1.11 H (0.52-1.04) mg/dL Glucose 110 H (74-99) mg/dL Total Protein 5.6 L (6.3-8.2) g/dL Albumin 3.1 L (3.5-5.0) g/dL
--- NOTE | 2021-04-04 16:06 | P.PN ---
Subjective Progress Note Date: 04/04/21 Principal diagnosis: Dyspnea This is an 80-year-old female with history of chronic diastolic congestive heart failure, morbid obesity, patient was admitted to the hospital with 1 week history of increased shortness of breath, apparently has not been compliant with her oral diuretics, mostly because of increased urination, and urinary incontinence. Patient presented to the hospital with mostly symptoms of shortness of breath, and her chest x-ray clearly showed evidence of pulmonary edema. Patient was given diuretics, placed on BiPAP, and the patient has received already Lasix a total of 40 mg IV I saw the patient emergency department. The patient is currently on a BiPAP at a pressure of 12/6 cm of water and FiO2 is at 40%. She is resting comfortably in bed. She is able to generate tidal volume of around 390 and her minute ventilation is around 5.3 L and she is able to tolerate a full face mask without any major difficulties. Current pulse ox is 95%. She received IV Lasix. Cardiology saw the patient. Coreg dose was adjusted and the patient is producing excellent urine output On 04/04/2021 patient seen in follow-up on selective care unit, she is awake and alert, in no acute distress, she is currently on 4 L of oxygen with O2 sat of 95-97%, she did wear BiPAP support for several hours last night with pressures of 12 6 and FiO2 of 40%, she remains on diuretics at 40 mg every 8 hours, she is maintaining negative fluid balance of 1.5 L over the last 24 hours, she has external catheter in place, accurate intake and output is being measured, she states she is feeling better, breathing much easier, today's chest x-ray showing bilateral infiltrates with pleural effusions that are stable in appearance. Still has lower extremity edema. She will continue on IV Lasix for another 24 hours, cardiology is following, patient remains in sinus mechanism with a controlled rate. Her echocardiogram from September 2020 showed a preserved LV function with EF of 55-60%, mild mitral and mild tricuspid regurgitation. Cardiac cath from January did show CAD with RCA of 40%, OM of 50-60%, distal circumflex of approximately 70% and severely elevated left-sided filling pressures. Patient is on Cozaar 25 mg daily, she is on Lipitor, aspirin, she is on DuoNeb nebulized treatments, she is on beta blockers in the form of Coreg to 6.25 mg twice daily, etiology is closely following. Denies any fever or chills, no complaints of chest pain, no cough. Objective - Vital Signs Vital signs: Vital Signs Temp 97.8 F 04/04/21 08:00 Pulse 67 04/04/21 13:58 Resp 20 04/04/21 03:10 BP 113/59 04/04/21 12:00 Pulse Ox 97 04/04/21 12:00 Intake & Output 04/03/21 04/04/21 04/04/21 18:59 06:59 18:59 Intake Total 480 Output Total 1500 600 Balance -1500 -120 Weight 122.924 kg 112.5 kg Intake: Oral 480 Output: Urine 1500 600 Other: Voiding Method External Catheter External Catheter # Bowel Movements 0 - Exam GENERAL EXAM: Alert, very pleasant, 80-year-old white female, on 4 L of oxygen pulse ox 97%, had previously been on BiPAP support pressures of 12 and 6 and FiO2 of 40% comfortable in no apparent distress. HEAD: Normocephalic/atraumatic. EYES: Normal reaction of pupils, equal size. Conjunctiva pink, sclera white. NOSE: Clear with pink turbinates. THROAT: No erythema or exudates. NECK: No masses, no JVD, no thyroid enlargement, no adenopathy. CHEST: No chest wall deformity. Symmetrical expansion. LUNGS: Equal air entry with no crackles, wheeze, rhonchi or dullness. CVS: Regular rate and rhythm, normal S1 and S2, no gallops, no murmurs, no rubs ABDOMEN: Soft, nontender. No hepatosplenomegaly, normal bowel sounds, no guarding or rigidity. EXTREMITIES: No clubbing, 1-2+ edema, no cyanosis, 2+ pulses and upper and lower extremities. MUSCULOSKELETAL: Muscle strength and tone normal. SPINE: No scoliosis or deformity SKIN: No rashes CENTRAL NERVOUS SYSTEM: Alert and oriented -3. No focal deficits, tone is normal in all 4 extremities. PSYCHIATRIC: Alert and oriented -3. Appropriate affect. Intact judgment and insight. - Labs CBC & Chem 7: 04/03/21 05:00 04/04/21 06:48 Labs: Abnormal Lab Results - Last 24 Hours (Table) 04/04/21 Range/Units 06:48 Carbon Dioxide 34 H (22-30) mmol/L BUN 25 H (7-17) mg/dL Creatinine 1.11 H (0.52-1.04) mg/dL Glucose 110 H (74-99) mg/dL Total Protein 5.6 L (6.3-8.2) g/dL Albumin 3.1 L (3.5-5.0) g/dL Assessment and Plan Plan: Assessment: #1. acute exacerbation of chronic diastolic heart failure. The patient has hypertensive heart disease with concentric LVH, severe with a preserved LV functionand the patient is coming in with cardiomegaly, bilateral pleural effusion and interstitial edema and secondary respiratory failure. Currently on BiPAP at a pressure of 12/6 cm of water with an FiO2 of 40%. The patient has received diuretics and the patient is already improving and the patient is responding to diuretics. She is an emergency hold and she is going to go to telemetry unit. Her chest x-ray showing cardiomegaly and bilateral pleural effusion upon pulmonary vessel congestion. I do question her compliance to diuretics knowing that the patient had similar admissions on multiple occasions last seen by our services back in January 2021. #2. bilateral pleural effusion #3. chronic hypoxic respiratory failure maintained on oxygen on outpatient basis at 2 L #4. previous history of vent dependent respiratory failure and previous history of intubation mechanical ventilation for respiratory failure #5. morbid obesity with a BMI 55 , possibly has underlying obstructive sleep apnea #6. hypertension #7. hyperlipidemia #8. hypothyroidism #9 , troponin leak without any acute ischemic EKG changes. The patient has old Q waves involving the inferior leads and a bundle-branch block pattern. Plan: Continue BiPAP support as needed and at bedtime Continue IV diuretics for another 24 hours Monitor electrolytes and renal profile Accurate intake and output Daily weight Breathing treatments We'll continue to follow I performed a history & physical examination of the patient and discussed their management with my nurse practitioner, Carolyn Borjas. I reviewed the nurse practitioner's note and agree with the documented findings and plan of care. Lung sounds are positive for diminished breath sounds. The findings and the impression was discussed with the patient. I attest to the documentation by the nurse practitioner. Time with Patient: Less than 30
[2021-04-04] MEDS: ASPIRIN 81 MG PO SCH (21:09)
[2021-04-04] MEDS: MONTELUKAST 10 MG TAB PO SCH (21:10)
--- NOTE | 2021-04-04 22:02 | P.PN ---
Subjective Progress Note Date: 04/04/21 Patient seen today doing better than yesterday her breathing has improved and she remains on IV Lasix she is complaining of redness of the lower extremities and itching secondary to edema. Objective - Vital Signs Vital signs: Vital Signs Temp 97.8 F 04/04/21 08:00 Pulse 60 04/04/21 16:00 Resp 20 04/04/21 03:10 BP 117/53 04/04/21 16:00 Pulse Ox 94 L 04/04/21 16:00 Intake & Output 04/04/21 04/04/21 04/05/21 06:59 18:59 06:59 Intake Total 720 Output Total 600 Balance 120 Weight 112.5 kg Intake: Oral 720 Output: Urine 600 Other: Voiding Method External Catheter External Catheter # Bowel Movements 0 - Exam GENERAL: The patient is alert and oriented x3, not in any acute distress. Obese HEENT: Pupils are round and equally reacting to light. EOMI. No scleral icterus. No conjunctival pallor. Normocephalic, atraumatic. No pharyngeal erythema. No thyromegaly. CARDIOVASCULAR: S1 and S2 present. No murmurs, rubs, or gallops. PULMONARY: Chest is clear to auscultation, no wheezing or crackles. ABDOMEN: Soft, nontender, nondistended, normoactive bowel sounds. No palpable organomegaly. MUSCULOSKELETAL: No joint swelling or deformity. EXTREMITIES: No cyanosis, clubbing, mild lower extremity edema. NEUROLOGICAL: Gross neurological examination did not reveal any focal deficits. SKIN: some b/l lower extremity rash - Labs CBC & Chem 7: 04/03/21 05:00 04/04/21 06:48 Labs: Abnormal Lab Results - Last 24 Hours (Table) 04/04/21 Range/Units 06:48 Carbon Dioxide 34 H (22-30) mmol/L BUN 25 H (7-17) mg/dL Creatinine 1.11 H (0.52-1.04) mg/dL Glucose 110 H (74-99) mg/dL Total Protein 5.6 L (6.3-8.2) g/dL Albumin 3.1 L (3.5-5.0) g/dL Assessment and Plan (1) Acute kidney injury Current Visit: Yes Status: Acute Code(s): N17.9 - ACUTE KIDNEY FAILURE, UNSPECIFIED SNOMED Code(s): 13774570 (2) Acute pulmonary edema Current Visit: Yes Status: Acute Code(s): J81.0 - ACUTE PULMONARY EDEMA SNOMED Code(s): 20043832 (3) CHF exacerbation Current Visit: Yes Status: Acute Code(s): I50.9 - HEART FAILURE, UNSPECIFIED SNOMED Code(s): 394107319 (4) Congestive heart failure Current Visit: Yes Status: Acute Code(s): I50.9 - HEART FAILURE, UNSPECIFIED SNOMED Code(s): 22420828 Plan: Continue with IV Lasix and gentle diuresing. Continue pulmonary cardiac support
[2021-04-05] MEDS: LEVOTHYROXINE 50 MCG TAB PO SCH (06:36)
[2021-04-05] MEDS: PANTOPRAZOLE 40 MG TABLET PO SCH (06:36)
[2021-04-05] MEDS: carvediloL 6.25 MG TAB PO SCH ×2 (06:36→16:42)
[2021-04-05] MEDS: ALBUTEROL NEBULIZED 2.5 MG/3 ML INHALATION PRN ×4 (08:28→23:31)
[2021-04-05] MEDS: ATORVASTATIN 40 MG TAB PO SCH (09:00)
[2021-04-05] MEDS: SERTRALINE 25 MG TAB PO SCH (09:00)
[2021-04-05] MEDS: FUROSEMIDE 10 MG/ML 4 ML VIAL IV SCH (09:00)
[2021-04-05] MEDS: TIMOLOL 0.5% OPHTH DROPS 5 ML BTL BOTH EYES SCH ×2 (09:00→20:04)
[2021-04-05] MEDS: BRIMONIDINE TARTRATE 0.2% DROPS 5 ML BTL BOTH EYES SCH ×2 (09:00→20:04)
[2021-04-05 10:18] LABS: Anisocytosis Slight; Basophils # (A) 0.1 k/uL (0-0.2); Basophils % (A) 1 %; Eosinophils # (A) 0.4 k/uL (0-0.7); Eosinophils % (A) 5 %; HCT 25.2 % (34.0-46.0); HGB 7.6 gm/dL (11.4-16.0); Hypochromasia Marked; Lymphocytes # (A) 1.7 k/uL (1.0-4.8); Lymphocytes % (A) 23 %; MCHC 30.1 g/dL (31.0-37.0); MCV 73.1 fL (80.0-100.0); Mean Platelet Volume 7.1; Microcytosis Moderate; Monocytes # (A) 0.6 k/uL (0-1.0); Monocytes % (A) 8 %; Neutrophils # (A) 4.6 k/uL (1.3-7.7); Neutrophils % (A) 62 %; Platelet Count 232 k/uL (150-450); Poikilocytosis Moderate; RBC 3.45 m/uL (3.80-5.40); RDW 18.8 % (11.5-15.5); WBC 7.4 k/uL (3.8-10.6)
[2021-04-05 10:38] LABS: Calcium 8.3 mg/dL (8.4-10.2); Potassium 4.4 mmol/L (3.5-5.1)
[2021-04-05] MEDS: LOSARTAN 25 MG TAB PO SCH (12:40)
--- NOTE | 2021-04-05 13:07 | P.PN ---
Subjective Progress Note Date: 04/05/21 This is an 80-year-old female with history of chronic diastolic congestive heart failure, morbid obesity, patient was admitted to the hospital with 1 week history of increased shortness of breath, apparently has not been compliant with her oral diuretics, mostly because of increased urination, and urinary incontinence. Patient presented to the hospital with mostly symptoms of shortness of breath, and her chest x-ray clearly showed evidence of pulmonary edema. Patient was given diuretics, placed on BiPAP, and the patient has received already Lasix a total of 40 mg IV I saw the patient emergency department. The patient is currently on a BiPAP at a pressure of 12/6 cm of water and FiO2 is at 40%. She is resting comfortably in bed. She is able to generate tidal volume of around 390 and her minute ventilation is around 5.3 L and she is able to tolerate a full face mask without any major difficulties. Current pulse ox is 95%. She received IV Lasix. Cardiology saw the patient. Coreg dose was adjusted and the patient is producing excellent urine output On 04/04/2021 patient seen in follow-up on selective care unit, she is awake and alert, in no acute distress, she is currently on 4 L of oxygen with O2 sat of 95-97%, she did wear BiPAP support for several hours last night with pressures of 12 6 and FiO2 of 40%, she remains on diuretics at 40 mg every 8 hours, she is maintaining negative fluid balance of 1.5 L over the last 24 hours, she has external catheter in place, accurate intake and output is being measured, she states she is feeling better, breathing much easier, today's chest x-ray showing bilateral infiltrates with pleural effusions that are stable in appearance. St ill has lower extremity edema. She will continue on IV Lasix for another 24 hours, cardiology is following, patient remains in sinus mechanism with a controlled rate. Her echocardiogram from September 2020 showed a preserved LV function with EF of 55-60%, mild mitral and mild tricuspid regurgitation. Cardiac cath from January did show CAD with RCA of 40%, OM of 50-60%, distal circumflex of approximately 70% and severely elevated left-sided filling pressures. Patient is on Cozaar 25 mg daily, she is on Lipitor, aspirin, she is on DuoNeb nebulized treatments, she is on beta blockers in the form of Coreg to 6.25 mg twice daily, etiology is closely following. Denies any fever or chills, no complaints of chest pain, no cough. The patient is seen today 04/05/2021 in follow-up on the selective care unit. She is awake and alert in no acute distress. Currently sitting up in a chair at the bedside. Maintaining O2 saturations in the 90s on 4 L/m per nasal cannula. She wears 2-3 L at home. She has been alternating with BiPAP throughout the night 10/09 at 40% FiO2. Lungs sounds are improving daily. White count 7.4. Hemoglobin 7.6. Sodium 139. Potassium 4.4. Creatinine 1.21. She is continued on DuoNeb inhalations. Continues on IV diuretics. Objective - Vital Signs Vital signs: Vital Signs Temp 97.6 F 04/05/21 11:46 Pulse 60 04/05/21 11:53 Resp 20 04/05/21 11:46 BP 96/54 04/05/21 11:46 Pulse Ox 94 L 04/05/21 11:46 Intake & Output 04/04/21 04/05/21 04/05/21 18:59 06:59 18:59 Intake Total 720 240 250 Output Total 600 700 Balance 120 -460 250 Weight 122 kg Intake: IV 10 Invasive Line 1 10 Oral 720 240 240 Output: Urine 600 700 Other: Voiding Method External Catheter External Catheter External Catheter # Voids 1 - Exam GENERAL EXAM: Alert, very pleasant, 80-year-old female, on 4 L of oxygen pulse ox 95%, had previously been on BiPAP support pressures of 12 and 6 and FiO2 of 40%, comfortable in no apparent distress. HEAD: Normocephalic/atraumatic. EYES: Normal reaction of pupils, equal size. Conjunctiva pink, sclera white. NOSE: Clear with pink turbinates. THROAT: No erythema or exudates. NECK: No masses, no JVD, no thyroid enlargement, no adenopathy. CHEST: No chest wall deformity. Symmetrical expansion. LUNGS: Equal air entry with no crackles, wheeze, rhonchi or dullness. CVS: Regular rate and rhythm, normal S1 and S2, no gallops, no murmurs, no rubs ABDOMEN: Soft, nontender. No hepatosplenomegaly, normal bowel sounds, no guarding or rigidity. EXTREMITIES: No clubbing, 1-2+ edema, no cyanosis, 2+ pulses and upper and lower extremities. MUSCULOSKELETAL: Muscle strength and tone normal. SPINE: No scoliosis or deformity SKIN: No rashes CENTRAL NERVOUS SYSTEM: No focal deficits, tone is normal in all 4 extremities. PSYCHIATRIC: Alert and oriented -3. Appropriate affect. Intact judgment and insight. - Labs CBC & Chem 7: 04/05/21 09:38 04/05/21 09:38 Labs: Abnormal Lab Results - Last 24 Hours (Table) 04/05/21 04/05/21 Range/Units 09:38 09:38 RBC 3.45 L (3.80-5.40) m/uL Hgb 7.6 L (11.4-16.0) gm/dL Hct 25.2 L (34.0-46.0) % MCV 73.1 L (80.0-100.0) fL MCH 22.0 L (25.0-35.0) pg MCHC 30.1 L (31.0-37.0) g/dL RDW 18.8 H (11.5-15.5) % Carbon Dioxide 33 H (22-30) mmol/L BUN 33 H (7-17) mg/dL Creatinine 1.21 H (0.52-1.04) mg/dL Glucose 104 H (74-99) mg/dL Calcium 8.3 L (8.4-10.2) mg/dL Assessment and Plan Assessment: 1 acute exacerbation of chronic diastolic heart failure. The patient has hypertensive heart disease with concentric LVH, severe with a preserved LV functionand the patient is coming in with cardiomegaly, bilateral pleural effusion and interstitial edema and secondary respiratory failure. Currently on BiPAP at a pressure of 12/6 cm of water with an FiO2 of 40%. The patient has received diuretics and the patient is already improving and the patient is responding to diuretics. Her chest x-ray showing cardiomegaly and bilateral pleural effusion upon pulmonary vascular congestion. Question of compliance to diuretics knowing that the patient had similar admissions on multiple occasions last seen by our services back in January 2021. 2 bilateral pleural effusion 3 chronic hypoxic respiratory failure maintained on oxygen on outpatient basis at 2 L 4 previous history of vent dependent respiratory failure and previous history of intubation mechanical ventilation for respiratory failure 5 morbid obesity with a BMI 55 , possibly has underlying obstructive sleep apnea 6 hypertension 7 hyperlipidemia 8 hypothyroidism 9 troponin leak without any acute ischemic EKG changes. The patient has old Q waves involving the inferior leads and a bundle-branch block pattern. Plan: The patient was seen and evaluated by Dr. Au She is improved. Continue the current treatment plan Probable discharge in the a.m. Follow-up in the pulmonary office in 1-2 weeks' time I, the cosigning physician, performed a history & physical examination of the patient. Lungs sounds are clear. Maintaining good O2 saturations in the 90s on 4 L per nasal cannula. I discussed the assessment and plan of care with my tiff aguilera practitioner, Amanda Gandhi. I attest to the above note as dictated by her.
--- NOTE | 2021-04-05 13:19 | P.PN ---
Subjective This is a 80-year-old female with a past medical history significant for congestive heart failure with preserved ejection fraction, hypertension, hyp erlipidemia, and obesity. Patient follows in the office with Dr. Bedoya. We have been asked to see the patient in consultation for congestive heart failure. BNP 4,970. Troponin 0.047. Most recent echocardiogram obtained in September 2020 reveals ejection fraction 55-60%, mild mitral regurgitation, and mild tricuspid regurgitation. 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 Some new area of acute ischemia along site of old infarct cannot be excluded. 01/10/2021- Cardiac cath revealed mild to moderate CAD including RCA 40% stenosis, OM 150-60% with iFR normal, and distal circumflex approximately 70% with iFR normal. Severely elevated left sided filing pressures 04/05/2021: Patient examined at the bedside. She states her breathing has improved and her lower extremity edema has improved. She is currently on 4L nasal cannula and appears to be in no acute distress. She denies chest pain or pressure. I/Os indicate 1.3L urine output over the past 24hours. Laboratory data: WBC 7.4, hemoglobin 7.6, platelets 232, sodium 139, potassium 4.4, serum creatinine 1.21, P1 33, magnesium 2.0 Telemetry reviewed, sinus mechanism HR 50-60s, had one episode of 5 beat NSVT. PHYSICAL EXAM: VITAL SIGNS: Reviewed. GENERAL: Well-developed in no acute distress. HEENT: Neck is supple. No JVD or thyromegaly LUNGS: Respirations even and unlabored. Lungs diminished bilaterally with fine bibasilar rales HEART: Regular rate and rhythm. S1 and S2 heard. Systolic murmur noted ABDOMEN: Soft. Nondistended. Nontender. EXTREMITIES: Normal range of motion. No clubbing or cyanosis. Peripheral pulses intact. moderate non-pitting bilateral lower extremity edema NEUROLOGIC: Awake and alert. Oriented x 3. ASSESSMENT: Acute exacerbation of chronic diastolic heart failure, EF 55-60% Elevated troponin- patient with chronically elevated troponin no indication for acute coronary syndrome. Hypertension Hyperlipidemia COPD Morbid obesity: BMI 50.1 PLAN: Continue IV Lasix 40mg daily for today Continue aspirin, carvedilol 6.25mg BID, losartan 25mg daily, Continue statin Daily weights, Accurate I&O Monitor kidney function and electrolytes Patient endorses increased salt intake at home. Educated patient on low sodium diet. Further recommendations pending patient course Nurse practitioner note has been reviewed by physician. Signing provider agrees with the documented findings, assessment, and plan of care. Objective - Vital Signs Vital signs: Vital Signs Temp 97.6 F 04/05/21 11:46 Pulse 60 04/05/21 11:53 Resp 20 04/05/21 11:46 BP 96/54 04/05/21 11:46 Pulse Ox 94 L 04/05/21 11:46 Intake & Output 04/04/21 04/05/21 04/05/21 18:59 06:59 18:59 Intake Total 720 240 250 Output Total 600 700 Balance 120 -460 250 Weight 122 kg Intake: IV 10 Invasive Line 1 10 Oral 720 240 240 Output: Urine 600 700 Other: Voiding Method External Catheter External Catheter External Catheter # Voids 1 - Labs CBC & Chem 7: 04/05/21 09:38 04/05/21 09:38 Labs: Abnormal Lab Results - Last 24 Hours (Table) 04/05/21 04/05/21 Range/Units 09:38 09:38 RBC 3.45 L (3.80-5.40) m/uL Hgb 7.6 L (11.4-16.0) gm/dL Hct 25.2 L (34.0-46.0) % MCV 73.1 L (80.0-100.0) fL MCH 22.0 L (25.0-35.0) pg MCHC 30.1 L (31.0-37.0) g/dL RDW 18.8 H (11.5-15.5) % Carbon Dioxide 33 H (22-30) mmol/L BUN 33 H (7-17) mg/dL Creatinine 1.21 H (0.52-1.04) mg/dL Glucose 104 H (74-99) mg/dL Calcium 8.3 L (8.4-10.2) mg/dL
--- NOTE | 2021-04-05 14:09 | P.PN ---
Subjective Progress Note Date: 04/05/21 Diuresing well on Lasix IV push with 24-hour I&O reflecting a negative fluid balance. BUN 33, creatinine 1.21. Reports occasional productive cough of mucus. Maintained on BiPAP throughout the night. Continues on 4 L nasal cannula, maintaining O2 sats in the 90s,in a patient who wears 2 L nasal cannula at home. Borderline hypotension. Denies chest pain, palpitations. Telemetry sinus with an isolated episode of 5 beat run nonsustained V. tach. Bilateral lower extremity edema/redness improving. Afebrile, WBC 7.4. Hemoglobin 7.6, platelets 232. Objective - Vital Signs Vital signs: Vital Signs Temp 97.6 F 04/05/21 11:46 Pulse 60 04/05/21 11:53 Resp 20 04/05/21 11:46 BP 96/54 04/05/21 11:46 Pulse Ox 94 L 04/05/21 11:46 Intake & Output 04/04/21 04/05/21 04/05/21 18:59 06:59 18:59 Intake Total 720 240 490 Output Total 600 700 Balance 120 -460 490 Weight 122 kg Intake: IV 10 Invasive Line 1 10 Oral 720 240 480 Output: Urine 600 700 Other: Voiding Method External Catheter External Catheter External Catheter # Voids 1 - Exam - Exam GENERAL: alert and oriented x3, sitting up in bed, NAD HEENT: Pupils are round and equally reacting to light. EOMI. No scleral icterus. No conjunctival pallor. Normocephalic, atraumatic. No pharyngeal erythema. No thyromegaly. CARDIOVASCULAR: S1 and S2 present. Systolic murmur, no rubs, or gallops. PULMONARY: Chest is clear to auscultation, no wheezing or crackles. ABDOMEN: Soft, nontender, nondistended, normoactive bowel sounds. No palpable organomegaly. EXTREMITIES: No cyanosis, clubbing, improving lower extremity edema. NEUROLOGICAL: Gross neurological examination did not reveal any focal deficits. SKIN: some b/l lower extremity rash, improving - Labs CBC & Chem 7: 04/05/21 09:38 04/05/21 09:38 Labs: Abnormal Lab Results - Last 24 Hours (Table) 04/05/21 04/05/21 Range/Units 09:38 09:38 RBC 3.45 L (3.80-5.40) m/uL Hgb 7.6 L (11.4-16.0) gm/dL Hct 25.2 L (34.0-46.0) % MCV 73.1 L (80.0-100.0) fL MCH 22.0 L (25.0-35.0) pg MCHC 30.1 L (31.0-37.0) g/dL RDW 18.8 H (11.5-15.5) % Carbon Dioxide 33 H (22-30) mmol/L BUN 33 H (7-17) mg/dL Creatinine 1.21 H (0.52-1.04) mg/dL Glucose 104 H (74-99) mg/dL Calcium 8.3 L (8.4-10.2) mg/dL Assessment and Plan Assessment: Acute CHF exacerbation, diastolic dysfunction Bilateral pleural effusions Acute on chronic hypoxic respiratory failure, secondary to the above, wears 2 L nasal cannula at home Acute renal failure, diuretic induced Elevated troponin, chronic with no indication of acute coronary syndrome as per cardiology. Hypertension Hyperlipidemia Suspect obstructive sleep apnea, outpatient sleep study to be arranged by PCP Morbid obesity, BMI 54.3 Plan: Continue on current medication regime ,monitoring and symptomatic treatment. Patient will require hospital bed at discharge to maintain head of bed elevated greater than 30 majority of time secondary to orthopnea secondary to CHF. Patient reports has not yet been out of bed, PT/OT consulted-discussed with RN. Discharge planning in progress for potentially tomorrow pending pulmonary, cardiology final DC recommendations and clearance. The impression and plan of care has been dictated as directed. : I performed a history and examination of this patient, discussed the same with the dictator. I agree with the dictator's note ,documented as a scribe. Any additional findings or plans will be noted.
[2021-04-05] MEDS: MONTELUKAST 10 MG TAB PO SCH (20:04)
[2021-04-05] MEDS: ASPIRIN 81 MG PO SCH (20:04)
[2021-04-06] MEDS: PANTOPRAZOLE 40 MG TABLET PO SCH (06:33)
[2021-04-06] MEDS: carvediloL 6.25 MG TAB PO SCH ×2 (06:33→18:13)
[2021-04-06] MEDS: LEVOTHYROXINE 50 MCG TAB PO SCH (06:33)
[2021-04-06 07:44] LABS: Anisocytosis Slight; Basophils # (A) 0.1 k/uL (0-0.2); Basophils % (A) 1 %; Eosinophils # (A) 0.4 k/uL (0-0.7); Eosinophils % (A) 4 %; HCT 24.8 % (34.0-46.0); HGB 7.7 gm/dL (11.4-16.0); Hypochromasia Marked; Lymphocytes # (A) 1.6 k/uL (1.0-4.8); Lymphocytes % (A) 19 %; MCH 22.3 pg (25.0-35.0); MCHC 30.9 g/dL (31.0-37.0); MCV 72.2 fL (80.0-100.0); Mean Platelet Volume 6.5; Microcytosis Marked; Monocytes # (A) 0.8 k/uL (0-1.0); Monocytes % (A) 9 %; Neutrophils # (A) 5.7 k/uL (1.3-7.7); Neutrophils % (A) 66 %; Platelet Count 208 k/uL (150-450); Poikilocytosis Moderate; RBC 3.44 m/uL (3.80-5.40); RDW 18.5 % (11.5-15.5); WBC 8.6 k/uL (3.8-10.6)
[2021-04-06] MEDS: ALBUTEROL NEBULIZED 2.5 MG/3 ML INHALATION PRN ×2 (07:45→11:52)
[2021-04-06 08:36] LABS: Calcium 8.2 mg/dL (8.4-10.2)
[2021-04-06] MEDS: SILVER sulfADIAZINE Cream 400 GM 1 APPLIC APPLIC TOPICAL SCH (09:09)
[2021-04-06] MEDS: ATORVASTATIN 40 MG TAB PO SCH (09:09)
[2021-04-06] MEDS: SERTRALINE 25 MG TAB PO SCH (09:09)
[2021-04-06] MEDS: TIMOLOL 0.5% OPHTH DROPS 5 ML BTL BOTH EYES SCH ×2 (09:09→20:49)
[2021-04-06] MEDS: FUROSEMIDE 10 MG/ML 4 ML VIAL IV SCH (09:09)
[2021-04-06] MEDS: BRIMONIDINE TARTRATE 0.2% DROPS 5 ML BTL BOTH EYES SCH ×2 (09:10→20:49)
[2021-04-06 09:21] LABS: Potassium 4.4 mmol/L (3.5-5.1)
--- NOTE | 2021-04-06 09:54 | P.PN ---
Subjective This is a 80-year-old female with a past medical history significant for congestive heart failure with preserved ejection fraction, hypertension, hyp erlipidemia, and obesity. Patient follows in the office with Dr. Bedoya. We have been asked to see the patient in consultation for congestive heart failure. BNP 4,970. Troponin 0.047. Most recent echocardiogram obtained in September 2020 reveals ejection fraction 55-60%, mild mitral regurgitation, and mild tricuspid regurgitation. 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 Some new area of acute ischemia along site of old infarct cannot be excluded. 01/10/2021- Cardiac cath revealed mild to moderate CAD including RCA 40% stenosis, OM 150-60% with iFR normal, and distal circumflex approximately 70% with iFR normal. Severely elevated left sided filing pressures 04/06/2021: Patient examined at the bedside. Appears comfortable sitting up in bedside chair. She states her breathing has improved and her lower extremity edema has improved. She is currently has transitioned down to 2L nasal cannula and appears to be in no acute distress. She denies chest pain or pressure. I/Os indicate 2.3L urine output over the past 24hours. Laboratory data: WBC 8.6, hemoglobin 7.1 (7.6 yesterday), platelets 208, sodium 138, potassium 4.4, serum creatinine 0.98 (yesterday 1.21). Telemetry reviewed, sinus mechanism HR 50-60s, no ectopy noted. PHYSICAL EXAM: VITAL SIGNS: Reviewed. GENERAL: Well-developed in no acute distress. HEENT: Neck is supple. No JVD or thyromegaly LUNGS: Respirations even and unlabored. Lungs diminished bilaterally with fine bibasilar rales HEART: Regular rate and rhythm. S1 and S2 heard. Systolic murmur noted ABDOMEN: Soft. Nondistended. Nontender. EXTREMITIES: Normal range of motion. No clubbing or cyanosis. Peripheral pulses intact. moderate non-pitting bilateral lower extremity edema NEUROLOGIC: Awake and alert. Oriented x 3. ASSESSMENT: Acute exacerbation of chronic diastolic heart failure, EF 55-60% Elevated troponin- patient with chronically elevated troponin no indication for acute coronary syndrome. Acute Kidney Injury- resolved Hypertension Hyperlipidemia COPD Morbid obesity: BMI 50.1 PLAN: Recommend continuing IV Lasix 40mg daily for one more day Continue aspirin, carvedilol 6.25mg BID, losartan 25mg daily, Continue statin Daily weights, Accurate I&O Monitor kidney function and electrolytes Most likely transition to PO Lasix tomorrow and discharge home tomorrow Patient to follow up with Dr. Bedoya in the outpatient setting Nurse practitioner note has been reviewed by physician. Signing provider agrees with the documented findings, assessment, and plan of care. Objective - Vital Signs Vital signs: Vital Signs Temp 98.5 F 04/06/21 07:40 Pulse 56 L 04/06/21 07:57 Resp 20 04/06/21 07:40 BP 117/66 04/06/21 07:40 Pulse Ox 97 04/06/21 07:40 Intake & Output 04/05/21 04/06/21 04/06/21 18:59 06:59 18:59 Intake Total 700 260 Output Total 525 1850 Balance 175 -1850 260 Weight 123.9 kg Intake: IV 20 Invasive Line 1 20 Oral 680 260 Output: Urine 525 1850 Other: Voiding Method External Catheter External Catheter External Catheter # Bowel Movements 1 - Labs CBC & Chem 7: 04/06/21 07:08 04/06/21 07:08 Labs: Abnormal Lab Results - Last 24 Hours (Table) 04/05/21 04/05/21 04/06/21 Range/Units 09:38 09:38 07:08 RBC 3.45 L (3.80-5.40) m/uL Hgb 7.6 L (11.4-16.0) gm/dL Hct 25.2 L (34.0-46.0) % MCV 73.1 L (80.0-100.0) fL MCH 22.0 L (25.0-35.0) pg MCHC 30.1 L (31.0-37.0) g/dL RDW 18.8 H (11.5-15.5) % Carbon Dioxide 33 H 37 H (22-30) mmol/L BUN 33 H 29 H (7-17) mg/dL Creatinine 1.21 H (0.52-1.04) mg/dL Glucose 104 H (74-99) mg/dL Calcium 8.3 L 8.2 L (8.4-10.2) mg/dL 04/06/21 Range/Units 07:08 RBC 3.44 L (3.80-5.40) m/uL Hgb 7.7 L (11.4-16.0) gm/dL Hct 24.8 L (34.0-46.0) % MCV 72.2 L (80.0-100.0) fL MCH 22.3 L (25.0-35.0) pg MCHC 30.9 L (31.0-37.0) g/dL RDW 18.5 H (11.5-15.5) % Carbon Dioxide (22-30) mmol/L BUN (7-17) mg/dL Creatinine (0.52-1.04) mg/dL Glucose (74-99) mg/dL Calcium (8.4-10.2) mg/dL
--- NOTE | 2021-04-06 11:32 | P.PN ---
Subjective Progress Note Date: 04/06/21 Diuresing well on Lasix IV push with 24-hour I&O reflecting a negative fluid balance. BUN 33, creatinine 1.21. Reports occasional productive cough of mucus. Maintained on BiPAP throughout the night. Continues on 4 L nasal cannula, maintaining O2 sats in the 90s,in a patient who wears 2 L nasal cannula at home. Borderline hypotension. Denies chest pain, palpitations. Telemetry sinus with an isolated episode of 5 beat run nonsustained V. tach. Bilateral lower extremity edema/redness improving. Afebrile, WBC 7.4. Hemoglobin 7.6, platelets 232. 04/06/2021 diuresing well on Lasix IV push with 24-hour I&O reflecting a negative fluid balance. Renal function improving with creatinine down to 0.98 significant clinical improvement. Respiratory status nearly back to baseline, requiring 2 L nasal cannula O2 to maintain O2 sats in the 90s. No further ectopy reported. Denies chest pain, palpitations or increasing increased shortness of breath. Afebrile, normal WBC. Objective - Vital Signs Vital signs: Vital Signs Temp 98.5 F 04/06/21 07:40 Pulse 56 L 04/06/21 07:57 Resp 20 04/06/21 07:40 BP 117/66 04/06/21 07:40 Pulse Ox 97 04/06/21 07:40 Intake & Output 04/05/21 04/06/21 04/06/21 18:59 06:59 18:59 Intake Total 700 260 Output Total 525 1850 Balance 175 -1850 260 Weight 123.9 kg Intake: IV 20 Invasive Line 1 20 Oral 680 260 Output: Urine 525 1850 Other: Voiding Method External Catheter External Catheter External Catheter # Bowel Movements 1 - Exam - Exam GENERAL: alert and oriented x3,sitting up in bed, NAD HEENT: Pupils are round and equally reacting to light. EOMI. No scleral icterus. No conjunctival pallor. Normocephalic, atraumatic. No pharyngeal erythema. No thyromegaly. CARDIOVASCULAR: S1 and S2 present. Systolic murmur, no rubs, or gallops. PULMONARY: Chest is clear to auscultation, no wheezing or crackles. ABDOMEN: Soft, nontender, nondistended, normoactive bowel sounds. No palpable organomegaly. EXTREMITIES: No cyanosis, clubbing, improving lower extremity edema. NEUROLOGICAL: Gross neurological examination did not reveal any focal deficits. SKIN: some b/l lower extremity rash, improving - Labs CBC & Chem 7: 04/06/21 07:08 04/06/21 07:08 Labs: Abnormal Lab Results - Last 24 Hours (Table) 04/06/21 04/06/21 Range/Units 07:08 07:08 RBC 3.44 L (3.80-5.40) m/uL Hgb 7.7 L (11.4-16.0) gm/dL Hct 24.8 L (34.0-46.0) % MCV 72.2 L (80.0-100.0) fL MCH 22.3 L (25.0-35.0) pg MCHC 30.9 L (31.0-37.0) g/dL RDW 18.5 H (11.5-15.5) % Carbon Dioxide 37 H (22-30) mmol/L BUN 29 H (7-17) mg/dL Calcium 8.2 L (8.4-10.2) mg/dL Assessment and Plan Assessment: Acute CHF exacerbation, diastolic dysfunction Bilateral pleural effusions Acute on chronic hypoxic respiratory failure, secondary to the above, wears 2 L nasal cannula at home Acute renal failure, diuretic induced, improved Elevated troponin, chronic with no indication of acute coronary syndrome as per cardiology. Hypertension Hyperlipidemia Suspect obstructive sleep apnea, outpatient sleep study to be arranged by PCP Morbid obesity, BMI 54.3 Plan: Continue on current medication regime ,monitoring and symptomatic treatme nt. Discharge planning in progress for tomorrow, cardiology recommends diuresing for one more day. Patient will require hospital bed at discharge to maintain head of bed elevated greater than 30 majority of time secondary to orthopnea secondary to CHF. OT evaluation noted and appreciated.PT pending. The impression and plan of care has been dictated as directed. : I performed a history and examination of this patient, discussed the same with the dictator. I agree with the dictator's note ,documented as a scribe. Any additional findings or plans will be noted.
[2021-04-06] MEDS: LOSARTAN 25 MG TAB PO SCH (12:48)
[2021-04-06] MEDS: traMADol 50 MG TAB PO PRN (12:52)
--- NOTE | 2021-04-06 13:16 | P.PN ---
Subjective Progress Note Date: 04/06/21 Principal diagnosis: Dyspnea This is an 80-year-old female with history of chronic diastolic congestive heart failure, morbid obesity, patient was admitted to the hospital with 1 week history of increased shortness of breath, apparently has not been compliant with her oral diuretics, mostly because of increased urination, and urinary incontinence. Patient presented to the hospital with mostly symptoms of shortness of breath, and her chest x-ray clearly showed evidence of pulmonary edema. Patient was given diuretics, placed on BiPAP, and the patient has received already Lasix a total of 40 mg IV I saw the patient emergency department. The patient is currently on a BiPAP at a pressure of 12/6 cm of water and FiO2 is at 40%. She is resting comfortably in bed. She is able to generate tidal volume of around 390 and her minute ventilation is around 5.3 L and she is able to tolerate a full face mask without any major difficulties. Current pulse ox is 95%. She received IV Lasix. Cardiology saw the patient. Coreg dose was adjusted and the patient is producing excellent urine output On 04/04/2021 patient seen in follow-up on selective care unit, she is awake and alert, in no acute distress, she is currently on 4 L of oxygen with O2 sat of 95-97%, she did wear BiPAP support for several hours last night with pressures of 12 6 and FiO2 of 40%, she remains on diuretics at 40 mg every 8 hours, she is maintaining negative fluid balance of 1.5 L over the last 24 hours, she has external catheter in place, accurate intake and output is being measured, she states she is feeling better, breathing much easier, today's chest x-ray showing bilateral infiltrates with pleural effusions that are stable in appearance. Still has lower extremity edema. She will continue on IV Lasix for another 24 hours, cardiology is following, patient remains in sinus mechanism with a controlled rate. Her echocardiogram from September 2020 showed a preserved LV function with EF of 55-60%, mild mitral and mild tricuspid regurgitation. Cardiac cath from January did show CAD with RCA of 40%, OM of 50-60%, distal circumflex of approximately 70% and severely elevated left-sided filling pressures. Patient is on Cozaar 25 mg daily, she is on Lipitor, aspirin, she is on DuoNeb nebulized treatments, she is on beta blockers in the form of Coreg to 6.25 mg twice daily, etiology is closely following. Denies any fever or chills, no complaints of chest pain, no cough. On 04 06 2021 patient seen in follow-up on selective care unit, she is awake and alert, in no acute distress, breathing much easier, she is on 2 L of oxygen pulse ox 97%, she is afebrile, hemodynamically she is stable, she is sitting up in the recliner, no complaints of chest discomfort, no increased dyspnea or cough or wheezing. Her FiO2 has been cut back from 4 L this morning. She remains on daily dose of Lasix IV push, at 40 mg daily and she is in -1670 fluid balance, still has lower extremity edema which is improving. Patient will continue with inpatient treatment and another day of IV diuretics. Otherwise overall she is improving, no worsening dyspnea. She is receiving local care to bilateral lower extremity wounds. Vital signs have been stable, today's labs have been reviewed, her white blood cell count is 8.6, hemoglobin is 7.7, sodium is 138, potassium is 4.4, chloride is 99, CO2 37, BUN of 29, creatinine 0.98 Objective - Vital Signs Vital signs: Vital Signs Temp 98.4 F 04/06/21 12:23 Pulse 82 04/06/21 12:23 Resp 20 04/06/21 13:01 BP 110/73 04/06/21 12:23 Pulse Ox 92 L 04/06/21 12:23 Intake & Output 04/05/21 04/06/21 04/06/21 18:59 06:59 18:59 Intake Total 700 520 Output Total 525 1850 1100 Balance 175 -1850 -580 Weight 123.9 kg Intake: IV 20 Invasive Line 1 20 Oral 680 520 Output: Urine 525 1850 1100 Other: Voiding Method External Catheter External Catheter External Catheter # Bowel Movements 1 - Exam GENERAL EXAM: Alert, very pleasant, 80-year-old white female, on 2 L of oxygen pulse ox 97%, had previously been on BiPAP support pressures of 12 and 6 and FiO2 of 40% comfortable in no apparent distress. HEAD: Normocephalic/atraumatic. EYES: Normal reaction of pupils, equal size. Conjunctiva pink, sclera white. NOSE: Clear with pink turbinates. THROAT: No erythema or exudates. NECK: No masses, no JVD, no thyroid enlargement, no adenopathy. CHEST: No chest wall deformity. Symmetrical expansion. LUNGS: Equal air entry with no crackles, wheeze, rhonchi or dullness. CVS: Regular rate and rhythm, normal S1 and S2, no gallops, no murmurs, no rubs ABDOMEN: Soft, nontender. No hepatosplenomegaly, normal bowel sounds, no guarding or rigidity. EXTREMITIES: No clubbing, 1-2+ edema, no cyanosis, 2+ pulses and upper and lower extremities. MUSCULOSKELETAL: Muscle strength and tone normal. SPINE: No scoliosis or deformity SKIN: No rashes CENTRAL NERVOUS SYSTEM: Alert and oriented -3. No focal deficits, tone is normal in all 4 extremities. PSYCHIATRIC: Alert and oriented -3. Appropriate affect. Intact judgment and insight. - Labs CBC & Chem 7: 04/06/21 07:08 04/06/21 07:08 Labs: Abnormal Lab Results - Last 24 Hours (Table) 04/06/21 04/06/21 Range/Units 07:08 07:08 RBC 3.44 L (3.80-5.40) m/uL Hgb 7.7 L (11.4-16.0) gm/dL Hct 24.8 L (34.0-46.0) % MCV 72.2 L (80.0-100.0) fL MCH 22.3 L (25.0-35.0) pg MCHC 30.9 L (31.0-37.0) g/dL RDW 18.5 H (11.5-15.5) % Carbon Dioxide 37 H (22-30) mmol/L BUN 29 H (7-17) mg/dL Calcium 8.2 L (8.4-10.2) mg/dL Assessment and Plan Plan: Assessment: #1. acute exacerbation of chronic diastolic heart failure. The patient has hypertensive heart disease with concentric LVH, severe with a preserved LV functionand the patient is coming in with cardiomegaly, bilateral pleural effusion and interstitial edema and secondary respiratory failure. Currently on BiPAP at a pressure of 12/6 cm of water with an FiO2 of 40%. The patient has r eceived diuretics and the patient is already improving and the patient is responding to diuretics. She is an emergency hold and she is going to go to telemetry unit. Her chest x-ray showing cardiomegaly and bilateral pleural effusion upon pulmonary vessel congestion. I do question her compliance to diuretics knowing that the patient had similar admissions on multiple occasions last seen by our services back in January 2021. #2. bilateral pleural effusion #3. chronic hypoxic respiratory failure maintained on oxygen on outpatient basis at 2 L #4. previous history of vent dependent respiratory failure and previous history of intubation mechanical ventilation for respiratory failure #5. morbid obesity with a BMI 55 , possibly has underlying obstructive sleep apnea #6. hypertension #7. hyperlipidemia #8. hypothyroidism #9 , troponin leak without any acute ischemic EKG changes. The patient has old Q waves involving the inferior leads and a bundle-branch block pattern. Plan: Continue weaning FiO2 Continue IV diuretics for another 24 hours Overall fluid volume status is improving Follow-up labs tomorrow Daily weights Possible discharge home tomorrow I performed a history & physical examination of the patient and discussed their management with my nurse practitioner, Carolyn Borjas. I reviewed the nurse practitioner's note and agree with the documented findings and plan of care. Lung sounds are positive for diminished breath sounds. The findings and the impression was discussed with the patient. I attest to the documentation by the nurse practitioner. Time with Patient: Less than 30
[2021-04-06] MEDS: IPRATROPIUM-ALBUTEROL 3 ML NEB INHALATION PRN (16:47)
[2021-04-06] MEDS: MONTELUKAST 10 MG TAB PO SCH (20:48)
[2021-04-06] MEDS: ASPIRIN 81 MG PO SCH (20:48)
[2021-04-07 04:40] VITALS: RESP 18
[2021-04-07] MEDS: carvediloL 6.25 MG TAB PO SCH (06:40)
[2021-04-07] MEDS: PANTOPRAZOLE 40 MG TABLET PO SCH (06:40)
[2021-04-07] MEDS: LEVOTHYROXINE 50 MCG TAB PO SCH (06:40)
[2021-04-07] MEDS: IPRATROPIUM-ALBUTEROL 3 ML NEB INHALATION PRN (08:06)
[2021-04-07] MEDS: FUROSEMIDE 10 MG/ML 4 ML VIAL IV SCH (08:12)
[2021-04-07] MEDS: ATORVASTATIN 40 MG TAB PO SCH (08:12)
[2021-04-07] MEDS: BRIMONIDINE TARTRATE 0.2% DROPS 5 ML BTL BOTH EYES SCH (08:13)
[2021-04-07] MEDS: TIMOLOL 0.5% OPHTH DROPS 5 ML BTL BOTH EYES SCH (08:13)
[2021-04-07] MEDS: SILVER sulfADIAZINE Cream 400 GM 1 APPLIC APPLIC TOPICAL SCH (08:13)
[2021-04-07] MEDS: SERTRALINE 25 MG TAB PO SCH (08:13)
[2021-04-07 09:24] LABS: Anisocytosis Slight; HCT 26.8 % (34.0-46.0); HGB 7.8 gm/dL (11.4-16.0); Hypochromasia Marked; MCH 21.3 pg (25.0-35.0); MCHC 29.1 g/dL (31.0-37.0); MCV 73.2 fL (80.0-100.0); Mean Platelet Volume 6.8; Microcytosis Moderate; Platelet Count 212 k/uL (150-450); Poikilocytosis Moderate; RBC 3.66 m/uL (3.80-5.40); RDW 18.3 % (11.5-15.5); WBC 7.8 k/uL (3.8-10.6)
[2021-04-07 09:33] VITALS: BP 139/68; TEMP 97
[2021-04-07 09:37] LABS: Calcium 8.2 mg/dL (8.4-10.2); Potassium 4.2 mmol/L (3.5-5.1)
[2021-04-07 10:55] VITALS: PULSE 67
--- NOTE | 2021-04-07 11:15 | P.DS ---
Providers Date of admission: 04/03/21 07:04 Expected date of discharge: 04/07/21 Attending physician: Kody Hudson Consults: 04/03/21 07:04 Consult Physician Routine Consulting Provider: Ellen Ibarra Consult Reason/Comments: codp Do you want consulting provider notified?: Yes Consult Physician Routine Consulting Provider: Rudy Mancia Consult Reason/Comments: chf Do you want consulting provider notified?: Yes Primary care physician: Kody Hudson Hospital Course: Final Diagnoses: Acute CHF exacerbation, diastolic dysfunction Bilateral pleural effusions Acute on chronic hypoxic respiratory failure, secondary to the above, wears 2 L nasal cannula at home Acute renal failure, diuretic induced, improved Elevated troponin, chronic with no indication of acute coronary syndrome as per cardiology. Hypertension Hyperlipidemia Suspect obstructive sleep apnea, outpatient sleep study to be arranged by PCP Morbid obesity, BMI 54.3 Hospital course:Diuresing well on Lasix IV push with 24-hour I&O reflecting a negative fluid balance. BUN 33, creatinine 1.21. Reports occasional productive cough of mucus. Maintained on BiPAP throughout the night. Continues on 4 L nasal cannula, maintaining O2 sats in the 90s,in a patient who wears 2 L nasal cannula at home. Borderline hypotension. Denies chest pain, palpitations. Telemetry sinus with an isolated episode of 5 beat run nonsustained V. tach. Bilateral lower extremity edema/redness improving. Afebrile, WBC 7.4. Hemoglobin 7.6, platelets 232. 04/06/2021 diuresing well on Lasix IV push with 24-hour I&O reflecting a negative fluid balance. Renal function improving with creatinine down to 0.98 significant clinical improvement. Respiratory status nearly back to baseline, requiring 2 L nasal cannula O2 to maintain O2 sats in the 90s. No further ectopy reported. Denies chest pain, palpitations or increasing increased shortness of breath. Afebrile, normal WBC. Significant clinical improvement.Patient will be discharged home today pending final DC recommendations/diuretics and clearance per cardiology. The impression and plan of care has been dictated as directed. : I performed a history and examination of this patient, discussed the same with the dictator. I agree with the dictator's note ,documented as a scribe. Any additional findings or plans will be noted. Patient Condition at Discharge: Stable Plan - Discharge Summary New Discharge Prescriptions: New carvediloL [Coreg] 6.25 mg PO BID-W/MEALS #60 tab SILVER sulfADIAZINE Cream [Silvadene 1% Cream] 1 applic TOPICAL DAILY applic Losartan [Cozaar] 25 mg PO 1200 #30 tab Atorvastatin [Lipitor] 40 mg PO DAILY #30 tab Continue Timolol 0.5% Ophth Soln [Timoptic 0.5% Ophth Soln] 1 drop BOTH EYES BID Montelukast Sodium [Singulair] 10 mg PO HS Brimonidine Tartrate [Alphagan P 0.2% Ophth Soln] 1 drop BOTH EYES BID Albuterol Nebulized [Ventolin Nebulized] 2.5 mg INHALATION RT-QID PRN PRN Reason: Shortness Of Breath Pantoprazole [Protonix] 40 mg PO AC-BRKFST #30 tablet. Levothyroxine Sodium [Synthroid] 50 mcg PO DAILY Aspirin EC [Ecotrin Low Dose] 81 mg PO HS Sertraline [Zoloft] 25 mg PO DAILY Mucinex 44 Dm 1 tab PO BID traMADol HCL [Ultram] 50 mg PO Q12H PRN PRN Reason: Pain Simethicone [Gas-X] 125 mg PO DAILY PRN PRN Reason: Indigestion Discontinued carvediloL [Coreg] 3.125 mg PO BID Discharge Medication List Montelukast Sodium [Singulair] 10 mg PO HS 04/23/20 [History] Timolol 0.5% Ophth Soln [Timoptic 0.5% Ophth Soln] 1 drop BOTH EYES BID 04/23/20 [History] Albuterol Nebulized [Ventolin Nebulized] 2.5 mg INHALATION RT-QID PRN 01/06/21 [History] Brimonidine Tartrate [Alphagan P 0.2% Ophth Soln] 1 drop BOTH EYES BID 01/06/21 [History] Pantoprazole [Protonix] 40 mg PO AC-BRKFST #30 tablet. 01/12/21 [Rx] Aspirin EC [Ecotrin Low Dose] 81 mg PO HS 01/31/21 [History] Levothyroxine Sodium [Synthroid] 50 mcg PO DAILY 01/31/21 [History] traMADol HCL [Ultram] 50 mg PO Q12H PRN 01/31/21 [History] Mucinex 44 Dm 1 tab PO BID 04/03/21 [History] Sertraline [Zoloft] 25 mg PO DAILY 04/03/21 [History] Simethicone [Gas-X] 125 mg PO DAILY PRN 04/03/21 [History] Atorvastatin [Lipitor] 40 mg PO DAILY #30 tab 04/06/21 [Rx] Losartan [Cozaar] 25 mg PO 1200 #30 tab 04/06/21 [Rx] SILVER sulfADIAZINE Cream [Silvadene 1% Cream] 1 applic TOPICAL DAILY applic 04/06/21 [Rx] carvediloL [Coreg] 6.25 mg PO BID-W/MEALS #60 tab 04/06/21 [Rx] Follow up Appointment(s)/Referral(s): Kody Hudson DO [Primary Care Provider] - 04/11/21 2:00 pm [facility], [NON-STAFF] - Ellen Ibarra MD [STAFF PHYSICIAN] - 04/27/21 2:30 pm Ambulatory/Diagnostic Orders: Complete Blood Count w/diff [LAB.AMB] Time Frame: 3 Days, Location: None Selected Patient Instructions/Handouts: Heart Failure (ER), COPD (Chronic Obstructive Pulmonary Disease) (ED), Low-Sodium Diet (ED), Hypoxia (ED) Activity/Diet/Wound Care/Special Instructions: Pending final dc rec/diuretics/clearance per cardiology. COnfirm cardiology F/U apt. prior to dc.Hospital bed required at discharge to keep head of bed elevated >30 degrees most of the time secondary to orthopnea from CHF 2lnc o2 Discharge Disposition: HOME WITH HOME HEALTH SERVICES
[2021-04-07] MEDS: LOSARTAN 25 MG TAB PO SCH (11:18)
--- NOTE | 2021-04-07 11:59 | P.PN ---
Subjective Progress Note Date: 04/07/21 Principal diagnosis: Dyspnea This is an 80-year-old female with history of chronic diastolic congestive heart failure, morbid obesity, patient was admitted to the hospital with 1 week history of increased shortness of breath, apparently has not been compliant with her oral diuretics, mostly because of increased urination, and urinary incontinence. Patient presented to the hospital with mostly symptoms of shortness of breath, and her chest x-ray clearly showed evidence of pulmonary edema. Patient was given diuretics, placed on BiPAP, and the patient has received already Lasix a total of 40 mg IV I saw the patient emergency department. The patient is currently on a BiPAP at a pressure of 12/6 cm of water and FiO2 is at 40%. She is resting comfortably in bed. She is able to generate tidal volume of around 390 and her minute ventilation is around 5.3 L and she is able to tolerate a full face mask without any major difficulties. Current pulse ox is 95%. She received IV Lasix. Cardiology saw the patient. Coreg dose was adjusted and the patient is producing excellent urine output On 04/04/2021 patient seen in follow-up on selective care unit, she is awake and alert, in no acute distress, she is currently on 4 L of oxygen with O2 sat of 95-97%, she did wear BiPAP support for several hours last night with pressures of 12 6 and FiO2 of 40%, she remains on diuretics at 40 mg every 8 hours, she is maintaining negative fluid balance of 1.5 L over the last 24 hours, she has external catheter in place, accurate intake and output is being measured, she states she is feeling better, breathing much easier, today's chest x-ray showing bilateral infiltrates with pleural effusions that are stable in appearance. Still has lower extremity edema. She will continue on IV Lasix for another 24 hours, cardiology is following, patient remains in sinus mechanism with a controlled rate. Her echocardiogram from September 2020 showed a preserved LV function with EF of 55-60%, mild mitral and mild tricuspid regurgitation. Cardiac cath from January did show CAD with RCA of 40%, OM of 50-60%, distal circumflex of approximately 70% and severely elevated left-sided filling pressures. Patient is on Cozaar 25 mg daily, she is on Lipitor, aspirin, she is on DuoNeb nebulized treatments, she is on beta blockers in the form of Coreg to 6.25 mg twice daily, etiology is closely following. Denies any fever or chills, no complaints of chest pain, no cough. On 04 06 2021 patient seen in follow-up on selective care unit, she is awake and alert, in no acute distress, breathing much easier, she is on 2 L of oxygen pulse ox 97%, she is afebrile, hemodynamically she is stable, she is sitting up in the recliner, no complaints of chest discomfort, no increased dyspnea or cough or wheezing. Her FiO2 has been cut back from 4 L this morning. She remains on daily dose of Lasix IV push, at 40 mg daily and she is in -1670 fluid balance, still has lower extremity edema which is improving. Patient will continue with inpatient treatment and another day of IV diuretics. Otherwise overall she is improving, no worsening dyspnea. She is receiving local care to bilateral lower extremity wounds. Vital signs have been stable, today's labs have been reviewed, her white blood cell count is 8.6, hemoglobin is 7.7, sodium is 138, potassium is 4.4, chloride is 99, CO2 37, BUN of 29, creatinine 0.98 On the 04/07/2021 patient seen in follow-up on selective care unit, she is awake and alert, currently on 2-3 L of oxygen her pulse ox is 89-90%, she is afebrile. Breathing easier, blood pressure stable, no complaints of chest discomfort. She has been kept another 24 hours for IV diuretics. Her IV diuretics have been transitioned to oral Lasix 40 mg twice daily. She is -660 mL fluid balance over the last any 4 hours, generalized edema is improving, lower extremity edema is improving. Still has some residual lower extremity pedal and ankle edema. To day's labs have been reviewed, showing orbital, 7.8, hemoglobin of 7.8, CO2 is 40, the rest of electrolytes are within normal limits, BUN is 24, creatinine is 1.1 Objective - Vital Signs Vital signs: Vital Signs Temp 97.0 F L 04/07/21 08:00 Pulse 67 04/07/21 08:16 Resp 18 04/07/21 08:00 BP 139/68 04/07/21 08:00 Pulse Ox 89 L 04/07/21 08:00 Intake & Output 04/06/21 04/07/21 04/07/21 18:59 06:59 18:59 Intake Total 790 120 Output Total 1100 350 Balance -310 -350 120 Weight 123 kg Intake: IV 10 Invasive Line 3 10 Oral 780 120 Output: Urine 1100 350 Other: Voiding Method External Catheter Toilet Toilet Diaper Diaper - Exam GENERAL EXAM: Alert, very pleasant, 80-year-old white female, on 2 L of oxygen pulse ox 89-95%, had previously been on BiPAP support pressures of 12 and 6 and FiO2 of 40% comfortable in no apparent distress. HEAD: Normocephalic/atraumatic. EYES: Normal reaction of pupils, equal size. Conjunctiva pink, sclera white. NOSE: Clear with pink turbinates. THROAT: No erythema or exudates. NECK: No masses, no JVD, no thyroid enlargement, no adenopathy. CHEST: No chest wall deformity. Symmetrical expansion. LUNGS: Equal air entry with no crackles, wheeze, rhonchi or dullness. CVS: Regular rate and rhythm, normal S1 and S2, no gallops, no murmurs, no rubs ABDOMEN: Soft, nontender. No hepatosplenomegaly, normal bowel sounds, no guarding or rigidity. EXTREMITIES: No clubbing, 1-2+ edema in bilateral lower extremities, pedal and ankle edema bilaterally no cyanosis, 2+ pulses and upper and lower extremities. MUSCULOSKELETAL: Muscle strength and tone normal. SPINE: No scoliosis or deformity SKIN: No rashes CENTRAL NERVOUS SYSTEM: Alert and oriented -3. No focal deficits, tone is normal in all 4 extremities. PSYCHIATRIC: Alert and oriented -3. Appropriate affect. Intact judgment and insight. - Labs CBC & Chem 7: 04/07/21 07:23 04/07/21 07:23 Labs: Abnormal Lab Results - Last 24 Hours (Table) 04/07/21 04/07/21 Range/Units 07:23 07:23 RBC 3.66 L (3.80-5.40) m/uL Hgb 7.8 L (11.4-16.0) gm/dL Hct 26.8 L (34.0-46.0) % MCV 73.2 L (80.0-100.0) fL MCH 21.3 L (25.0-35.0) pg MCHC 29.1 L (31.0-37.0) g/dL RDW 18.3 H (11.5-15.5) % Carbon Dioxide 40 H (22-30) mmol/L BUN 24 H (7-17) mg/dL Creatinine 1.10 H (0.52-1.04) mg/dL Calcium 8.2 L (8.4-10.2) mg/dL Assessment and Plan Plan: Assessment: #1. acute exacerbation of chronic diastolic heart failure. The patient has hypertensive heart disease with concentric LVH, severe with a preserved LV functionand the patient is coming in with cardiomegaly, bilateral pleural effusion and interstitial edema and secondary respiratory failure. Currently on BiPAP at a pressure of 12/6 cm of water with an FiO2 of 40%. The patient has received diuretics and the patient is already improving and the patient is responding to diuretics. She is an emergency hold and she is going to go to telemetry unit. Her chest x-ray showing cardiomegaly and bilateral pleural effusion upon pulmonary vessel congestion. I do question her compliance to diuretics knowing that the patient had similar admissions on multiple occasions last seen by our services back in January 2021. #2. bilateral pleural effusion #3. chronic hypoxic respiratory failure maintained on oxygen on outpatient basis at 2 L #4. previous history of vent dependent respiratory failure and previous history of intubation mechanical ventilation for respiratory failure #5. morbid obesity with a BMI 55 , possibly has underlying obstructive sleep apnea #6. hypertension #7. hyperlipidemia #8. hypothyroidism #9 troponin leak without any acute ischemic EKG changes. The patient has old Q waves involving the inferior leads and a bundle-branch block pattern. Plan: Patient is doing well Breathing is improving DC IV Solu-Medrol She continues on oral diuretics, maintaining negative fluid balance Today's labs have been noted Lower extremity edema is improving, breathing is improving Stable for discharge home from pulmonary perspective No need for prednisone taper Patient will be going home on oral Lasix 40 mg twice daily, losartan, Coreg per cardiology recommendations I performed a history & physical examination of the patient and discussed their management with my nurse practitioner, Carolyn Borjas. I reviewed the nurse practitioner's note and agree with the documented findings and plan of care. Lung sounds are positive for diminished breath sounds. The findings and the impression was discussed with the patient. I attest to the documentation by the nurse practitioner. Time with Patient: Less than 30
--- NOTE | 2021-04-07 11:59 | P.PN ---
Subjective This is a 80-year-old female with a past medical history significant for congestive heart failure with preserved ejection fraction, hypertension, hyp erlipidemia, and obesity. Patient follows in the office with Dr. Bedoya. We have been asked to see the patient in consultation for congestive heart failure. BNP 4,970. Troponin 0.047. Most recent echocardiogram obtained in September 2020 reveals ejection fraction 55-60%, mild mitral regurgitation, and mild tricuspid regurgitation. 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 Some new area of acute ischemia along site of old infarct cannot be excluded. 01/10/2021- Cardiac cath revealed mild to moderate CAD including RCA 40% stenosis, OM 150-60% with iFR normal, and distal circumflex approximately 70% with iFR normal. Severely elevated left sided filing pressures 04/07/2021: Patient examined at the bedside. Appears comfortable, sittin up in bed. She states her breathing has improved and her lower extremity edema has improved. She is currently on 2L nasal cannula and appears to be in no acute distress. This is her baseline oxygen level at home. She denies chest pain or pressure. I/Os indicate 1.4L urine output over the past 24hours. Laboratory data: WBC 7.8, hemoglobin 7.8, platelets 212, sodium 138, potassium 4.2, serum creatinine 1.10 PHYSICAL EXAM: VITAL SIGNS: Reviewed. Blood pressure 130/68, heart rate 78 GENERAL: Well-developed in no acute distress. HEENT: Neck is supple. No JVD or thyromegaly LUNGS: Respirations even and unlabored. Lungs diminished bilaterally with fine bibasilar rales HEART: Regular rate and rhythm. S1 and S2 heard. Systolic murmur noted ABDOMEN: Soft. Nondistended. Nontender. EXTREMITIES: Normal range of motion. No clubbing or cyanosis. Peripheral pulses intact. moderate non-pitting bilateral lower extremity edema NEUROLOGIC: Awake and alert. Oriented x 3. ASSESSMENT: Acute exacerbation of chronic diastolic heart failure, EF 55-60% Elevated troponin- patient with chronically elevated troponin no indication for acute coronary syndrome. Acute Kidney Injury- resolved Hypertension Hyperlipidemia COPD Morbid obesity: BMI 50.1 PLAN: Lasix PO 40mg BID Continue aspirin, carvedilol 6.25mg BID, losartan 25mg daily Continue statin From cardiology perspective, patient can be discharged home Patient to follow up with Dr. Bedoya in the outpatient setting Nurse practitioner note has been reviewed by physician. Signing provider agrees with the documented findings, assessment, and plan of care. Objective - Vital Signs Vital signs: Vital Signs Temp 97.0 F L 04/07/21 08:00 Pulse 66 04/07/21 08:06 Resp 18 04/07/21 08:00 BP 139/68 04/07/21 08:00 Pulse Ox 89 L 04/07/21 08:00 Intake & Output 04/06/21 04/07/21 04/07/21 18:59 06:59 18:59 Intake Total 790 120 Output Total 1100 350 Balance -310 -350 120 Weight 123 kg Intake: IV 10 Invasive Line 3 10 Oral 780 120 Output: Urine 1100 350 Other: Voiding Method External Catheter Toilet Toilet Diaper Diaper - Labs CBC & Chem 7: 04/07/21 07:23 04/07/21 07:23 Labs: Abnormal Lab Results - Last 24 Hours (Table) 04/07/21 04/07/21 Range/Units 07:23 07:23 RBC 3.66 L (3.80-5.40) m/uL Hgb 7.8 L (11.4-16.0) gm/dL Hct 26.8 L (34.0-46.0) % MCV 73.2 L (80.0-100.0) fL MCH 21.3 L (25.0-35.0) pg MCHC 29.1 L (31.0-37.0) g/dL RDW 18.3 H (11.5-15.5) % Carbon Dioxide 40 H (22-30) mmol/L BUN 24 H (7-17) mg/dL Creatinine 1.10 H (0.52-1.04) mg/dL Calcium 8.2 L (8.4-10.2) mg/dL
[2021-04-07] MEDS ORDERED: FUROSEMIDE 40 MG TAB PO SCH (17:00)
== END 2021-04-07 12:40 | disposition home health service (06) | DRG 291 ==
LOC: EC 04:51 → 3SCARD 07:04
PROVIDERS: ADMIT Family Medicine; ATTEND Family Medicine
DX: I11.0 Hypertensive heart disease with heart failure (principal); J96.21 Acute and chronic respiratory failure with hypoxia; I47.1 Supraventricular tachycardia; I47.2 Ventricular tachycardia; J44.1 Chronic obstructive pulmonary disease with (acute) exacerbation; N17.9 Acute kidney failure, unspecified; Z68.43 Body mass index [BMI] 50.0-59.9, adult; E66.01 Morbid (severe) obesity due to excess calories; E78.5 Hyperlipidemia, unspecified; G47.33 Obstructive sleep apnea (adult) (pediatric); I25.10 Atherosclerotic heart disease of native coronary artery without angina pectoris; I42.0 Dilated cardiomyopathy; I50.33 Acute on chronic diastolic (congestive) heart failure; T50.2X5A Adverse effect of carbonic-anhydrase inhibitors, benzothiadiazides and other diuretics, initial encounter; Z20.822 Contact with and (suspected) exposure to COVID-19; Z79.4 Long term (current) use of insulin; D72.829 Elevated white blood cell count, unspecified; R77.8 Other specified abnormalities of plasma proteins; E03.9 Hypothyroidism, unspecified; Z79.890 Hormone replacement therapy; Z79.899 Other long term (current) drug therapy; Z82.5 Family history of asthma and other chronic lower respiratory diseases; Z87.891 Personal history of nicotine dependence; Z90.710 Acquired absence of both cervix and uterus; Z91.11 Patient's noncompliance with dietary regimen; Z91.19 Patient's noncompliance with other medical treatment and regimen; Z86.010 Personal history of colon polyps; Z99.81 Dependence on supplemental oxygen
CPT/HCPCS: 36415; 71045; 80048; 80053; 82550; 83605; 83735; 83880; 84100; 84484; 85025; 85027; 85610; 85730; 87635; 93005; 94640; 94660; 94760; 99285

== ENCOUNTER 2021-09-02 12:45 | Observation (INO) | payer MEDICARE ==
--- NOTE | 2021-09-02 13:11 | ED ---
General Adult HPI - General Chief complaint: Overdose Stated complaint: Overdose Time Seen by Provider: 09/02/21 12:47 Source: patient, RN/MD (Case discussed with hospice nurse), EMS, RN notes reviewed Mode of arrival: EMS Limitations: no limitations - History of Present Illness Initial comments: Patient is a pleasant 80-year-old female presenting to the emergency Department with complaint plaints of accidentally receiving her night medications. Patient received her morning medications and then following that gave also be the medications. Evening medications did include an extra dose of Ativan and Benadryl and melatonin. Patient feels fine at this time and has no complaints. Family has concerns that patient is drowsy. Patient denies any pain and does not feel confused. 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 - Related Data Home Medications Medication Instructions Recorded Confirmed Montelukast Sodium [Singulair] 10 mg PO HS 04/23/20 04/03/21 Timolol 0.5% Ophth Soln [Timoptic 1 drop BOTH EYES BID 04/23/20 04/03/21 0.5% Ophth Soln] Albuterol Nebulized [Ventolin 2.5 mg INHALATION RT-QID PRN 01/06/21 04/03/21 Nebulized] Brimonidine Tartrate [Alphagan P 1 drop BOTH EYES BID 01/06/21 04/03/21 0.2% Ophth Soln] Aspirin EC [Ecotrin Low Dose] 81 mg PO HS 01/31/21 04/03/21 Levothyroxine Sodium [Synthroid] 50 mcg PO DAILY 01/31/21 04/03/21 traMADol HCL [Ultram] 50 mg PO Q12H PRN 01/31/21 04/03/21 Mucinex 44 Dm 1 tab PO BID 04/03/21 04/03/21 Sertraline [Zoloft] 25 mg PO DAILY 04/03/21 04/03/21 Simethicone [Gas-X] 125 mg PO DAILY PRN 04/03/21 04/03/21 Previous Rx's Medication Instructions Recorded Pantoprazole [Protonix] 40 mg PO ANAIS-CARMEN #30 tablet. 01/12/21 Atorvastatin [Lipitor] 40 mg PO DAILY #30 tab 04/06/21 Losartan [Cozaar] 25 mg PO 1200 #30 tab 04/06/21 SILVER sulfADIAZINE Cream 1 applic TOPICAL DAILY applic 04/06/21 [Silvadene 1% Cream] carvediloL [Coreg] 6.25 mg PO BID-W/MEALS #60 tab 04/06/21 Furosemide [Lasix] 40 mg PO BID@0900,1600 tab 04/07/21 Allergies Allergy/AdvReac Type Severity Reaction Status Date / Time No Known Allergies Allergy Verified 09/02/21 13:01 Review of Systems ROS Statement: Those systems with pertinent positive or pertinent negative responses have been documented in the HPI. ROS Other: All systems not noted in ROS Statement are negative. Constitutional: Denies: fever Eyes: Denies: eye pain ENT: Denies: ear pain Respiratory: Denies: cough Cardiovascular: Denies: chest pain Endocrine: Denies: fatigue Gastrointestinal: Denies: abdominal pain Genitourinary: Denies: dysuria Musculoskeletal: Denies: back pain Skin: Denies: rash Neurological: Denies: headache Past Medical History Past Medical History: Chest Pain / Angina, Heart Failure, COPD, Hyperlipidemia, Hypertension, Thyroid Disorder Additional Past Medical History / Comment(s): Intubated in September, home O2 PRN Last Myocardial Infarction Date:: unknown History of Any Multi-Drug Resistant Organisms: None Reported Past Surgical History: Bowel Resection, Section, Hernia Repair, Hysterectomy Additional Past Surgical History / Comment(s): 01/10/21 cardiac cath/treated medically, bowel resection d/t fissures, colonoscopies/benign polypectomies, umbilical hernia repair Past Anesthesia/Blood Transfusion Reactions: No Reported Reaction Past Psychological History: No Psychological Hx Reported Smoking Status: Former smoker Past Alcohol Use History: None Reported Past Drug Use History: None Reported - Past Family History Mother Family Medical History: Dementia Father Family Medical History: COPD Additional Family Medical History / Comment(s): etoh General Exam Limitations: no limitations General appearance: in no apparent distress, other (Slightly drowsy but easily arouses to voice) Head exam: Present: normocephalic Eye exam: Present: normal appearance ENT exam: Present: normal oropharynx Neck exam: Present: normal inspection Respiratory exam: Present: normal lung sounds bilaterally Cardiovascular Exam: Present: regular rate, normal rhythm GI/Abdominal exam: Present: soft. Absent: tenderness Extremities exam: Present: normal inspection. Absent: calf tenderness Neurological exam: Present: alert. Absent: motor sensory deficit Expanded Neurological exam: Present: protecting the airway Patient oriented to: Present: person, place. 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 For screening AV block, [place] 222. QRS 116. QTC 460. QTC 463. Left axis. Low QRS voltage. Inferior Q waves. Lateral Q waves. No acute ST change. Medical Decision Making - Medical Decision Making Patient reevaluated and resting comfortably in bed however remains drowsy. Patient is still arousable. Family is concerned regarding potential discharge of patient would like to her to be admitted for psychiatric evaluation. They now questioning if patient took medications herself. Patient and family updated on results and plan. Case was discussed with Dr. Dodge, covering for Dr. Hudson, who will admit. - Lab Data Result diagrams: 09/02/21 13:22 09/02/21 13:22 Lab Results 09/02/21 09/02/21 Range/Units 13:22 13:22 WBC 5.9 (3.8-10.6) k/uL RBC 3.83 (3.80-5.40) m/uL Hgb 7.3 L (11.4-16.0) gm/dL Hct 26.7 L (34.0-46.0) % MCV 69.8 L (80.0-100.0) fL MCH 19.2 L (25.0-35.0) pg MCHC 27.5 L (31.0-37.0) g/dL RDW 21.5 H (11.5-15.5) % Plt Count 245 (150-450) k/uL MPV 8.1 Hypochromasia Marked Poikilocytosis Slight Anisocytosis Moderate Microcytosis Marked Sodium 139 (137-145) mmol/L Potassium 4.5 (3.5-5.1) mmol/L Chloride 100 (98-107) mmol/L Carbon Dioxide 32 H (22-30) mmol/L Anion Gap 7 mmol/L BUN 23 H (7-17) mg/dL Creatinine 1.23 H (0.52-1.04) mg/dL Est GFR (CKD-EPI)AfAm 48 (>60 ml/min/1.73 sqM) Est GFR (CKD-EPI)NonAf 41 (>60 ml/min/1.73 sqM) Glucose 95 (74-99) mg/dL Calcium 8.4 (8.4-10.2) mg/dL Total Bilirubin 0.6 (0.2-1.3) mg/dL AST 21 (14-36) U/L ALT 10 (4-34) U/L Alkaline Phosphatase 85 (38-126) U/L Total Protein 5.9 L (6.3-8.2) g/dL Albumin 3.2 L (3.5-5.0) g/dL Disposition Clinical Impression: Accidental drug overdose Disposition: ADMITTED IP TO THIS HOSP Is patient prescribed a controlled substance at d/c from ED?: No Referrals: Kody Hudson DO [Primary Care Provider] - 1-2 days Decision Time: 14:29
[2021-09-02 13:43] LABS: Albumin 3.2 g/dL (3.5-5.0); Calcium 8.4 mg/dL (8.4-10.2); Potassium 4.5 mmol/L (3.5-5.1); Total Bilirubin 0.6 mg/dL (0.2-1.3); Total Protein 5.9 g/dL (6.3-8.2)
[2021-09-02 13:52] LABS: Anisocytosis Moderate; HCT 26.7 % (34.0-46.0); HGB 7.3 gm/dL (11.4-16.0); Hypochromasia Marked; MCH 19.2 pg (25.0-35.0); MCHC 27.5 g/dL (31.0-37.0); MCV 69.8 fL (80.0-100.0); Mean Platelet Volume 8.1; Microcytosis Marked; Platelet Count 245 k/uL (150-450); Poikilocytosis Slight; RBC 3.83 m/uL (3.80-5.40); RDW 21.5 % (11.5-15.5); WBC 5.9 k/uL (3.8-10.6)
[2021-09-02] MEDS ORDERED: NALOXONE 0.4 MG/ML 1 ML VIAL IV PRN (14:29)
[2021-09-02 14:55] LABS: Basophils # (M) 0.06 k/uL (0-0.2); Lymphocytes # (M) 1.36 k/uL (1.0-4.8); Monocytes # (M) 0.35 k/uL (0-1.0); Myelocytes # (M) 0.06 k/uL (0); Myelocytes % 1 %; Neutrophils # (M) 3.89 k/uL (1.3-7.7); Neutrophils % (M) 66 %; Nucleated Red Blood Cells 0 /100 WBC (0-0); Total Cells Counted 200
--- NOTE | 2021-09-02 16:53 | P.HPIM ---
History of Present Illness H&P Date: 09/02/21 Chief Complaint: Altered mental status 80-year-old female presenting to the emergency Department with complaint plaints of accidentally receiving her night medications. Patient received her morning medications and then following that gave also be the medications. E vening medications did include an extra dose of Ativan and Benadryl and melatonin. Patient feels fine at this time and has no complaints. Family has concerns that patient is drowsy. Patient denies any pain and does not feel confused. 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 Objective decided to bring patient to ED and is requesting consultation with psychiatry for possible depression and overdose Lab review shows WBC 5.9, hemoglobin 7.3, hematocrit 26.7 and platelet count 45; sodium 139, BUN/creatinine of 23/1.2 EKG Findings:: Sinus bradycardia with a rate of 59. For screening AV block, [place] 222. QRS 116. QTC 460. QTC 463. Left axis. Low QRS voltage. Inferior Q waves. Lateral Q waves. No acute ST change. Review of Systems ROS unobtainable: due to mental status Past Medical History Past Medical History: Chest Pain / Angina, Heart Failure, COPD, Hyperlipidemia, Hypertension, Thyroid Disorder Additional Past Medical History / Comment(s): Intubated in September, home O2 PRN Last Myocardial Infarction Date:: unknown History of Any Multi-Drug Resistant Organisms: None Reported Past Surgical History: Bowel Resection, Section, Hernia Repair, Hyste rectomy Additional Past Surgical History / Comment(s): 01/10/21 cardiac cath/treated medically, bowel resection d/t fissures, colonoscopies/benign polypectomies, umbilical hernia repair Past Anesthesia/Blood Transfusion Reactions: No Reported Reaction Past Psychological History: No Psychological Hx Reported Smoking Status: Former smoker Past Alcohol Use History: None Reported Past Drug Use History: None Reported - Past Family History Mother Family Medical History: Dementia Father Family Medical History: COPD Additional Family Medical History / Comment(s): etoh Medications and Allergies Home Medications Medication Instructions Recorded Confirmed Type Montelukast Sodium [Singulair] 10 mg PO HS 04/23/20 09/02/21 History Pantoprazole [Protonix] 40 mg PO POLOKFST #30 tablet. 01/12/21 09/02/21 Rx Aspirin EC [Ecotrin Low Dose] 81 mg PO HS 01/31/21 09/02/21 History Levothyroxine Sodium [Synthroid] 50 mcg PO DAILY 01/31/21 09/02/21 History traMADol HCL [Ultram] 50 mg PO Q12H PRN 01/31/21 09/02/21 History Sertraline [Zoloft] 25 mg PO DAILY 04/03/21 09/02/21 History Atorvastatin [Lipitor] 40 mg PO DAILY #30 tab 04/06/21 09/02/21 Rx Furosemide [Lasix] 40 mg PO BID@0900,1600 tab 04/07/21 09/02/21 Rx LORazepam [Ativan] 1 mg PO Q8H 09/02/21 09/02/21 History Losartan [Cozaar] 25 mg PO DAILY 09/02/21 09/02/21 History Melatonin 3 mg PO HS 09/02/21 09/02/21 History carvediloL [Coreg] 3.125 mg PO BID 09/02/21 09/02/21 History diphenhydrAMINE HCL 25 mg PO HS 09/02/21 09/02/21 History Allergies Allergy/AdvReac Type Severity Reaction Status Date / Time No Known Allergies Allergy Verified 09/02/21 15:55 Physical Exam Vitals: Vital Signs Temp Pulse Pulse Resp BP Pulse Ox 09/02/21 14:12 54 L 09/02/21 13:54 60 16 125/79 95 09/02/21 12:58 98.0 F 61 15 135/77 94 L Intake and Output 09/02/21 09/02/21 09/02/21 06:59 14:59 22:59 Other: Weight 90.718 kg 1. Accidental overdose versus polypharmacy/altered mental status; we will hold all home medications to mental status improved; consult psychiatry 2. Acute renal injury/dehydration; slow IV fluid hydration with normal saline at a rate of 75 mL an hour; we will monitor strict SHADIA's, daily weights, renal function and electrolytes; avoid nephrotoxins 3. Coronary artery disease/CHF; not in exacerbation 4. COPD; not in exacerbation; continue with home inhaler therapy 5. Hyperlipidemia; patient takes Lipitor 40 mg daily; we will continue to hold till mental status improved 6. Hypertension; patient takes Cozaar 25 mg daily and Coreg 6.25 mg twice a day; oral medications will be placed on hold 7. Hypothyroidism; continue to hold levothyroxine for next 24 hours to mental status improves DVT prophylaxis; SCDs CODE STATUS; full code Results CBC & Chem 7: 09/02/21 13:22 09/02/21 13:22 Labs: Abnormal Lab Results - Last 24 Hours (Table) 09/02/21 09/02/21 Range/Units 13:22 13:22 Hgb 7.3 L (11.4-16.0) gm/dL Hct 26.7 L (34.0-46.0) % MCV 69.8 L (80.0-100.0) fL MCH 19.2 L (25.0-35.0) pg MCHC 27.5 L (31.0-37.0) g/dL RDW 21.5 H (11.5-15.5) % Myelocytes # (Manual) 0.06 H (0) k/uL Carbon Dioxide 32 H (22-30) mmol/L BUN 23 H (7-17) mg/dL Creatinine 1.23 H (0.52-1.04) mg/dL Total Protein 5.9 L (6.3-8.2) g/dL Albumin 3.2 L (3.5-5.0) g/dL
[2021-09-03 09:37] LABS: African American GFR (CKD) 44.6 (60.0-200.0); Anion Gap 10.4 mmol/L (4.00-12.00); BUN/Creat Ratio 15.08 Ratio (12.00-20.00); Blood Urea Nitrogen 19.6 mg/dL (9.0-27.0); Calcium 8.1 mg/dL (8.7-10.3); Carbon Dioxide 28.2 mmol/L (21.6-31.8); Non-African American GFR(CKD) 38.4 (60.0-200.0); Potassium 4.6 mmol/L (3.5-5.5)
[2021-09-03 10:33] LABS: Basophils # (A) 0.04 X 10*3/uL (0.00-0.10); Basophils % (A) 0.7 %; Eosinophils # (A) 0.18 X 10*3/uL (0.04-0.35); Eosinophils % (A) 3.1 %; Lymphocytes # (A) 1.07 X 10*3/uL (0.90-5.00); Lymphocytes % (A) 18.1 %; Monocytes % (A) 10.2 %; Neutrophils # (A) 3.98 X 10*3/uL (1.80-7.70); Neutrophils % (A) 67.4 %
[2021-09-03 10:34] LABS: HCT 26.2 % (37.2-46.3); HGB 6.6 g/dL (12.0-15.0); Hypochromasia (M) 2+; MCH 18.2 pg (27.0-32.0); MCHC 25.2 g/dL (32.0-37.0); MCV 72.4 fL (80.0-97.0); Mean Platelet Volume 9.8 fL (9.5-12.2); Microcytosis (M) 2+; Platelet Count 182 X 10*3/uL (140-440); RBC 3.62 X 10*6/uL (4.10-5.20); RDW 24.3 % (11.5-14.5); Schistocytes 1+
--- NOTE | 2021-09-03 15:17 | CONS ---
CONSULTATION DATE OF SERVICE: 09/03/2021. PURPOSE FOR CONSULTATION: Evaluate for depression and altered mental status. HISTORY OF PRESENTING ILLNESS: The patient is an 80-year-old female. She lives with her . On the day leading up to her hospitalization she had taken extra medications, including an extra dose of Ativan. Family had concern because of sedation. In addition to the extra dose of Ativan in the evening, she also had received Benadryl and melatonin. It has been assumed that the extra medications the patient took was an accidental overdose as opposed to intentional. From the patient's standpoint, she says she has been struggling with depression. A main issue for her is a number of different medical problems that she has. She said that in the last 7 year she has had 7 hospitalizations and that it has been very difficult to live with the conditions that she has been dealing with. She notes that she and her had moved down to [place] some years ago to take care of the 's mother, who ultimately . She and her moved back to [place] about two years ago. She says that she has acknowledged difficulty with her mood though does feel that the move back to [place] has been at least one positive for her. She was vague about whether she has had specific treatment for depression in the past. It is noteworthy that current psychotropic medications that she is on include Zoloft 25 mg a day, Ativan 1 mg every 8 hours, and Benadryl 25 mg at bedtime. In addition, she takes melatonin 3 mg at bedtime and receives Ultram 50 mg twice a day as needed. She has a number of general health conditions, including cardiovascular disease, COPD, hyperlipidemia, hypertension and hypothyroidism. Thyroid levels drawn on May 02 were in the normal range, including free T4 and TSH. She is followed by Dr. Hudson for primary care. When I talked to the patient about depression issues, she acknowledged that she has struggled with depression, with her main focus being on the difficulty she has with her health conditions. She said that she has thoughts on and off about suicide because "I am sick of living the way I have to." She indicated that she does not have the intention or plan to harm herself. She did not have any impulses in that direction at present. She said that the taking of extra medications was accidental and not at all in an effort to overdose. In regard to other psychiatric symptoms, I asked her about hallucinations and delusions. I noted that the patient made some vague statements, though then seemed to end up saying that she talks to voices or people that are in her head, though it is not clear that she actually experiences auditory hallucinations of people talking to her or her hearing voices or noises. She seemed to indicate that she does experience some kind of hallucinations in regard to this sense about the people in her head. She acknowledges she has a moderate amount of anxiety. She says she has been sleeping fair, appetite is fair. She did not clearly identify panic symptoms. The best I was able to tell in the interview, she has been taking Ativan on a regular basis, though she could not be clear that she was actually taking 1 mg three times a day, which shows up in her home medication. MENTAL STATUS EXAM: Patient was lying in bed. When I walked into the room she had her eyes closed, but she opened them as soon as I said her name. She seemed to be fairly well awake and kept her eyes open through the interview. She tended to speak in a somewhat soft voice. Mostly she would respond to questions with brief answers. She was not really spontaneous or interactive. Her thoughts were clear and coherent. She responded appropriately to the questions. Her affect was blunted. Her mood was reserved. She did not appear to be significantly distressed. She did make a suggestion that she may have auditory hallucinations. She acknowledged that she has thoughts of suicide, though without any impulse, intention or plan at the present. On cognitive exam she did not make an effort to answer formal cognitive questions. She was oriented to day, date, and her being in the hospital. She seemed to have a reasonable understanding in regard to treatment issues. ASSESSMENT/RECOMMENDATIONS: This 80-year-old female is diagnosed with major depression. She apparently has been taking Zoloft 25 mg a day. At this point I will restart Zoloft 25 mg a day. It is noteworthy that the patient is prescribed Ativan 1 mg three times a day. She has been held off the Ativan due to having taken additional doses of Ativan, apparently by mistake. My recommendation would be to taper her off of Ativan altogether when she is reasonably clear. In terms especially of issues of sedation, it would be reasonable to start her on Ativan 0.5 mg twice a day. I would consider continuing that dose for 3 to 4 days, then reduce to 0.5 mg a day for 3 or 4 days, and then stop Ativan altogether. She will need to be restarted on Ativan primarily to avoid risk of seizure for abrupt discontinuation from her apparent daily 3 mg dosage. In regard to depression issues, I would also have consideration for her to move away from opioid pain medications, which over time are likely to also aggravate depression as well as negatively impact cognition and potentially be a contributor to impulsive behavior and put her at risk for falls. It may be appropriate to titrate up on her Zoloft, though a more immediate issue would be tapering Ativan, which may lead to some withdrawal symptoms over the next few weeks. I will recommend that we have a psychiatric followup to assess her progress. LUIS / AARON: [id number] / DAVID
[2021-09-03] MEDS: SERTRALINE 25 MG TAB PO SCH (17:21)
--- NOTE | 2021-09-03 21:45 | P.PN ---
Subjective Progress Note Date: 09/03/21 80-year-old female presenting to the emergency Department with complaint plaints of accidentally receiving her night medications. Patient received her morning medications and then following that gave also be the medications. Evening medications did include an extra dose of Ativan and Benadryl and melatonin. Patient feels fine at this time and has no complaints. Family has concerns that patient is drowsy. Patient denies any pain and does not feel confused. 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 Objective decided to bring patient to ED and is requesting consultation with psychiatry for possible depression and overdose Lab review shows WBC 5.9, hemoglobin 7.3, hematocrit 26.7 and platelet count 45; sodium 139, BUN/creatinine of 23/1.2 EKG Findings:: Sinus bradycardia with a rate of 59. For screening AV block, HI 222. QRS 116. QTC 460. QTC 463. Left axis. Low QRS voltage. Inferior Q waves. Lateral Q waves. No acute ST change. 09/03/21 Patient is seen and evaluated Patient is sitting up in bed. Patient is awake, alert, and oriented. No complaints of chest pain or shortness of breath. Vital signs are normal Labs are reviewed which reveal a hemoglobin of 6.6 Patient remains on hospice ; transfusion was discussed with patient's daughter, Millie, who agreed to the transfusion Patient received 1 unit PRBCs No plan to repeat further blood work since patient is going to stay with hospice. Objective - Vital Signs Vital signs: Vital Signs Temp 97.7 F 09/03/21 07:00 Pulse 56 L 09/03/21 07:00 Resp 16 09/03/21 08:00 BP 123/70 09/03/21 07:00 Pulse Ox 99 09/03/21 08:24 Intake & Output 09/02/21 09/03/21 09/03/21 18:59 06:59 18:59 Output Total 800 240 Balance -800 -240 Weight 90.718 kg Output: Urine 800 240 Other: Voiding Method External Catheter External Catheter External Catheter - Labs CBC & Chem 7: 09/03/21 06:15 09/03/21 06:15 Labs: Abnormal Lab Results - Last 24 Hours (Table) 09/03/21 09/03/21 Range/Units 06:15 06:15 RBC 3.62 L (4.10-5.20) X 10*6/uL Hgb 6.6 L* (12.0-15.0) g/dL Hct 26.2 L (37.2-46.3) % MCV 72.4 L (80.0-97.0) fL MCH 18.2 L (27.0-32.0) pg MCHC 25.2 L (32.0-37.0) g/dL RDW 24.3 H (11.5-14.5) % Absolute Nucleated RBC 0.03 H (0.00-0.00) X 10*3/uL NRBC/100 WBC Diff 0.5 H (0.0-0.0) /100 WBCS Est GFR (CKD-EPI)AfAm 44.6 L (60.0-200.0) Est GFR (CKD-EPI)NonAf 38.4 L (60.0-200.0) Calcium 8.1 L (8.7-10.3) mg/dL
[2021-09-04] MEDS: SERTRALINE 25 MG TAB PO SCH (07:26)
--- NOTE | 2021-09-04 13:54 | P.PN ---
Progress Note - Text Progress Note Date: 09/04/21 Interval History: Patient was seen today for psychiatric follow-up regarding patient's depression. Patient apparently had taken an extra dose of her Ativan at home. She was endorsing depressive content/issues with Dr. Rose who seen her over the weekend. Patient was speaking on the phone however was able to speak to group underwriter today. She was sitting on the chair at the side of her bed. She had several questions about her discharge. She spoke briefly about why she came into the hospital and events that occurred. She rambled at times however was fairly logical. She claims that she was feeling mildly depressed before coming in the hospital however denied the extra dose of Ativan to be a suicide attempt. She states that she was having difficulties managing her medications at home. She claims that she is not having any anxiety. She states that she is not sleeping well at nighttime and was agreeable to take Remeron tonight. At this time patient denies any suicidal or homical ideations, intent or plan. Patient denies any auditory, visual hallucinations and denies any paranoia or delusions. Patient denies any side effects from the medications and has been compliant with meds. Mental Status Exam: General Appearance: Patient appears to be awake, elderly stated age is alert, d irectable, and cooperative. Behavior: Patient is calmly seated without any agitated behavior. Cooperative Speech: Patient's speech is fluent and nonpressured. Rambles Mood/Affect: Mood is improving mildly, affect is congruent Suicidality/Homicidality: Patient denies having any suicidal or homicidal ideation intent or plan. Perceptions: Patient denies any visual hallucinations and denies any auditory hallucinations Though content/process: Logical. Rambles at times. Focused on discharge. Memory and concentration: AOX3, grossly intact for the purposes of this session Judgment and insight: Limited, Improving mildly Assessment Major depressive disorder, mild Plan: -At this time patient DOES NOT meet criteria for inpatient psychiatric admission. -Delirium precautions recommended with patient including - avoiding use of narcotics and HEAVY FORGER sedatives, limit anticholinergic medications when possible, frequent re-orientation, minimize use of restraints, open window shades during the day and close them at night -Would recommend the following medication changes/additions: Patient should not be restarted back on Ativan or other benzodiazepines at this time. Continue with Zoloft 25 mg daily for mood/anxiety and this can be increased in one to 2 weeks to 50 mg if needed. Added Remeron 15 mg daily at bedtime for insomnia/mood/appetite. -Patient is likely going to be placed at ECF after discharge from the hospital. Advised the importance of patient receiving the help to take her medications in a supervised setting. -Communicated plan to patient's nurse -Psychiatry will sign off at this time -Please contact with any questions.
--- NOTE | 2021-09-04 16:39 | P.DS ---
Providers Date of admission: 09/02/21 14:40 Expected date of discharge: 09/04/21 Attending physician: Kody Hudson Consults: 09/02/21 14:31 Consult Physician Routine Consulting Provider: Xavier Rose Consult Reason/Comments: possible intentional overdose/depression Do you want consulting provider notified?: Yes Primary care physician: Kody Hudson Hospital Course: Final Diagnoses: Accidental overdose versus polypharmacy/altered mental status Acute renal injury/dehydration Depression Coronary artery disease/CHF,chronic COPD; not in exacerbation Hyperlipidemia Hypertension Hypothyroidism Hospital course:this is a 80-year-old female admitted with accidental overdose, altered mental status, depression, acute renal failure, CAD and multiple other medical issues. Evaluated by psychiatry with recommendations noted and appreciated, including med adjustment.hydrated on gentle IV fluid hydration. Significant clinical improvement. Patient will resume with [facility] and will discharge to [facility] hospice respite care today in a stable condition with guarded prognosis. The impression and plan of care has been dictated as directed. .: I performed a history and examination of this patient, discussed the same with the dictator. I agree with the dictator's note ,documented as a scribe. Any additional findings or plans will be noted. Patient Condition at Discharge: Stable Plan - Discharge Summary New Discharge Prescriptions: New Mirtazapine [Remeron] 15 mg PO HS #30 tab Continue Montelukast Sodium [Singulair] 10 mg PO HS Pantoprazole [Protonix] 40 mg PO AC-BRKFST #30 tablet. Levothyroxine Sodium [Synthroid] 50 mcg PO DAILY Aspirin EC [Ecotrin Low Dose] 81 mg PO HS Sertraline [Zoloft] 25 mg PO DAILY Furosemide [Lasix] 40 mg PO BID@0900,1600 tab Losartan [Cozaar] 25 mg PO DAILY carvediloL [Coreg] 3.125 mg PO BID Melatonin 3 mg PO HS traMADol HCL [Ultram] 50 mg PO Q12H PRN PRN Reason: Pain Atorvastatin [Lipitor] 40 mg PO DAILY #30 tab diphenhydrAMINE HCL 25 mg PO HS Discontinued LORazepam [Ativan] 1 mg PO Q8H Discharge Medication List Montelukast Sodium [Singulair] 10 mg PO HS 04/23/20 [History] Pantoprazole [Protonix] 40 mg PO AC-BRKFST #30 tablet. 01/12/21 [Rx] Aspirin EC [Ecotrin Low Dose] 81 mg PO HS 01/31/21 [History] Levothyroxine Sodium [Synthroid] 50 mcg PO DAILY 01/31/21 [History] traMADol HCL [Ultram] 50 mg PO Q12H PRN 01/31/21 [History] Sertraline [Zoloft] 25 mg PO DAILY 04/03/21 [History] Atorvastatin [Lipitor] 40 mg PO DAILY #30 tab 04/06/21 [Rx] Furosemide [Lasix] 40 mg PO BID@0900,1600 tab 04/07/21 [Rx] Losartan [Cozaar] 25 mg PO DAILY 09/02/21 [History] Melatonin 3 mg PO HS 09/02/21 [History] carvediloL [Coreg] 3.125 mg PO BID 09/02/21 [History] diphenhydrAMINE HCL 25 mg PO HS 09/02/21 [History] Mirtazapine [Remeron] 15 mg PO HS #30 tab 09/04/21 [Rx] Follow up Appointment(s)/Referral(s): Kody Hudson DO [Primary Care Provider] - As Needed Activity/Diet/Wound Care/Special Instructions: [facility] to resume
[2021-09-04] MEDS ORDERED: MIRTAZAPINE 15 MG TAB PO SCH (21:00)
[2021-09-05] MEDS: SERTRALINE 25 MG TAB PO SCH (08:32)
[2021-09-05 14:16] VITALS: BP 172/83; PULSE 84; RESP 20; TEMP 98.5
== END 2021-09-05 18:17 ==
LOC: EC 12:45 → 6NMEDSUR 14:40
PROVIDERS: ADMIT Family Medicine; ATTEND Family Medicine
DX: T50.991A Poisoning by other drugs, medicaments and biological substances, accidental (unintentional), initial encounter (principal); N17.9 Acute kidney failure, unspecified; E86.0 Dehydration; Z20.822 Contact with and (suspected) exposure to COVID-19; F32.9 Major depressive disorder, single episode, unspecified; I11.0 Hypertensive heart disease with heart failure; I50.9 Heart failure, unspecified; J44.9 Chronic obstructive pulmonary disease, unspecified; E78.5 Hyperlipidemia, unspecified; E03.9 Hypothyroidism, unspecified; E10.9 Type 1 diabetes mellitus without complications; I25.10 Atherosclerotic heart disease of native coronary artery without angina pectoris; I44.30 Unspecified atrioventricular block; F41.9 Anxiety disorder, unspecified; Y92.9 Unspecified place or not applicable; Z90.49 Acquired absence of other specified parts of digestive tract; Z86.010 Personal history of colon polyps; Z98.891 History of uterine scar from previous surgery; Z87.891 Personal history of nicotine dependence; Z90.710 Acquired absence of both cervix and uterus; Z79.890 Hormone replacement therapy; Z79.4 Long term (current) use of insulin; Z79.899 Other long term (current) drug therapy; Z51.5 Encounter for palliative care; Z82.5 Family history of asthma and other chronic lower respiratory diseases
CPT/HCPCS: 99285; 36415; 94760; 93005; 86900; 86901; 80053; 80048; 84443; 85025 ×2; 86850; 86920; 87635; G0378 ×4; P9016